=== PATIENT | male | born 1975 | race Caucasian/White ===

== ENCOUNTER 2024-09-13 12:09 | Inpatient (IN) | payer OTHER, BC, SELFPAY ==
[2024-09-13 12:10] VITALS: BP 136/90; PULSE 88; RESP 16; TEMP 36.7; O2SAT 98
--- NOTE | 2024-09-13 12:12 | ECG_ITS ---
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
--- NOTE | 2024-09-13 12:12 | CTR_ITS ---
PROCEDURE INFORMATION: Exam: CT Head Without Contrast Exam date and time: 09/13/2024 1:35 PM Age: 49 years old Clinical indication: Injury or trauma; Fall; Blunt trauma (contusions or hematomas); Additional info: Fall, head injury TECHNIQUE: Imaging protocol: Computed tomography of the head without contrast. Radiation optimization: All CT scans at this facility use at least one of these dose optimization techniques: automated exposure control; mA and/or kV adjustment per patient size (includes targeted exams where dose is matched to clinical indication); or iterative reconstruction. COMPARISON: No relevant prior studies available. RADIATION DOSE METRICS: Total DLP (mGy-cm): 2552.43 FINDINGS: Brain: Normal. No hemorrhage. Unremarkable white matter. No mass effect. Cerebral ventricles: No ventriculomegaly. Paranasal sinuses: Mild mucosal thickening of the left maxillary sinus. Mastoid air cells: Visualized mastoid air cells are well aerated. Bones: Unremarkable. No acute fracture. Soft tissues: Unremarkable. CT/CT head wo con* [id number] IMPRESSION: No acute findings.
--- NOTE | 2024-09-13 12:20 | ED.C_ITS ---
HPI - Psych 2 General: Chief Complaint: Psychiatric Symptoms Stated Complaint: MHE Time Seen by Provider: 09/13/24 12:10 History of Present Illness: 49-year-old [facility]ation. He is quite agitated. Police report that friends had to take a noose off of them twice and when they arrived he was on a second story balcony about the jump. He has had previous suicide attempts according police. He has an abrasion on his forehead apparently from resisting arrest. Related Data Allergies Allergy/AdvReac Type Severity Reaction Status Date / Time Penicillins Allergy Unknown Unknown Verified 09/13/24 13:24 Review of Systems 2 General: Reports: ROS unobtainable due to mental status Physical Exam 2 Narrative: EXAM NARRATIVE: General: Alert, no acute distress. Skin: Warm, dry. Head: Normocephalic, abrasion to forehead. Neck: Supple, trachea midline. Eye: Extraocular movements are intact. Ears, nose, mouth and throat: mucosa moist. Cardiovascular: Regular, Normal peripheral perfusion. Respiratory: Lungs are clear to auscultation, respirations are non-labored, breath sounds are equal, Symmetrical chest wall expansion. Gastrointestinal: Soft, Nontender, Non distended Musculoskeletal: Normal ROM, no deformity. Neurological: Alert and oriented, No focal neurological deficit observed. Psychiatric: Patient is quite agitated. Course 2 Vital Signs: Vital signs: Vital Signs Temperature 98.1 F 09/13/24 12:10 Pulse Rate 88 09/13/24 12:10 Respiratory Rate 16 09/13/24 12:10 Blood Pressure 136/90 09/13/24 12:10 Pulse Oximetry 98 09/13/24 12:10 Oxygen Delivery Me thod Room Air 09/13/24 12:10 MDM - Psych Medical Decision Making Differential diagnosis: Patient with reported depression and suicidal ideation. concerns for infection, alcohol intoxication, cardiac issues or other medical problems prior to psychiatric admission. Workup: labwork, ekg ordered to evaluate the pathologies and to clear the patient medically prior to psychiatric admission EKG: Time 1444. Rate 67. Normal sinus rhythm, No ST-T changes, no ectopy, normal MO & QRS intervals, This was reviewed and interpreted by myself the ER physician at 1448 CT head: No acute intracranial process. no intracranial hemorrhage, no evidence of infarct. no evidence of acute fracture.This was reviewed and interpreted by myself the ER physician. Lab Review: Laboratory results were reviewed and interpreted by myself the emergency room physician. Lab review: - Medically cleared. - EKG shows no ischemic changes. - Blood alcohol level is negative, -Tylenol and salicylate levels are negative. ?Urine drug screen and urinalysis are pending - No anemia. - BUN and creatinine are within normal limits. Consultation: Spoke with Dr. Mcgraw who is on-call for psychiatry who agrees to admission Assessment and plan: Suicidal ideation Agitation ?Patient received IM Geodon and Ativan in the emergency room -Admission to neuropsychiatric unit for continued evaluation and treatment. - All lab work was reviewed and interpreted personally by myself, the ER physician - Evaluation and treatment of this problem were appropriate in the emergency setting Lab Data 09/13/24 12:48 09/13/24 12:[address] 09/13/24 12:12 IMPRESSION: No acute findings. Laboratory Results WBC 9.68 10^3/uL (3.29-11.43) 09/13/24 12:48 RBC 4.67 10^6/uL (3.85-5.65) 09/13/24 12:48 Hgb 16.10 g/dL (11.27-16.99) 09/13/24 12:48 Hct 45.1 % (37-53) 09/13/24 12:48 MCV 96.6 fl (82-101) 09/13/24 12:48 MCH 34.5 pg (27-33) H 09/13/24 12:48 MCHC 35.7 g/dL (30-55) 09/13/24 12:48 RDW 12.2 % (12.1-15.1) 09/13/24 12:48 Plt Count 223 10^3/cmm (157-399) 09/13/24 12:48 MPV 9.3 fL (7.4-10.4) 09/13/24 12:48 Neut % (Auto) 81.0 % 09/13/24 12:48 Lymph % (Auto) 10.1 % 09/13/24 12:48 [place] % (Auto) 7.2 % 09/13/24 12:48 Eos % (Auto) 0.8 % 09/13/24 12:48 Baso % (Auto) 0.5 % 09/13/24 12:48 Neut # (Auto) 7.83 10^3/uL (1.8-7.7) H 09/13/24 12:48 Lymph # (Auto) 1.0 10^3/uL (0.8-4.8) 09/13/24 12:48 [place]ult[place] # (Auto) 0.7 10^3/uL (0.2-0.9) 09/13/24 12:48 Eos # (Auto) 0.1 10^3/uL (0.0-0.8) 09/13/24 12:48 Baso # (Auto) 0.1 10^3/uL (0.0-0.1) 09/13/24 12:48 Nucleated RBC % (auto) 0 % 09/13/24 12:48 Nucleated RBCs # 0.0 /100WBC 09/13/24 12:48 Sodium 140 mmol/L (136-145) 09/13/24 12:48 Potassium 4.1 mmol/L (3.5-5.1) 09/13/24 12:48 Chloride 107 mmol/L (98-107) 09/13/24 12:48 Carbon Dioxide 23 mmol/L (22-29) 09/13/24 12:48 Anion Gap 14.1 (5-19) 09/13/24 12:48 BUN 20 mg/dL (6-20) 09/13/24 12:48 Creatinine 0.8 mg/dL (0.7-1.2) 09/13/24 12:48 GFR Calculation 103.2 mL/min (90-130) 09/13/24 12:48 Glucose 124 mg/dL (65-115) H 09/13/24 12:48 Calculated Osmolality 294 mOsm/kg (285-295) 09/13/24 12:48 Calcium 8.6 mg/dL (8.5-10.5) 09/13/24 12:48 Total Bilirubin 1.1 mg/dL (0.15-1.2) 09/13/24 12:48 AST 22 U/L (0-40) 09/13/24 12:48 ALT 21 U/L (0-41) 09/13/24 12:48 Alkaline Phosphatase 85 U/L (40-130) 09/13/24 12:48 Total Protein 7.4 g/dL (6.6-8.7) 09/13/24 12:48 Albumin 4.5 g/dL (3.5-5.2) 09/13/24 12:48 Globulin 2.9 g/dL (1.3-4.6) 09/13/24 12:48 TSH 0.60 uIU/mL (0.27-4.20) 09/13/24 12:48 Salicylates < 0.3 mg/dL (3-10) L 09/13/24 12:48 Acetaminophen < 5.0 ug/mL (10-30) L 09/13/24 12:48 Ethyl Alcohol < 10 mg/dL (0-10) 09/13/24 12:48 All radiology interpretation(s) finalized by discharge Discharge Plan Discharge Patient Disposition: Admitted As Inpatient Admit Provider: Akshat Mcgraw Clinical Impression: Suicidal ideation Condition: Stable Coding Level of Care Code ED Inside Barrel Polisher for Jose Handy
[2024-09-13 12:56] LABS: Basophils # 0.1 10^3/uL (0.0-0.1); Basophils % 0.5 %; Eosinophils # 0.1 10^3/uL (0.0-0.8); Eosinophils % 0.8 %; Hematocrit 45.1 % (37-53); Lymphocytes % 10.1 %; Mean Corpuscular HGB Conc 35.7 g/dL (30-55); Mean Corpuscular Hemoglobin 34.5 pg (27-33); Mean Corpuscular Volume 96.6 fl (82-101); Mean Platelet Volume 9.3 fL (7.4-10.4); Monocytes # 0.7 10^3/uL (0.2-0.9); Monocytes % 7.2 %; Neutrophils # 7.83 10^3/uL (1.8-7.7); Nucleated Red Blood Cells % 0 %; Platelet Count 223 10^3/cmm (157-399); Red Blood Count 4.67 10^6/uL (3.85-5.65); Red Cell Distribution Width 12.2 % (12.1-15.1); White Blood Count 9.68 10^3/uL (3.29-11.43)
[2024-09-13 13:20] LABS: Alanine Aminotransferase 21 U/L (0-41); Albumin Level 4.5 g/dL (3.5-5.2); Alkaline Phosphatase 85 U/L (40-130); Anion Gap 14.1 (5-19); Aspartate Amino Transferase 22 U/L (0-40); Blood Urea Nitrogen 20 mg/dL (6-20); Calcium 8.6 mg/dL (8.5-10.5); Carbon Dioxide 23 mmol/L (22-29); Chloride 107 mmol/L (98-107); Globulin 2.9 g/dL (1.3-4.6); Glomerular Filtration Rate 103.2 mL/min (90-130); Glucose 124 mg/dL (65-115); Osmolality Calculated 294 mOsm/kg (285-295); Potassium 4.1 mmol/L (3.5-5.1); Sodium 140 mmol/L (136-145); Total Bilirubin 1.1 mg/dL (0.15-1.2); Total Protein 7.4 g/dL (6.6-8.7)
[2024-09-13] MEDS: ziprasidone 20 mg/mL SDV IM (13:25)
[2024-09-13] MEDS: water for injection-sterile 10 ML 1.2 ML (13:27)
[2024-09-13] MEDS: LORazepam 2 mg/mL INJ 1 mL IM (13:27)
[2024-09-13 13:34] LABS: Salicylate < 0.3 mg/dL (3-10)
[2024-09-13 13:35] LABS: Acetaminophen < 5.0 ug/mL (10-30); Alcohol Level < 10 mg/dL (0-10)
[2024-09-13 15:33] VITALS: BP 121/85; PULSE 78; RESP 16; TEMP 36.7; O2SAT 98
[2024-09-13 15:59] LABS: Glucose Point of Care 74 mg/dL (70-110)
--- NOTE | 2024-09-13 16:12 | PC.NURSE ---
Patient given geodon IM and ativan IM in the ER before arriving to NPU. When patient arrived to the unit he appeared very groggy and was delayed in speech. He was A&O x 4. Patient does have bruising and swelling to his right forehead, bilateral wrists, bilateral hands, his right cheek, and scratched on bilateral shins. He states this is from the police tackling him and putting him in handcuffs on gravel. It was reported he had a rope around his neck and was planning to hang himself from the second story of his home when they arrived. When asked what had led him to feel like doing this he replied, they wanted me to do something I didn't want to be forced to do. When asked what the something was he said, fishing. However, later in the assessment when asked what his hobbies are he listed fishing as one of them. He does endorse a suicide attempt 2 weeks ago via hanging and he was hospitalized at [facility]. Patient denies any history of abuse, avh, legal problems, or current si/hi. Patient did disclose that his dad killed himself approximately 4-5 years ago. Although patient told this RN he didn't have any medical issues, per his medication history it appears he is a diabetic. Due to the patient's delay in speech and him appearing confused his blood sugar was taken and read at 74. He was given apple juice.
--- NOTE | 2024-09-13 17:01 | PC.NURSE ---
This RN contacted the patient's , who is on his HIPAA form, to verify his home medications. She confirmed all names, directions, dosages, and routes of each medication in the MAR. She also stated his effexor 150mg daily and zoloft 100mg daily had been discontinued. She said 1 week and 3 days ago he was released from the hospital in [place], [place] for suicidal actions as well. She says that he was also recently at [facility]. The states that [facility] doctors diagnosed him with major depression, while [facility] diagnosed him with bipolar disorder. She says his suicidal actions/thoughts became apparent in 2019 when his father . Then she said he began having issues again after their son played his last ballgame. She reports he hung himself in their bathroom 3 weeks ago and she had to have their 13 year old daughter help her and began CPR once the ligature was removed.
[2024-09-13] MEDS: hyDROXYzine 25 mg Capsule 50 MG PO (20:45)
[2024-09-13] MEDS: mirtazapine 15 mg Tablet 30 MG PO (20:45)
[2024-09-13] MEDS: quetiapine 100 mg Tablet 400 MG PO (20:45)
[2024-09-13 21:12] VITALS: BP 132/94; PULSE 71; RESP 16; TEMP 36.7; O2SAT 99
[2024-09-13 21:26] LABS: Glucose Point of Care 96 mg/dL (70-110)
[2024-09-13 21:27] VITALS: BP 132/94; PULSE 71; RESP 16; TEMP 36.7; O2SAT 99
[2024-09-14 06:00] VITALS: BP 129/85; PULSE 103; RESP 18; TEMP 36.7; O2SAT 98
[2024-09-14 07:49] LABS: Glucose Point of Care 140 mg/dL (70-110)
--- NOTE | 2024-09-14 07:57 | P.NPUHP_ITS ---
Providers/Chief Complaint 2 Admitting Physician: Akshat Mcgraw MD Chief Complaint: MHE HPI NPU History of Present Illness Solitario Jerez is a 49 year old male who presented to the emergency department with the following report: Chief Complaint: Psychiatric Symptoms Stated Complaint: MHE Time Seen by Provider: 09/13/24 12:10 History of Present Illness: 49-year-old male who presents to the emergency room with police for suicidal ideation. He is quite agitated. Police report that friends had to take a noose off of them twice and when they arrived he was on a second story balcony about the jump. He has had previous suicide attempts according police. He has an abrasion on his forehead apparently from resisting arrest. He was admitted to the neuropsychiatric unit for definitive treatment of those issues. He is unknown to inpatient or outpatient psychiatry at [facility]. He presented today denying substance use concerns but still not giving a UDS for objective information. He presented today reporting: Chief complaint The patient was recently hospitalized due to panic and anxiety. The primary struggle is with major depression, characterized by low mood, feelings of helplessness, hopelessness, worthlessness, poor sleep, and low energy. There are times when the patient feels like not wanting to be around. History of the present complaint The patient reported being recently hospitalized due to panic and anxiety, marking this as their third or fourth hospitalization. They have been on psychiatric medication, specifically Viibryd, which was recently prescribed during their last hospital stay about a week or two ago. The patient was unsure of the exact dosage of the medication and who prescribed it. The patient's primary struggle is with major depression, characterized by low mood, feelings of helplessness, hopelessness, worthlessness, poor sleep, and low energy. There are times when the patient feels like they do not want to be around. They have attempted suicide once in the past by trying to hang themselves. In addition to depression, the patient also suffers from anxiety, which manifests as constant worrying. They also experience panic attacks, characterized by physical symptoms such as hyperventilation. However, they denied experiencing paranoia, hearing voices, seeing things, having nightmares or flashbacks, or engaging in self-injurious behavior such as cutting or burning themselves. The patient denied any addiction issues, including smoking cigarettes, using alcohol, cannabis, or other drugs such as cocaine or methadone. They have not had any charges related to addiction. The patient's mood at the time of the consultation was not specified. They denied having any current thoughts of self-harm or harming others, and did not report feeling like people were out to get them or following them. They also denied hearing or seeing things. Regarding the effectiveness of their current medication, the patient was unsure if the Viibryd was working. They had been on it for an unspecified amount of time, but were unsure if they were on the 40mg dose. They had been on this medication before and had stopped it at some point. The patient also mentioned being on another medication, but could not recall what it was. The patient reported a lack of appetite. They did not mention any other symptoms, triggers, risk factors, functional or emotional impairments, challenges or obstacles, important events or traumas, thoughts, beliefs, feelings, aspirations, fears, dreams, nightmares, or previous treatments, interventions, and therapies. Mental health history The patient has been hospitalized three or four times in their life. They have been on various psychiatric medications, including Viibryd. The patient has a history of suicide attempt by hanging. There is no history of self-injurious behavior like cutting or burning. The patient also struggles with anxiety, characterized by constant worry and occasional panic attacks. There is no history of paranoia, hallucinations, or obsessive-compulsive behaviors. Social history The patient does not smoke cigarettes, consume alcohol, or use any drugs, including cannabis, cocaine, and methadone. There is no history of addiction or charges related to addiction. The patient has been once and has three children with their ex-spouse. The patient identifies as heterosexual. The longest job held was at a different [employer]. The patient lives in a house and has never been to halfway or had any major legal problems. The patient has a high school education and has a certificate in [employer]. Meds NPU Home Medications Medication Instructions Recorded Confirmed Last Taken Type alfuzosin 10 mg tablet,extended 10 mg PO DAILY 09/13/24 09/13/24 Unknown History release 24 hr dapagliflozin propanediol 5 mg 5 mg PO DAILY 09/13/24 09/13/24 Unknown History tablet (Farxiga) dulaglutide 0.75 mg/0.5 mL 0.75 mg SUBCUT Q7D 09/13/24 09/13/24 Unknown History subcutaneous pen injector (Trulicity) lisinopril 20 mg tablet 20 mg PO DAILY 09/13/24 09/13/24 Unknown History lisinopril 20 20 - 25 tab PO DAILY 09/13/24 09/13/24 Unknown History mg-hydrochlorothiazide 25 mg tablet lorazepam 0.5 mg tablet 0.5 mg PO BID PRN Anxiety 09/13/24 09/13/24 Unknown History mirtazapine 15 mg tablet 30 mg PO BEDTIME 09/13/24 09/13/24 Unknown History pramipexole 0.25 mg tablet 0.25 mg PO DAILY 09/13/24 09/13/24 Unknown History quetiapine 200 mg tablet 400 mg PO BEDTIME 09/13/24 09/13/24 Unknown History sertraline 100 mg tablet 100 mg PO DAILY 09/13/24 09/13/24 Unknown History tamsulosin 0.4 mg capsule 0.4 mg PO DAILY 09/13/24 09/13/24 Unknown History venlafaxine 150 mg 150 mg PO DAILY 09/13/24 09/13/24 Unknown History capsule,extended release 24 hr vilazodone 20 mg tablet 20 mg PO DAILY 09/13/24 09/13/24 Unknown History zolpidem 12.5 mg tablet,extended 12.5 mg PO BEDTIME 09/13/24 09/13/24 Unknown History release,multiphase Allergies Allergy/AdvReac Type Severity Reaction Status Date / Time Penicillins Allergy Unknown Unknown Verified 09/13/24 13:24 PFSH NPU 2 PFSH: Medical History (Updated 09/15/24 @ 06:27 by Akshat Mcgraw MD) Depression Type 2 diabetes mellitus Hypertension Family History (Updated 09/13/24 @ 16:02 by Gill Arias RN) Father Suicide Mental Status Exam 2 MSE Comments: This is an overweight white male in hospital scrubs with adequate grooming and eye contact. Notable abrasions over right side of forehead and cheek around right occipital area. No abnormal movements except for psychomotor retardation.?He was cooperative with exam in mild to moderate distress.? Speech was decreased rate and volume.? Mood described as as blah, his affect was subdued. Thought process was linear. Thought content: Patient endorsed fleeting suicidal thoughts and denied homicidal ideation, but did endorse having it actual suicide attempt in the previous week. There were no delusions reported or but some paranoia noted, he denied auditory or visual hallucinations. The patient's mood was okay during the consultation. There were no current thoughts of self-harm or harm to others. There were no signs of paranoia or hallucinations. The patient's appetite was reported to be low. Attention and concentration were adequate and memory was mostly reliable but none were formally tested.? He is alert and oriented x to person and place.? Insight was poor and judgment is impaired. Impulse control is poor. Vitals/I&O/Wt Last Vital Signs Temp 98.0 F 09/14/24 06:00 Pulse 103 H 09/14/24 06:00 Resp 18 09/14/24 06:00 BP 129/85 09/14/24 06:00 Pulse Ox 98 09/14/24 06:00 O2 Del Method Room Air 09/13/24 15:34 09/13/24 09/14/24 09/14/24 22:59 06:59 14:59 Intake Total Balance Weight last 48 hrs Weight 87.906 kg Weight 86.183 kg Data NPU 09/14/24 11:27 09/14/24 11:27 A&P Assessment and plan (1) Suicidal ideation: (2) Type 2 diabetes mellitus: (3) Hypertension: (4) Major depressive disorder, recurrent: (5) Bereavement: (6) BROCK (generalized anxiety disorder): Plan This is a 49-year-old white male with limited past psychiatric history but recent bereavement and suicide attempt.The patient has a history of major depression and anxiety, with a recent hospitalization due to panic attacks. The patient is currently on psychiatric medication, including Viibryd, but the efficacy of the medication is uncertain. The patient has a history of suicide attempt but no current suicidal ideation. The patient's mood was stable during the consultation. 1. Restart medications. Family to bring in current medications and there are few that are not on formulary. 2. Continue to-15 minute checks, 3.? Encourage individual, group and milieu therapy. 4.? Encourage sober living treatment after discharge at the highest level of care to which he is willing to commit.? Obtain UDS. 5. Will attempt to gather collateral information. Involuntary Hold Information 2 96 Hour Hold: 96 Hour Involuntary Admission: Yes 96 Hour Hold Ending Date: 09/19/24 96 Hour Hold Ending Time: 00:01 Attestations NPU 2 Medical Necessity Statement*: Inpatient hospitalization is medically necessary and deemed to ?be ?the clinically appropriate intervention ?at this time.? We will monitor/initiate medications and make changes as indicated.? The patient will be in the hospital for over 2 midnights.? The patient?s likely length of stay 5-7 days. Coding Level of Care Code Acute Code for Chg Fwd Diagnoses Suicidal ideation R45.851 Type 2 diabetes mellitus E11.9 Hypertension I10 Major depressive disorder, recurrent F33.9 Bereavement Z63.4 BROCK (generalized anxiety disorder) F41.1
--- NOTE | 2024-09-14 09:02 | PC.NURSE ---
Patient's brother called and requested that he be taken off of all of his mind altering medications . He said he thinks Solitario needs to be taken off of all his medications and needs to rely on Jason to help him. He also mentioned that he would like a tick panel be done to make sure he didn't have lyme disease.
--- NOTE | 2024-09-14 09:07 | PC.NURSE ---
Contacted patient's who is going to bring in his non-formulary medications when she comes to visit him today.
[2024-09-14] MEDS: OLANZapine 5 mg ODT PO (09:46)
--- NOTE | 2024-09-14 09:49 | PC.NURSE ---
Patient refused to take morning medications, stating that he does not typically take them. Patient pacing around his room, appears anxious. This nurse offered medication for this. Patient willing to take something. Patient has abrasion on forehead. Patient denies any pain. Ibuprofen offered for future pain. Understanding verbalized. Patient denies need for nicotine products. Patient says he no longer feels suicidal but that he did feel like hurting himself last week. Patient endorses anxiety and depression. Denies AVH. Administered zyprexa 5mg ODT for anxiety.
--- NOTE | 2024-09-14 11:09 | P.CONIM_ITS ---
Providers/Reason For Consult 2 Consulting Physician/Specialty*: Dr. Cox/internal medicine Reason for Consult*: History of diabetes mellitus Attending Physician: Akshat Mcgraw MD History of Present Illness History of Present Illness Solitario Jerez is a 49 year old male with past medical history of depression, BPH, hypertension, type 2 diabetes mellitus on Trulicity was admitted to Neuropsych Unit with concerns for suicidal ideation and attempt. Medicine was consulted for management of diabetes. It seems patient takes Farxiga and Trulicity at home. Patient seen and Neuropsych Unit with family at bedside. As per the patient is not taking Farxiga for a long time. She does not believe patient has even taken Trulicity in over a month. Patient is not sure for how long he has not taken his medications. Takes lisinopril and hydrochlorothiazide combination for high blood pressure. Review of Systems 2 General: Reports: 10 or more systems reviewed and unremarkable except in HPI and below Const: Denies: fever(s), chills, body aches, change in appetite, change in weight, malaise, night sweats, diaphoresis, change in sleep pattern, daytime sleepiness or snoring Eyes: Denies: change in vision, blurry vision, photophobia, eye discomfort or eye discharge ENMT: Denies: throat pain, enlarged tonsils, hoarseness, mouth pain, oral sores, dry mouth, tinnitus, nasal congestion or post nasal drip Card: Denies: chest pain, palpitations, irregular heart rhythm, edema, swelling of feet/ankles, lightheadedness, syncope, pre-syncope, dyspnea on exertion, orthopnea, leg pain with exertion or acrocyanosis Resp: Denies: dyspnea, productive cough, non-productive cough, wheezing, stridor, pain on inspiration, change in phlegm color, hemoptysis or chest congestion GI: Denies: abdominal pain, nausea, vomiting, hematemesis, coffee ground emesis, dysphagia, heartburn, diarrhea, constipation, bloating, GI cramping, change in bowel habits, pain on defecation, hematochezia or melena : Denies: flank pain, difficulty urinating, dysuria, urinary frequency, urinary urgency, urinary hesitancy, urinary dribbling, difficulty starting urination, change in urine stream, nocturia or hematuria Musc: Denies: neck pain, back pain, extremity pain, joint pain, joint swelling, joint redness, joint stiffness or limited range of motion Neuro: Denies: headache(s), numbness in extremities, weakness in extremities, sensory changes, lack of coordination, difficulty walking, frequent falls, dizziness, vertigo, confusion, Slurred speech present, difficulty communicating thoughts or seizure-like activity Psych: Denies: anxiety, depression, mood swings, panic attacks, hopelessness or irritability Endo: Denies: polyuria, polydipsia, tired all the time, cold intolerance, excessive sweating, flushing or heat intolerance Jesús/Lymph: Denies: easy bruising or easy bleeding All/Imm: Denies: tongue swelling, facial swelling or acute wheezing Medications/Allergies Home Medications Medication Instructions Recorded Confirmed Last Taken Type alfuzosin 10 mg tablet,extended 10 mg PO DAILY 09/13/24 09/13/24 Unknown History release 24 hr dapagliflozin propanediol 5 mg 5 mg PO DAILY 09/13/24 09/13/24 Unknown History tablet (Farxiga) dulaglutide 0.75 mg/0.5 mL 0.75 mg SUBCUT Q7D 09/13/24 09/13/24 Unknown History subcutaneous pen injector (Trulicity) lisinopril 20 mg tablet 20 mg PO DAILY 09/13/24 09/13/24 Unknown History lisinopril 20 20 - 25 tab PO DAILY 09/13/24 09/13/24 Unknown History mg-hydrochlorothiazide 25 mg tablet lorazepam 0.5 mg tablet 0.5 mg PO BID PRN Anxiety 09/13/24 09/13/24 Unknown History mirtazapine 15 mg tablet 30 mg PO BEDTIME 09/13/24 09/13/24 Unknown History pramipexole 0.25 mg tablet 0.25 mg PO DAILY 09/13/24 09/13/24 Unknown History quetiapine 200 mg tablet 400 mg PO BEDTIME 09/13/24 09/13/24 Unknown History sertraline 100 mg tablet 100 mg PO DAILY 09/13/24 09/13/24 Unknown History tamsulosin 0.4 mg capsule 0.4 mg PO DAILY 09/13/24 09/13/24 Unknown History venlafaxine 150 mg 150 mg PO DAILY 09/13/24 09/13/24 Unknown History capsule,extended release 24 hr vilazodone 20 mg tablet 20 mg PO DAILY 09/13/24 09/13/24 Unknown History zolpidem 12.5 mg tablet,extended 12.5 mg PO BEDTIME 09/13/24 09/13/24 Unknown History release,multiphase Allergies Allergy/AdvReac Type Severity Reaction Status Date / Time Penicillins Allergy Unknown Unknown Verified 09/13/24 13:24 Current Medications Generic Name Dose Route Start Last Admin Trade Name Freq PRN Reason Stop Dose Admin Alfuzosin HCl 10 mg 09/14/24 09:00 09/14/24 10:21 Alfuzosin 10 Mg Er Tablet PO Not Given DAILY MAXIME Hydrochlorothiazide 25 mg 09/14/24 09:00 09/14/24 10:21 Hydrochlorothiazide 25 Mg Tablet PO Not Given DAILY MAXIME Hydroxyzine Pamoate 50 mg 09/13/24 15:33 09/13/24 20:45 Hydroxyzine 25 Mg Capsule PO 50 mg Q6H PRN Administration ANXIETY Lisinopril 20 mg 09/14/24 09:00 09/14/24 10:21 Lisinopril 20 Mg Tablet PO Not Given DAILY MAXIME Mirtazapine 30 mg 09/13/24 21:00 09/13/24 20:45 Mirtazapine 15 Mg Tablet PO 30 mg BEDTIME MAXIME Administration Olanzapine 5 mg 09/13/24 15:33 09/14/24 09:46 Olanzapine 5 Mg Odt PO 5 mg Q4H PRN Administration Agitation/Psychosis Pramipexole Dihydrochloride 0.25 mg 09/14/24 09:00 09/14/24 10:21 Pramipexole 0.25 Mg Tablet PO Not Given DAILY MAXIME Quetiapine Fumarate 400 mg 09/13/24 21:00 09/13/24 20:45 Quetiapine 100 Mg Tablet PO 400 mg BEDTIME MAXIME Administration Sertraline HCl 100 mg 09/14/24 09:00 09/14/24 10:21 Sertraline 100 Mg Tablet PO Not Given DAILY MAXIME Tamsulosin HCl 0.4 mg 09/14/24 09:00 09/14/24 10:21 Tamsulosin 0.4 Mg Capsule PO Not Given DAILY MAXIME PFSH Acute 2 PFSH: Medical History (Updated 09/14/24 @ 13:45 by Feliciano Cox MD) Depression Type 2 diabetes mellitus Hypertension Family History (Updated 09/13/24 @ 16:02 by Gill Arias RN) Father Suicide Vitals/I&O/Wt Last Vital Signs Temp 98.0 F 09/14/24 06:00 Pulse 103 H 09/14/24 06:00 Resp 18 09/14/24 06:00 BP 129/85 09/14/24 06:00 Pulse Ox 98 09/14/24 06:00 O2 Del Method Room Air 09/13/24 15:34 09/13/24 09/14/24 09/14/24 22:59 06:59 14:59 Intake Total Balance Weight last 48 hrs Weight 87.906 kg Weight 86.183 kg Physical Exam 2 Narrative: General: No acute distress, AO x3 HEENT: PERRLA, pupils bilaterally equal and reactive Chest: Normal vesicular breath sounds, no added sounds, equal good air entry bilaterally CVS: S1-S2 regular, no murmurs, no tachycardia, no gallops, no rubs Abdomen: Soft, nontender, no organomegaly, bowel sounds present Neuro: No focal deficits, no facial deformity, AO x3, power 5/5 in all limbs Data 09/14/24 11:27 09/14/24 11:27 A&P Assessment and plan (1) Type 2 diabetes mellitus: A1c checked today and found to be 5.5. Since patient takes Farxiga and Trulicity at home. A1c fairly well-controlled. For now can hold off on home dose of medications. Start on insulin sliding scale. It seems patient has not taken his antidiabetic medications for a while. A1c found to be 5.5. Most likely patient can be discharged off oral hypoglycemic with advised to follow-up with PCP within next 3 months for a repeat A1c. If A1c remains normal most likely can hold off on using antiglide diabetic medications. (2) Hypertension: Goal blood pressure less than 140/90 mmHg. For now continue with home dose of medications. Uptitrate as per goal blood pressures. (3) Depression: (4) Suicidal ideation: As per primary team. Plan Appreciate TSH, check A1c, iron panel, vitamin B12, folate level, lipid panel. Thank you for involving us in care of Mr. Jerez. Please call back with any questions. Consult Attestations 2 Medical Necessity Statement: As per primary team. Diagnoses Type 2 diabetes mellitus E11.9 Hypertension I10 Depression F32.A Suicidal ideation R45.852
[2024-09-14 11:36] LABS: Basophils % 0.4 %; Eosinophils % 0.3 %; Hematocrit 45.2 % (37-53); Lymphocytes # 1.3 10^3/uL (0.8-4.8); Lymphocytes % 13.9 %; Mean Corpuscular HGB Conc 35.4 g/dL (30-55); Mean Corpuscular Hemoglobin 33.6 pg (27-33); Mean Platelet Volume 9.4 fL (7.4-10.4); Monocytes # 0.7 10^3/uL (0.2-0.9); Monocytes % 7.2 %; Neutrophils # 7.51 10^3/uL (1.8-7.7); Neutrophils % 77.8 %; Nucleated Red Blood Cells % 0 %; Platelet Count 251 10^3/cmm (157-399); Red Blood Count 4.76 10^6/uL (3.85-5.65); Red Cell Distribution Width 12.2 % (12.1-15.1); White Blood Count 9.66 10^3/uL (3.29-11.43)
[2024-09-14 11:38] LABS: Glucose Point of Care 93 mg/dL (70-110)
[2024-09-14 11:54] LABS: Estmated Average Glucose 111; Hemoglobin A1C 5.5 % (4.0-6.0)
[2024-09-14 11:55] LABS: Alanine Aminotransferase 23 U/L (0-41); Albumin Level 4.6 g/dL (3.5-5.2); Alkaline Phosphatase 75 U/L (40-130); Anion Gap 16.2 (5-19); Aspartate Amino Transferase 25 U/L (0-40); Blood Urea Nitrogen 16 mg/dL (6-20); Calcium 8.7 mg/dL (8.5-10.5); Carbon Dioxide 22 mmol/L (22-29); Chloride 110 mmol/L (98-107); Creatinine Clr Calc Pharmacy 112.1071; Globulin 2.5 g/dL (1.3-4.6); Glomerular Filtration Rate 90.1 mL/min (90-130); Glucose 101 mg/dL (65-115); Iron 55 ug/dL (59-158); Osmolality Calculated 299 mOsm/kg (285-295); Percent Saturation 26.9 % (20-50); Potassium 4.2 mmol/L (3.5-5.1); Sodium 144 mmol/L (136-145); Total Bilirubin 1.9 mg/dL (0.15-1.2); Total Iron Binding Capacity 204 mcg/dl; Total Protein 7.1 g/dL (6.6-8.7); Unsaturated Iron Binding 149 ug/dL (112-347)
[2024-09-14 12:10] LABS: Vitamin B12 454 pg/mL (232-1245)
[2024-09-14 14:00] VITALS: BP 136/81; PULSE 83; RESP 16; TEMP 36.4; O2SAT 95
--- NOTE | 2024-09-14 15:20 | PC.NURSE ---
Zolpidem and vilazodone not given last night or this morning due to it being a non-formulary medication. Patient's brought in both medications at 1500. Medications to be given going forward per doctor ananth order.
[2024-09-14 17:07] LABS: Glucose Point of Care 98 mg/dL (70-110)
[2024-09-14] MEDS: haloperidol 5 mg Tablet PO (18:12)
--- NOTE | 2024-09-14 18:13 | PC.NURSE ---
Haldol Patient agreeable after about 1 hour to take something for anxiety. This nurse administered haldol 5mg PO. Patient stated that vistaril doesn't help and that he didn't notice much difference after taking zyprexa. Patient is concerned about medications making him sleepy as he does not want to sleep. Patient up pacing around his room throughout this shift.
[2024-09-14 20:14] VITALS: BP 144/95; PULSE 82; RESP 18; TEMP 36.6; O2SAT 95
[2024-09-14] MEDS: mirtazapine 15 mg Tablet 30 MG PO (20:25)
[2024-09-14] MEDS: quetiapine 100 mg Tablet 400 MG PO (20:25)
[2024-09-14 20:32] LABS: Glucose Point of Care 91 mg/dL (70-110)
[2024-09-15 06:00] VITALS: BP 128/81; PULSE 93; RESP 17; O2SAT 96
[2024-09-15 08:00] LABS: Glucose Point of Care 96 mg/dL (70-110)
[2024-09-15] MEDS: lisinopril 20 mg Tablet PO (08:20)
--- NOTE | 2024-09-15 08:32 | PC.NURSE ---
Patient guarded during morning assessment. Patient denies suicidal thoughts. This nurse attempted to understand what caused his previous suicide attempt, but patient was not forth coming. Patient says that he does not have any anxiety or depression. Patient educated that staff is here to help. Patient verbalized understanding. Patient refused all morning meds except two, stating that he does not normally take the others.
[2024-09-15 10:13] LABS: Folate Level 11.3 ng/mL (4.5-32.2)
[2024-09-15 12:00] LABS: Glucose Point of Care 106 mg/dL (70-110)
--- NOTE | 2024-09-15 12:40 | PC.NURSE ---
PTS BROTHER ALEXANDRE SHAIKH CALLED TO SPEAK TO PT. THIS RN INFORMED PT THAT HIS BROTHER WAS ON THE PHONE AND ASKED IF HE WANTED TO SPEAK TO HIM AND PUT HIM ON HIS PRIVACY FORM. PT STATED YOU CAN TELL HIM I AM HERE BUT I DON'T WANT TO TALK TO NO ONE AND I DON'T WANT TO VISIT NO ONE. INFORMATION RELAYED TO BROTHER AND HE STATES WELL IF I COME UP THERE YOU WILL LET ME GO IN AND SEE HIM RIGHT. PTS BROTHER WAS EDUCATED THAT IF THE PT DID NOT WANT TO SEE HIM OR SPEAK TO HIM THEN WE WOULD NOT ALLOW HIM TO VISIT PER THE PTS REQUEST OR SPEAK TO HIM ON THE PHONE. PTS RIGHTS AND REQUESTS ARE HONORED SO IT WOULD BE UP TO THE PT. NO FURTHER INFORMATION OR QUESTIONS WERE ANSWERED.
[2024-09-15 14:00] VITALS: BP 136/88; PULSE 79; RESP 16; TEMP 36.8; O2SAT 97
--- NOTE | 2024-09-15 15:01 | P.NPUPN_ITS ---
Subjective NPU 2 Subjective: 49-year-old male with history of major d epressive disorder recurrent without psychotic features admitted with worsening depression over the past 4 months. The patient had reported having been hospitalized 2 times in the last 2 weeks with an attempt to hang himself less than 2 weeks ago. The patient had continued to report feeling depressed and stated that he wanted this to be all over. He had endorsed significant mental anguish. He had isolated himself on the milieu. He had reported a previous good response to a vilazadone but was uncertain about the dose but did report remission from depression with this medication. The patient had reported that he had not yet started psychotherapy and he had previously been working. Mental Status Exam 2 MSE Comments: This is an overweight white male in hospital scrubs with adequate grooming and eye contact. Notable abrasions over right side of forehead and cheek around right occipital area. No abnormal movements except for signifcant psychomotor retardation.?He was cooperative with exam in mild to moderate distress.? Speech was decreased in rate and diminished in volume. ? Mood described as as depressed. His affect was restricted in range and mood congruent. Thought process was linear. Thought content: Patient endorsed fleeting suicidal thoughts and denied homicidal ideation, but did endorse having it actual suicide attempt in the previous week. There were no delusions reported or but some paranoia noted, he denied auditory or visual hallucinations. There were no current thoughts of self-harm or harm to others. There were no signs of paranoia or hallucinations. The patient's appetite was reported to be low. Attention and concentration were adequate and memory was mostly reliable but none were formally tested.? He is alert and oriented x to person and place.? Insight was poor and judgment is impaired. Impulse control is poor. Vitals/I&O/Wt Last Vital Signs Temp 98.2 F 09/15/24 14:00 Pulse 79 09/15/24 14:00 Resp 16 09/15/24 14:00 BP 136/88 09/15/24 14:00 Pulse Ox 97 09/15/24 14:00 O2 Del Method Room Air 09/15/24 14:00 Weight last 48 hrs Weight 87.906 kg Weight 86.183 kg Data NPU 09/14/24 11:27 09/14/24 11:27 A&P Assessment and plan (1) Suicidal ideation: (2) Type 2 diabetes mellitus: (3) Hypertension: (4) Major depressive disorder, recurrent: (5) Bereavement: (6) BROCK (generalized anxiety disorder): Plan This is a 49-year-old white male with limited past psychiatric history but recent bereavement and suicide attempt.The patient has a history of major depression and anxiety, with a recent hospitalization due to panic attacks. The patient is currently on psychiatric medication, including Viibryd, but the efficacy of the medication is uncertain. The patient has a history of suicide attempt but no current suicidal ideation. The patient's mood was stable during the consultation. 1. Continue Viibryd, discontinue Zoloft, discontinue Effexor. Restart Viibryd with increase to 40mg likely. 2. Continue to-15 minute checks, 3.? Encourage individual, group and milieu therapy. 4.? Encourage sober living treatment after discharge at the highest level of care to which he is willing to commit.? Obtain UDS. 5. Will attempt to gather collateral information. Involuntary Hold Information 2 96 Hour Hold: 96 Hour Involuntary Admission: Yes 96 Hour Hold Ending Date: 09/19/24 96 Hour Hold Ending Time: 00:01 Attestations NPU 2 Medical Necessity Statement*: Inpatient hospitalization is medically necessary and deemed to ?be ?the clinically appropriate intervention ?at this time.? We will monitor/initiate medications and make changes as indicated.? ? The patient?s likely length of stay 5-7 days. Coding Level of Care Code Acute Code for [facility] Fwd Diagnoses Suicidal ideation R45.851 Type 2 diabetes mellitus E11.9 Hypertension I10 Major depressive disorder, recurrent F33.9 Bereavement Z63.4 BROCK (generalized anxiety disorder) F41.1
[2024-09-15 17:01] LABS: Glucose Point of Care 112 mg/dL (70-110)
[2024-09-15 19:28] VITALS: BP 113/73; PULSE 76; RESP 16; TEMP 36.6; O2SAT 95
[2024-09-15 20:01] LABS: Glucose Point of Care 86 mg/dL (70-110)
[2024-09-15] MEDS: quetiapine 100 mg Tablet 400 MG PO (20:12)
[2024-09-15] MEDS: mirtazapine 15 mg Tablet 30 MG PO (20:12)
[2024-09-15] MEDS: acetaminophen 325 mg Tablet 650 MG PO (21:14)
[2024-09-16 06:00] VITALS: BP 122/84; PULSE 86; RESP 18; TEMP 36.9; O2SAT 97
[2024-09-16 06:57] LABS: Bilirubin Urine Negative (Negative); Blood Urine Negative (Negative); Glucose Urine UA Negative (Normal); Ketones Urine Negative (Negative); Leukocyte Esterase Urine Negative (Negative); Nitrate Urine Negative (Negative); Protein Urine Negative (Negative); Specific Gravity, Urine 1.026 (1.005-1.030); Urine Appearance Cloudy (CLEAR); Urine Color Yellow (Yellow); pH Urine 6.5 (5-7)
[2024-09-16 07:02] LABS: Bacteria Urine None Seen /hpf; Squamous Epithelial Cell Urine 0-5 /hpf (0-5); WBC Urine 0-5 /hpf (0-5)
[2024-09-16 07:12] LABS: Amphetamines Screen Urine Negative (Negative); Barbiturates Screen Urine Negative (Negative); Benzodiazepines Screen Urine Positive (Negative); Cocaine Screen Urine Negative (Negative); Opiate Screen Urine Negative (Negative); PCP Screen Urine Negative (Negative); THC Screen Urine Negative (Negative)
[2024-09-16 07:28] LABS: Glucose Point of Care 140 mg/dL (70-110)
[2024-09-16 07:35] LABS: Add Urine Culture? No; Calcium Oxalate Crystals Urine 25-40 /hpf
[2024-09-16] MEDS: lisinopril 20 mg Tablet PO (08:28)
[2024-09-16] MEDS: pramipexole 0.25 mg Tablet PO (08:28)
[2024-09-16] MEDS: tamsulosin 0.4 mg Capsule PO (08:28)
[2024-09-16] MEDS: hydroCHLOROthiazide 25 mg Tablet PO (08:28)
[2024-09-16] MEDS: alfuzosin 10 mg ER Tablet PO (08:28)
[2024-09-16] MEDS: OLANZapine 5 mg ODT PO ×2 (08:31→13:13)
--- NOTE | 2024-09-16 09:32 | PC.NURSE ---
Patient denies si/hi and avh. However, patient was found with a broken spoon in his room and in his hand. Patient was asked about this, but said it was not done to hurt himself and that he was just needing something to do with his hands. Staff confiscated the broken pieces and flipped his room, including changing his linens and going through his trash bag with gloves. Patient was also checked for any other contraband and another small piece of plastic was obtained. It was decided that he should be moved to bed 151 to have his bed in front of the nurses' station for easier observation. No patient harm occurred. Patient did voice several times that he did not want to be moved and became tearful. Staff explained to him that he was not being punished, but that we were concerned for his welfare. Eventually patient was agreeable to switch rooms.
[2024-09-16] MEDS: haloperidol 5 mg Tablet PO (09:54)
[2024-09-16 11:37] LABS: Glucose Point of Care 130 mg/dL (70-110)
[2024-09-16 14:00] VITALS: BP 118/77; PULSE 84; RESP 17; TEMP 36.6; O2SAT 96
[2024-09-16 16:41] LABS: Glucose Point of Care 100 mg/dL (70-110)
--- NOTE | 2024-09-16 17:41 | P.NPUPN_ITS ---
Subjective NPU 2 Subjective: 49-year-old male with history of major d epressive disorder recurrent without psychotic features admitted with worsening depression over the past 4 months. The patient had remained extremely preoccupied on the unit. He had reported that he had several things that he had to worry about at home. He was unable to contract for safety. He had reported multiple inpatient psychiatric hospitalizations over the last month and continued to offer no reasonable safety plan. He had continued report depressed mood. He had reported having difficulties concentrating and reported having difficulties with sleep as well. He had minimized any drug use and denied any psychotic symptoms. Patient reported poor appetite. Mental Status Exam 2 MSE Comments: This is an overweight white male in hospital scrubs with limited grooming and minimal eye contact. Notable abrasions over right side of forehead and cheek around right occipital area. No abnormal movements except for prominent psychomotor retardation.?He was cooperative with exam in mild to moderate distress.? Speech was decreased in rate and diminished in volume. ? Mood described as as depressed. His affect was restricted in range and mood congruent. Thought process was linear. Thought content: Patient endorsed fleeting suicidal thoughts and denied homicidal ideation, and he did endorse having it actual suicide attempt in the previous week. There were no delusions reported but some paranoia noted, he denied auditory or visual hallucinations but appeared internally preoccupied. There were no current thoughts of self- harm or harm to others. There were no signs of paranoia or hallucinations. Attention and concentration were adequate and memory was mostly reliable but none were formally tested.? He is alert and oriented x to person and place.? Insight was poor and judgment is impaired. Impulse control is poor. Vitals/I&O/Wt Last Vital Signs Temp 97.8 F 09/16/24 14:00 Pulse 84 09/16/24 14:00 Resp 17 09/16/24 14:00 BP 118/77 09/16/24 14:00 Pulse Ox 96 09/16/24 14:00 O2 Del Method Room Air 09/16/24 06:00 Data NPU 09/14/24 11:27 09/14/24 11:27 A&P Assessment and plan (1) Suicidal ideation: (2) Type 2 diabetes mellitus: (3) Hypertension: (4) Major depressive disorder, recurrent: (5) Bereavement: (6) BROCK (generalized anxiety disorder): Plan This is a 49-year-old white male with limited past psychiatric history but recent bereavement and suicide attempt.The patient has a history of major depression and anxiety, with a recent hospitalization due to panic attacks. The patient has had two episodes of hanging self in last month and continues to appear very depressed possibly psychotic as well. 1. Continue Viibyrd 40mg daily. Continue Seroquel 40mg at night, decrease remeron 15mg at night. 2. Continue to-15 minute checks, 3.? Encourage individual, group and milieu therapy. 4.? Encourage sober living treatment after discharge at the highest level of care to which he is willing to commit.? Obtain UDS. 5. Will attempt to gather collateral information. Involuntary Hold Information 2 96 Hour Hold: 96 Hour Involuntary Admission: Yes 96 Hour Hold Ending Date: 09/19/24 96 Hour Hold Ending Time: 00:01 Attestations NPU 2 Medical Necessity Statement*: Inpatient hospitalization is medically necessary and deemed to ?be ?the clinically appropriate intervention ?at this time.? We will monitor/initiate medications and make changes as indicated.? ? The patient?s likely length of stay 5-7 days. Coding Level of Care Code Acute Code for [facility] Fwd Diagnoses Suicidal ideation R45.851 Type 2 diabetes mellitus E11.9 Hypertension I10 Major depressive disorder, recurrent F33.9 Bereavement Z63.4 BROCK (generalized anxiety disorder) F41.1
[2024-09-16 20:04] VITALS: BP 117/73; PULSE 80; RESP 18; TEMP 36.7; O2SAT 95
[2024-09-16 20:19] LABS: Glucose Point of Care 157 mg/dL (70-110)
[2024-09-16] MEDS: insulin lispro 100 unit/1 mL SUBCUT (20:35)
[2024-09-16] MEDS: trazodone 50 mg Tablet PO (20:36)
[2024-09-16] MEDS: mirtazapine 15 mg Tablet PO (20:36)
[2024-09-16] MEDS: quetiapine 100 mg Tablet 400 MG PO (20:36)
[2024-09-17 06:00] VITALS: BP 149/95; PULSE 108; RESP 18; TEMP 36.7; O2SAT 97
[2024-09-17 07:47] LABS: Glucose Point of Care 120 mg/dL (70-110)
[2024-09-17] MEDS: pramipexole 0.25 mg Tablet PO (09:16)
[2024-09-17] MEDS: lisinopril 20 mg Tablet PO (09:16)
[2024-09-17] MEDS: tamsulosin 0.4 mg Capsule PO (09:16)
[2024-09-17] MEDS: VILAZODONE 40 MG 40 EACH PO (09:16)
[2024-09-17] MEDS: alfuzosin 10 mg ER Tablet PO (09:16)
[2024-09-17 12:54] LABS: Glucose Point of Care 123 mg/dL (70-110)
[2024-09-17 14:00] VITALS: BP 117/86; PULSE 90; RESP 20; TEMP 36.6; O2SAT 95
[2024-09-17] MEDS: diphenhydrAMINE 25 mg Capsule PO (15:27)
[2024-09-17] MEDS: LORazepam 2 mg Tablet PO (15:27)
[2024-09-17] MEDS: haloperidol 5 mg Tablet PO (15:27)
[2024-09-17 17:04] LABS: Glucose Point of Care 113 mg/dL (70-110)
--- NOTE | 2024-09-17 18:42 | W.PM.NPUPNS ---
Subjective NPU Subjective: 49-year-old male with history of major depressive disorder recurrent without psychotic features admitted with worsening depression over the past 4 months. The patient appeared overly intrusive on the unit. He had continued to perseverate about needing to go home while spending time walking on the unit without any clear direction. The patient's had reported that the patient had several suicide attempts and a considerable decline in functioning for the last several months. The patient had a Mini-Mental status completed today which she scored 24 out of 30. He reported that he wanted to be done with it but did not specify what that meant on interview. The patient was seeking various ways to leave the hospital, checking doors repeatedly. Mental Status Exam MSE Comments: This is an overweight white male in hospital scrubs with limited grooming and minimal eye contact. Notable abrasions over right side of forehead and cheek around right occipital area. No abnormal movements except for prominent psychomotor retardation.?He was minimally cooperative with exam in mild to moderate distress.? Speech was decreased in rate and diminished in volume with paucity of speech. ? Mood described as as fine. His affect was blunted. Thought process was superficial but linear. Thought content: Patient endorsed thoughts of wanting to end it. and he did endorse having it actual suicide attempt in the previous week. There were no delusions reported but some paranoia noted, he denied auditory or visual hallucinations but appeared internally preoccupied despite denying any auditory or visual hallucinations. There were no signs of paranoia or hallucinations. Attention and concentration were adequate and memory was mostly reliable but none were formally tested.? He is alert and oriented x to person and place.? Insight was poor and judgment is impaired. Impulse control is poor. Vitals/I&O/Wt Last Vital Signs Temp 97.8 F 09/17/24 14:00 Pulse 90 09/17/24 14:00 Resp 20 H 09/17/24 14:00 BP 117/86 09/17/24 14:00 Pulse Ox 95 09/17/24 14:00 O2 Del Method Room Air 09/17/24 14:00 Data NPU 09/14/24 11:27 09/14/24 11:27 A&P Assessment and plan (1) Suicidal ideation: (2) Type 2 diabetes mellitus: (3) Hypertension: (4) Major depressive disorder, recurrent: (5) Bereavement: (6) BROCK (generalized anxiety disorder): Plan This is a 49-year-old white male with limited past psychiatric history but recent bereavement and suicide attempt.The patient has a history of major depression and anxiety, with a recent hospitalization due to panic attacks. The patient has had two episodes of hanging self in last month and continues to appear very depressed possibly psychotic as well. 1. Continue Viibyrd 40mg daily. Seroquel appears to be having little benefit for patient, will begin taper and initiate Invega 3mg at night for psychosis. Continue remeron at 15mg at night. 2. Continue to-15 minute checks, 3.? Encourage individual, group and milieu therapy. 4.? Encourage sober living treatment after discharge at the highest level of care to which he is willing to commit.? Obtain UDS. 5. Will attempt to gather collateral information. Involuntary Hold Information 96 Hour Hold: 96 Hour Involuntary Admission: Yes 96 Hour Hold Ending Date: 09/19/24 96 Hour Hold Ending Time: 00:01 Attestations NPU Medical Necessity Statement*: Inpatient hospitalization is medically necessary and deemed to ?be ?the clinically appropriate intervention ?at this time.? We will monitor/initiate medications and make changes as indicated.? ? The patient?s likely length of stay 5-7 days. Coding Level of Care Code Acute Code for [facility] Fwd Diagnoses Suicidal ideation R45.851 Type 2 diabetes mellitus E11.9 Hypertension I10 Major depressive disorder, recurrent F33.9 Bereavement Z63.4 BROCK (generalized anxiety disorder) F41.1
[2024-09-17 19:56] VITALS: BP 114/64; PULSE 77; RESP 15; TEMP 36.6; O2SAT 95
[2024-09-17 19:56] LABS: Glucose Point of Care 119 mg/dL (70-110)
[2024-09-17] MEDS: quetiapine 100 mg Tablet 200 MG PO (20:44)
[2024-09-17] MEDS: paliperidone ER 3 mg Tablet PO (20:45)
[2024-09-17] MEDS: mirtazapine 15 mg Tablet PO (20:45)
[2024-09-18 06:00] VITALS: BP 96/61; PULSE 72; RESP 16; TEMP 37; O2SAT 94
[2024-09-18 07:34] LABS: Glucose Point of Care 105 mg/dL (70-110)
[2024-09-18] MEDS: pramipexole 0.25 mg Tablet PO (08:54)
[2024-09-18] MEDS: tamsulosin 0.4 mg Capsule PO (08:54)
[2024-09-18] MEDS: OLANZapine 5 mg ODT PO (08:54)
[2024-09-18] MEDS: lisinopril 20 mg Tablet PO (08:54)
--- NOTE | 2024-09-18 09:03 | PC.NURSE ---
IN ROOM, APPEARS PARANOID AND ANXIOUS. DENIES SI/HI AND AVH AT THIS TIME. REPORTS HE SLEPT OKAY LAST NIGHT. DENIES PAIN. RATES ANXIETY 4/10, MED NURSE GAVE ZYDIS 5MG ORDERED FOR ANXIETY. RATES DEPRESSION 0/10. PT STATES GOAL IS TO HOPEFULLY GET OUT OF HERE. EVASIVE WITH ASSESSMENT. AFFECT IS FLAT AND GUARDED WITH STAFF. SPEECH IS SLOW TO REPSOND. ALL QUESTIONS ANSWERED AND SUPPORT WAS VOICED.
[2024-09-18] MEDS: VILAZODONE 40 MG 40 EACH PO (09:43)
[2024-09-18 11:52] LABS: Glucose Point of Care 100 mg/dL (70-110)
[2024-09-18 14:00] VITALS: BP 111/78; PULSE 86; RESP 16; TEMP 36.3; O2SAT 94
[2024-09-18] MEDS: haloperidol 5 mg Tablet PO (15:38)
[2024-09-18 16:39] LABS: Glucose Point of Care 100 mg/dL (70-110)
--- NOTE | 2024-09-18 17:10 | P.NPUPN_ITS ---
Subjective NPU 2 Subjective: 49-year-old male with history of major d epressive disorder recurrent without psychotic features admitted with worsening depression over the past 4 months. The patient had continued to appear depressed on the unit. He had appeared preoccupied by his thoughts. He had not been able to provide any clear safety plan regarding going home and continue to report that he would like to know when he could go home. He had minimal engagement in groups. Previous information gathered by the treatment team had revealed that the patient had been having significant decline in motivation and a decline in mood with numerous suicide attempts reported more than 3 months ago. He had continued to report not feeling rested. He appeared less preoccupied with checking doors. He had reported waking up several times at night. Mental Status Exam 2 MSE Comments: This is an overweight white male in hospital scrubs with limited grooming and minimal eye contact. Notable abrasions over right side of forehead and cheek around right occipital area. No abnormal movements except for prominent psychomotor retardation. No tics or tremors were appreciated. ?He was minimally cooperative with exam in mild to moderate distress.? Speech was decreased in rate and diminished in volume with paucity of speech. ? Mood described as as okay. His affect was blunted. Thought process was superficial but linear. Thought content: Patient endorsed thoughts of wanting to end it and he did endorse having it actual suicide attempt in the previous week. There were no delusions reported but some paranoia noted, he denied auditory or visual hallucinations but appeared internally preoccupied despite denying any auditory or visual hallucinations. There were no signs of paranoia or hallucinations. Attention and concentration were adequate and memory was mostly reliable but none were formally tested.? He is alert and oriented x to person and place.? Insight was poor and judgment is impaired. Impulse control is poor. Vitals/I&O/Wt Last Vital Signs Temp 97.3 F L 09/18/24 14:00 Pulse 86 09/18/24 14:00 Resp 16 09/18/24 14:00 BP 111/78 09/18/24 14:00 Pulse Ox 94 09/18/24 14:00 O2 Del Method Room Air 09/18/24 06:00 Data NPU 09/14/24 11:27 09/14/24 11:27 A&P Assessment and plan (1) Major depressive disorder, recurrent: (2) Suicidal ideation: (3) Type 2 diabetes mellitus: (4) Hypertension: (5) Bereavement: (6) BROCK (generalized anxiety disorder): Plan This is a 49-year-old white male with limited past psychiatric history but recent bereavement and suicide attempt.The patient has a history of major depression and anxiety, with a recent hospitalization due to panic attacks. The patient has had two episodes of hanging self in last month and continues to appear very depressed possibly psychotic as well. 1. Continue Viibyrd 40mg daily. and continue Invega 3mg at night for psychosis. Continue remeron at 15mg at night. Continue Seroquel 200mg at night. 2. Continue to-15 minute checks, 3.? Encourage individual, group and milieu therapy. 4.? Encourage sober living treatment after discharge at the highest level of care to which he is willing to commit.? Obtain UDS. 5. Will attempt to gather collateral information. 21 day hold filed. Involuntary Hold Information 2 96 Hour Hold: 96 Hour Involuntary Admission: Yes 96 Hour Hold Ending Date: 09/19/24 96 Hour Hold Ending Time: 00:01 Attestations NPU 2 Medical Necessity Statement*: Inpatient hospitalization is medically necessary and deemed to ?be ?the clinically appropriate intervention ?at this time.? We will monitor/initiate medications and make changes as indicated.? ? The patient?s likely length of stay 5-7 days. Coding Level of Care Code Acute Code for [facility] Fwd Diagnoses Major depressive disorder, recurrent F33.9 Suicidal ideation R45.851 Type 2 diabetes mellitus E11.9 Hypertension I10 Bereavement Z63.4 BROCK (generalized anxiety disorder) F41.1
[2024-09-18 19:25] VITALS: BP 109/73; PULSE 78; RESP 18; TEMP 36.8; O2SAT 94
[2024-09-18 20:15] LABS: Glucose Point of Care 96 mg/dL (70-110)
[2024-09-18] MEDS: paliperidone ER 3 mg Tablet PO (21:13)
[2024-09-18] MEDS: hyDROXYzine 25 mg Capsule 50 MG PO (21:13)
[2024-09-18] MEDS: quetiapine 100 mg Tablet 200 MG PO (21:13)
[2024-09-18] MEDS: trazodone 50 mg Tablet PO (21:13)
[2024-09-18] MEDS: mirtazapine 15 mg Tablet PO (21:13)
[2024-09-19 06:00] VITALS: BP 124/80; PULSE 76; RESP 18; TEMP 36.4; O2SAT 95
[2024-09-19 07:25] LABS: Glucose Point of Care 110 mg/dL (70-110)
[2024-09-19] MEDS: pramipexole 0.25 mg Tablet PO (08:29)
[2024-09-19] MEDS: lisinopril 20 mg Tablet PO (08:29)
[2024-09-19] MEDS: hyDROXYzine 25 mg Capsule 50 MG PO (08:29)
[2024-09-19] MEDS: hydroCHLOROthiazide 25 mg Tablet PO (08:29)
[2024-09-19] MEDS: tamsulosin 0.4 mg Capsule PO (08:30)
[2024-09-19] MEDS: VILAZODONE 40 MG 40 EACH PO (08:31)
--- NOTE | 2024-09-19 09:24 | PC.NURSE ---
CONTINUES TO ISOLATE AND WITHDRAW TO ROOM. FLAT AFFECT IS NOTED WITH DEPRESSED MOOD. RATES ANXIETY 5/10 AND DEPRESSION 3/10. PT GIVEN VISTARIL 50MG ORDERED FOR INCREASED ANXIETY. PT IS UPSET HE WAS PLACED ON A 21 DAY HOLD. THIS RN HAS EDUCATED PT SEVERAL TIMES THAT IT DOES NOT MEAN HE WILL BE HERE FOR THE WHOLE 21 DAYS. PT STATES HE SLEPT OKAY. DENIES PAIN. DENIES SI/HI AND AVH AT THIS TIME. PT STATES GOAL FOR THE DAY IS TO GET OUT OF HERE. ALL QUESTIONS ANSWERED AND SUPPORT VOICED.
[2024-09-19 11:47] LABS: Glucose Point of Care 128 mg/dL (70-110)
[2024-09-19] MEDS: OLANZapine 5 mg ODT PO (13:41)
[2024-09-19 14:00] VITALS: BP 117/73; PULSE 78; RESP 18; TEMP 36.7; O2SAT 94
[2024-09-19 15:35] LABS: Glucose Point of Care 158 mg/dL (70-110)
--- NOTE | 2024-09-19 17:16 | P.NPUPN_ITS ---
Subjective NPU 2 Subjective: 49-year-old male with history of major d epressive disorder recurrent admitted with worsening depression over the past 4 months. The patient had been found with a screw that had been removed from the door that appeared mysteriously. The patient had reported that it had fallen from someplace in his room. He continued to request and ask when he would be allowed to return home but continued to convey that he would not be here long. He had remained somewhat provocative regarding his thoughts of suicide. He had continued to report feeling depressed. He had stated that he needed to go home soon and stated that his house had recently been sold. The patient had limited engagement in regards to groups. He had indicated compliance with his medications on an outpatient basis previously. Mental Status Exam 2 MSE Comments: This is an overweight white male in hospital scrubs with limited grooming and minimal eye contact. He was pacing back and forth. Notable abrasions over right side of forehead and cheek around right occipital area. No abnormal movements except for prominent psychomotor retardation. No tics or tremors were appreciated. ?He was minimally cooperative with exam in mild to moderate distress.? Speech was decreased in rate and diminished in volume with paucity of speech. ? Mood described as as okay. His affect was blunted. Thought process was superficial but linear. Thought content: Patient endorsed thoughts of wanting to end it and he did endorse having it actual suicide attempt in the previous week. There were no delusions reported but some paranoia noted, he denied auditory or visual hallucinations but appeared internally preoccupied despite denying any auditory or visual hallucinations. There were no signs of paranoia or hallucinations. Attention and concentration were adequate and memory was mostly reliable but none were formally tested.? He is alert and oriented x to person and place.? Insight was poor and judgment is impaired. Impulse control is poor. Vitals/I&O/Wt Last Vital Signs Temp 98.1 F 09/19/24 14:00 Pulse 78 09/19/24 14:00 Resp 18 09/19/24 14:00 BP 117/73 09/19/24 14:00 Pulse Ox 94 09/19/24 14:00 O2 Del Method Room Air 09/19/24 06:00 Data NPU 09/14/24 11:27 09/14/24 11:27 A&P Assessment and plan (1) Major depressive disorder, recurrent: (2) Suicidal ideation: (3) Personality disorder, unspecified: (4) Type 2 diabetes mellitus: (5) Hypertension: (6) Bereavement: (7) BROCK (generalized anxiety disorder): Plan This is a 49-year-old white male with limited past psychiatric history but recent bereavement and suicide attempt.The patient has a history of major depression and anxiety, with a recent hospitalization due to panic attacks. The patient has had two episodes of hanging self in last month and continues to appear very depressed possibly psychotic as well. 1. Continue Viibyrd 40mg daily. and continue Invega 3mg at night for psychosis. Continue remeron at 15mg at night. Decrease Seroquel 100mg at night. 2. Continue to-15 minute checks, 3.? Encourage individual, group and milieu therapy. 4.? Encourage sober living treatment after discharge at the highest level of care to which he is willing to commit.? Obtain UDS. 5. Will attempt to gather collateral information. 21 day hold filed. Involuntary Hold Information 2 96 Hour Hold: 96 Hour Involuntary Admission: Yes 96 Hour Hold Ending Date: 09/19/24 96 Hour Hold Ending Time: 00:01 Attestations NPU 2 Medical Necessity Statement*: Inpatient hospitalization is medically necessary and deemed to ?be ?the clinically appropriate intervention ?at this time.? We will monitor/initiate medications and make changes as indicated.? ? The patient?s likely length of stay 5-7 days. Coding Level of Care Code Acute Code for g Fwd Diagnoses Major depressive disorder, recurrent F33.9 Suicidal ideation R45.851 Personality disorder, unspecified F60.9 Type 2 diabetes mellitus E11.9 Hypertension I10 Bereavement Z63.4 BROCK (generalized anxiety disorder) F41.1
[2024-09-19 17:24] LABS: Glucose Point of Care 123 mg/dL (70-110)
--- NOTE | 2024-09-19 17:32 | PC.NURSE ---
VISITED AT 1500. AFTER VISIT WENT TO [facility] AND PICKED UP PRESCRIPTION FOR VIIBRID 40 MG PO DAILY, 7 TABS. PT BROUGHT MEDICATION TO THIS RN PREVIOUSLY REQUESTED. WHILE DROPPING OFF MEDICATIONS PT INFORMED THIS RN THAT PT HAD A LARGE SCREW THAT HE WAS HIDING IN HIS POCKET. SHE STATES THAT THE PT TRIED TO HIDE IT FROM ME BUT I GOT AUGUSTINE WITH HIM AND HE FINALLY SHOWED ME IT WAS A SCREW. I PROMISED HIM I WOULDN'T TELL BUT I KNOW I HAVE TO. SECURITY, TRAVEL MED SURG RN AND SENIOR ACCOUNTANT ANALYST WERE NOTIFIED OF THE ABOVE ISSUE. RN AND ADOPTION SPECIALIST WENT INTO PTS ROOM AND ASKED IF HE HAD ANY SCREWS. PT STEPPED UP ONTO THE STORAGE CLOSET DRAWERS AND UNSCREWED A LONG BLUE SCREW OUT OF THE WALL WHERE THERE HAD PREVIOUSLY BEEN A SCREW. PT STATES I FOUND IT ON THE FLOOR AND JUST STUCK IT UP THERE. PT DENIES ANY ATTEMPT OF SELF HARM. WHEN SECURITY ARRIVED PT WAS WANDED, CHANGED INTO NEW SCRUBS AND SKIN WAS ASSESSED. NO SKIN ISSUES WERE IDENTIFIED AT THAT TIME. NO OTHER SCREWS WERE FOUND. PT ROOM WAS SEARCHED AND THERE WERE SCREWS MISSING FROM TOILET AND WALL OUTLET. [facility] WAS CALLED IN BY TRAVEL MED SURG RN TO FIX OUTLET IN PT ROOM WHERE PT HAD TRIED TO PRY THE METAL PIECE OF THE OUTLET OFF OF THE WALL. PT STATED I WAS JUST MESSING WITH IT I THINK THERE'S A CRIMINAL INVESTIGATOR THERE TO, RN LOOKED BEHIND METAL PIECE OF OUTLET AND THERE WAS ONE SCREW MISSING. PT WAS EDUCATED TO BRING ANY FOREIGN OBJECTS OR SCREWS TO THE STAFF. WHILE SEARCHING PT ROOM ADOPTION SPECIALIST FOUND A BROKEN SPOON IN PTS BIBLE. PT STATED THAT'S MY BOOK JOAN. PT WAS AGAIN EDUCATED THAT TO USE A PIECE OF PAPER THAT ALL SPOONS NEED TO BE GIVEN BACK TO STAFF WHEN FINISHED EATING. STAFF INSTRUCTED TO COLLECT SPOONS AFTER MEALS AND SNACKS. DR. GRANGER NOTIFIED OF ALL THE ABOVE AND NO NEW ORDERS WERE RECEIVED AT THAT TIME. PT BED WIPED DOWN, NEW LINENS APPLIED TO BED. PT CURRENTLY RESTING IN BED WITH NO DISTRESS NOTED.
[2024-09-19 19:26] VITALS: BP 104/74; PULSE 82; RESP 18; TEMP 36.9; O2SAT 96
[2024-09-19 20:03] LABS: Glucose Point of Care 107 mg/dL (70-110)
[2024-09-19] MEDS: mirtazapine 15 mg Tablet PO (20:21)
[2024-09-19] MEDS: paliperidone ER 3 mg Tablet PO (20:21)
[2024-09-19] MEDS: quetiapine 100 mg Tablet PO (20:21)
[2024-09-20] VITALS (9 sets, daily range): BP systolic 82–125; BP diastolic 52–80; PULSE 70–109; RESP 14–18; TEMP 36.4–36.6; O2SAT 95–99
[2024-09-20] MEDS: trazodone 50 mg Tablet PO (02:00)
[2024-09-20] MEDS: hyDROXYzine 25 mg Capsule 50 MG PO ×2 (06:31→20:10)
[2024-09-20 07:40] LABS: Glucose Point of Care 107 mg/dL (70-110)
[2024-09-20] MEDS: pramipexole 0.25 mg Tablet PO (08:43)
[2024-09-20] MEDS: tamsulosin 0.4 mg Capsule PO (08:43)
[2024-09-20] MEDS: lisinopril 20 mg Tablet PO (08:43)
[2024-09-20] MEDS: hydroCHLOROthiazide 25 mg Tablet PO (08:43)
[2024-09-20] MEDS: VILAZODONE 40 MG 40 EACH PO (08:43)
[2024-09-20 11:57] LABS: Glucose Point of Care 142 mg/dL (70-110)
[2024-09-20] MEDS: insulin lispro 100 unit/1 mL SUBCUT ×2 (11:58→17:33)
[2024-09-20] MEDS: LORazepam 2 mg Tablet PO (13:20)
[2024-09-20] MEDS: diphenhydrAMINE 25 mg Capsule PO (13:20)
[2024-09-20] MEDS: haloperidol 5 mg Tablet PO (13:22)
[2024-09-20 17:32] LABS: Glucose Point of Care 156 mg/dL (70-110)
--- NOTE | 2024-09-20 18:10 | P.NPUPN_ITS ---
Subjective NPU 2 Subjective: 49-year-old male with history of major d epressive disorder recurrent admitted with worsening depression over the past 4 months. The patient was placed on one-to-one observation after he had been tearing apart his pillow and taking the fabric and using threads to wrap around his finger in an attempt to cause strangulation of his fingertips. The patient denied this unequivocally and stated that he did not know what the feature writer was speaking of at this time. He had again stated that he had found a large 2 inch screw in the ground that mysteriously appeared in his room. He had continued to appear provocative in regards to stating that he wanted to go home yet then stating that he would end his life. Mental Status Exam 2 MSE Comments: This is an overweight white male in hospital scrubs with limited grooming and minimal eye contact. He was pacing back and forth slowly but not in straight line. Notable abrasions over right side of forehead and cheek around right occipital area. No abnormal movements except for prominent psychomotor retardation. No tics or tremors were appreciated. ?He was minimally cooperative with exam in mild to moderate distress.? Speech was decreased in rate and diminished in volume with paucity of speech. ? Mood described as as okay. His affect was blunted. Thought process was superficial but linear. Thought content: Patient endorsed thoughts of wanting to end it and he did endorse having it actual suicide attempt in the previous week. There were no delusions reported but some paranoia noted, he denied auditory or visual hallucinations but appeared internally preoccupied despite denying any auditory or visual hallucinations. There were no signs of paranoia or hallucinations. Attention and concentration were adequate and memory was mostly reliable but none were formally tested.? He is alert and oriented x to person and place.? Insight was poor and judgment is impaired. Impulse control is poor. Vitals/I&O/Wt Last Vital Signs Temp 97.8 F 09/20/24 14:00 Pulse 109 H 09/20/24 14:00 Resp 16 09/20/24 14:00 BP 96/58 09/20/24 14:00 Pulse Ox 97 09/20/24 14:00 O2 Del Method Room Air 09/20/24 14:00 Data NPU 09/14/24 11:27 09/14/24 11:27 A&P Assessment and plan (1) Major depressive disorder, recurrent: Qualifiers: Active/Remission status: currently active Psychotic features: with psychotic features (2) Suicidal ideation: (3) Personality disorder, unspecified: (4) Type 2 diabetes mellitus: (5) Hypertension: (6) Bereavement: (7) BROCK (generalized anxiety disorder): Plan This is a 49-year-old white male with limited past psychiatric history but recent bereavement and suicide attempt.The patient has a history of major depression and anxiety, with a recent hospitalization due to panic attacks. The patient has had two episodes of hanging self in last month and continues to appear very depressed possibly psychotic as well. 1. Continue Viibyrd 40mg daily. and continue Invega 3mg at night for psychosis. D/C remeron, Discontinue Seroquel. Continue ambien 12.5mg at night. 2. Continue to-15 minute checks, 3.? Encourage individual, group and milieu therapy. 4.? Encourage sober living treatment after discharge at the highest level of care to which he is willing to commit.? Obtain UDS. 5. Will attempt to gather collateral information. 21 day hold filed. Involuntary Hold Information 2 96 Hour Hold: 96 Hour Involuntary Admission: Yes 96 Hour Hold Ending Date: 09/19/24 96 Hour Hold Ending Time: 00:01 Attestations NPU 2 Medical Necessity Statement*: Inpatient hospitalization is medically necessary and deemed to ?be ?the clinically appropriate intervention ?at this time.? We will monitor/initiate medications and make changes as indicated.? ? The patient?s likely length of stay 5-7 days. Coding Level of Care Code Acute Code for [facility] Fwd Diagnoses Major depressive disorder, recurrent F33.9 Active/Remission status: currently active Psychotic features: with psychotic features Suicidal ideation R45.851 Personality disorder, unspecified F60.9 Type 2 diabetes mellitus E11.9 Hypertension I10 Bereavement Z63.4 BROCK (generalized anxiety disorder) F41.1
[2024-09-20 18:24] LABS: Glucose Point of Care 130 mg/dL (70-110)
--- NOTE | 2024-09-20 18:27 | CTR_ITS ---
PROCEDURE INFORMATION: Exam: CT Head Without Contrast Exam date and time: 09/20/2024 6:41 PM Age: 49 years old Clinical indication: Injury or trauma; Blunt trauma (contusions or hematomas); Patient HX: C/O head and neck pain post fall from standing. ; Additional info: Fall, head injury TECHNIQUE: Imaging protocol: Computed tomography of the head without contrast. Radiation optimization: All CT scans at this facility use at least one of these dose optimization techniques: automated exposure control; mA and/or kV adjustment per patient size (includes targeted exams where dose is matched to clinical indication); or iterative reconstruction. COMPARISON: CT head wo con* [id number] 09/13/2024 1:35 PM RADIATION DOSE METRICS: Total DLP (mGy-cm): 1109.4 FINDINGS: Brain: Normal. No hemorrhage. Unremarkable white matter. No mass effect. Cerebral ventricles: No ventriculomegaly. Paranasal sinuses: Visualized sinuses are unremarkable. No fluid levels. Mastoid air cells: Visualized mastoid air cells are well aerated. Bones: Unremarkable. No acute fracture. Soft tissues: Unremarkable. CT/CT head wo con* [id number] IMPRESSION: No acute intracranial abnormality.
--- NOTE | 2024-09-20 18:27 | CTR_ITS ---
PROCEDURE INFORMATION: Exam: CT Cervical Spine Without Contrast Exam date and time: 09/20/2024 6:41 PM Age: 49 years old Clinical indication: Injury or trauma; Blunt trauma; Patient HX: C/O head and neck pain post fall from standing. ; Additional info: Fall, neck pain TECHNIQUE: Imaging protocol: Computed tomography of the cervical spine without contrast. Radiation optimization: All CT scans at this facility use at least one of these dose optimization techniques: automated exposure control; mA and/or kV adjustment per patient size (includes targeted exams where dose is matched to clinical indication); or iterative reconstruction. COMPARISON: CT head wo con* [id number] 09/20/2024 6:41 PM RADIATION DOSE METRICS: Total DLP (mGy-cm): 1151.9 FINDINGS: Bones: Diffuse disc bulge findings is suggested at several levels greatest at C5-C6. Spinal canal appear narrowed due to chronic factors C3-C4 and C5-C6. No acute bony findings. Lungs: Lung apices are normal. Soft tissues: Unremarkable. CT/CT cervical spin wo con* [id number] IMPRESSION: No acute findings.
--- NOTE | 2024-09-20 19:07 | PC.NURSE ---
Patient was resting in bed for about 15 minutes before he awoken and started to walk to the bathroom located in the patients room, he then tripped over his feet. Patients fall was witnessed by his one to one sitter who called for help. The staff heard the patients fall and immediately responded, and found the patient face down on the floor. Patient never lost conscious. Patient rolled over and sat up against the wall and the patients lip was split and minimally bleeding. The patients vital signs were taken and are as follows T:97.9 HR:70 RR:17 BP:98/56 and O2:95. The patients blood sugar was also taken and was 130. Doctor Simeon was present, and ordered CT head w/o co & contacted the hospitalist. The patient was taken to CT by sugar house supervisor and security via wheelchair and results are pending. Upon arrival back to the NPU, a second set of vitals were taken and are as follows T:97.9 HR:87 RR:14 BP:82/52 taken manually and O2:99. sugar house supervisor / Dr. Simeon aware.
--- NOTE | 2024-09-20 19:44 | PM.CONSULT ---
Providers/Reason For Consult Consulting Physician/Specialty*: Internal medicine Reason for Consult*: Hypotension Attending Physician: Ant Simeon MD History of Present Illness History of Present Illness Solitario Jerez is a 49 year old male with past medical history significant for hypertension, benign prostatic hypertrophy, depression, type 2 diabetes mellitus, multiple other comorbidities who is currently admitted to the neuropsychiatric unit for treatment of suicidal ideation and attempt. His hospital course has been complicated by the development of hypotension. Patient experienced fall this afternoon. He reportedly hit his head during this fall. Internal medicine consulted for hypotension. Patient seen and evaluated on NPU. He denies any pain, new neurological symptoms, or other complaints. He does endorse a history of hypertension for which he states he typically takes lisinopril. His home medication list shows lisinopril 20 mg daily as well as the combo pill of lisinopril/hydrochlorothiazide 20-25 mg. He notes that he typically does not take the hydrochlorothiazide containing pill. Review of Systems Narrative: A complete review of systems was obtained and is negative except as stated in HPI. Medications/Allergies Home Medications Medication Instructions Recorded Confirmed Last Taken Type alfuzosin 10 mg tablet,extended 10 mg PO DAILY 09/13/24 09/13/24 Unknown History release 24 hr dapagliflozin propanediol 5 mg 5 mg PO DAILY 09/13/24 09/13/24 Unknown History tablet (Farxiga) dulaglutide 0.75 mg/0.5 mL 0.75 mg SUBCUT Q7D 09/13/24 09/13/24 Unknown History subcutaneous pen injector (Trulicity) lisinopril 20 mg tablet 20 mg PO DAILY 09/13/24 09/13/24 Unknown History lisinopril 20 20 - 25 tab PO DAILY 09/13/24 09/13/24 Unknown History mg-hydrochlorothiazide 25 mg tablet lorazepam 0.5 mg tablet 0.5 mg PO BID PRN Anxiety 09/13/24 09/13/24 Unknown History mirtazapine 15 mg tablet 30 mg PO BEDTIME 09/13/24 09/13/24 Unknown History pramipexole 0.25 mg tablet 0.25 mg PO DAILY 09/13/24 09/13/24 Unknown History quetiapine 200 mg tablet 400 mg PO BEDTIME 09/13/24 09/13/24 Unknown History sertraline 100 mg tablet 100 mg PO DAILY 09/13/24 09/13/24 Unknown History tamsulosin 0.4 mg capsule 0.4 mg PO DAILY 09/13/24 09/13/24 Unknown History venlafaxine 150 mg 150 mg PO DAILY 09/13/24 09/13/24 Unknown History capsule,extended release 24 hr vilazodone 20 mg tablet 20 mg PO DAILY 09/13/24 09/13/24 Unknown History zolpidem 12.5 mg tablet,extended 12.5 mg PO BEDTIME 09/13/24 09/13/24 Unknown History release,multiphase Allergies Allergy/AdvReac Type Severity Reaction Status Date / Time Penicillins Allergy Unknown Unknown Verified 09/13/24 13:24 Current Medications Generic Name Dose Route Start Last Admin Trade Name Freq PRN Reason Stop Dose Admin Acetaminophen 650 mg 09/13/24 15:33 09/15/24 21:14 Acetaminophen 325 Mg Tablet PO 650 mg Q4H PRN Administration MILD PAIN Diphenhydramine HCl 25 mg 09/17/24 15:11 09/20/24 13:20 Diphenhydramine 25 Mg Capsule PO 25 mg Q4H PRN Administration ITCHING Haloperidol 5 mg 09/13/24 15:33 09/20/24 13:22 Haloperidol 5 Mg Tablet PO 5 mg Q4H PRN Administration AGITATION Hydroxyzine Pamoate 50 mg 09/13/24 15:33 09/20/24 06:31 Hydroxyzine 25 Mg Capsule PO 50 mg Q6H PRN Administration ANXIETY Insulin Human Lispro 0 unit 09/14/24 12:00 09/20/24 17:33 Insulin Lispro 100 Unit/1 Ml SUBCUT 2 unit WM&BEDTIME MAXIME Administration Protocol Lorazepam 2 mg 09/17/24 15:11 09/20/24 13:20 Lorazepam 2 Mg Tablet PO 2 mg Q4H PRN Administration ANXIETY Non-Formulary Medication 12.5 mg 09/13/24 21:00 09/19/24 20:37 Zolpidem PO 12.5 mg BEDTIME MAXIME Administration Non-Formulary Medication 40 mg 09/17/24 09:00 09/20/24 08:43 Vilazodone PO 40 mg DAILY MAXIME Administration Olanzapine 5 mg 09/13/24 15:33 09/19/24 13:41 Olanzapine 5 Mg Odt PO 5 mg Q4H PRN Administration Agitation/Psychosis Paliperidone 3 mg 09/17/24 21:00 09/19/24 20:21 Paliperidone Er 3 Mg Tablet PO 3 mg BEDTIME MAXIME Administration Pramipexole Dihydrochloride 0.25 mg 09/14/24 09:00 09/20/24 08:43 Pramipexole 0.25 Mg Tablet PO 0.25 mg DAILY MAXIME Administration Tamsulosin HCl 0.4 mg 09/14/24 09:00 09/20/24 08:43 Tamsulosin 0.4 Mg Capsule PO 0.4 mg DAILY MAXIME Administration Trazodone HCl 50 mg 09/13/24 15:33 09/20/24 02:00 Trazodone 50 Mg Tablet PO 50 mg BEDTIME PRN Administration SLEEP PFSH Acute PFSH: Medical History Depression Type 2 diabetes mellitus Hypertension Family History Father Suicide Social History Smoking and tobacco/nicotine status: never used tobacco/nicotine Alcohol intake: never Substance/Drug Use: never Vitals/I&O/Wt Last Vital Signs Temp 97.9 F 09/20/24 19:07 Pulse 87 09/20/24 19:07 Resp 14 09/20/24 19:07 BP 82/52 09/20/24 19:07 Pulse Ox 99 09/20/24 19:07 O2 Del Method Room Air 09/20/24 19:07 Physical Exam Narrative: General: Patient is awake. Sitting in chair. Head: Normocephalic. Atraumatic. Neck: No JVD. Cardiovascular: RRR. No gallops. No murmurs. No peripheral edema. Lungs: Clear to auscultation, no use of accessory muscles, no crackles or wheezes. Skin: No jaundice. No rashes. Abdomen: Normal bowel sounds, abdomen soft and nontender. Genito Urinary: Genital exam not performed since complaints not related. Rectal: Rectal exam not performed since no symptoms indicated blood loss. Extremities: No cyanosis or clubbing. Musculoskeletal: No swollen or erythematous joints. Neurological: Moves all 4 extremities. No myoclonus. Data 09/14/24 11:27 09/14/24 11:27 A&P Assessment and plan (1) Hypotension: Hypotension likely secondary to medication side effects including hydrochlorothiazide and multiple psychiatric medication side effects Discontinue hydrochlorothiazide NS 1 L bolus if possible Monitor blood pressure Conservative measures for orthostasis discussed with patient Encourage oral intake (2) Fall: Fall prior to my evaluation Patient denies any symptoms including new neurological symptoms Patient counseled to complain of any new symptoms that may develop Discussed with nursing to monitor neurochecks every 4 hours times twice Head CT obtained, images personally reviewed, follow-up formal read Fall precautions Sitter (3) Benign prostatic hyperplasia: Continue Flomax for now, if blood pressure does not improve; then may need (4) Type 2 diabetes mellitus: Continue SSI (5) Hypertension: Discontinue HCTZ Continue holding home lisinopril Further management as above Plan Multiple psychiatric conditions: Per primary Thank you for this consultation. Hospitalist service will continue to follow. Consult Attestations Medical Necessity Statement: Per primary Coding Level of Care Code Acute Code for [facility] Diagnoses Hypotension I95.9 Fall W19.XXXA Benign prostatic hyperplasia N40.0 Type 2 diabetes mellitus E11.9 Hypertension I10
[2024-09-20 20:10] LABS: Glucose Point of Care 129 mg/dL (70-110)
[2024-09-20] MEDS: paliperidone ER 3 mg Tablet PO (20:10)
[2024-09-20] MEDS: sodium chloride 0.9% 1,000 ML 999 ML IV (20:25)
[2024-09-21] VITALS (11 sets, daily range): BP systolic 83–117; BP diastolic 54–79; PULSE 72–98; RESP 16–17; TEMP 36.6–36.7; O2SAT 95–98
[2024-09-21 07:52] LABS: Glucose Point of Care 100 mg/dL (70-110)
[2024-09-21] MEDS: tamsulosin 0.4 mg Capsule PO (09:39)
[2024-09-21] MEDS: pramipexole 0.25 mg Tablet PO (09:39)
[2024-09-21] MEDS: VILAZODONE 40 MG 40 EACH PO (09:39)
[2024-09-21 09:40] LABS: Basophils % 0.5 %; Eosinophils # 0.1 10^3/uL (0.0-0.8); Eosinophils % 1.1 %; Hematocrit 44.6 % (37-53); Lymphocytes # 1.4 10^3/uL (0.8-4.8); Lymphocytes % 16.4 %; Mean Corpuscular HGB Conc 35.2 g/dL (30-55); Mean Corpuscular Hemoglobin 33.7 pg (27-33); Mean Corpuscular Volume 95.7 fl (82-101); Mean Platelet Volume 9.4 fL (7.4-10.4); Monocytes # 0.7 10^3/uL (0.2-0.9); Monocytes % 8.7 %; Neutrophils # 6.16 10^3/uL (1.8-7.7); Neutrophils % 73.1 %; Nucleated Red Blood Cells % 0 %; Platelet Count 185 10^3/cmm (157-399); Red Blood Count 4.66 10^6/uL (3.85-5.65); Red Cell Distribution Width 12.5 % (12.1-15.1); White Blood Count 8.42 10^3/uL (3.29-11.43)
--- NOTE | 2024-09-21 09:42 | XRR_ITS ---
PROCEDURE INFORMATION: Exam: XR Chest Exam date and time: 09/21/2024 3:06 PM Age: 49 years old Clinical indication: Injury or trauma; Fall; Blunt trauma (contusions or hematomas); Injury date: 09/20/2024 TECHNIQUE: Imaging protocol: Radiologic exam of the chest. Views: 1 view. COMPARISON: CT cervical spin wo con* [id number] 09/20/2024 6:41 PM FINDINGS: Lungs: Unremarkable. No consolidation. Pleural spaces: Unremarkable. No pleural effusion. No pneumothorax. Heart/Mediastinum: Unremarkable. No cardiomegaly. Bones/joints: Unremarkable. XR/XR chest 1V portable [id number] IMPRESSION: No acute findings.
[2024-09-21 10:11] LABS: Alanine Aminotransferase 15 U/L (0-41); Albumin Level 3.9 g/dL (3.5-5.2); Alkaline Phosphatase 80 U/L (40-130); Anion Gap 14.2 (5-19); Aspartate Amino Transferase 12 U/L (0-40); Blood Urea Nitrogen 28 mg/dL (6-20); Calcium 8.4 mg/dL (8.5-10.5); Carbon Dioxide 25 mmol/L (22-29); Chloride 103 mmol/L (98-107); Creatinine Clr Calc Pharmacy 63.0893; Globulin 2.2 g/dL (1.3-4.6); Glomerular Filtration Rate 46.4 mL/min (90-130); Glucose 140 mg/dL (65-115); Osmolality Calculated 294 mOsm/kg (285-295); Potassium 4.2 mmol/L (3.5-5.1); Sodium 138 mmol/L (136-145); Total Bilirubin 1.3 mg/dL (0.15-1.2); Total Protein 6.1 g/dL (6.6-8.7)
[2024-09-21 10:12] LABS: Lactic Sepsis W/Reflex 2.3 mmol/L (0.5-2.2); Troponin(5th) Baseline 11 ng/L (0-15)
--- NOTE | 2024-09-21 11:07 | ECG_ITS ---
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 Measurements Intervals [place] Rate: 71 P: 43 PA: 160 QRS: 62 QRSD: 95 T: 40 QT: 367 QTc: 401 Interpretive Statements SINUS RHYTHM WITH OCCASIONAL VENTRICULAR PREMATURE COMPLEXES; Sinus arrhythmia NONSPECIFIC T-WAVE ABNORMALITY Compared to ECG 09/13/2024 14:44:39 Ventricular premature complex(es) now present T-wave abnormality still present Electronically Signed On 09-23-2024 01:05:59 CDT by Silvina Perez M.D. [email or web address]
[2024-09-21 11:25] LABS: Reflex Lactate Order REFLEX LACTIC ORDERD
[2024-09-21 11:36] LABS: Glucose Point of Care 106 mg/dL (70-110)
[2024-09-21 12:06] LABS: Troponin 5 2HR 12.48 ng/L (0-15); Troponin 5 2HR Delta 1.48 ABS# (0-10)
[2024-09-21 12:47] LABS: Add Urine Microscopic? NO
[2024-09-21] MEDS: sodium chloride 0.9% 1,000 ML 100 ML IV ×2 (12:47→22:11)
[2024-09-21 12:49] LABS: Bilirubin Urine Negative (Negative); Blood Urine Negative (Negative); Glucose Urine UA Negative (Normal); Ketones Urine Negative (Negative); Leukocyte Esterase Urine Negative (Negative); Nitrate Urine Negative (Negative); Protein Urine Negative (Negative); Specific Gravity, Urine 1.016 (1.005-1.030); Urine Appearance Clear (CLEAR); Urine Color Yellow (Yellow); pH Urine 5.5 (5-7)
[2024-09-21 13:02] LABS: Add Urine Culture? No; Charge for UA Resulting for Rev
[2024-09-21] MEDS: enoxaparin 40 mg/0.4 mL Syringe SUBCUT (13:18)
--- NOTE | 2024-09-21 15:41 | ECG_ITS ---
[employer] Test Date: 2024-09-21 Pat Name: Solitario Jerez Department: Room: 270 Gender: Male [employer] Director: : 1975 Requested By: Rodrigo Caballero Order Number: [id number] Esther MD: Silvina Perez M.D. Measurements Intervals [place] Rate: 73 P: 41 VT: 162 QRS: 56 QRSD: 93 T: 32 QT: 365 QTc: 404 Interpretive Statements SINUS RHYTHM WITH MARKED SINUS ARRHYTHMIA NONSPECIFIC T-WAVE ABNORMALITY Compared to ECG 09/21/2024 11:07:35 Ventricular premature complex(es) no longer present T-wave abnormality still present Electronically Signed On 09-23-2024 01:06:12 CDT by Silvina Perez M.D. [email or web address]
[2024-09-21 15:53] LABS: Troponin 5 6HR 9.62 ng/L (0-15)
[2024-09-21 15:54] LABS: Lactic Acid level (Lactate) 1.1 mmol/L (0.5-2.2); Troponin 5 6HR Delta -1.38 ng/L (0-12)
--- NOTE | 2024-09-21 16:16 | P.PN_ITS ---
Subjective 2 Subjective: Patient was seen this morning, he reports feeling lightheaded and dizzy upon standing up, his orthostatic vitals were positive, systolic blood pressure dropped more than 20 points upon standing up, creatinine is 1.6, denies any chest pain, no palpitations, no shortness of breath, no facial droop no slurring words, no focal weakness, discussed moving to MedSur IV fluids, he is agreeable hold blood pressure medication, no pain complaints after his fall, no headache, no blurry vision, no neck pain, no joint pain Vitals/I&O/Wt Last Vital Signs Temp 98.1 F 09/21/24 08:00 Pulse 82 09/21/24 14:00 Resp 16 09/21/24 08:51 BP 109/69 09/21/24 08:55 Pulse Ox 97 09/21/24 08:51 O2 Del Method Room Air 09/21/24 00:00 Weight last 48 hrs Weight 87.997 kg Physical Exam 2 Const: COMMON NORMALS: no acute distress and patient oriented x3 Resp: COMMON NORMALS: normal respiratory effort, No retractions, No use of accessory muscles and clear to auscultation bilaterally AUSCULTATION: clear to auscultation bilaterally Cardio: COMMON NORMALS: regular rate, regular rhythm, S1 normal heart sound present and S2 normal heart sound present RATE: regular rate RHYTHM: r egular rhythm HEART SOUNDS: S1 normal heart sound present and S2 normal heart sound present GI: COMMON NORMALS: Normal to inspection, nondistended, normoactive bowel sounds present and non-tender Extremity: COMMON NORMALS: no pedal edema Neuro: COMMON NORMALS: patient oriented x3 Psych: COMMON NORMALS: mental status grossly normal Data 09/21/24 09:15 09/21/24 09:15 A&P Assessment and plan (1) Hypotension: Orthostatic hypotension # Hold blood pressure medications # IV fluids normal saline at 100 cc an hour ? Recheck orthostatic vitals every 12 hours (2) Fall: Fall prior to my evaluation Patient denies any symptoms including new neurological symptoms No pain complaints Discussed with nursing to monitor neurochecks every 4 hours times twice Head CT no acute findings Cervical spine CT no acute findings Fall precautions Sitter (3) Benign prostatic hyperplasia: Continue Flomax for now, if blood pressure does not improve; then may need (4) Type 2 diabetes mellitus: Continue SSI (5) Hypertension: Discontinue HCTZ Continue holding home lisinopril Further management as above (6) Acute kidney injury: IV fluids as above Plan Multiple psychiatric conditions: Per primary, suicide precautions, one-to-one sitter Lovenox for DVT prophylaxis Attestations 2 Medical Necessity Statement*: Patient requires hospitalization, for orthostatic hypotension, LELO Diagnoses Hypotension I95.9 Fall W19.XXXA Benign prostatic hyperplasia N40.0 Type 2 diabetes mellitus E11.9 Hypertension I10 Acute kidney injury N17.9
--- NOTE | 2024-09-21 16:28 | W.PM.NPUPNS ---
Subjective NPU Subjective: 49-year-old male with history of major depressive disorder recurrent admitted with worsening depression over the past 4 months. Patient had a fall yesterday and remained orthostatic and was transferred to medical send for hydration and likely IV fluids. The patient continued to report depressed mood. He continued to be somewhat provocative and minimize any of his behaviors stating that he did not know what the poem writer of this note was talking about in regards to attempting to put a piece of string around his finger to cut off circulation. He had stated simply having found a large screw on the ground that was apparently discovered by staff later. The patient's had reported that the patient had made significant attempts to try to harm himself in the presence of people that were nearby including family and friends but had been able to remain safe when no one was around him. Mental Status Exam MSE Comments: This is an overweight white male in hospital scrubs with limited grooming and minimal eye contact. He was pacing back and forth slowly but not in straight line. Notable abrasions over right side of forehead and cheek around right occipital area. No abnormal movements except for prominent psychomotor retardation. No tics or tremors were appreciated. ?He was minimally cooperative with exam in mild to moderate distress.? Speech was decreased in rate and diminished in volume with paucity of speech. ? Mood described as as okay. His affect was blunted. Thought process was superficial but linear. Thought content: Patient minimized suicidal ideation today, but acknowledged the seriousness of his behavior. There were no delusions reported but some paranoia noted, he denied auditory or visual hallucinations but appeared internally preoccupied despite denying any auditory or visual hallucinations. There were no signs of paranoia or hallucinations. Attention and concentration were adequate and memory was mostly reliable but none were formally tested.? He is alert and oriented x to person and place.? Insight was poor and judgment is impaired. Impulse control is poor. Vitals/I&O/Wt Last Vital Signs Temp 98.1 F 09/21/24 08:00 Pulse 82 09/21/24 14:00 Resp 16 09/21/24 08:51 BP 109/69 09/21/24 08:55 Pulse Ox 97 09/21/24 08:51 O2 Del Method Room Air 09/21/24 00:00 Weight last 48 hrs Weight 87.997 kg Data NPU 09/21/24 09:15 09/21/24 09:15 A&P Assessment and plan (1) Major depressive disorder, recurrent: Qualifiers: Active/Remission status: currently active Psychotic features: with psychotic features (2) Suicidal ideation: (3) Personality disorder, unspecified: (4) Type 2 diabetes mellitus: (5) Hypertension: (6) Bereavement: (7) BROCK (generalized anxiety disorder): Plan This is a 49-year-old white male with limited past psychiatric history but recent bereavement and suicide attempt.The patient has a history of major depression and anxiety, with a recent hospitalization due to panic attacks. The patient has had two episodes of hanging self in last month and continues to appear very depressed possibly psychotic as well. 1. Continue Viibyrd 40mg daily. and continue Invega 3mg at night for psychosis. Continue ambien 12.5mg at night. 2. Continue to-15 minute checks, 3.? Encourage individual, group and milieu therapy. 4.? Encourage sober living treatment after discharge at the highest level of care to which he is willing to commit.? Obtain UDS. 5. Will attempt to gather collateral information. 21 day hold filed, hearing scheduled tommorow. Involuntary Hold Information 96 Hour Hold: 96 Hour Involuntary Admission: Yes 96 Hour Hold Ending Date: 09/19/24 96 Hour Hold Ending Time: 00:01 Attestations NPU Medical Necessity Statement*: Inpatient hospitalization is medically necessary and deemed to ?be ?the clinically appropriate intervention ?at this time.? We will monitor/initiate medications and make changes as indicated.? ? The patient?s likely length of stay 5-7 days. Coding Level of Care Code Acute Code for [facility] Fwd Diagnoses Major depressive disorder, recurrent F33.9 Active/Remission status: currently active Psychotic features: with psychotic features Suicidal ideation R45.851 Personality disorder, unspecified F60.9 Type 2 diabetes mellitus E11.9 Hypertension I10 Bereavement Z63.4 BROCK (generalized anxiety disorder) F41.1
[2024-09-21 16:44] LABS: Glucose Point of Care 128 mg/dL (70-110)
[2024-09-21 20:30] LABS: Glucose Point of Care 94 mg/dL (70-110)
[2024-09-21] MEDS: paliperidone ER 3 mg Tablet PO (21:06)
[2024-09-22] VITALS (8 sets, daily range): BP systolic 97–139; BP diastolic 60–91; PULSE 67–80; RESP 17–18; TEMP 36.5–37.1; O2SAT 95–97
[2024-09-22 04:53] LABS: Basophils # 0.1 10^3/uL (0.0-0.1); Eosinophils # 0.2 10^3/uL (0.0-0.8); Eosinophils % 3.1 %; Hematocrit 43.6 % (37-53); Lymphocytes % 33.8 %; Mean Corpuscular HGB Conc 34.4 g/dL (30-55); Mean Corpuscular Hemoglobin 33.6 pg (27-33); Mean Corpuscular Volume 97.8 fl (82-101); Mean Platelet Volume 10.1 fL (7.4-10.4); Monocytes # 0.6 10^3/uL (0.2-0.9); Monocytes % 10.5 %; Neutrophils # 3.02 10^3/uL (1.8-7.7); Neutrophils % 51.4 %; Nucleated Red Blood Cells % 0 %; Platelet Count 182 10^3/cmm (157-399); Red Blood Count 4.46 10^6/uL (3.85-5.65); Red Cell Distribution Width 12.5 % (12.1-15.1); White Blood Count 5.88 10^3/uL (3.29-11.43)
[2024-09-22 05:13] LABS: Anion Gap 10.2 (5-19); Blood Urea Nitrogen 30 mg/dL (6-20); Calcium 8.7 mg/dL (8.5-10.5); Carbon Dioxide 28 mmol/L (22-29); Chloride 110 mmol/L (98-107); Creatinine Clr Calc Pharmacy 91.7663; Glomerular Filtration Rate 71.4 mL/min (90-130); Glucose 84 mg/dL (65-115); Osmolality Calculated 303 mOsm/kg (285-295); Potassium 4.2 mmol/L (3.5-5.1); Sodium 144 mmol/L (136-145)
[2024-09-22 06:50] LABS: Glucose Point of Care 104 mg/dL (70-110)
[2024-09-22] MEDS: sodium chloride 0.9% 1,000 ML 100 ML IV (08:35)
[2024-09-22] MEDS: tamsulosin 0.4 mg Capsule PO (09:56)
[2024-09-22] MEDS: pramipexole 0.25 mg Tablet PO (09:56)
[2024-09-22] MEDS: VILAZODONE 40 MG 40 EACH PO (09:56)
--- NOTE | 2024-09-22 15:26 | P.PN_ITS ---
Subjective 2 Subjective: Patient was seen this morning he is alert oriented x 3, following all commands, denies any lightheadedness, dizziness, he did get up and ambulate denies feeling lightheaded or dizziness, orthostatic vitals this afternoon are within normal limits, spoke to psychiatry, will move him back to n.p.u., hold his blood pressure medications for now Vitals/I&O/Wt Last Vital Signs Temp 98.0 F 09/22/24 11:41 Pulse 68 09/22/24 10:00 Resp 18 09/22/24 11:41 BP 135/87 09/22/24 10:00 Pulse Ox 97 09/22/24 11:41 O2 Del Method Room Air 09/22/24 11:41 09/22/24 09/22/24 09/22/24 06:59 14:59 22:59 Intake Total 1720 / 1720 Balance 1720 / 1720 Weight last 48 hrs Weight 87.997 kg Physical Exam 2 Const: COMMON NORMALS: no acute distress and patient oriented x3 Resp: COMMON NORMALS: normal respiratory effort, No retractions, No use of accessory muscles and clear to auscultation bilaterally AUSCULTATION: clear to auscultation bilaterally Cardio: COMMON NORMALS: regular rate, regular rhythm, S1 normal heart sound present and S2 normal heart sound present RATE: regular rate RHYTHM: r egular rhythm HEART SOUNDS: S1 normal heart sound present and S2 normal heart sound present GI: COMMON NORMALS: Normal to inspection, nondistended, normoactive bowel sounds present and non-tender Extremity: COMMON NORMALS: no pedal edema Neuro: COMMON NORMALS: patient oriented x3 Data 09/22/24 03:36 09/22/24 03:36 A&P Assessment and plan (1) Hypotension: Orthostatic hypotension # Hold blood pressure medications (2) Fall: Fall prior to my evaluation Patient denies any symptoms including new neurological symptoms No pain complaints Discussed with nursing to monitor neurochecks every 4 hours times twice Head CT no acute findings Cervical spine CT no acute findings Fall precautions Sitter (3) Benign prostatic hyperplasia: Continue Flomax for now, if blood pressure does not improve; then may need (4) Type 2 diabetes mellitus: Continue SSI (5) Hypertension: Discontinue HCTZ Continue holding home lisinopril Further management as above (6) Acute kidney injury: IV fluids as above Plan Multiple psychiatric conditions: Per primary, suicide precautions, one-to-one sitter Lovenox for DVT prophylaxis Attestations 2 Medical Necessity Statement*: move to npu today Diagnoses Hypotension I95.9 Fall W19.XXXA Benign prostatic hyperplasia N40.0 Type 2 diabetes mellitus E11.9 Hypertension I10 Acute kidney injury N17.9
[2024-09-22 15:47] LABS: Glucose Point of Care 109 mg/dL (70-110)
[2024-09-22] MEDS: hyDROXYzine 25 mg Capsule 50 MG PO (16:19)
--- NOTE | 2024-09-22 18:13 | P.NPUPN_ITS ---
Subjective NPU 2 Subjective: 49-year-old male with history of major d epressive disorder recurrent admitted with worsening depression over the past 4 months. The patient remains on the medical surgical unit due to orthostasis and continued complaints of dizziness. He had received IV fluids. Patient had continued to state that he was willing to go home but continued to report no change in his depression. The patient did not attend his court hearing regarding continued stay. The patient reported that he needed to help on selling the house. He had continued to minimize the seriousness of his suicide attempts. He had continued to remain on one-to-one observation on the medical unit. He had again denied his behavior on the unit including wrapping around string around his finger and mysteriously finding a sharp large screw on the floor that appeared out of nowhere according to the patient. He reports difficulty falling asleep despite taking ambien. Mental Status Exam 2 MSE Comments: This is an overweight white male in hospital scrubs with limited grooming and minimal eye contact. He was pacing back and forth slowly but not in straight line. Notable abrasions over right side of forehead and cheek around right occipital area. No abnormal movements except for prominent psychomotor retardation. No tics or tremors were appreciated. ?He was minimally cooperative with exam in mild to moderate distress.? Speech was decreased in rate and diminished in volume with paucity of speech. ? Mood described as as fine His affect was mood incongruent. Thought process was superficial but linear. Thought content: Patient minimized suicidal ideation today, but acknowledged the seriousness of his behavior. There were no delusions reported but some paranoia noted, he denied auditory or visual hallucinations but appeared internally preoccupied despite denying any auditory or visual hallucinations. There were no signs of paranoia or hallucinations. Attention and concentration were adequate and memory was mostly reliable but none were formally tested.? He is alert and oriented x to person and place.? Insight was poor and judgment is impaired. Impulse control is poor. Vitals/I&O/Wt Last Vital Signs Temp 98.7 F 09/22/24 16:08 Pulse 71 09/22/24 16:08 Resp 18 09/22/24 16:08 BP 130/87 09/22/24 16:08 Pulse Ox 95 09/22/24 16:08 O2 Del Method Room Air 09/22/24 16:08 09/22/24 09/22/24 09/22/24 06:59 14:59 22:59 Intake Total 1720 / 1720 360 / 2080 Balance 1720 / 1720 360 / 2080 Weight last 48 hrs Weight 87.997 kg Data NPU 09/22/24 03:36 09/22/24 03:36 A&P Assessment and plan (1) Major depressive disorder, recurrent: Qualifiers: Active/Remission status: currently active Psychotic features: with psychotic features (2) Suicidal ideation: (3) Personality disorder, unspecified: (4) Type 2 diabetes mellitus: (5) Hypertension: (6) Bereavement: (7) BROCK (generalized anxiety disorder): Plan This is a 49-year-old white male with limited past psychiatric history but recent bereavement and suicide attempt.The patient has a history of major depression and anxiety, with a recent hospitalization due to panic attacks. The patient has had two episodes of hanging self in last month and continues to appear very depressed possibly psychotic as well. 1. Continue Viibyrd 40mg daily. and continue Invega 3mg at night for psychosis. Discontinue ambien. Trial of temazepam 30mg at night. 2. Continue to-15 minute checks, 3.? Encourage individual, group and milieu therapy. 4.? Encourage sober living treatment after discharge at the highest level of care to which he is willing to commit.? Obtain UDS. 5. Will attempt to gather collateral information. 21 day hold filed, hearing scheduled tommorow. Involuntary Hold Information 2 96 Hour Hold: 96 Hour Involuntary Admission: Yes 96 Hour Hold Ending Date: 09/19/24 96 Hour Hold Ending Time: 00:01 Attestations NPU 2 Medical Necessity Statement*: Inpatient hospitalization is medically necessary and deemed to ?be ?the clinically appropriate intervention ?at this time.? We will monitor/initiate medications and make changes as indicated.? ? The patient?s likely length of stay 5-7 days. Coding Level of Care Code Acute Code for [facility] Fwd Diagnoses Major depressive disorder, recurrent F33.9 Active/Remission status: currently active Psychotic features: with psychotic features Suicidal ideation R45.851 Personality disorder, unspecified F60.9 Type 2 diabetes mellitus E11.9 Hypertension I10 Bereavement Z63.4 BROCK (generalized anxiety disorder) F41.1
--- NOTE | 2024-09-22 19:08 | PC.NURSE ---
Patient arrived to the unit from Med-Surg accompanied by security. This nurse was present when patient changed into fresh scrubs and socks. No contraband uncovered. Patient removed the cardiac monitoring stickers from his chest. No wounds observed. Patient's right AC was bleeding on arrival to the unit. Pressure applied, along with bandaid.
[2024-09-22] MEDS: trazodone 50 mg Tablet PO (20:09)
[2024-09-22] MEDS: OLANZapine 5 mg ODT PO (20:09)
[2024-09-22] MEDS: paliperidone ER 3 mg Tablet PO (20:09)
[2024-09-22 20:26] LABS: Glucose Point of Care 127 mg/dL (70-110)
--- NOTE | 2024-09-22 21:18 | PC.NURSE ---
PATIENTS HOME MED AMBIEN WAS NOT BROUGHT DOWN FROM MED/SURG WHEN PATIENT WAS TRANSFERRED BACK TO OUR UNIT. MARYAM IVY FROM MED/SURG LOCATED PATIENTS HOME MEDS AND BROUGHT THEM TO THE NEURO PSYCH UNIT. AMBIEN COUNT WAS AT 12, ONE TAB WAS GIVEN TO THE PATIENT LEAVING 11 TABS IN THE PILL BOTTLE.
[2024-09-23 06:17] VITALS: BP 119/84; PULSE 76; RESP 18; TEMP 36.6; O2SAT 97
[2024-09-23 08:00] VITALS: BP 112/78; PULSE 87; RESP 16; O2SAT 97
[2024-09-23 08:05] LABS: Glucose Point of Care 101 mg/dL (70-110)
[2024-09-23] MEDS: tamsulosin 0.4 mg Capsule PO (08:23)
[2024-09-23] MEDS: pramipexole 0.25 mg Tablet PO (08:23)
[2024-09-23] MEDS: VILAZODONE 40 MG 40 EACH PO (08:25)
--- NOTE | 2024-09-23 08:34 | PC.NURSE ---
Morning assessment Patient's speech mumbled and hard to decipher during morning assessment. Patient stated that he is doing okay this morning. Patient denies suicidal thoughts. Patient endorses a little anxiety. When asked about depression, patient shrugged his shoulders. Patient was offered medication for anxiety, but patient declined at this time. Sitter present.
--- NOTE | 2024-09-23 10:00 | PC.NURSE ---
One to one stopped at [address] Mcgraw.
[2024-09-23 11:21] VITALS: BP 128/91; PULSE 83; RESP 16; TEMP 36.6; O2SAT 97
[2024-09-23 11:23] LABS: Glucose Point of Care 113 mg/dL (70-110)
[2024-09-23] MEDS: OLANZapine 5 mg ODT PO (12:35)
--- NOTE | 2024-09-23 13:01 | PC.NURSE ---
Another patient alerted staff that something is wrong with Solitario! This nurse quickly went to check on patient who was in the hallway walking slowly. The other patient stated that Solitario said he is going to have an episode. Patient denies dissiness, nausea, vision changes, pain. VS were quickly obtained. VS are WNLs. Patient agreeable to take medication. Administered zyprexa 5mg ODT, patient said that this does not help him but he will take it. 30 or so minutes later, patient still upset, agreeable to take haldol 5mg PO. Patient keeps saying that he is wanting to go home.
[2024-09-23] MEDS: haloperidol 5 mg Tablet PO (13:18)
[2024-09-23 14:11] VITALS: BP 133/89; PULSE 87; RESP 18; TEMP 36.7; O2SAT 91
[2024-09-23 16:00] VITALS: BP 120/85; PULSE 77; RESP 16; TEMP 36.8; O2SAT 96
[2024-09-23 16:52] LABS: Glucose Point of Care 119 mg/dL (70-110)
--- NOTE | 2024-09-23 17:44 | P.NPUPN_ITS ---
Subjective NPU 2 Subjective: 49-year-old male with history of major d epressive disorder recurrent admitted with worsening depression over the past 4 months. The patient had reported that 4 months ago, he had watched his son play baseball and had been apparently upset that his son had gone no further in the state tournament and states that after that point he started feeling more depressed. He is unable to describe any other triggers to his depression. He had reported that he continued to feel depressed but stated feeling a little better. He had reported some difficulties falling asleep. He had made attempts to stay awake in the daytime today. He had continued to asked that he could go home but appeared to offer no clear plan for what was different since he had come into the hospital. He had not attended groups earlier today. He had continued to remain isolative on the milieu. He had requested that he continue to take Ambien to help him sleep although he had reported awakening at 1 AM after taking it at 9 PM. He had reported continued worry chronically and stated that he often was preoccupied by his worries. Mental Status Exam 2 MSE Comments: This is an overweight white male in hospital scrubs with limited grooming and minimal eye contact. He was pacing back and forth slowly but not in straight line. Notable abrasions over right side of forehead and cheek around right occipital area. No abnormal movements except for prominent psychomotor retardation. No tics or tremors were appreciated. ?He was minimally cooperative with exam in mild to moderate distress.? Speech was decreased in rate and diminished in volume with paucity of speech. ? Mood described as as okay. His affect was flat. Thought process was linear and logical. Thought content: Patient denied suicidal ideation , he was unable to contract for safety. There were no delusions reported but some paranoia noted, he denied auditory or visual hallucinations but appeared internally preoccupied despite denying any auditory or visual hallucinations. His attention span was poor. There were no signs of paranoia or hallucinations. Attention and concentration were adequate and memory was mostly reliable but none were formally tested.? He is alert and oriented x to person and place.? Insight was poor and judgment is impaired. Impulse control is poor. Vitals/I&O/Wt Last Vital Signs Temp 98.3 F 09/23/24 16:00 Pulse 77 09/23/24 16:00 Resp 16 09/23/24 16:00 BP 120/85 09/23/24 16:00 Pulse Ox 96 09/23/24 16:00 O2 Del Method Room Air 09/23/24 16:00 09/23/24 09/23/24 09/23/24 06:59 14:59 22:59 Intake Total 360 / 360 Balance 360 / 360 Data NPU 09/22/24 03:36 09/22/24 03:36 A&P Assessment and plan (1) Major depressive disorder, recurrent: Qualifiers: Active/Remission status: currently active Psychotic features: with psychotic features (2) Suicidal ideation: (3) Personality disorder, unspecified: (4) Type 2 diabetes mellitus: (5) Hypertension: (6) Bereavement: (7) BROCK (generalized anxiety disorder): Plan This is a 49-year-old white male with limited past psychiatric history but recent bereavement and suicide attempt.The patient has a history of major depression and anxiety, with a recent hospitalization due to panic attacks. The patient has had two episodes of hanging self in last month and continues to appear very depressed possibly psychotic as well. 1. Continue Viibyrd 40mg daily. and continue Invega 3mg at night for psychosis. Discontinue ambien. Trial of temazepam 30mg at night. 2. Continue to-15 minute checks, 3.? Encourage individual, group and milieu therapy. 4.? Encourage sober living treatment after discharge at the highest level of care to which he is willing to commit.? Obtain UDS. 5. Will attempt to gather collateral information. 21 day hold filed, hearing scheduled tommorow. Consider ECT? Involuntary Hold Information 2 96 Hour Hold: 96 Hour Involuntary Admission: Yes 96 Hour Hold Ending Date: 09/19/24 96 Hour Hold Ending Time: 00:01 Attestations NPU 2 Medical Necessity Statement*: Inpatient hospitalization is medically necessary and deemed to ?be ?the clinically appropriate intervention ?at this time.? We will monitor/initiate medications and make changes as indicated.? ? The patient?s likely length of stay 5-7 days. Coding Level of Care Code Acute Code for [facility] Fwd Diagnoses Major depressive disorder, recurrent F33.9 Active/Remission status: currently active Psychotic features: with psychotic features Suicidal ideation R45.851 Personality disorder, unspecified F60.9 Type 2 diabetes mellitus E11.9 Hypertension I10 Bereavement Z63.4 BROCK (generalized anxiety disorder) F41.1
[2024-09-23 19:49] LABS: Glucose Point of Care 169 mg/dL (70-110)
[2024-09-23 19:55] VITALS: BP 113/76; PULSE 68; RESP 18; TEMP 36.6; O2SAT 96
[2024-09-23] MEDS: paliperidone ER 3 mg Tablet PO (20:05)
[2024-09-23] MEDS: temazepam 15 mg Capsule 30 MG PO (20:05)
[2024-09-23] MEDS: insulin lispro 100 unit/1 mL SUBCUT (20:05)
[2024-09-23] MEDS: trazodone 50 mg Tablet PO (23:36)
[2024-09-24 06:00] VITALS: BP 120/75; PULSE 73; RESP 16; TEMP 36.8; O2SAT 95
[2024-09-24 07:45] LABS: Glucose Point of Care 174 mg/dL (70-110)
[2024-09-24 07:55] VITALS: BP 129/85; PULSE 89; RESP 16; TEMP 36.7; O2SAT 95
[2024-09-24] MEDS: insulin lispro 100 unit/1 mL SUBCUT ×2 (08:10→21:11)
[2024-09-24] MEDS: pramipexole 0.25 mg Tablet PO (08:10)
[2024-09-24] MEDS: buPROPion XL (24 HR) 150 mg Tablet PO (08:10)
[2024-09-24] MEDS: tamsulosin 0.4 mg Capsule PO (08:10)
[2024-09-24] MEDS: VILAZODONE 40 MG 40 EACH PO (08:14)
[2024-09-24 11:32] LABS: Glucose Point of Care 124 mg/dL (70-110)
[2024-09-24 11:46] VITALS: BP 125/88; PULSE 69; RESP 16; TEMP 36.6; O2SAT 96
[2024-09-24] MEDS: diphenhydrAMINE 25 mg Capsule PO (14:20)
[2024-09-24] MEDS: LORazepam 2 mg Tablet PO (14:20)
[2024-09-24] MEDS: haloperidol 5 mg Tablet PO (14:20)
[2024-09-24 15:27] VITALS: BP 117/75; PULSE 73; RESP 16; TEMP 36.6; O2SAT 96
--- NOTE | 2024-09-24 15:58 | P.NPUPN_ITS ---
Subjective NPU 2 Subjective: 49-year-old male with history of major d epressive disorder recurrent admitted with worsening depression over the past 4 months. The patient continued to have diminished oral intake. He had required some prompting to drink fluids and eat. He had complained of continued dizziness. Patient had stated that he wanted to go home. He had admitted that he was feeling a little better although he continued to walk along the hallway without any particular goal or direction. He reported struggles with sleep last night with the temazepam given in place of the Ambien extended release. He reported that he had not thought of any plan or way to keep safe if he were to return home. He had stated that his works and that he was often left home alone. Continued concern existed that the patient was not able to manage his significant medical issues including diabetes with his difficulties with taking medications and difficulties with memory. He continued to report excessive worry. Mental Status Exam 2 MSE Comments: This is a medium built white male in hospital scrubs with limited grooming and minimal eye contact. He was pacing back and forth extremely slowly but not in straight line. Notable abrasions over right side of forehead and cheek around right occipital area. No abnormal involuntary motor movements except for prominent psychomotor retardation. No tics or tremors were appreciated. ?He was cooperative with exam in moderate to severe distress.? Speech was decreased in rate and diminished in volume with paucity of speech. ? Mood described as as okay. His affect was flat Thought process was linear and logical. Thought content: Patient denied suicidal ideation , he was unable to contract for safety. There were no delusions reported with no overt paranoia appreciated. He denied auditory or visual hallucinations but appeared internally preoccupied despite denying any auditory or visual hallucinations. His attention span was poor. There were no signs of paranoia or hallucinations. Attention and concentration were adequate and memory was mostly reliable but none were formally tested.? He is alert and oriented x to person and place.? Insight was poor and judgment is impaired. Impulse control is poor. Vitals/I&O/Wt Last Vital Signs Temp 98 F 09/24/24 15:27 Pulse 73 09/24/24 15:27 Resp 16 09/24/24 15:27 BP 117/75 09/24/24 15:27 Pulse Ox 96 09/24/24 15:27 O2 Del Method Room Air 09/24/24 15:27 Data NPU 09/22/24 03:36 09/22/24 03:36 A&P Assessment and plan (1) Major depressive disorder, recurrent: Qualifiers: Active/Remission status: currently active Psychotic features: with psychotic features (2) Suicidal ideation: (3) Personality disorder, unspecified: (4) Type 2 diabetes mellitus: (5) Hypertension: (6) Bereavement: (7) BROCK (generalized anxiety disorder): Plan This is a 49-year-old white male with limited past psychiatric history but recent bereavement and suicide attempt.The patient has a history of major depression and anxiety, with a recent hospitalization due to panic attacks. The patient has had two episodes of hanging self in last month and continues to appear very depressed possibly psychotic as well. 1. Continue Viibyrd 40mg daily. and continue Invega 3mg at night for psychosis. Restart ambien 12.5mg at night. 2. Continue to-15 minute checks, 3.? Encourage individual, group and milieu therapy. 4.? Encourage sober living treatment after discharge at the highest level of care to which he is willing to commit.? Obtain UDS. 5. 21 day hold filed, hearing scheduled tommorow. Consider ECT given his brittleness regarding medical issues, issues with hypotension, increased falls. Hold Mirapex secondary to dizziness. Involuntary Hold Information 2 96 Hour Hold: 96 Hour Involuntary Admission: Yes 96 Hour Hold Ending Date: 09/19/24 96 Hour Hold Ending Time: 00:01 Attestations NPU 2 Medical Necessity Statement*: Inpatient hospitalization is medically necessary and deemed to ?be ?the clinically appropriate intervention ?at this time.? We will monitor/initiate medications and make changes as indicated.? ? The patient?s likely length of stay 5-7 days. Coding Level of Care Code Acute Code for Chg Fwd Diagnoses Major depressive disorder, recurrent F33.9 Active/Remission status: currently active Psychotic features: with psychotic features Suicidal ideation R45.851 Personality disorder, unspecified F60.9 Type 2 diabetes mellitus E11.9 Hypertension I10 Bereavement Z63.4 BROCK (generalized anxiety disorder) F41.1
[2024-09-24 17:32] LABS: Glucose Point of Care 85 mg/dL (70-110)
[2024-09-24 20:00] VITALS: BP 112/69; PULSE 66; RESP 18; TEMP 36.9; O2SAT 94
[2024-09-24 20:12] LABS: Glucose Point of Care 148 mg/dL (70-110)
[2024-09-24] MEDS: paliperidone ER 3 mg Tablet PO (21:11)
[2024-09-24] MEDS: trazodone 50 mg Tablet PO (21:15)
[2024-09-24] MEDS: NON-FORMULARY MEDICATION 12.5 EACH PO (21:16)
[2024-09-25 06:00] VITALS: BP 123/80; PULSE 76; RESP 16; TEMP 37; O2SAT 99
[2024-09-25 07:44] LABS: Glucose Point of Care 125 mg/dL (70-110)
[2024-09-25] MEDS: tamsulosin 0.4 mg Capsule PO (08:42)
[2024-09-25] MEDS: buPROPion XL (24 HR) 150 mg Tablet PO (08:42)
[2024-09-25] MEDS: VILAZODONE 40 MG 40 EACH PO (08:43)
[2024-09-25 11:56] LABS: Glucose Point of Care 195 mg/dL (70-110)
[2024-09-25] MEDS: insulin lispro 100 unit/1 mL SUBCUT ×2 (11:57→21:05)
[2024-09-25 14:00] VITALS: BP 121/74; PULSE 80; RESP 17; TEMP 36.8; O2SAT 95
--- NOTE | 2024-09-25 14:29 | P.NPUPN_ITS ---
Subjective NPU 2 Subjective: 49-year-old male with history of major d epressive disorder recurrent admitted with worsening depression over the past 4 months. The patient was able to attend groups and appeared less isolative today. He had reported that he was feeling a little better and reported that he had felt that maybe he could go home soon. He was reporting some continued low energy but stated that he had slept better last night. He did not endorse any dizziness. He reported that he felt that the medications may be helping at this time. He had continued to minimize having any thoughts of harming himself but he appeared to be less engaged in any provocative behavior with the patient remaining off of constant observation. Mental Status Exam 2 MSE Comments: This is a medium built white male in hospital scrubs with limited grooming and minimal eye contact. Less pacing noted. Notable abrasions over right side of forehead and cheek around right occipital area. No abnormal involuntary motor movements except for prominent psychomotor retardation. No tics or tremors were appreciated. ?He was cooperative with exam in moderate to severe distress.? Speech was decreased in rate and diminished in volume with paucity of speech. ? Mood described as better. His affect was flat. Thought process was linear and logical. Thought content: Patient denied suicidal ideation today. There were no delusions reported with no overt paranoia appreciated. He denied auditory or visual hallucinations and appeared less internally preoccupied despite denying any auditory or visual hallucinations. His attention span was poor. There were no signs of paranoia or hallucinations. Attention and concentration were adequate and memory was mostly reliable but none were formally tested.? He is alert and oriented x to person and place.? Insight was poor and judgment is impaired. Impulse control is poor. Vitals/I&O/Wt Last Vital Signs Temp 98.6 F 09/25/24 06:00 Pulse 76 09/25/24 06:00 Resp 16 09/25/24 06:00 BP 123/80 09/25/24 06:00 Pulse Ox 99 09/25/24 06:00 O2 Del Method Room Air 09/24/24 15:27 09/24/24 09/25/24 09/25/24 22:59 06:59 14:59 Intake Total 360 / 360 Balance 360 / 360 Data NPU 09/22/24 03:36 09/22/24 03:36 A&P Assessment and plan (1) Major depressive disorder, recurrent: Qualifiers: Active/Remission status: currently active Psychotic features: with psychotic features (2) Suicidal ideation: (3) Personality disorder, unspecified: (4) Type 2 diabetes mellitus: (5) Hypertension: (6) Bereavement: (7) BROCK (generalized anxiety disorder): Plan This is a 49-year-old white male with limited past psychiatric history but recent bereavement and suicide attempt.The patient has a history of major depression and anxiety, with a recent hospitalization due to panic attacks. The patient has had two episodes of hanging self in last month and continues to appear very depressed possibly psychotic as well. 1. Continue Viibyrd 40mg daily. and continue Invega 3mg at night for psychosis. Continue ambien 12.5mg at night. Increase wellbutrin xl to 300mg in am. 2. Continue to-15 minute checks, 3.? Encourage individual, group and milieu therapy. 4.? Encourage sober living treatment after discharge at the highest level of care to which he is willing to commit.? Obtain UDS. 5. Patient on 21 day hold. Consider ECT given his brittleness regarding medical issues, issues with hypotension, increased falls. Hold Mirapex secondary to dizziness. Involuntary Hold Information 2 96 Hour Hold: 96 Hour Involuntary Admission: Yes 96 Hour Hold Ending Date: 09/19/24 96 Hour Hold Ending Time: 00:01 Attestations NPU 2 Medical Necessity Statement*: Inpatient hospitalization is medically necessary and deemed to ?be ?the clinically appropriate intervention ?at this time.? We will monitor/initiate medications and make changes as indicated.? ? The patient?s likely length of stay 5-7 days. Coding Level of Care Code Acute Code for Chg Fwd Diagnoses Major depressive disorder, recurrent F33.9 Active/Remission status: currently active Psychotic features: with psychotic features Suicidal ideation R45.851 Personality disorder, unspecified F60.9 Type 2 diabetes mellitus E11.9 Hypertension I10 Bereavement Z63.4 BROCK (generalized anxiety disorder) F41.1
[2024-09-25] MEDS: hyDROXYzine 25 mg Capsule 50 MG PO (15:17)
[2024-09-25 17:30] VITALS: BP 117/80; PULSE 71; RESP 16; TEMP 37; O2SAT 95
[2024-09-25 17:41] LABS: Glucose Point of Care 95 mg/dL (70-110)
[2024-09-25 20:04] LABS: Glucose Point of Care 98 mg/dL (70-110)
[2024-09-25] MEDS: paliperidone ER 3 mg Tablet PO (20:55)
[2024-09-25] MEDS: trazodone 50 mg Tablet PO (20:55)
[2024-09-25] MEDS: NON-FORMULARY MEDICATION 12.5 EACH PO (20:55)
[2024-09-25 21:03] LABS: Glucose Point of Care 145 mg/dL (70-110)
[2024-09-25 21:15] VITALS: BP 117/80; PULSE 67; RESP 16; TEMP 36.6; O2SAT 98
[2024-09-26] MEDS: trazodone 50 mg Tablet PO (00:41)
[2024-09-26] MEDS: hyDROXYzine 25 mg Capsule 50 MG PO ×3 (02:26→21:01)
[2024-09-26] MEDS: OLANZapine 5 mg ODT PO ×2 (02:26→21:01)
[2024-09-26 05:50] VITALS: BP 128/89; PULSE 65; RESP 16; TEMP 36.9; O2SAT 96
[2024-09-26 06:40] LABS: Glucose Point of Care 132 mg/dL (70-110)
[2024-09-26 07:44] VITALS: BP 121/79; PULSE 63; RESP 18; TEMP 36.9; O2SAT 97
[2024-09-26 08:00] VITALS: BP 121/79; PULSE 63; RESP 18; TEMP 36.9; O2SAT 97
[2024-09-26 08:03] LABS: Glucose Point of Care 106 mg/dL (70-110)
[2024-09-26] MEDS: buPROPion XL (24 HR) 150 mg Tablet 300 MG PO (08:07)
[2024-09-26] MEDS: tamsulosin 0.4 mg Capsule PO (08:07)
[2024-09-26] MEDS: VILAZODONE 40 MG 40 EACH PO (08:07)
[2024-09-26 11:40] LABS: Glucose Point of Care 178 mg/dL (70-110)
[2024-09-26 11:43] VITALS: BP 143/92; PULSE 74; RESP 16; TEMP 36.7; O2SAT 97
[2024-09-26] MEDS: insulin lispro 100 unit/1 mL SUBCUT ×3 (12:58→21:01)
--- NOTE | 2024-09-26 15:16 | P.NPUPN_ITS ---
Subjective NPU 2 Subjective: Patient presented today reporting that he is doing okay. He is reportedly aware of the plan to consider transfer for ECT at the beginning of the week. He seems to have some reticence about this plan reporting that he does feel like he is getting better. We discussed the importance of having a dependable plan of action given the concern about his lethality and his recent rapid return to inpatient care. He denied any side effects of the medication. Mental Status Exam 2 MSE Comments: This is a medium built white male in hospital scrubs with limited grooming and minimal eye contact. Less pacing noted. Notable abrasions over right side of forehead and cheek around right occipital area. No abnormal involuntary motor movements except for prominent psychomotor retardation. No tics or tremors were appreciated. ?He was cooperative with exam in moderate to severe distress.? Speech was decreased in rate and diminished in volume with paucity of speech. ? Mood described as better. His affect was flat. Thought process was linear and logical. Thought content: Patient denied suicidal ideation today. There were no delusions reported with no overt paranoia appreciated. He denied auditory or visual hallucinations and appeared less internally preoccupied despite denying any auditory or visual hallucinations. His attention span was poor. There were no signs of paranoia or hallucinations. Attention and concentration were adequate and memory was mostly reliable but none were formally tested.? He is alert and oriented x to person and place.? Insight was poor and judgment is impaired. Impulse control is poor. Vitals/I&O/Wt Last Vital Signs Temp 98.1 F 09/26/24 11:43 Pulse 74 09/26/24 11:43 Resp 16 09/26/24 11:43 BP 143/92 09/26/24 11:43 Pulse Ox 97 09/26/24 11:43 O2 Del Method Room Air 09/26/24 11:43 Data NPU 09/22/24 03:36 09/22/24 03:36 A&P Assessment and plan (1) Major depressive disorder, recurrent: Qualifiers: Active/Remission status: currently active Psychotic features: with psychotic features (2) Suicidal ideation: (3) Personality disorder, unspecified: (4) Type 2 diabetes mellitus: (5) Hypertension: (6) Bereavement: (7) BROCK (generalized anxiety disorder): Plan This is a 49-year-old white male with limited past psychiatric history but recent bereavement and suicide attempt.The patient has a history of major depression and anxiety, with a recent hospitalization due to panic attacks. The patient has had two episodes of hanging self in last month and continues to appear very depressed possibly psychotic as well. 1. Continue Viibyrd 40mg daily. and continue Invega 3mg at night for psychosis. Continue ambien 12.5mg at night. Increase wellbutrin xl to 300mg in am. 2. Continue to-15 minute checks, 3.? Encourage individual, group and milieu therapy. 4.? Encourage sober living treatment after discharge at the highest level of care to which he is willing to commit.? Obtain UDS. 5. Patient on 21 day hold. Consider ECT given his brittleness regarding medical issues, issues with hypotension, increased falls. Hold Mirapex secondary to dizziness. Involuntary Hold Information 2 96 Hour Hold: 96 Hour Involuntary Admission: Yes 96 Hour Hold Ending Date: 09/19/24 96 Hour Hold Ending Time: 00:01 Attestations NPU 2 Medical Necessity Statement*: Inpatient hospitalization is medically necessary and deemed to ?be ?the clinically appropriate intervention ?at this time.? We will monitor/initiate medications and make changes as indicated.? ? The patient?s likely length of stay 5-7 days. Coding Level of Care Code Acute Code for [facility] Fwd Diagnoses Major depressive disorder, recurrent F33.9 Active/Remission status: currently active Psychotic features: with psychotic features Suicidal ideation R45.851 Personality disorder, unspecified F60.9 Type 2 diabetes mellitus E11.9 Hypertension I10 Bereavement Z63.4 BROCK (generalized anxiety disorder) F41.1
[2024-09-26 16:00] VITALS: BP 147/100; PULSE 67; RESP 16; TEMP 36.9; O2SAT 97
[2024-09-26 18:36] LABS: Glucose Point of Care 142 mg/dL (70-110)
[2024-09-26 20:00] VITALS: BP 129/89; PULSE 75; RESP 18; TEMP 36.7; O2SAT 98
[2024-09-26 20:19] LABS: Glucose Point of Care 148 mg/dL (70-110)
[2024-09-26] MEDS: paliperidone ER 3 mg Tablet PO (21:01)
[2024-09-26] MEDS: NON-FORMULARY MEDICATION 12.5 EACH PO (21:02)
[2024-09-27] VITALS (7 sets, daily range): BP systolic 116–153; BP diastolic 68–105; PULSE 67–81; RESP 16–18; TEMP 36.6–36.8; O2SAT 96–100
[2024-09-27] MEDS: trazodone 50 mg Tablet PO (02:07)
[2024-09-27] MEDS: OLANZapine 5 mg ODT PO ×2 (07:15→23:29)
[2024-09-27 07:36] LABS: Glucose Point of Care 123 mg/dL (70-110)
[2024-09-27] MEDS: tamsulosin 0.4 mg Capsule PO (08:26)
[2024-09-27] MEDS: buPROPion XL (24 HR) 150 mg Tablet 300 MG PO (08:26)
[2024-09-27] MEDS: VILAZODONE 40 MG 40 EACH PO (08:26)
--- NOTE | 2024-09-27 08:26 | P.NPUPN_ITS ---
Subjective NPU 2 Subjective: Patient presented today reporting that he is doing okay. He continued to suggest that possibly he was doing better to a level that maybe ECT was unnecessary. However we discussed that there would be an evaluation prior to initiation of ECT to determine whether it is an appropriate intervention. We discussed working with the social work team on Sunday to address any issues of transfer and plausibility. He denied any side effects of the medication. Mental Status Exam 2 MSE Comments: This is a medium built white male in hospital scrubs with limited grooming and minimal eye contact. Less pacing noted. Notable abrasions over right side of forehead and cheek around right occipital area. No abnormal involuntary motor movements except for prominent psychomotor retardation. No tics or tremors were appreciated. ?He was cooperative with exam in moderate to severe distress.? Speech was decreased in rate and diminished in volume with paucity of speech. ? Mood described as better. His affect was flat. Thought process was linear and logical. Thought content: Patient denied suicidal ideation today. There were no delusions reported with no overt paranoia appreciated. He denied auditory or visual hallucinations and appeared less internally preoccupied despite denying any auditory or visual hallucinations. His attention span was poor. There were no signs of paranoia or hallucinations. Attention and concentration were adequate and memory was mostly reliable but none were formally tested.? He is alert and oriented x to person and place.? Insight was poor and judgment is impaired. Impulse control is poor. Vitals/I&O/Wt Last Vital Signs Temp 98.2 F 09/27/24 15:41 Pulse 71 09/27/24 15:41 Resp 16 09/27/24 15:41 BP 116/68 09/27/24 15:41 Pulse Ox 100 09/27/24 15:41 O2 Del Method Room Air 09/27/24 15:41 Data NPU 09/22/24 03:36 09/22/24 03:36 A&P Assessment and plan (1) Major depressive disorder, recurrent: Qualifiers: Active/Remission status: currently active Psychotic features: with psychotic features (2) Suicidal ideation: (3) Personality disorder, unspecified: (4) Type 2 diabetes mellitus: (5) Hypertension: (6) Bereavement: (7) BROCK (generalized anxiety disorder): Plan This is a 49-year-old white male with limited past psychiatric history but recent bereavement and suicide attempt.The patient has a history of major depression and anxiety, with a recent hospitalization due to panic attacks. The patient has had two episodes of hanging self in last month and continues to appear very depressed possibly psychotic as well. 1. Continue Viibyrd 40mg daily. and continue Invega 3mg at night for psychosis. Continue ambien 12.5mg at night. Increase wellbutrin xl to 300mg in am. 2. Continue to-15 minute checks, 3.? Encourage individual, group and milieu therapy. 4.? Encourage sober living treatment after discharge at the highest level of care to which he is willing to commit.? Obtain UDS. 5. Patient on 21 day hold. Consider ECT given his brittleness regarding medical issues, issues with hypotension, increased falls. Hold Mirapex secondary to dizziness. Involuntary Hold Information 2 96 Hour Hold: 96 Hour Involuntary Admission: Yes 96 Hour Hold Ending Date: 09/19/24 96 Hour Hold Ending Time: 00:01 Attestations NPU 2 Medical Necessity Statement*: Inpatient hospitalization is medically necessary and deemed to ?be ?the clinically appropriate intervention ?at this time.? We will monitor/initiate medications and make changes as indicated.? ? The patient?s likely length of stay 5-7 days. Coding Level of Care Code Acute Code for [facility] Fwd Diagnoses Major depressive disorder, recurrent F33.9 Active/Remission status: currently active Psychotic features: with psychotic features Suicidal ideation R45.851 Personality disorder, unspecified F60.9 Type 2 diabetes mellitus E11.9 Hypertension I10 Bereavement Z63.4 BROCK (generalized anxiety disorder) F41.1
[2024-09-27 11:47] LABS: Glucose Point of Care 110 mg/dL (70-110)
[2024-09-27 17:04] LABS: Glucose Point of Care 108 mg/dL (70-110)
[2024-09-27 19:34] LABS: Glucose Point of Care 126 mg/dL (70-110)
[2024-09-27] MEDS: NON-FORMULARY MEDICATION 12.5 EACH PO (20:17)
[2024-09-27] MEDS: paliperidone ER 3 mg Tablet PO (20:17)
[2024-09-27] MEDS: hyDROXYzine 25 mg Capsule 50 MG PO (20:17)
[2024-09-28] VITALS: BP 137/78; PULSE 90; RESP 18; TEMP 36.6; O2SAT 97
[2024-09-28] MEDS: hyDROXYzine 25 mg Capsule 50 MG PO (02:38)
[2024-09-28 04:00] VITALS: BP 130/89; PULSE 82; RESP 18; TEMP 36.8; O2SAT 94
[2024-09-28] MEDS: OLANZapine 5 mg ODT PO (06:27)
[2024-09-28 08:00] VITALS: BP 141/90; PULSE 73; RESP 16; TEMP 36.8; O2SAT 97
[2024-09-28 08:00] LABS: Glucose Point of Care 109 mg/dL (70-110)
[2024-09-28] MEDS: tamsulosin 0.4 mg Capsule PO (08:13)
[2024-09-28] MEDS: VILAZODONE 40 MG 40 EACH PO (08:13)
[2024-09-28] MEDS: buPROPion XL (24 HR) 150 mg Tablet 300 MG PO (08:13)
[2024-09-28 11:06] VITALS: BP 148/99; PULSE 79; RESP 16; TEMP 36.8; O2SAT 96
[2024-09-28 11:17] LABS: Glucose Point of Care 116 mg/dL (70-110)
--- NOTE | 2024-09-28 12:12 | XRR_ITS ---
PROCEDURE INFORMATION: Exam: XR Chest Exam date and time: 09/28/2024 1:26 PM Age: 49 years old Clinical indication: Other: Choke while eating TECHNIQUE: Imaging protocol: Radiologic exam of the chest. Views: 1 view. COMPARISON: CR XR chest 1V portable [id number] 09/21/2024 3:06 PM FINDINGS: Lungs: Unremarkable. No consolidation. Pleural spaces: Unremarkable. No pleural effusion. No pneumothorax. Heart/Mediastinum: Unremarkable. No cardiomegaly. Bones/joints: Unremarkable. XR/XR chest 1V portable [id number] IMPRESSION: No acute findings.
--- NOTE | 2024-09-28 12:15 | XRR_ITS ---
PROCEDURE INFORMATION: Exam: XR Soft Tissue Neck Exam date and time: 09/28/2024 1:30 PM Age: 49 years old Clinical indication: Other: Choke while eating TECHNIQUE: Imaging protocol: Radiologic exam of the soft tissues of the neck. COMPARISON: CT cervical spin wo con* [id number] 09/20/2024 6:41 PM FINDINGS: Airway: Normal. No abnormal narrowing. Soft tissues: Normal. Normal epiglottis. Bones/joints: Unremarkable. XR/XR soft tissue neck [id number] IMPRESSION: No acute findings.
[2024-09-28 12:17] LABS: Glucose Point of Care 120 mg/dL (70-110)
--- NOTE | 2024-09-28 12:20 | PC.NURSE ---
At approximately 12:15pm, the patients roommate frantically came running to the nurses station saying help aida is choking!!! the patient came running out of the room, clutching his throat and drooling. This nurse and smelter charger came running out of the nurses station, when smelter charger started to perform the heimlich maneuver on the patient, the technique did not succeed, so the smelter charger called a rapid response code while this nurse stayed with the patient due to the patient turning a blueish color. The patient bend over so this nurse could pat his back while he tried to gag up the piece of dislodged food from his throat. The patient soon choked up a small piece of his food in a small pile of emesis, the patient had also urinated on himself. The bottle house quality control technician, security & other hospital staff had responded. The patients vitals were taken and are as follows, BP: 162/127 P:80 RR:20 T:99.2 and O2:98. The patients blood sugar level was 120. The patient was escorted into the bathroom to be able to change his clothing and shower. Orders were also put in for a chest & neck x-ray to identify if there is still anything lodged in the patients throat due to patient report of having a feeling of It still feels like there is something in there. The patient had his portable chest & neck x-ray performed at bedside and had another set of vital signs taken and are as follows BP:122/85 P:82 RR:17 and O2:96. Nanda & Dr. Mcgraw made aware of incident. The patient is now sitting calmly on his bed, RR even and unlabored.
--- NOTE | 2024-09-28 12:40 | PM.CCNAC ---
Critical Care Event Note Had a rapid response called at [facility] at 12:08 PM at [facility] because of concerns for choking while having his meal. On examination patient sitting up in chair, awake and alert, saturating 94% on room air with heart rate of 82 bpm blood pressure 160 over 110 mmHg, awake and alert and back to his baseline mentation. As per the history taken through the nurses at bedside patient was having his meal in the lunchroom and he approached the nursing station stating by pointing as if something is stuck in his throat after which he had 1 episode of vomiting and after vomiting he came back to his baseline. Currently patient is awake and alert complaining of feeling of foreign body in throat. Examination no foreign body visible. Bilateral equal air entry. Blood sugar during examination 120. Plan: Chest x-ray and a soft tissue x-ray of the neck to rule out aspiration pneumonia and foreign body in neck. Will plan for soft diet for next 24 hours. High probability of a clinically significant, sudden or life threatening deterioration of the patient's [Pulmonary] system(s) required my full and direct attention, intervention and personal management. The critical care time is as shown. This time is in addition to time spent performing any reported procedures but includes the following: [x] Data and vital sign review and interpretation [x] Patient assessment, examination and intervention [x] Documentation [x] Medication orders and management Critical Care Time Code activated: Yes Critical Care Time (min): 60 Coding Level of Care Code Critical Care Time Spent (min) 60
--- NOTE | 2024-09-28 12:56 | PC.NURSE ---
This nurse and PENNY Farah were alerted by Solitario's roommate that Solitario was choking. We quickly entered the hallway. This nurse attempted the Heimlich Manuever two times with no luck. Patient still struggling to breathe. This nurse went to nurses station while Sofi stayed with patient. This nurse yelled for the assistance of others and called a Rapid Response at 1208. Patient at this time was turning pale in his face. Patient got onto floor and gagged himself in an attempt to dislodge the food. Patient was able to cough up a small piece of food, along with emesis. During this time, patient urinated on himself. Hospital staff arriving at this time. Patient was helped to the bench. VS were quickly obtained along with towels and fresh clothing for modesty. Patient BG was checked. Dr. Cox verbally ordered chest XR, neck XR and POC glucose check. During this time, patient's color returned to normal.
[2024-09-28 15:08] VITALS: BP 135/87; PULSE 87; RESP 16; TEMP 36.6; O2SAT 96
--- NOTE | 2024-09-28 15:08 | P.NPUPN_ITS ---
Subjective NPU 2 Subjective: Patient presented today reporting that he is doing okay. He seems to be shrinking away from the plan to use ECT per staff reports and direct observation. He currently reports that he thought that maybe after he was doing better he can go home. We discussed that being a significant divergence and the plan and us talking to Dr. Simeon and looking at different options. He denied any side effects to the medication. He had an episode where he was choking and we may consider a swallow study or something. Mental Status Exam 2 MSE Comments: This is a medium built white male in hospital scrubs with limited grooming and minimal eye contact. Less pacing noted. Notable abrasions over right side of forehead and cheek around right occipital area. No abnormal involuntary motor movements except for prominent psychomotor retardation. No tics or tremors were appreciated. ?He was cooperative with exam in moderate to severe distress.? Speech was decreased in rate and diminished in volume with paucity of speech. ? Mood described as better. His affect was flat. Thought process was linear and logical. Thought content: Patient denied suicidal ideation today. There were no delusions reported with no overt paranoia appreciated. He denied auditory or visual hallucinations and appeared less internally preoccupied despite denying any auditory or visual hallucinations. His attention span was poor. There were no signs of paranoia or hallucinations. Attention and concentration were adequate and memory was mostly reliable but none were formally tested.? He is alert and oriented x to person and place.? Insight was poor and judgment is impaired. Impulse control is poor. Vitals/I&O/Wt Last Vital Signs Temp 98.2 F 09/28/24 11:06 Pulse 79 09/28/24 11:06 Resp 16 09/28/24 11:06 BP 148/99 09/28/24 11:06 Pulse Ox 96 09/28/24 11:06 O2 Del Method Room Air 09/28/24 11:06 Weight last 48 hrs Weight 87.362 kg Data NPU 09/22/24 03:36 09/22/24 03:36 A&P Assessment and plan (1) Major depressive disorder, recurrent: Qualifiers: Active/Remission status: currently active Psychotic features: with psychotic features (2) Suicidal ideation: (3) Personality disorder, unspecified: (4) Type 2 diabetes mellitus: (5) Hypertension: (6) Bereavement: (7) BROCK (generalized anxiety disorder): Plan This is a 49-year-old white male with limited past psychiatric history but recent bereavement and suicide attempt.The patient has a history of major depression and anxiety, with a recent hospitalization due to panic attacks. The patient has had two episodes of hanging self in last month and continues to appear very depressed possibly psychotic as well. 1. Continue Viibyrd 40mg daily. and continue Invega 3mg at night for psychosis. Consider increasing Invega. Continue ambien 12.5mg at night. Increased wellbutrin xl to 300mg in am. 2. Continue to-15 minute checks, 3.? Encourage individual, group and milieu therapy. 4.? Encourage sober living treatment after discharge at the highest level of care to which he is willing to commit.? Obtain UDS. 5. Patient on 21 day hold. Consider ECT given his brittleness regarding medical issues, issues with hypotension, increased falls. Hold Mirapex secondary to dizziness. 6. Patient with choking episode. Will appreciate hospitalist involvement and consider whether swallowing study or something is necessary. Involuntary Hold Information 2 96 Hour Hold: 96 Hour Involuntary Admission: Yes 96 Hour Hold Ending Date: 09/19/24 96 Hour Hold Ending Time: 00:01 Attestations NPU 2 Medical Necessity Statement*: Inpatient hospitalization is medically necessary and deemed to ?be ?the clinically appropriate intervention ?at this time.? We will monitor/initiate medications and make changes as indicated.? ? The patient?s likely length of stay 5-7 days. Coding Level of Care Code Acute Code for [facility] Fwd Diagnoses Major depressive disorder, recurrent F33.9 Active/Remission status: currently active Psychotic features: with psychotic features Suicidal ideation R45.851 Personality disorder, unspecified F60.9 Type 2 diabetes mellitus E11.9 Hypertension I10 Bereavement Z63.4 BROCK (generalized anxiety disorder) F41.1
[2024-09-28 17:08] LABS: Glucose Point of Care 89 mg/dL (70-110)
[2024-09-28 19:57] LABS: Glucose Point of Care 104 mg/dL (70-110)
[2024-09-28 20:00] VITALS: BP 129/90; PULSE 83; RESP 18; TEMP 37.1; O2SAT 96
[2024-09-28] MEDS: paliperidone ER 3 mg Tablet PO (20:29)
[2024-09-28] MEDS: trazodone 50 mg Tablet PO (20:29)
[2024-09-28] MEDS: NON-FORMULARY MEDICATION 12.5 EACH PO (20:32)
[2024-09-29] VITALS (7 sets, daily range): BP systolic 115–152; BP diastolic 75–105; PULSE 81–89; RESP 16–20; TEMP 36.7–37; O2SAT 95–97
[2024-09-29 07:56] LABS: Glucose Point of Care 104 mg/dL (70-110)
[2024-09-29] MEDS: buPROPion XL (24 HR) 150 mg Tablet 300 MG PO (09:04)
[2024-09-29] MEDS: tamsulosin 0.4 mg Capsule PO (09:04)
[2024-09-29] MEDS: VILAZODONE 40 MG 40 EACH PO (09:05)
[2024-09-29 11:57] LABS: Glucose Point of Care 109 mg/dL (70-110)
--- NOTE | 2024-09-29 14:46 | P.NPUPN_ITS ---
Subjective NPU 2 Subjective: Patient presented today reporting that he is doing okay. He is having slow improvement and we discussed making sure that his closest supports come and and weigh in on how he is doing compared to baseline. He continues to be resistant to the idea of going to the other facility and ECT. We discussed working with Dr. Simeon to consider the possibility of whether his improvement from baseline warrants discontinuing that plan. He denied any side effects to the medication. Mental Status Exam 2 MSE Comments: This is a medium built white male in hospital scrubs with limited grooming and minimal eye contact. Less pacing noted. Notable abrasions over right side of forehead and cheek around right occipital area. No abnormal involuntary motor movements except for prominent psychomotor retardation. No tics or tremors were appreciated. He was cooperative with exam in moderate to severe distress.? Speech was decreased in rate and diminished in volume with paucity of speech. Mood described as better. His affect was flat. Thought process was linear and logical. Thought content: Patient denied suicidal ideation today. There were no delusions reported with no overt paranoia appreciated. He denied auditory or visual hallucinations and appeared less internally preoccupied despite denying any auditory or visual hallucinations. His attention span was poor. There were no signs of paranoia or hallucinations. Attention and concentration were adequate and memory was mostly reliable but none were formally tested.? He is alert and oriented x to person and place.? Insight was poor and judgment is impaired. Impulse control is poor. Vitals/I&O/Wt Last Vital Signs Temp 98.2 F 09/29/24 13:52 Pulse 81 09/29/24 13:52 Resp 16 09/29/24 13:52 BP 152/105 09/29/24 13:52 Pulse Ox 97 09/29/24 13:52 O2 Del Method Room Air 09/29/24 13:52 09/28/24 09/29/24 09/29/24 22:59 06:59 14:59 Intake Total 360 / 360 Balance 360 / 360 Weight last 48 hrs Weight 87.362 kg Data NPU 09/22/24 03:36 09/22/24 03:36 A&P Assessment and plan (1) Major depressive disorder, recurrent: Qualifiers: Active/Remission status: currently active Psychotic features: with psychotic features (2) Suicidal ideation: (3) Personality disorder, unspecified: (4) Type 2 diabetes mellitus: (5) Hypertension: (6) Bereavement: (7) BROCK (generalized anxiety disorder): Plan This is a 49-year-old white male with limited past psychiatric history but recent bereavement and suicide attempt.The patient has a history of major depression and anxiety, with a recent hospitalization due to panic attacks. The patient has had two episodes of hanging self in last month and continues to appear very depressed possibly psychotic as well. 1. Continue Viibyrd 40mg daily. and continue Invega 3mg at night for psychosis. Consider increasing Invega. Continue ambien 12.5mg at night. Increased wellbutrin xl to 300mg in am. 2. Continue to-15 minute checks, 3.? Encourage individual, group and milieu therapy. 4.? Encourage sober living treatment after discharge at the highest level of care to which he is willing to commit.? Obtain UDS. 5. Patient on 21 day hold. Consider ECT given his brittleness regarding medical issues, issues with hypotension, increased falls. Hold Mirapex secondary to dizziness. 6. Patient with choking episode. Will appreciate hospitalist involvement and consider whether swallowing study or something is necessary. Involuntary Hold Information 2 96 Hour Hold: 96 Hour Involuntary Admission: Yes 96 Hour Hold Ending Date: 09/19/24 96 Hour Hold Ending Time: 00:01 Attestations NPU 2 Medical Necessity Statement*: Inpatient hospitalization is medically necessary and?the clinically appropriate intervention at this time.We will monitor/initiate medications and make changes as indicated.?The patient?s likely length of stay 5-7 days. Coding Level of Care Code Acute Code for g Fwd Diagnoses Major depressive disorder, recurrent F33.9 Active/Remission status: currently active Psychotic features: with psychotic features Suicidal ideation R45.851 Personality disorder, unspecified F60.9 Type 2 diabetes mellitus E11.9 Hypertension I10 Bereavement Z63.4 BROCK (generalized anxiety disorder) F41.1
--- NOTE | 2024-09-29 15:54 | PC.NURSE ---
KONRAD Mcmahon alerted this nurse after discovering patient hunkered down by the aircon unit in his room. Patient revealed that he had a screw. This nurse talked with patient. Patient was adamant that he was not messing with no screws . Patient said that the unit has been rattling and he noticed that a screw was loose, protruding about 1/2 an inch from the unit. Patient said that all he was doing was trying to fix it. Patient was educated on letting staff know next time if he comes across a screw or anything similar that is loose. Patient verbalized understanding. This nurse and KONRAD Mcmahon had both occupants of the room leave while we searched the room. No other contraband uncovered. Charge nurse and community midwife, manuel with Dr. Mcgraw made aware.
[2024-09-29 16:46] LABS: Glucose Point of Care 109 mg/dL (70-110)
[2024-09-29 20:11] LABS: Glucose Point of Care 93 mg/dL (70-110)
[2024-09-29] MEDS: paliperidone ER 3 mg Tablet PO (20:24)
[2024-09-29] MEDS: hyDROXYzine 25 mg Capsule 50 MG PO (20:24)
[2024-09-29] MEDS: NON-FORMULARY MEDICATION 12.5 EACH PO (20:24)
[2024-09-29] MEDS: trazodone 50 mg Tablet PO (20:24)
--- NOTE | 2024-09-29 21:22 | PC.NURSE ---
BEHAVIOR AT 1999, PATIENT CAME UP TO THE DESK FOR SNACKS, ALONG WITH SEVERAL OTHER PATIENTS. WHEN IT WAS HIS TURN, PATIENT GOT A JELLO WITH A SPOON FROM THIS NURSE. PATIENT HANDED THAT SPOON BACK TO THIS NURSE WHEN HIS JELLO WAS FINISHED. APPROXIMATELY 15 MINUTES LATER, PATIENT ASKED ASSISTANT BASEBALL COACH IF THERE WAS ANY SUGAR FREE PUDDING, AND ASSISTANT BASEBALL COACH BROUGHT HIM A VANILLA PUDDING, AND PATIENT ASKED ASSISTANT BASEBALL COACH IF YOU WANTED TO BE NICE, YOU'D GET ME ANOTHER ONE. WITH THE SECOND PUDDING, ASSISTANT BASEBALL COACH GAVE HIM A SPOON TO EAT THEM WITH. WHEN PATIENT WAS ASKED TO GIVE THE SPOON FROM HIS PUDDING BACK TO STAFF, PATIENT STATED HE HAD ALREADY GAVE IT BACK. STAFF STATED TO PATIENT THAT HE GAVE THE SPOON HE USED FOR THE JELLO BACK, BUT DID NOT GIVE THE SPOON FOR THE PUDDING BACK. THIS NURSE AND ASSISTANT BASEBALL COACH FLIPPED PATIENTS ROOM, BED LINENS, & BATHROOM, NOT FINDING THE SPOON. JACQUELIN IVY WAS NOTIFIED. DENNIS IVY AND 2ND ASSISTANT BASEBALL COACH LOOKED AROUND ROOM, BATHROOM, BOTH BEDS AND IN NOOKS AND CRANNIES OF PATIENTS ROOM, NOT FINDING THE SPOON. A SPOON WAS FOUND IN THE DAYROOM TRASH, BUT ANOTHER PATIENT STATED THAT IT WAS A SPOON HE HAD USED AND HAD FORGOT TO BRING BACK UP TO THE DESK. DR BAXTER WAS NOTIFIED, DR GREENE'T FELL THAT PATIENT NEEDS A 1:1 SITTER AT THIS TIME. NURSE POTTERY DECORATOR, GIS MAPPING TECHNICIAN AND SECURITY NOTIFIED.
--- NOTE | 2024-09-29 22:40 | PC.NURSE ---
DAILY RELEASE AND DUPE PRINTER AND SECURITY REVIEWED SECURITY TAPE, PATIENT DID HAND HIS SPOON BACK TO STAFF. PATIENT WAS ALERTED TO SAID FINDINGS. NURSE SEASONING SPRAYER, AND DR BAXTER MADE AWARE.
--- NOTE | 2024-09-29 23:57 | PC.NURSE ---
Patient was sleeping. Has orders from doctor to not wake up.
[2024-09-30 04:00] VITALS: BP 141/95; PULSE 89; RESP 18; TEMP 36.6; O2SAT 96
[2024-09-30 07:36] LABS: Glucose Point of Care 115 mg/dL (70-110)
[2024-09-30 07:41] VITALS: BP 124/89; PULSE 78; RESP 16; TEMP 36.8; O2SAT 96
[2024-09-30] MEDS: tamsulosin 0.4 mg Capsule PO (08:32)
[2024-09-30] MEDS: buPROPion XL (24 HR) 150 mg Tablet 300 MG PO (08:33)
[2024-09-30] MEDS: VILAZODONE 40 MG 40 EACH PO (08:33)
--- NOTE | 2024-09-30 09:30 | FL_ITS ---
WS: [id number] FL barium swallow modifd [id number] REASON FOR EXAM: Pharyngoesoph. dysphagia FLUOROSCOPY TIME: 2min [id number] # OF SPOT FILMS: 0 FINDINGS: Examination was supervised by the speech therapy department. The patient was examined in the sitting upright lateral projection. The swallowing of barium of multi ple consistencies was monitored fluoroscopically and video recorded. A detailed report of the swallowing will be rendered by the speech therapy department. No aspiration was identified. FL/FL barium swallow modifd [id number] IMPRESSION: Modified barium swallow as above.
--- NOTE | 2024-09-30 11:19 | PC.NURSE ---
Pt left the unit accompanied by security and nursing staff to the [facility] for test in Radiology.
[2024-09-30 11:20] LABS: Glucose Point of Care 111 mg/dL (70-110)
--- NOTE | 2024-09-30 11:45 | PC.NURSE ---
Pt has returned to the unit with security and nursing staff. pt tolerated test well.
[2024-09-30 11:59] LABS: Glucose Point of Care 137 mg/dL (70-110)
[2024-09-30 12:00] VITALS: BP 144/102; PULSE 93; RESP 16; TEMP 36.8; O2SAT 96
[2024-09-30] MEDS: OLANZapine 5 mg ODT PO (13:28)
[2024-09-30 16:00] VITALS: BP 143/94; PULSE 80; RESP 16; TEMP 36.7; O2SAT 95
[2024-09-30 16:21] LABS: Glucose Point of Care 109 mg/dL (70-110)
--- NOTE | 2024-09-30 16:58 | P.NPUPN_ITS ---
Subjective NPU 2 Subjective: Patient presented today reporting that he feels like he is getting better each day. He seems to be having improvement per staff reports and direct observation. We discussed ECT and he is not interested at this time. He reports that he would likely go and stay with his mom for a period of time. We discussed talking to his and mother about improvement that they see. He denied any side effects of medication. Mental Status Exam 2 MSE Comments: This is a medium built white male in hospital scrubs with limited grooming and minimal eye contact. Less pacing noted. Notable abrasions over right side of forehead and cheek around right occipital area. No abnormal involuntary motor movements except for decreasing psychomotor retardation. No tics or tremors were appreciated. He was cooperative with exam in mild to moderate distress.? Speech was decreased in rate and diminished in volume with paucity of speech. Mood described as better. His affect was flat. Thought process was linear and logical. Thought content: Patient denied suicidal ideation today. There were no delusions reported with no overt paranoia appreciated. He denied auditory or visual hallucinations and appeared less internally preoccupied despite denying any auditory or visual hallucinations. His attention span was poor. There were no signs of paranoia or hallucinations. Attention and concentration were adequate and memory was mostly reliable but none were formally tested.? He is alert and oriented x to person and place.? Insight was poor and judgment is impaired. Impulse control is poor. Vitals/I&O/Wt Last Vital Signs Temp 98.1 F 09/30/24 16:00 Pulse 80 09/30/24 16:00 Resp 16 09/30/24 16:00 BP 143/94 09/30/24 16:00 Pulse Ox 95 09/30/24 16:00 O2 Del Method Room Air 09/30/24 16:00 Data NPU 09/22/24 03:36 09/22/24 03:36 A&P Assessment and plan (1) Major depressive disorder, recurrent: Qualifiers: Active/Remission status: currently active Psychotic features: with psychotic features (2) Suicidal ideation: (3) Personality disorder, unspecified: (4) Type 2 diabetes mellitus: (5) Hypertension: (6) Bereavement: (7) BROCK (generalized anxiety disorder): Plan This is a 49-year-old white male with limited past psychiatric history but recent bereavement and suicide attempt.The patient has a history of major depression and anxiety, with a recent hospitalization due to panic attacks. The patient has had two episodes of hanging self in last month and continues to appear very depressed possibly psychotic as well. 1. Continue Viibyrd 40mg daily. and continue Invega 3mg at night for psychosis. Consider increasing Invega. Continue ambien 12.5mg at night. Increased wellbutrin xl to 300mg in am. 2. Continue to-15 minute checks, 3.? Encourage individual, group and milieu therapy. 4.? Encourage sober living treatment after discharge at the highest level of care to which he is willing to commit.? Obtain UDS. 5. Patient on 21 day hold. Had discussed ECT, but patient not currently willing to go through the procedure. 6. Patient with choking episode a few days ago. Obtain swallow study and will follow results. Involuntary Hold Information 2 96 Hour Hold: 96 Hour Involuntary Admission: Yes 96 Hour Hold Ending Date: 09/19/24 96 Hour Hold Ending Time: 00:01 Attestations NPU 2 Medical Necessity Statement*: Inpatient hospitalization is medically necessary and?the clinically appropriate intervention at this time.We will monitor/initiate medications and make changes as indicated.?The patient?s likely length of stay 4-6 days. Coding Level of Care Code Acute Code for [facility] Fwd Diagnoses Major depressive disorder, recurrent F33.9 Active/Remission status: currently active Psychotic features: with psychotic features Suicidal ideation R45.851 Personality disorder, unspecified F60.9 Type 2 diabetes mellitus E11.9 Hypertension I10 Bereavement Z63.4 BROCK (generalized anxiety disorder) F41.1
[2024-09-30 19:58] VITALS: BP 129/92; PULSE 79; RESP 18; TEMP 36.8; O2SAT 96
[2024-09-30 20:03] LABS: Glucose Point of Care 93 mg/dL (70-110)
[2024-09-30] MEDS: hyDROXYzine 25 mg Capsule 50 MG PO (20:39)
[2024-09-30] MEDS: paliperidone ER 3 mg Tablet PO (20:39)
[2024-09-30] MEDS: NON-FORMULARY MEDICATION 12.5 EACH PO (20:39)
[2024-09-30] MEDS: trazodone 50 mg Tablet PO (20:39)
[2024-10-01 04:00] VITALS: BP 121/86; PULSE 90; RESP 18; TEMP 36.6; O2SAT 97
[2024-10-01 07:31] LABS: Glucose Point of Care 120 mg/dL (70-110)
[2024-10-01 07:44] VITALS: BP 130/93; PULSE 85; RESP 16; TEMP 36.8; O2SAT 97
[2024-10-01] MEDS: tamsulosin 0.4 mg Capsule PO (08:39)
[2024-10-01] MEDS: buPROPion XL (24 HR) 150 mg Tablet 300 MG PO (08:40)
[2024-10-01] MEDS: VILAZODONE 40 MG 40 EACH PO (08:42)
--- NOTE | 2024-10-01 11:42 | P.NPUPN_ITS ---
Subjective NPU 2 Subjective: Patient presented today reporting that he is doing okay. We discussed the possibility of discharge sometime between Sunday and Sunday. He discussed continuing a plan to return to his mother's place for at least a short period of time. He continues to report that this has to do with giving them some time to see that he is back on track overall before he resides with his family. He denied any side effects to the medication. Mental Status Exam 2 MSE Comments: This is a medium built white male in hospital scrubs with limited grooming and minimal eye contact. Less pacing noted. Notable abrasions over right side of forehead and cheek around right occipital area. No abnormal involuntary motor movements except for decreasing psychomotor retardation. No tics or tremors were appreciated. He was cooperative with exam in mild to moderate distress.? Speech was decreased in rate and diminished in volume with paucity of speech. Mood described as better. His affect was flat. Thought process was linear and logical. Thought content: Patient denied suicidal ideation today. There were no delusions reported with no overt paranoia appreciated. He denied auditory or visual hallucinations and appeared less internally preoccupied despite denying any auditory or visual hallucinations. His attention span was poor. There were no signs of paranoia or hallucinations. Attention and concentration were adequate and memory was mostly reliable but none were formally tested.? He is alert and oriented x to person and place.? Insight was poor and judgment is impaired. Impulse control is poor. Vitals/I&O/Wt Last Vital Signs Temp 98.3 F 10/01/24 07:44 Pulse 85 10/01/24 07:44 Resp 16 10/01/24 07:44 BP 130/93 10/01/24 07:44 Pulse Ox 97 10/01/24 07:44 O2 Del Method Room Air 10/01/24 07:44 Data NPU 09/22/24 03:36 09/22/24 03:36 A&P Assessment and plan (1) Major depressive disorder, recurrent: Qualifiers: Active/Remission status: currently active Psychotic features: with psychotic features (2) Suicidal ideation: (3) Personality disorder, unspecified: (4) Type 2 diabetes mellitus: (5) Hypertension: (6) Bereavement: (7) BROCK (generalized anxiety disorder): Plan This is a 49-year-old white male with limited past psychiatric history but recent bereavement and suicide attempt.The patient has a history of major depression and anxiety, with a recent hospitalization due to panic attacks. The patient has had two episodes of hanging self in last month and continues to appear very depressed possibly psychotic as well. 1. Continue Viibyrd 40mg daily. and continue Invega 3mg at night for psychosis. Consider increasing Invega. Continue ambien 12.5mg at night. Increased wellbutrin xl to 300mg in am. Switch Ambien to 10 mg p.o. nightly of the immediate release 2. Continue to-15 minute checks, 3.? Encourage individual, group and milieu therapy. 4.? Encourage sober living treatment after discharge at the highest level of care to which he is willing to commit.? Obtain UDS. 5. Patient on 21 day hold. Had discussed ECT, but patient not currently willing to go through the procedure. 6. Patient with choking episode a few days ago. Obtain swallow study and will follow results. Involuntary Hold Information 2 96 Hour Hold: 96 Hour Involuntary Admission: Yes 96 Hour Hold Ending Date: 09/19/24 96 Hour Hold Ending Time: 00:01 Attestations NPU 2 Medical Necessity Statement*: Inpatient hospitalization is medically necessary and?the clinically appropriate intervention at this time.We will monitor/initiate medications and make changes as indicated.?The patient?s likely length of stay 3-5 days. Coding Level of Care Code Acute Code for g Fwd Diagnoses Major depressive disorder, recurrent F33.9 Active/Remission status: currently active Psychotic features: with psychotic features Suicidal ideation R45.851 Personality disorder, unspecified F60.9 Type 2 diabetes mellitus E11.9 Hypertension I10 Bereavement Z63.4 BROCK (generalized anxiety disorder) F41.1
[2024-10-01 11:53] VITALS: BP 124/83; PULSE 83; RESP 16; TEMP 36.8; O2SAT 97
[2024-10-01 11:54] LABS: Glucose Point of Care 113 mg/dL (70-110)
[2024-10-01] MEDS: hyDROXYzine 25 mg Capsule 50 MG PO ×2 (13:54→20:10)
[2024-10-01 15:30] VITALS: BP 132/91; PULSE 87; RESP 16; TEMP 36.7; O2SAT 94
[2024-10-01] MEDS: OLANZapine 5 mg ODT PO (15:36)
[2024-10-01 16:29] LABS: Glucose Point of Care 104 mg/dL (70-110)
[2024-10-01 19:38] LABS: Glucose Point of Care 97 mg/dL (70-110)
[2024-10-01 19:43] VITALS: BP 130/95; PULSE 90; RESP 18; TEMP 36.7; O2SAT 97
[2024-10-01] MEDS: trazodone 50 mg Tablet PO (20:10)
[2024-10-01] MEDS: NON-FORMULARY MEDICATION 12.5 EACH PO (20:10)
[2024-10-01] MEDS: paliperidone ER 3 mg Tablet PO (20:10)
[2024-10-01 21:44] LABS: Glucose Point of Care 116 mg/dL (70-110)
[2024-10-02] VITALS (10 sets, daily range): BP systolic 106–152; BP diastolic 67–87; PULSE 70–123; RESP 15–20; TEMP 36.5–36.9; O2SAT 94–97
--- NOTE | 2024-10-02 00:20 | PC.NURSE ---
PT'S VITALS NOT TAKEN DUE TO FINALLY BEING ASLEEP.
[2024-10-02] MEDS: OLANZapine 5 mg ODT PO (01:29)
--- NOTE | 2024-10-02 05:46 | PC.NURSE ---
DURING 529 ROUNDING, BLAYNE ALTAMIRANO, THAT IS WORKING HELPING HANDS, NOTED PATIENT COMING OUT OF THE BATHROOM WITH SOMETHING IN HIS HANDS. UPON CLOSER EXAMINATION, PSA ASKED PATIENT WHAT HE HAD IN HIS HANDS. PATIENT SHOWED PSA SEVERAL WHITE STRIPS OF LINEN TIED TOGETHER WITH A LOOP TIED ON ONE END. WHEN PATIENT WAS ASKED WHY HE RIPPED LINEN INTO STRIPS, PATIENT STATED HE WAS AGITATED. DR BAXTER NOTIFIED, ORDER WAS OBTAINED TO PLACE PATIENT ON A 1:1 SITTER UNTIL IS ABLE TO RE-EVALUATE PATIENT. RECORD CHANGER TESTER ALSO MADE AWARE OF PATIENT BEING A 1:1. PATIENT STATED HE WASN'T GOING TO TRY TO HANG HIMSELF, WHERE WOULD I HANG MYSELF FROM IN HERE? STRIPS OF LINENS WERE REMOVED FROM PATIENTS ROOM, WELL ALL HIS BED LINENS. BLAYNE PSA PLACED 1:1 SITTER WITH PATIENT.
[2024-10-02 07:38] LABS: Glucose Point of Care 121 mg/dL (70-110)
[2024-10-02] MEDS: haloperidol inj 5 mg/mL INJ 1 mL IM (08:01)
[2024-10-02] MEDS: diphenhydrAMINE 50 mg/mL SDV 1mL IM (08:01)
[2024-10-02] MEDS: LORazepam 2 mg/mL INJ 1 mL IM (08:01)
--- NOTE | 2024-10-02 08:46 | XR_ITS ---
WS: [id number] XR ribs LT mn 3V w CXR1V [id number] REASON FOR EXAM: LEFT SIDED RIB PAIN FINDINGS: No acute fracture or focal bone lesion of the ribs. No underlying abnormality of the pleura or lung. XR/XR ribs LT mn 3V w CXR1V [id number] IMPRESSION: No significant rib abnormality.
[2024-10-02] MEDS: buPROPion XL (24 HR) 150 mg Tablet 300 MG PO (10:44)
[2024-10-02] MEDS: VILAZODONE 40 MG 40 EACH PO (10:45)
[2024-10-02] MEDS: tamsulosin 0.4 mg Capsule PO (10:45)
[2024-10-02 12:16] LABS: Glucose Point of Care 86 mg/dL (70-110)
--- NOTE | 2024-10-02 12:37 | PC.NURSE ---
DURING SHIFT CHANGE REPORT KONRAD ROMAN CAME TO NURSES AND STATED THAT PT APPEARED TO BE IN DISTRESS. AT WHICH TIME PENNY FOXKEVIN PARADA GOES TO THE MED ROOM TO OBTAIN PO MEDICATIONS. WHILE PENNY PARADA WAS OBTAINING MEDICATIONS HEAD BUYER TOBACCO PENNY MELO REPORTED OFF THAT PT WAS PLACED ON A 1:1 DUE TO RIPPING APART HIS PILLOW CASE AND CREATING A NOOSE OUT OF IT. PENNY PARADA ATTEMPTED TO GIVE PT MEDICATION AND STATED THAT PT STATED NONE OF THEM WORK. AND THAT HE WAS NOT GOING TO TAKE THE MEDICATIONS. PT THEN WENT TO HIS ROOM. PT CONTINUED TO INCREASE IN AGITATION LEVELS THEREFOR THIS NURSE AND PENNY PARADA BEGAN PULLING PRN IM PROTOCOL OF 5MG HALDOL, 50MG BENADRYL, AND 2MG ATIVAN. AT WHICH TIME KONRAD TADEO ROMAN CAME BACK IN AND STATED THAT THE PT WAS LIFTING HIS BED AND APPEARED TO BE ATTEMPTING TO SMASH HIS HEAD . THIS NURSE WAS SENT PENNY PARADA TO ATTEND TO THE SITUATION THEY CALLED A CODE 10 WHICH THEY ENDED UP CANCELING. BY THIS POINT SECURITY, PHYSICS FACULTY MEMBER, AND OTHER WERE ALREADY DOWN HERE. THIS NURSE AND PENNY PARADA WENT TO GIVE MEDICATION WHEN PT BEGAN REFUSING AND BECOMING COMBATIVE. PT KEPT ATTEMPTING TO LEAVE HIS ROOM, PUSH SECURITY OUT OF THE WAY. PT WAS PLACED INTO A MANUAL HOLD AT 0755 AND PLACED INTO THE RESTRAINT BED AT 0758. WHILE PT WAS IN RESTRAINTS PT DID REQUIRE MANUAL HOLD OF HIS HEAD IN ORDER TO ADMINISTER THE INJECTIONS AT 0801. PT WAS TAKEN TO THE RESTRAINT ROOM WHILE PASSING THROUGH THE BACK HALLWAY DOORS PT JUTTED HIS ELBOWS INTO THE DOOR FRAME CAUSING ABRASIONS NOTED TO THE L ELBOW. PT ALSO ATTEMPTED TO BLOCKING MOVING THROUGH TO THE OTHER HALLWAY WITH HIS KNEES NO ABRASIONS OR BRUISING NOTED TO THE BILATERAL KNEES. PT WAS TAKEN TO THE RESTRAINT ROOM WHERE HE REQUIRED MANUAL HOLD ON TOP OF THE 5 POINT RESTRAINT DUE TO DANGEROUS BEHAVIOR SUCH SITTING UP AND LEANING OVER THE BED WHICH IS ON WHEELS, TRYING TO PULL HIS HANDS THROUGH THE POLYURETHANE RESTRAINTS CAUSING SLIGHT BRUISING NOTED TO THE BILATERAL WRISTS. PT FIRST WRIST WAS RELEASED AROUND 0815 AND PT WAS COMPLETELY RELEASED FROM RESTRAINTS AT 0820. NAYELI JORGENSEN RN UNIT MANAGEMENT STATED THAT SHE FOUND PT WITH HEAD UNDERNEATH BED AND BED SITTING ON PT NECK.
[2024-10-02 16:06] LABS: Glucose Point of Care 84 mg/dL (70-110)
--- NOTE | 2024-10-02 16:58 | P.NPUPN_ITS ---
Subjective NPU 2 Subjective: Patient presented today reporting that he is feeling better than this morning. He endorsed that he just was having a bad day and had some frustrations and did not deal with it well. He was moved to the room that is connected to seclusion and restraint area given his behaviors and was placed back on one-to-one. He reports just wanting to start fresh and is hopeful that this will push back his discharge too far. He denied any side effects to the medication and we discussed the risks, benefits and alternatives of increasing his Invega and he understood and agreed to proceed as is documented in this note. Mental Status Exam 2 MSE Comments: This is an overweight white male with hospital scrubs along with limited grooming and eye contact. No abnormal movements except for mild psychomotor retardation. Mostly cooperative with exam and mild distress. Speech was decreased rate and volume with poor articulation. Mood described as getting better, affect congruent. Thought process linear. Thought content: Patient denied suicidal or homicidal ideation, there were no delusions reported or noted but he does appear to have continued guardedness, he denied auditory or visual hallucinations. He reported that he just had a bad day yesterday and this morning and denied any residual frustration or anger. He denied auditory or visual hallucinations and appeared less internally preoccupied despite denying any auditory or visual hallucinations. His attention span was poor. There were no signs of paranoia or hallucinations. Attention and concentration were adequate and memory was mostly reliable but none were formally tested.? He is alert and oriented x to person and place.? Insight was poor and judgment is impaired. Impulse control is poor. Vitals/I&O/Wt Last Vital Signs Temp 97.7 F 10/02/24 16:00 Pulse 70 10/02/24 16:00 Resp 15 10/02/24 16:00 BP 129/82 10/02/24 16:00 Pulse Ox 97 10/02/24 16:00 O2 Del Method Room Air 10/01/24 15:30 Data NPU 09/22/24 03:36 09/22/24 03:36 A&P Assessment and plan (1) Major depressive disorder, recurrent: Qualifiers: Active/Remission status: currently active Psychotic features: with psychotic features (2) Suicidal ideation: (3) Personality disorder, unspecified: (4) Type 2 diabetes mellitus: (5) Hypertension: (6) Bereavement: (7) BROCK (generalized anxiety disorder): Plan This is a 49-year-old white male with limited past psychiatric history but recent bereavement and suicide attempt.The patient has a history of major depression and anxiety, with a recent hospitalization due to panic attacks. The patient has had two episodes of hanging self in last month and continues to appear very depressed possibly psychotic as well. 1. Continue Viibyrd 40mg daily. and continue Invega 3mg at night for psychosis. Increase Invega to 6 mg p.o. nightly. Continue ambien 12.5mg at night. Increased wellbutrin xl to 300mg in am. Switch Ambien to 10 mg p.o. nightly of the immediate release 2. Continue with one-to-one observation given his aggression and need for restraints this morning. 3.? Encourage individual, group and milieu therapy. 4.? Encourage sober living treatment after discharge at the highest level of care to which he is willing to commit.? Obtain UDS. 5. Patient on 21 day hold. Had discussed ECT, but patient not currently willing to go through the procedure. 6. Patient with choking episode a few days ago. Barium swallow test was conducted and we appreciate the consult and results. Will follow recommendations as indicated and changes diet is recommended. 7. Patient had difficulties overnight with managing the bowel area that was set by staff and eventually the agitation spilled into the morning leading to a restraint with as needed medications given IM. Involuntary Hold Information 2 96 Hour Hold: 96 Hour Involuntary Admission: Yes 96 Hour Hold Ending Date: 09/19/24 96 Hour Hold Ending Time: 00:01 Attestations NPU 2 Medical Necessity Statement*: Inpatient hospitalization is medically necessary and?the clinically appropriate intervention at this time.We will monitor/initiate medications and make changes as indicated.?The patient?s likely length of stay 3-5 days. Coding Level of Care Code Acute Code for Chg Fwd Diagnoses Major depressive disorder, recurrent F33.9 Active/Remission status: currently active Psychotic features: with psychotic features Suicidal ideation R45.851 Personality disorder, unspecified F60.9 Type 2 diabetes mellitus E11.9 Hypertension I10 Bereavement Z63.4 BROCK (generalized anxiety disorder) F41.1
[2024-10-02 19:32] LABS: Glucose Point of Care 75 mg/dL (70-110)
[2024-10-02] MEDS: acetaminophen 325 mg Tablet 650 MG PO (20:17)
[2024-10-02] MEDS: zolpidem 5 mg Tablet 10 MG PO (21:44)
[2024-10-02] MEDS: paliperidone ER 3 mg Tablet PO (21:45)
[2024-10-02] MEDS: hyDROXYzine 25 mg Capsule 50 MG PO (21:45)
[2024-10-02] MEDS: trazodone 50 mg Tablet PO (21:45)
[2024-10-03] VITALS (22 sets, daily range): BP systolic 87–105; BP diastolic 62–74; PULSE 51–66; RESP 12–18; TEMP 36.3–36.7; O2SAT 96–100
--- NOTE | 2024-10-03 04:11 | PC.NURSE ---
Patient resting was told by nurse to let rest.
[2024-10-03] MEDS: paliperidone ER 3 mg Tablet PO (07:00)
[2024-10-03 07:10] LABS: Glucose Point of Care 92 mg/dL (70-110)
--- NOTE | 2024-10-03 08:24 | PC.NURSE ---
Choking This nurse was in med room when I heard a beeping like from a call light. This nurse went to check. Looking in the south hallway, this nurse noticed that CATA Mcclain was performing Heimlich Manuever on patient. Patient was struggling to breathe. Rapid Response called. This nurse, along with KONRAD Jorgensen and Severiano from security attempted Heimlich. CATA Ortiz arrived and attempted Heimlich. Patient was resisting this, patient on all fours. Diana turned him on his back and started pressing hard on his chest around where is diaphragm is located. CATA Mcclain did a blind sweep, attempting to remove the food, digitally. This was unsuccessful. Sarahi noted that she was able to feel something. Patient still struggling to breath. Patient pale, ashy in complexion. ER doctor arrived. Heimlich was again attempted. It was quickly decided to move patient to ER.
--- NOTE | 2024-10-03 09:36 | PC.NURSE ---
Patient off unit at 0814 with ER staff. This nurse notified patient's , Katherine of situation. All questions answered.
--- NOTE | 2024-10-03 10:49 | P.NPUPN_ITS ---
Subjective NPU 2 Subjective: Patient was seen after he was intubated today and so was unable to communicate with this race and sports book writer. Video raises concern for whether this was an intentional episode. The possibility of him trying to induce a choking event. He was unable to communicate and was subdued/unarousable for interview. Mental Status Exam 2 MSE Comments: This is an overweight white male with hospital scrubs along with limited grooming and eye contact. No abnormal movements except for psychomotor retardation. Patient uncooperative with exam secondary to being on the ventilator and under the influence of medication. He he did not speak or communicate in any way. Vitals/I&O/Wt Last Vital Signs Temp 98.1 F 10/03/24 00:00 Pulse 66 10/03/24 00:00 Resp 18 10/03/24 04:00 BP 105/71 10/03/24 00:00 Pulse Ox 96 10/03/24 00:00 O2 Del Method Mechanical Ventilation 10/03/24 00:00 FiO2 30 10/03/24 00:00 Data NPU 10/04/24 04:20 10/04/24 04:20 A&P Assessment and plan (1) Major depressive disorder, recurrent: Qualifiers: Active/Remission status: currently active Psychotic features: with psychotic features (2) Suicidal ideation: (3) Personality disorder, unspecified: (4) Type 2 diabetes mellitus: (5) Hypertension: (6) Bereavement: (7) BROCK (generalized anxiety disorder): Plan This is a 49-year-old white male with limited past psychiatric history but recent bereavement and suicide attempt.The patient has a history of major depression and anxiety, with a recent hospitalization due to panic attacks. The patient has had two episodes of hanging self in last month and continues to appear very depressed possibly psychotic as well. 1. Continue Viibyrd 40mg daily. and continue Invega 3mg at night for psychosis. Increase Invega to 6 mg p.o. nightly. Continue ambien 12.5mg at night. Increased wellbutrin xl to 300mg in am. Switch Ambien to 10 mg p.o. nightly of the immediate release 2. Continue one-to-one. 3.? Transfer to ICU after choking event 4.? Encourage sober living treatment after discharge at the highest level of care to which he is willing to commit.? Obtain UDS. 5. Patient taken to the emergency department for intubation after choking event this morning. 6. Patient with choking episode a few days ago. Barium swallow test was conducted and we appreciate the consult and results. Will follow recommendations as indicated and changes diet is recommended. 7. Will continue to follow until able to be transferred back to the neuropsychiatric unit. Involuntary Hold Information 2 96 Hour Hold: 96 Hour Involuntary Admission: Yes 96 Hour Hold Ending Date: 09/19/24 96 Hour Hold Ending Time: 00:01 Attestations NPU 2 Medical Necessity Statement*: Inpatient hospitalization is medically necessary and?the clinically appropriate intervention at this time.We will monitor/initiate medications and make changes as indicated.?The patient?s likely length of stay 4-6 days. Coding Level of Care Code Acute Code for [facility] Fwd Diagnoses Major depressive disorder, recurrent F33.9 Active/Remission status: currently active Psychotic features: with psychotic features Suicidal ideation R45.851 Personality disorder, unspecified F60.9 Type 2 diabetes mellitus E11.9 Hypertension I10 Bereavement Z63.4 BROCK (generalized anxiety disorder) F41.1
--- NOTE | 2024-10-03 11:52 | P.CONIM_ITS ---
Providers/Reason For Consult 2 Consulting Physician/Specialty*: Mookie Kasper MD Reason for Consult*: Choking Requesting Physician: Dr. Mcgraw Attending Physician: Ant Simeon MD History of Present Illness History of Present Illness Solitario Jerez is a 49 year old male admitted on 09/14 secondary to suicidal ideation. He was in the neuropsychiatric unit, on a 21-day hold being treated for this. He has a past medical history of diabetes, hypertension, depression, BPH, diabetes. This morning from report he took another patient's tray, which shoving food into his oropharynx quickly, and began choking. The emergency department physician arrived, attempted the Heimlich which was not successful, transported the patient quickly to the emergency department where saturations were around 50 to 60%. He was emergently intubated and at time of intubation a large amount of food debris was removed from his hypopharynx. He was successfully intubated, sedated and stabilized. When I saw him he was sedated, on the ventilator, with stable vital signs and appropriate saturation on 40% FiO2. Medications/Allergies Home Medications Medication Instructions Recorded Confirmed Last Taken Type alfuzosin 10 mg tablet,extended 10 mg PO DAILY 09/13/24 10/03/24 Unknown History release 24 hr dapagliflozin propanediol 5 mg 5 mg PO DAILY 09/13/24 10/03/24 Unknown History tablet (Farxiga) dulaglutide 0.75 mg/0.5 mL 0.75 mg SUBCUT Q7D 09/13/24 10/03/24 Unknown History subcutaneous pen injector (Trulicity) lisinopril 20 mg tablet 20 mg PO DAILY 09/13/24 10/03/24 Unknown History lisinopril 20 20 - 25 tab PO DAILY 09/13/24 10/03/24 Unknown History mg-hydrochlorothiazide 25 mg tablet lorazepam 0.5 mg tablet 0.5 mg PO BID PRN Anxiety 09/13/24 10/03/24 Unknown History mirtazapine 15 mg tablet 30 mg PO BEDTIME 09/13/24 10/03/24 Unknown History pramipexole 0.25 mg tablet 0.25 mg PO DAILY 09/13/24 10/03/24 Unknown History quetiapine 200 mg tablet 400 mg PO BEDTIME 09/13/24 10/03/24 Unknown History sertraline 100 mg tablet 100 mg PO DAILY 09/13/24 10/03/24 Unknown History tamsulosin 0.4 mg capsule 0.4 mg PO DAILY 09/13/24 10/03/24 Unknown History venlafaxine 150 mg 150 mg PO DAILY 09/13/24 10/03/24 Unknown History capsule,extended release 24 hr vilazodone 20 mg tablet 20 mg PO DAILY 09/13/24 10/03/24 Unknown History zolpidem 12.5 mg tablet,extended 12.5 mg PO BEDTIME 09/13/24 10/03/24 Unknown History release,multiphase tadalafil 20 mg tablet See Rx Instructions .Route .COMPLEX 10/03/24 10/03/24 Unknown History vilazodone 40 mg tablet 40 mg PO DAILY 10/03/24 10/03/24 Unknown History Allergies Allergy/AdvReac Type Severity Reaction Status Date / Time Penicillins Allergy Unknown Unknown Verified 09/13/24 13:24 Current Medications Generic Name Dose Route Start Last Admin Trade Name Freq PRN Reason Stop Dose Admin Acetaminophen 650 mg 09/13/24 15:33 10/02/24 20:17 Acetaminophen 325 Mg Tablet PO 650 mg Q4H PRN Administration MILD PAIN Bupropion HCl 300 mg 09/26/24 09:00 10/02/24 10:44 Bupropion Xl (24 Hr) 150 Mg Tablet PO 300 mg DAILY MAXIME Administration Diphenhydramine HCl 50 mg 09/13/24 15:33 10/02/24 08:01 Diphenhydramine 50 Mg/Ml Sdv 1ml IM 50 mg Q4H PRN Administration Severe Aggression Diphenhydramine HCl 25 mg 09/17/24 15:11 09/24/24 14:20 Diphenhydramine 25 Mg Capsule PO 25 mg Q4H PRN Administration ITCHING Haloperidol 5 mg 09/13/24 15:33 09/24/24 14:20 Haloperidol 5 Mg Tablet PO 5 mg Q4H PRN Administration AGITATION Haloperidol Lactate 5 mg 09/13/24 15:33 10/02/24 08:01 Haloperidol Inj 5 Mg/Ml Inj 1 Ml IM 5 mg Q4H PRN Administration Severe Aggression Hydroxyzine Pamoate 50 mg 09/13/24 15:33 10/02/24 21:45 Hydroxyzine 25 Mg Capsule PO 50 mg Q6H PRN Administration ANXIETY Insulin Human Lispro 0 unit 09/14/24 12:00 10/02/24 20:21 Insulin Lispro 100 Unit/1 Ml SUBCUT Not Given WM&BEDTIME MAXIME Protocol Lorazepam 2 mg 09/13/24 15:33 10/02/24 08:01 Lorazepam 2 Mg/Ml Inj 1 Ml IM 2 mg Q4H PRN Administration Severe Aggression Non-Formulary Medication 40 mg 09/17/24 09:00 10/02/24 10:45 Vilazodone PO 40 mg DAILY MAXIME Administration Olanzapine 5 mg 09/13/24 15:33 10/02/24 01:29 Olanzapine 5 Mg Odt PO 5 mg Q4H PRN Administration Agitation/Psychosis Tamsulosin HCl 0.4 mg 09/14/24 09:00 10/02/24 10:45 Tamsulosin 0.4 Mg Capsule PO 0.4 mg DAILY MAXIME Administration Trazodone HCl 50 mg 09/13/24 15:33 10/02/24 21:45 Trazodone 50 Mg Tablet PO 50 mg BEDTIME PRN Administration SLEEP Zolpidem Tartrate 10 mg 10/01/24 21:00 10/02/24 21:44 Zolpidem 5 Mg Tablet PO 10 mg BEDTIME MAXIME Administration PFSH Acute 2 PFSH: Medical History Depression Type 2 diabetes mellitus Hypertension Family History Father Suicide Social History Smoking and tobacco/nicotine status: never used tobacco/nicotine Alcohol intake: never Substance/Drug Use: never Vitals/I&O/Wt Last Vital Signs Temp 98.1 F 10/03/24 00:00 Pulse 66 10/03/24 00:00 Resp 18 10/03/24 04:00 BP 105/71 10/03/24 00:00 Pulse Ox 96 10/03/24 00:00 O2 Del Method Room Air 10/03/24 00:00 Physical Exam 2 Narrative: General exam, intubated and sedated. 2 large-bore IVs noted. HEENT: Endotracheal tube noted, orogastric tube noted. Neck is supple Cardiovascular regular rate and rhythm Lungs clear no wheezing or crackles Abdomen is soft. Bowel sounds noted. demonstrates [place] Extremities no cyanosis clubbing or edema Skin no rash Neuro, can move all extremities when awakened Data 09/22/24 03:36 09/22/24 03:36 Other Labs: ABG shortly after intubation demonstrated pH 7.32, pCO2 44, pO2 144 and 70% FiO2 LFTs normal Calcium 7.9, albumin normal Total bilirubin 1.7, AST 61 Urinalysis essentially negative Head CT and cervical spine CT which I also reviewed no acute findings Chest CT which I reviewed demonstrated some bibasilar atelectasis, endotracheal tube, no obvious foreign body. EKG which I reviewed demonstrates sinus tachycardia, normal axis, nonspecific ST wave depression V4 and 5. Repeat EKG demonstrates resolution of this depression Troponin 10, and repeat of 11 A&P Assessment and plan (1) Choking due to food in larynx: Patient presents with significant choking episode after an appropriate food consumption. I would like unsuccessful, patient intubated CT demonstrates no obvious air trapping, debris, foreign body Significant amount of food removed from hypopharynx. (2) Acute respiratory failure: Patient had acute hypoxic respiratory failure secondary to above Intubated secondary to above Continue pulmonary toilet, breathing treatments today, wean tomorrow and likely extubate. (3) Aspiration pneumonia: Concern of aspiration pneumonia He is allergic to penicillin Will provide Levaquin and Flagyl at this point, repeat x-ray tomorrow (4) Suicidal ideation: Followed by psychiatry, continue home medications (5) Type 2 diabetes mellitus: Sliding scale insulin currently (6) Abnormal LFTs: Repeat LFTs tomorrow Plan Other medical problems outlined in past medical history Full code currently Protonix for GI prophylaxis, Lovenox for DVT prophylaxis Consult Attestations 2 Medical Necessity Statement: Is continued hospitalization secondary to acute respiratory failure choking episode requiring intubation and mechanical ventilation Critical Care Time: The high probability of a clinically significant, sudden or life threatening deterioration of the patient's [pulmonary, GI] system(s) required my full and direct attention, intervention and personal management. The critical care time is as shown. This time is in addition to time spent performing any reported procedures but includes the following: [x] Data and vital sign review and interpretation [x] Patient assessment, examination and intervention [x] Documentation [x] Medication orders and management Critical Care Time (min): 53 Coding Level of Care Code Critical Care >/= 30 minutes Critical care time (in minutes): 53 The high probability of a clinically significant, sudden or life threatening deterioration, as referenced in this documentation, required my full and direct attention, intervention and personal management. The critical care time shown is in addition to time spent performing any reported separately billable procedures and includes the following: [x] Data and vital sign review and interpretation [x ] Patient assessment, examination and intervention [x] Medication orders and management [x] Patient/Family updates as able [x] Care Coordination and Documentation. Diagnoses Choking due to food in larynx T17.320A; W44.F3XA Acute respiratory failure J96.00 Aspiration pneumonia J69.0 Suicidal ideation R45.851 Type 2 diabetes mellitus E11.9 Abnormal LFTs R79.89
[2024-10-03] MEDS: metroNIDAZOLE IV 500 MG/100 ML PREMIX 100 MG IV ×3 (13:54→23:56)
[2024-10-03] MEDS: enoxaparin 40 mg/0.4 mL Syringe SUBCUT (13:54)
[2024-10-03] MEDS: levofloxacin-dextrose 5 % 750 MG/150 ML PREMIX 100 MG IV (13:54)
[2024-10-03] MEDS: aspirin 81 mg EC Tablet PO (13:55)
[2024-10-03] MEDS: propofol 1,000 MG/100 ML INJ 2.62 MG IV (13:55)
[2024-10-03] MEDS: sodium chloride 0.9% 1,000 ML 75 ML IV (14:25)
[2024-10-03] MEDS: fentaNYL 1,000 MCG/100 ML BAG 12.5 MCG IV (15:45)
[2024-10-03 18:35] LABS: Glucose Point of Care 74 mg/dL (70-110)
--- NOTE | 2024-10-03 19:23 | PC.NURSE ---
At approximately 0809 this morning while rounding in NPU, the nurse, Janice, yelled that her patient in the hallway was choking. I ran into the hallway to find the patient grabbing at his throat and gasping for air. I proceeded to perform the heimlich manuever on the patient with no success. A rapid was called and Jaun Ballesteros from ICU, Diana Cespedes from CSU, Dileep PÉREZ, and Dr. Sarmiento responded. All of us tried the heimlich with no success. The patient was transported via wheelchair to the ER with Dr. Sramiento at side.
[2024-10-03] MEDS: dextrose 10% 125 ML 750 ML IV (20:38)
[2024-10-03 20:56] LABS: Glucose Point of Care 60 mg/dL (70-110)
[2024-10-03 21:14] LABS: Glucose Point of Care 102 mg/dL (70-110)
--- NOTE | 2024-10-03 21:14 | PC.NURSE ---
2032 -- Blood glucose 60, 125mL of D10W given per protocol. 2114 -- Rechecked blood glucose, 109 at present time. Will continue to monitor.
[2024-10-03] MEDS: fentaNYL 1,000 MCG/100 ML BAG 10 MCG IV (23:18)
[2024-10-03] MEDS: propofol 1,000 MG/100 ML INJ 10.48 MG IV (23:18)
[2024-10-03 23:20] LABS: Glucose Point of Care 65 mg/dL (70-110)
[2024-10-03 23:20] LABS: Glucose Point of Care 69 mg/dL (70-110)
[2024-10-04] VITALS (44 sets, daily range): BP systolic 83–126; BP diastolic 52–92; PULSE 47–80; RESP 10–30; TEMP 36.6–37.1; O2SAT 94–100
[2024-10-04 00:46] LABS: Glucose Point of Care 74 mg/dL (70-110)
[2024-10-04 00:46] LABS: Glucose Point of Care 80 mg/dL (70-110)
[2024-10-04 01:49] LABS: Glucose Point of Care 83 mg/dL (70-110)
[2024-10-04] MEDS: sodium chloride 0.9% 1,000 ML 75 ML IV ×2 (03:52→19:18)
[2024-10-04 04:57] LABS: Basophils % 0.5 %; Eosinophils # 0.2 10^3/uL (0.0-0.8); Eosinophils % 2.3 %; Hematocrit 42.7 % (37-53); Lymphocytes # 1.9 10^3/uL (0.8-4.8); Lymphocytes % 25.6 %; Mean Corpuscular Hemoglobin 34.1 pg (27-33); Mean Corpuscular Volume 100.5 fl (82-101); Mean Platelet Volume 9.4 fL (7.4-10.4); Monocytes # 0.9 10^3/uL (0.2-0.9); Monocytes % 11.7 %; Neutrophils % 59.5 %; Nucleated Red Blood Cells % 0 %; Platelet Count 183 10^3/cmm (157-399); Red Blood Count 4.25 10^6/uL (3.85-5.65); Red Cell Distribution Width 13.8 % (12.1-15.1); White Blood Count 7.55 10^3/uL (3.29-11.43)
[2024-10-04 05:18] LABS: Alanine Aminotransferase 32 U/L (0-41); Albumin Level 3.5 g/dL (3.5-5.2); Alkaline Phosphatase 63 U/L (40-130); Anion Gap 12.7 (5-19); Aspartate Amino Transferase 32 U/L (0-40); Blood Urea Nitrogen 15 mg/dL (6-20); Calcium 8.2 mg/dL (8.5-10.5); Carbon Dioxide 26 mmol/L (22-29); Chloride 103 mmol/L (98-107); Creatinine Clr Calc Pharmacy 83.8486; Globulin 2.6 g/dL (1.3-4.6); Glomerular Filtration Rate 64.6 mL/min (90-130); Glucose 98 mg/dL (65-115); Osmolality Calculated 287 mOsm/kg (285-295); Potassium 3.7 mmol/L (3.5-5.1); Sodium 138 mmol/L (136-145); Total Protein 6.1 g/dL (6.6-8.7)
[2024-10-04] MEDS: metroNIDAZOLE IV 500 MG/100 ML PREMIX 100 MG IV ×3 (06:15→17:45)
[2024-10-04 06:19] LABS: ABG PCO2 31.7 mmHg (35-45); ABG PH Result 7.48 (7.35-7.45); Arterial Blood Gas Hematocrit 43.2 % (42-52); Base Excess ABG 0.9 mmol/L (-2.0-2.0); Blood Gas Operator Identificat SAM; Blood Gas Sample Site Brachial, right; Blood Gas Sample Type Arterial; HCO3 ABG 23.7 mmol/L (22-26); Oxygen Device VENT; PO2 FiO2 Ratio Arterial Blood 433
--- NOTE | 2024-10-04 07:00 | XRR_ITS ---
PROCEDURE INFORMATION: Exam: XR Chest Exam date and time: 10/04/2024 9:22 AM Age: 49 years old Clinical indication: Shortness of breath; Additional info: Resp failure TECHNIQUE: Imaging protocol: Radiologic exam of the chest. Views: 1 view. COMPARISON: CT chest w con* [id number] 10/03/2024 9:24 AM FINDINGS: Tubes, catheters and devices: Tip of the feeding tube is in the stomach. Tip of the ET tube is 7.5 cm proximal to the rhett. Lungs: Calcified granulomas in the left lower lung zone.. No consolidation. Pleural spaces: Unremarkable. No pleural effusion. No pneumothorax. Heart/Mediastinum: Unremarkable. No cardiomegaly. Vasculature: Unfolding of the thoracic aorta. Bones/joints: Unremarkable. XR/XR chest 1V portable [id number] IMPRESSION: No acute cardiopulmonary process.
[2024-10-04] MEDS: aspirin 81 mg EC Tablet PO (08:12)
[2024-10-04] MEDS: tamsulosin 0.4 mg Capsule PO (08:12)
[2024-10-04] MEDS: VILAZODONE 40 MG 40 EACH PO (08:12)
[2024-10-04] MEDS: buPROPion XL (24 HR) 150 mg Tablet 300 MG PO (08:12)
[2024-10-04] MEDS: pantoprazole 40 mg SDV IVP (08:12)
[2024-10-04] MEDS: dexmedeTOMIDine 0.9 % NaCL 400 MCG/100 ML PREMIX IV (08:52)
[2024-10-04 09:00] LABS: Glucose Point of Care 93 mg/dL (70-110)
[2024-10-04] MEDS: fentaNYL 1,000 MCG/100 ML BAG 12.5 MCG IV (09:06)
--- NOTE | 2024-10-04 09:09 | P.NPUPN_ITS ---
Subjective NPU 2 Subjective: Patient presented today unresponsive still on the vent. Attempts were made to get him off the ventilator but these were met with significant distress and so it was decided to wait additional day. Mental Status Exam 2 MSE Comments: This is an overweight white male with hospital scrubs along with limited grooming and eye contact. No abnormal movements except for psychomotor retardation. Patient uncooperative with exam secondary to being on the ventilator and under the influence of medication. He he did not speak or communicate in any way. Vitals/I&O/Wt Last Vital Signs Temp 98.1 F 10/04/24 08:08 Pulse 57 L 10/04/24 08:38 Resp 12 10/04/24 08:38 BP 97/64 10/04/24 08:00 Pulse Ox 100 10/04/24 08:38 O2 Del Method Mechanical Ventilation 10/04/24 08:38 FiO2 30 10/04/24 08:38 10/03/24 10/04/24 10/04/24 22:59 06:59 14:59 Intake Total 464.775 / 272.459 9121.691 / 1744.304 298.000 / 298.000 Output Total 350 / 350 Balance 464.775 / 567.613 826.691 / 1394.304 298.000 / 298.000 Data NPU 10/04/24 04:20 10/04/24 04:20 A&P Assessment and plan (1) Major depressive disorder, recurrent: Qualifiers: Active/Remission status: currently active Psychotic features: with psychotic features (2) Suicidal ideation: (3) Personality disorder, unspecified: (4) Type 2 diabetes mellitus: (5) Hypertension: (6) Bereavement: (7) BROCK (generalized anxiety disorder): Plan This is a 49-year-old white male with limited past psychiatric history but recent bereavement and suicide attempt.The patient has a history of major depression and anxiety, with a recent hospitalization due to panic attacks. The patient has had two episodes of hanging self in last month and continues to appear very depressed possibly psychotic as well. 1. Continue Viibyrd 40mg daily. and continue Invega 3mg at night for psychosis. Increase Invega to 6 mg p.o. nightly. Continue ambien 12.5mg at night. Increased wellbutrin xl to 300mg in am. Switch Ambien to 10 mg p.o. nightly of the immediate release 2. Continue one-to-one. 3.? Transferred to ICU after choking event 4.? Encourage sober living treatment after discharge at the highest level of care to which he is willing to commit. 5. Patient taken to the emergency department for intubation after choking event this morning. 6. Patient with choking episode a few days ago. Barium swallow test was conducted and we appreciate the consult and results. Will follow recommendations as indicated and changes diet is recommended. 7. Will continue to follow until able to be transferred back to the neuropsychiatric unit. Involuntary Hold Information 2 96 Hour Hold: 96 Hour Involuntary Admission: Yes 96 Hour Hold Ending Date: 09/19/24 96 Hour Hold Ending Time: 00:01 Attestations NPU 2 Medical Necessity Statement*: Inpatient hospitalization is medically necessary and?the clinically appropriate intervention at this time.We will monitor/initiate medications and make changes as indicated.?The patient?s likely length of stay 7-10 days. We will continue to treat on the unit when he returns from ICU. Coding Level of Care Code Acute Code for g Fwd Diagnoses Major depressive disorder, recurrent F33.9 Active/Remission status: currently active Psychotic features: with psychotic features Suicidal ideation R45.851 Personality disorder, unspecified F60.9 Type 2 diabetes mellitus E11.9 Hypertension I10 Bereavement Z63.4 BROCK (generalized anxiety disorder) F41.1
--- NOTE | 2024-10-04 09:33 | PC.NURSE ---
Patient sitting up in bed and attempting to pull ET tube/IV tubes and noted to be over breathing the ventilator. Patient continues to bang on the side rails of the bed and kick his feet up in the bed. IV drips titrated per protocol, see dago. Sheila PÉREZ and this nurse contacted Dr. Masters and updated on patient status. Orders to start patient on precedex for possible extubation later this afternoon. This nurse spoke with this am and updated on plan of care.
[2024-10-04] MEDS: propofol 1,000 MG/100 ML INJ 15.73 MG IV (09:47)
[2024-10-04 11:15] LABS: Glucose Point of Care 78 mg/dL (70-110)
--- NOTE | 2024-10-04 11:15 | PC.NURSE ---
Dr. Masters at bedside discussing plan of care. Plans to wean down sedation with possible extubation depending on outcome of CPAP trial this afternoon. notified and aware of plan of care.
[2024-10-04] MEDS: levofloxacin-dextrose 5 % 750 MG/150 ML PREMIX 100 MG IV (11:23)
[2024-10-04] MEDS: enoxaparin 40 mg/0.4 mL Syringe SUBCUT (11:24)
--- NOTE | 2024-10-04 12:01 | PM.PN ---
Subjective Subjective: Earlier this morning per history obtained from nursing staff with try to wean sedation he became very anxious, restless, tachypneic. Later on stating he cannot breathe quite well, although is on minimal settings on the ventilator. Vitals/I&O/Wt Last Vital Signs Temp 98.1 F 10/04/24 08:08 Pulse 53 L 10/04/24 10:00 Resp 12 10/04/24 10:49 BP 95/64 10/04/24 10:00 Pulse Ox 98 10/04/24 10:49 O2 Del Method Mechanical Ventilation 10/04/24 08:38 FiO2 30 10/04/24 10:49 10/03/24 10/04/24 10/04/24 22:59 06:59 14:59 Intake Total 464.775 / 703.171 2767.691 / 1744.304 353.695 / 353.695 Output Total 350 / 350 Balance 464.775 / 567.613 826.691 / 1394.304 353.695 / 353.695 Physical Exam Narrative: is at bedside. Const: ORIENTATION/CONSCIOUSNESS: Yes awake HENMT: COMMON NORMALS: oropharynx normal Neck/C-Spine: COMMON NORMALS: no JVD Resp: COMMON NORMALS: normal respiratory effort and clear to auscultation bilaterally AUSCULTATION: clear to auscultation bilaterally Cardio: COMMON NORMALS: no JVD, regular rhythm, S1 normal heart sound present, S2 normal heart sound present and No murmurs present (Cardio) RHYTHM: regular rhythm HEART SOUNDS: S1 normal heart sound present and S2 normal heart sound present GI: COMMON NORMALS: Normal to inspection, nondistended, normoactive bowel sounds present, Soft to palpation and non-tender PALPATION: Yes Soft to palpation Extremity: COMMON NORMALS: no joint enlargement and no pedal edema Neuro: COMMON NORMALS: moves all extremities Skin: COMMON NORMALS: no rashes or lesions noted GENERAL SKIN EXAM: no rashes or lesions noted Data 10/04/24 04:20 10/04/24 04:20 A&P Assessment and plan (1) Choking due to food in larynx: Reviewed vitals, CBC, ABG, CMP. Reviewed ventilator settings, discussed with respiratory therapist, nursing. Chest x-ray is unremarkable. Subjectively he does not feel like he can breathe well. He had a very difficult time with weaning, becoming very anxious, restless, tachypneic. Started on Precedex, with additional weaning, breathing trial, he still could not tolerated well, stating he had a hard time catching her breath, at 1 point he noted apneic episode when he appeared to hold his breath. There does appear to be cuff leak on balloon deflation by RT. We will obtain CT neck, discussed with community service technician. Discussed with his , resuming sedation for now. Otherwise on minimal vent settings, FiO2 30%. PEEP of 5. Discussed may be at risk of some chemical bronchitis/pneumonitis secondary to aspiration. (2) Acute respiratory failure: Additional assessment with CT neck as above. Subsequently additional weaning trial if CT unremarkable. In case not tolerating, will reattempt again in the morning. Intubated secondary to above As per discussion with psychiatry, in case of restlessness or significant agitation following sedation, added as needed Haldol. Will also make Ativan and valproic acid available. As per discussion with staff and his would maintain restraints even after sedation given now multiple daring suicide attempts during the hospitalization until he is able to return to neuropsychiatric unit. (3) Aspiration pneumonia: At the moment no evidence of pneumonia, afebrile, no leukocytosis. Chest x-ray unremarkable. But may develop chemical pneumonitis as discussed. He does seem to have some pleuritic discomfort. He is allergic to penicillin Will provide Levaquin and Flagyl at this point, repeat x-ray tomorrow (4) Suicidal ideation: Followed by psychiatry, continue home medications. Return to neuropsychiatric unit once able if doing well after able to extubate. (5) Type 2 diabetes mellitus: Sliding scale insulin currently (6) Abnormal LFTs: Reviewed LFTs, unremarkable. Plan Other medical problems outlined in past medical history Full code currently Protonix for GI prophylaxis, Lovenox for DVT prophylaxis Attestations Medical Necessity Statement*: Continue admission for weaning mechanical ventilatory support after choking and respiratory failure in a suicide attempt. Coding Level of Care Code Critical Care >/= 30 minutes Critical care time (in minutes): 50 Diagnoses Choking due to food in larynx T17.320A; W44.F3XA Acute respiratory failure J96.00 Aspiration pneumonia J69.0 Suicidal ideation R45.851 Type 2 diabetes mellitus E11.9 Abnormal LFTs R79.89
--- NOTE | 2024-10-04 14:13 | CTR_ITS ---
PROCEDURE INFORMATION: Exam: CT Neck Without Contrast Exam date and time: 10/04/2024 4:44 PM Age: 49 years old Clinical indication: Other: Assess for any laryngeal edema TECHNIQUE: Imaging protocol: Computed tomography of the neck without contrast. Radiation optimization: All CT scans at this facility use at least one of these dose optimization techniques: automated exposure control; mA and/or kV adjustment per patient size (includes targeted exams where dose is matched to clinical indication); or iterative reconstruction. COMPARISON: CR (NECK, ) 09/28/2024 1:30 PM RADIATION DOSE METRICS: Total DLP (mGy-cm): 285.4 FINDINGS: Tubes, catheters and devices: ET and feeding tubes are seen. Salivary glands: Normal. Glands are normal in size. Pharynx: Secretions in the nasopharynx and oropharynx. Prevertebral and retropharyngeal spaces: Unremarkable. Larynx: Unremarkable. Epiglottis is normal. Thyroid: Normal. No enlarged or calcified nodules. Trachea: Visualized trachea is unremarkable. Lungs: Unremarkable as visualized. Lymph nodes: Unremarkable. No lymphadenopathy. Bones/joints: Posterior osteophyte disc complex at C3-C4 and C5-C6 with mild bony canal stenosis. Mild degenerative at the anterior C1-C2 articulation. Soft tissues: Unremarkable. No significant soft tissue swelling. CT/CT neck con [id number] IMPRESSION: No laryngeal edema.
[2024-10-04] MEDS: LORazepam 2 mg/mL INJ 1 mL IVP (15:24)
--- NOTE | 2024-10-04 15:39 | PC.NURSE ---
Patient failed cpap trial he was noted to have multiple episodes of apnea while being easy to awaken, Dr. Masters called and shortly reported to bedside to evaluate patient. Orders to and obtain a CT before extubation- see orders. Patient easy to awaken and later able to communicate on writing board writing, I can barely breathe. I feel like it's bleeding. Feels like it hurts bad and is throbbing. Can we wait a little. Dr. Masters notified. Will sedate per protocol and obtain CT.
--- NOTE | 2024-10-04 16:29 | CTR_ITS ---
PROCEDURE INFORMATION: Exam: CT Head Without Contrast Exam date and time: 10/04/2024 4:44 PM Age: 49 years old Clinical indication: Other: Ms after anoxia TECHNIQUE: Imaging protocol: Computed tomography of the head without contrast. Radiation optimization: All CT scans at this facility use at least one of these dose optimization techniques: automated exposure control; mA and/or kV adjustment per patient size (includes targeted exams where dose is matched to clinical indication); or iterative reconstruction. COMPARISON: CT head wo con* [id number] 10/03/2024 9:19 AM RADIATION DOSE METRICS: Total DLP (mGy-cm): 1092.6 FINDINGS: Brain: Low-lying cerebellar tonsils.. No hemorrhage. Unremarkable white matter. No mass effect. Cerebral ventricles: No ventriculomegaly. Paranasal sinuses: Visualized sinuses are unremarkable. No fluid levels. Mastoid air cells: Visualized mastoid air cells are well aerated. Pharynx: Secretions in the nasopharynx. Bones: Unremarkable. No acute fracture. Soft tissues: Unremarkable. CT/CT head wo con* [id number] IMPRESSION: No large territorial infarct or intracranial bleed.
[2024-10-04 17:14] LABS: Glucose Point of Care 82 mg/dL (70-110)
--- NOTE | 2024-10-04 19:16 | PC.NURSE ---
Addendum entered by Rajwinder Lim RN 10/04/24 19:17: Versed waste witnessed with CATA Kang. Original Note: Wasted 63 ml versed drip from patients bedside witness by Rosalinda IVY.
[2024-10-04] MEDS: fentaNYL 1,000 MCG/100 ML BAG 10 MCG IV (20:25)
[2024-10-04] MEDS: dextrose 10% 125 ML 750 ML IV (20:59)
[2024-10-04 21:07] LABS: Glucose Point of Care 62 mg/dL (70-110)
--- NOTE | 2024-10-04 21:15 | PC.NURSE ---
Addendum entered by Pearl Bagley RN 10/05/24 04:47: Also instructed to ween off propofol and use only fentanyl at this time. Original Note: Low blood sugar 62 via accucheck, dextrose given per 2109 Dr. Gupta notified of blood sugar, treatment, repeat blood sugar 95 and also bradycardia low of 37 at that time with 2 second pause noted. Rhythm strip in chart. instructed to check blood sugar q 1 hour till mid night then q 4 hours. Change iv fluids to d5 ns at 75.
[2024-10-04 21:27] LABS: Glucose Point of Care 95 mg/dL (70-110)
[2024-10-04 21:40] LABS: Glucose Point of Care 99 mg/dL (70-110)
[2024-10-04 22:04] LABS: Glucose Point of Care 73 mg/dL (70-110)
[2024-10-04] MEDS: dextrose 5%-sod chloride 0.9% 1,000 ML 75 ML IV (22:27)
[2024-10-04 23:15] LABS: Glucose Point of Care 76 mg/dL (70-110)
[2024-10-05] VITALS (74 sets, daily range): BP systolic 114–165; BP diastolic 75–102; PULSE 56–86; RESP 8–48; TEMP 36.9–38; O2SAT 91–100
[2024-10-05 00:32] LABS: Glucose Point of Care 78 mg/dL (70-110)
[2024-10-05] MEDS: metroNIDAZOLE IV 500 MG/100 ML PREMIX 100 MG IV ×4 (00:34→17:24)
[2024-10-05] MEDS: fentaNYL 1,000 MCG/100 ML BAG 20 MCG IV (02:53)
[2024-10-05] MEDS: propofol 1,000 MG/100 ML INJ 2.62 MG IV (03:00)
[2024-10-05 04:35] LABS: Glucose Point of Care 94 mg/dL (70-110)
[2024-10-05 04:36] LABS: Basophils % 0.4 %; Eosinophils # 0.1 10^3/uL (0.0-0.8); Eosinophils % 0.9 %; Hematocrit 39.7 % (37-53); Lymphocytes # 1.6 10^3/uL (0.8-4.8); Lymphocytes % 17.5 %; Mean Corpuscular HGB Conc 34.5 g/dL (30-55); Mean Corpuscular Hemoglobin 32.9 pg (27-33); Mean Corpuscular Volume 95.4 fl (82-101); Mean Platelet Volume 9.5 fL (7.4-10.4); Monocytes % 10.4 %; Neutrophils # 6.43 10^3/uL (1.8-7.7); Neutrophils % 70.6 %; Nucleated Red Blood Cells % 0 %; Platelet Count 179 10^3/cmm (157-399); Red Blood Count 4.16 10^6/uL (3.85-5.65); Red Cell Distribution Width 12.6 % (12.1-15.1); White Blood Count 9.12 10^3/uL (3.29-11.43)
--- NOTE | 2024-10-05 04:48 | PC.NURSE ---
Increased work of breathing rate 40-50, anxious. RT to bedside. Dr. Gupta called for guidance as patient maxed out on fentanyl at this time. Mutiple orders on chart for agitation noted. Instructed to restart propofol for sedation.
[2024-10-05 04:52] LABS: Anion Gap 14.4 (5-19); Blood Urea Nitrogen 9 mg/dL (6-20); Calcium 7.5 mg/dL (8.5-10.5); Carbon Dioxide 22 mmol/L (22-29); Chloride 105 mmol/L (98-107); Creatinine Clr Calc Pharmacy 111.7982; Glomerular Filtration Rate 90.1 mL/min (90-130); Glucose 99 mg/dL (65-115); Osmolality Calculated 285 mOsm/kg (285-295); Potassium 3.4 mmol/L (3.5-5.1); Sodium 138 mmol/L (136-145)
[2024-10-05 07:41] LABS: Glucose Point of Care 92 mg/dL (70-110)
[2024-10-05 10:30] LABS: Glucose Point of Care 80 mg/dL (70-110)
[2024-10-05] MEDS: pantoprazole 40 mg SDV IVP (10:48)
--- NOTE | 2024-10-05 11:36 | PC.NURSE ---
Addendum entered by Aakash Montana RN 10/05/24 16:33: THroughout the day, patient has become more alert, At time of this amended note (0630) patient now has a strong cough and able to clear secretions without suction. Original Note: Extubation Extubated at 0912. Since extubation, patient has done a poor job clearing his airway of secretions. Weak cough, pooling saliva in mouth which needs to be suctioned. When doing deeper suction with flexible suction catheter, patient does not have a gag reflex. Patient is maintaining an open airway, but nurse has concerns about constant microaspiration of secretions occurring throughout the day. NUrse alerted Dr lamb to this.
[2024-10-05] MEDS: levofloxacin-dextrose 5 % 750 MG/150 ML PREMIX 100 MG IV (12:39)
[2024-10-05] MEDS: enoxaparin 40 mg/0.4 mL Syringe SUBCUT (12:39)
--- NOTE | 2024-10-05 12:41 | P.NPUPN_ITS ---
Subjective NPU 2 Subjective: Patient presented today finally extubated and verbal. He ultimately acknowledged that he did take an intentional over ingestion of food and reported that he changed his mind and tried to get the food back out but it was too late. He reports that he will not do that again. We discussed that this puts an Asterix on possible discharge date and that we will return him to the MPU and medically cleared and begin to identify how are going to be comfortable with safety at discharge. He denied any side effects of medication. Mental Status Exam 2 MSE Comments: This is an overweight white male with hospital gown on with limited grooming and adequate eye contact. No abnormal movements except for mild psychomotor retardation. Mostly cooperative with exam and mild to moderate distress. Speech was decreased rate and volume with poor articulation. Mood described as feeling better, affect congruent, but subdued. Thought process linear. Thought content: Patient denied suicidal or homicidal ideation, there were no delusions reported or noted, he denied auditory or visual hallucinations. His attention span was poor. There were no signs of paranoia or hallucinations. Attention and concentration were adequate and memory was mostly reliable but none were formally tested.? He is alert and oriented x to person and place.? Insight was poor and judgment is impaired. Impulse control is poor. Vitals/I&O/Wt Last Vital Signs Temp 100 F L 10/05/24 10:45 Pulse 76 10/05/24 10:45 Resp 24 H 10/05/24 10:45 BP 128/92 10/05/24 10:45 Pulse Ox 95 10/05/24 10:45 O2 Del Method Room Air 10/05/24 10:45 O2 Flow Rate 1 10/05/24 10:45 FiO2 21 10/05/24 08:16 Weight last 48 hrs Weight 97.522 kg Weight 97.3 kg Physical Exam 2 Urinary Catheter Management: Marino: Cath Placed During This Visit: yes, but has since been removed by the nurse Reason for Continuing Indwelling Catheter: Decision to DC Catheter Urinary Catheter Date of Insertion: 10/04/24 Urinary Catheter Time of Insertion: 17:51 Date Urinary Catheter Removed: 10/05/24 Time Urinary Catheter Discontinued: 15:53 Data NPU 10/06/24 03:26 10/06/24 03:26 A&P Assessment and plan (1) Major depressive disorder, recurrent: Qualifiers: Active/Remission status: currently active Psychotic features: with psychotic features (2) Suicidal ideation: (3) Personality disorder, unspecified: (4) Type 2 diabetes mellitus: (5) Hypertension: (6) Bereavement: (7) BROCK (generalized anxiety disorder): Plan This is a 49-year-old white male with limited past psychiatric history but recent bereavement and suicide attempt.The patient has a history of major depression and anxiety, with a recent hospitalization due to panic attacks. The patient has had two episodes of hanging self in last month and continues to appear very depressed possibly psychotic as well. 1. Continue Viibyrd 40mg daily. and continue Invega 3mg at night for psychosis. Increased Invega to 6 mg p.o. nightly. Continue ambien 12.5mg at night. Increased wellbutrin xl to 300mg in am. Switch Ambien to 10 mg p.o. nightly of the immediate release 2. Continue one-to-one. 3.? Transferred to ICU after choking event 4.? Encourage sober living treatment after discharge at the highest level of care to which he is willing to commit. 5. Patient taken to the emergency department for intubation after choking event this morning. 6. Patient with choking episode a few days ago. Barium swallow test was conducted and we appreciate the consult and results. Will follow recommendations as indicated and changes diet is recommended. 7. Will continue to follow until able to be transferred back to the neuropsychiatric unit. Involuntary Hold Information 2 96 Hour Hold: 96 Hour Involuntary Admission: Yes 96 Hour Hold Ending Date: 09/19/24 96 Hour Hold Ending Time: 00:01 Attestations NPU 2 Medical Necessity Statement*: Inpatient hospitalization is medically necessary and?the clinically appropriate intervention at this time.We will monitor/initiate medications and make changes as indicated.?The patient?s likely length of stay 7-10 days. We will continue to treat on the unit when he returns from ICU likely today. Coding Level of Care Code Acute Code for [facility] Fwd Diagnoses Major depressive disorder, recurrent F33.9 Active/Remission status: currently active Psychotic features: with psychotic features Suicidal ideation R45.851 Personality disorder, unspecified F60.9 Type 2 diabetes mellitus E11.9 Hypertension I10 Bereavement Z63.4 BROCK (generalized anxiety disorder) F41.1
[2024-10-05 13:00] LABS: Glucose Point of Care 104 mg/dL (70-110)
[2024-10-05] MEDS: dextrose 5%-sod chloride 0.9% 1,000 ML 75 ML IV (15:24)
--- NOTE | 2024-10-05 15:27 | P.PN_ITS ---
Subjective 2 Subjective: He is much calmer this morning with weaning sedation, tolerating minimal sedation with fentanyl, subsequently weaning off entirely. Would like to proceed with extubation. On revisit he is doing okay although with noted some difficulty clearing secretions, swallowing. Depressed gag reflex. Later on the day getting up and ambulating around the unit. Vitals/I&O/Wt Last Vital Signs Temp 100 F H 10/05/24 10:45 Pulse 76 10/05/24 10:45 Resp 24 H 10/05/24 10:45 BP 128/92 10/05/24 10:45 Pulse Ox 95 10/05/24 10:45 O2 Del Method Mechanical Ventilation 10/05/24 08:20 O2 Flow Rate 1 10/05/24 10:45 FiO2 21 10/05/24 08:16 10/05/24 10/05/24 10/05/24 06:59 14:59 22:59 Intake Total 240.890 / 2531.354 1113.874 / 1113.874 Output Total 900 / 1050 150 / 150 Balance -659.110 / 1481.354 963.874 / 963.874 Weight last 48 hrs Weight 97.3 kg Physical Exam 2 Narrative: On mechanical ventilator at first visit, on revisit extubated with minimal nasal cannula oxygen. One-to-one sitter at bedside. Const: ORIENTATION/CONSCIOUSNESS: Yes awake HENMT: COMMON NORMALS: oropharynx normal Neck/C-Spine: COMMON NORMALS: no JVD Resp: COMMON NORMALS: normal respiratory effort and clear to auscultation bilaterally AUSCULTATION: clear to auscultation bilaterally Cardio: COMMON NORMALS: no JVD, regular rhythm, S1 normal heart sound present, S2 normal heart sound present and No murmurs present (Cardio) RHYTHM: regular rhythm HEART SOUNDS: S1 normal heart sound present and S2 normal heart sound present GI: COMMON NORMALS: Normal to inspection, nondistended, normoactive bowel sounds present, Soft to palpation and non-tender PALPATION: Yes Soft to palpation Extremity: COMMON NORMALS: no joint enlargement and no pedal edema Neuro: COMMON NORMALS: moves all extremities Skin: COMMON NORMALS: no rashes or lesions noted GENERAL SKIN EXAM: no rashes or lesions noted Urinary Catheter Management: Marino: Cath Placed During This Visit: yes Reason for Continuing Indwelling Catheter: Accurate Measurement of Urinary Output in Critically Ill Patients Urinary Catheter Date of Insertion: 10/04/24 Urinary Catheter Time of Insertion: 17:51 Data 10/05/24 04:25 10/05/24 04:25 A&P Assessment and plan (1) Acute respiratory failure: He tolerated weaning sedation much better today, remains much calmer even on minimal sedation, and came off sedation entirely, tolerated breathing trial well. RSBI 25. Cuff leak present. Reviewed with him results of CT scans. He is willing and ready to proceed with extubation, extubated to minimal nasal cannula oxygen. Discussed with respite therapy, nursing. During extubation noted to have depressed gag reflex, subsequent with some also noted diffusion clearance of secretions, possibly some difficulty swallowing. Discussed with him and his regarding his condition, discussed pending further reassessment for now maintain n.p.o., aspiration precautions, requesting speech therapy evaluation. As per discussion with his consideration of possible degree of anoxic injury which may have affected his swallowing. Occasional breath-hold episodes possibly could also be related to anoxic injury. Ultimately certainly may have insufficiently cleared sedation, possibly some irritation after choking, intubation, although there has not been swelling visualized on CT. Continue monitoring in intensive care unit at current time, pending further reassessment of wearing off of entirety of sedation, as well as recovery after his respiratory failure and hypoxic episode. He has not been a good candidate so far for an MRI study, but in case of further concerns this could be considered if he were able to undergo the study safely. Please reassess for any persistent deficits. Would be very cautious resuming oral intake and cooperation with speech therapy, consider modified barium swallow depending on speech recommendations.. Through the day today noted improving, becoming more alert as the day goes by, more interactive, improved management of secretions, ambulating. One-to-one sitter at bedside. Additionally noted low-grade fever today 100 Fahrenheit, WBC reviewed, normal, possible aspiration pneumonitis versus possibly developing pneumonia. Continue IV Levaquin, Flagyl at current time. Reassess blood counts, monitor vitals. Additional assessment with CT neck as above. Subsequently additional weaning trial if CT unremarkable. In case not tolerating, will reattempt again in the morning. Intubated secondary to above As per discussion with psychiatry, in case of restlessness or significant agitation following sedation, added as needed Haldol. Will also make Ativan and valproic acid available. As per discussion with staff and his would maintain restraints even after sedation given now multiple daring suicide attempts during the hospitalization until he is able to return to neuropsychiatric unit. Occasional episodes where he (2) Choking due to food in larynx: Extubation as above. Pending further evaluation with speech therapy. Empiric antibiotic coverage for possible aspiration pneumonia. One-to-one sitter. Discussed may be at risk of some chemical bronchitis/pneumonitis secondary to aspiration. (3) Aspiration pneumonia: Low-grade fever 100 Fahrenheit today. No leukocytosis. Repeat blood counts. Continue to better coverage with Levaquin, Flagyl. Continue to promote expectoration. As the day goes by he is becoming more alert, better managing secretions, ambulating. He is allergic to penicillin (4) Suicidal ideation: Several during suicide attempts while in the hospital. Discussed with nursing staff, with extubation one-to-one sitter security at bedside. As per discussion yesterday maintain soft restraints while in the ICU pending further psychiatric assessment and treatment. Discussed extubation and his current condition and above concerns with psychiatrist who is already also seen him today. Followed by psychiatry, continue home medications. Return to neuropsychiatric unit once able pending additional assessment of oxygenation, swallowing, aspiration pneumonia. (5) Type 2 diabetes mellitus: Sliding scale insulin currently (6) Abnormal LFTs: Reassess CMP. Plan Other medical problems outlined in past medical history Full code currently Protonix for GI prophylaxis, Lovenox for DVT prophylaxis Attestations 2 Medical Necessity Statement*: Continue admission for further assessment following choking episode, respiratory failure, aspiration pneumonia, further assessment of possible sequela of hypoxia, possible residual anoxic brain injury, further assessment of swallowing, management of secretions, prior to return to neuropsychiatric unit for further management of depression, suicidal ideation. Coding Level of Care Code Critical Care >/= 30 minutes Critical care time (in minutes): 50 The high probability of a clinically significant, sudden or life threatening deterioration, as referenced in this documentation, required my full and direct attention, intervention and personal management. The critical care time shown is in addition to time spent performing any reported separately billable procedures and includes the following: [x] Data and vital sign review and interpretation [x ] Patient assessment, examination and intervention [x] Medication orders and management [x] Patient/Family updates as able [x] Care Coordination and Documentation. Diagnoses Acute respiratory failure J96.00 Choking due to food in larynx T17.320A; [id number].F3XA Aspiration pneumonia J69.0 Suicidal ideation R45.851 Type 2 diabetes mellitus E11.9 Abnormal LFTs R79.89
[2024-10-05 17:33] LABS: Glucose Point of Care 92 mg/dL (70-110)
--- NOTE | 2024-10-05 18:00 | PC.NURSE ---
Shift SUmmary: patient extubated at 0912. Though some initial concerns for his ability to protect his airway (See previous notes), he has since become awake, alert and oriented to person, place, time, and situation. Vitals have been within normal limits. Patient has walked about 150 feet around the unit and was a little unsteady while doing so, but did well for the first ambulation after 2 days of intubation/sedation. 1150mL of urine output. patient has had Marino removed and has urinated into urinal since removal. Morning PO meds held due to mental status and inability to protect airway, physician aware. Speech language eval ordered, should be here tomorrow.
--- NOTE | 2024-10-05 18:40 | PC.NURSE ---
Addendum entered by MOISES Alves 10/05/24 18:41: Witnessed waste of fentanyl with CATA Finn. Original Note: Wasted 31mL of fentanyl with CATA Barger.
[2024-10-05] MEDS: paliperidone ER 6 mg Tablet PO (20:23)
[2024-10-05 20:32] LABS: Glucose Point of Care 86 mg/dL (70-110)
[2024-10-06] VITALS (24 sets, daily range): BP systolic 107–142; BP diastolic 74–95; PULSE 56–80; RESP 8–20; TEMP 36.4–37.1; O2SAT 95–99
[2024-10-06] MEDS: metroNIDAZOLE IV 500 MG/100 ML PREMIX 100 MG IV ×4 (00:14→17:53)
[2024-10-06] MEDS: acetaminophen 325 mg Tablet 650 MG PO ×3 (00:35→08:29)
[2024-10-06 00:44] LABS: Glucose Point of Care 85 mg/dL (70-110)
[2024-10-06 04:04] LABS: Basophils % 0.4 %; Eosinophils # 0.1 10^3/uL (0.0-0.8); Eosinophils % 1.5 %; Hematocrit 40.8 % (37-53); Lymphocytes # 1.4 10^3/uL (0.8-4.8); Lymphocytes % 17.1 %; Mean Corpuscular Volume 97.1 fl (82-101); Mean Platelet Volume 9.6 fL (7.4-10.4); Monocytes # 0.8 10^3/uL (0.2-0.9); Monocytes % 10.1 %; Neutrophils # 5.81 10^3/uL (1.8-7.7); Neutrophils % 70.8 %; Nucleated Red Blood Cells % 0 %; Platelet Count 178 10^3/cmm (157-399); Red Cell Distribution Width 13.2 % (12.1-15.1)
[2024-10-06 04:29] LABS: Alanine Aminotransferase 19 U/L (0-41); Albumin Level 3.4 g/dL (3.5-5.2); Alkaline Phosphatase 56 U/L (40-130); Anion Gap 12.8 (5-19); Aspartate Amino Transferase 20 U/L (0-40); Blood Urea Nitrogen 7 mg/dL (6-20); Calcium 7.8 mg/dL (8.5-10.5); Carbon Dioxide 24 mmol/L (22-29); Chloride 106 mmol/L (98-107); Creatinine Clr Calc Pharmacy 132.2641; Globulin 2.6 g/dL (1.3-4.6); Glomerular Filtration Rate 103.2 mL/min (90-130); Glucose 97 mg/dL (65-115); Osmolality Calculated 286 mOsm/kg (285-295); Potassium 3.8 mmol/L (3.5-5.1); Sodium 139 mmol/L (136-145); Total Bilirubin 1.5 mg/dL (0.15-1.2)
[2024-10-06] MEDS: dextrose 5%-sod chloride 0.9% 1,000 ML 75 ML IV (04:43)
[2024-10-06 08:01] LABS: Glucose Point of Care 108 mg/dL (70-110)
[2024-10-06] MEDS: aspirin 81 mg Chew Tablet PEG-TUBE (08:09)
[2024-10-06] MEDS: tamsulosin 0.4 mg Capsule PO (08:09)
[2024-10-06] MEDS: buPROPion XL (24 HR) 150 mg Tablet 300 MG PO (08:10)
[2024-10-06] MEDS: pantoprazole 40 mg SDV IVP (08:10)
[2024-10-06] MEDS: ondansetron 2 mg/ML SDV 2 mL 4 MG IVP (08:30)
[2024-10-06 11:40] LABS: Glucose Point of Care 119 mg/dL (70-110)
[2024-10-06] MEDS: enoxaparin 40 mg/0.4 mL Syringe SUBCUT (12:31)
[2024-10-06] MEDS: levofloxacin-dextrose 5 % 750 MG/150 ML PREMIX 100 MG IV (12:31)
[2024-10-06] MEDS: VILAZODONE 40 MG 40 EACH PO (13:17)
--- NOTE | 2024-10-06 13:48 | P.PN_ITS ---
Subjective 2 Subjective: Hospital course, labs appreciated. Today morning on examination sitting comfortably in bed with security at bedside. Patient denies any nausea, vomiting, headache. States he is feeling better. Asking if he can go back to Neuropsych Unit. Vitals/I&O/Wt Last Vital Signs Temp 98.7 F 10/06/24 13:00 Pulse 66 10/06/24 13:00 Resp 20 H 10/06/24 13:00 BP 137/87 10/06/24 13:00 Pulse Ox 97 10/06/24 13:00 O2 Del Method Room Air 10/06/24 13:00 O2 Flow Rate 1 10/05/24 10:45 FiO2 21 10/05/24 08:16 10/05/24 10/06/24 10/06/24 22:59 06:59 14:59 Intake Total 350 / 9544.408 7549.75 / 2562.624 562.5 / 562.5 Output Total 300 / 1450 Balance 50 / 13.874 1098.75 / 1112.624 562.5 / 562.5 Weight last 48 hrs Weight 97.522 kg Weight 97.3 kg Physical Exam 2 Narrative: General: No acute distress, AO x3 HEENT: PERRLA, pupils bilaterally equal and reactive Chest: Normal vesicular breath sounds, no added sounds, equal good air entry bilaterally CVS: S1-S2 regular, no murmurs, no tachycardia, no gallops, no rubs Abdomen: Soft, nontender, no organomegaly, bowel sounds present Neuro: No focal deficits, no facial deformity, AO x3, power 5/5 in all limbs Urinary Catheter Management: Marino: Cath Placed During This Visit: yes, but has since been removed by the nurse Reason for Continuing Indwelling Catheter: Decision to DC Catheter Urinary Catheter Date of Insertion: 10/04/24 Urinary Catheter Time of Insertion: 17:51 Date Urinary Catheter Removed: 10/05/24 Time Urinary Catheter Discontinued: 15:53 Data 10/06/24 03:26 10/06/24 03:26 A&P Assessment and plan (1) Acute respiratory failure: In setting of aspiration event. Extubated on 10/05. Currently on room air. Appreciate chest x-ray. No leukocytosis. Continue with empiric Levaquin and Flagyl for now to finish a 5-day course. Advance diet as per speech evaluation. Oxygen supplementation keeping saturation over 90%. Cepacol as needed. (2) Choking due to food in larynx: (3) Aspiration pneumonia: Antibiotic as above. He is allergic to penicillin. Diet as above. (4) Suicidal ideation: Several suicide attempts while in the hospital. One-to-one security at bedside for now. As per psychiatric team. Treatment for depression as per psychiatric team. Will transition back to Neuropsych Unit once patient remains medically stable and on room air oxygen supplementation while diet is started. (5) Type 2 diabetes mellitus: Sliding scale insulin currently (6) Abnormal LFTs: Reassess CMP. Plan Other medical problems outlined in past medical history Full code currently Protonix for GI prophylaxis, Lovenox for DVT prophylaxis [facility] Attestations 2 Medical Necessity Statement*: Requires further hospitalization for management of severe depression, multiple suicide attempt while patient is managed for respiratory failure in setting of choking, postextubation on 10/05. Diagnoses Acute respiratory failure J96.00 Choking due to food in larynx T17.320A; [id number].F3XA Aspiration pneumonia J69.0 Suicidal ideation R45.851 Type 2 diabetes mellitus E11.9 Abnormal LFTs R79.89
[2024-10-06 16:56] LABS: Glucose Point of Care 86 mg/dL (70-110)
--- NOTE | 2024-10-06 19:13 | PC.NURSE ---
Shift SUmmary: Uneventful shift. Patient frequently walking around room. Restarted on Vilazadone. Started on consisted carb dysphagia level 5 diet. Possible transfer to NPU tommorow.
--- NOTE | 2024-10-06 19:40 | P.NPUPN_ITS ---
Subjective NPU 2 Subjective: Patient presented today reporting that things are going okay. He reports that he did have a chance to talk to the primary hospitalist today and that they discussed the likelihood of returning to the neuropsychiatric unit tomorrow. We discussed that that sounds about right as long as he is medically cleared. Additionally we discussed the timeframe of treatment after his return with him identifying that he understood that he will probably be here at least another week given the circumstances. He continued to report that he has no intention of harming himself again and that he is just working on what it would take to get home and get better. He denied any side effects of the medication. Mental Status Exam 2 MSE Comments: This is an overweight white male with hospital gown on with limited grooming and adequate eye contact. No abnormal movements except for mild psychomotor retardation. Mostly cooperative with exam and mild to moderate distress. Speech was decreased rate and volume with poor articulation. Mood described as feeling better, affect congruent, but subdued. Thought process linear. Thought content: Patient denied suicidal or homicidal ideation, there were no delusions reported or noted, he denied auditory or visual hallucinations. His attention span was poor. There were no signs of paranoia or hallucinations. Attention and concentration were adequate and memory was mostly reliable but none were formally tested.? He is alert and oriented x to person and place.? Insight was poor and judgment is impaired. Impulse control is poor. Vitals/I&O/Wt Last Vital Signs Temp 98.7 F 10/06/24 13:00 Pulse 66 10/06/24 13:00 Resp 20 H 10/06/24 13:00 BP 137/87 10/06/24 13:00 Pulse Ox 97 10/06/24 13:00 O2 Del Method Room Air 10/06/24 13:00 O2 Flow Rate 1 10/05/24 10:45 FiO2 21 10/05/24 08:16 Weight last 48 hrs Weight 83.234 kg Weight 97.522 kg Physical Exam 2 Urinary Catheter Management: Marino: Cath Placed During This Visit: yes, but has since been removed by the nurse Reason for Continuing Indwelling Catheter: Decision to DC Catheter Urinary Catheter Date of Insertion: 10/04/24 Urinary Catheter Time of Insertion: 17:51 Date Urinary Catheter Removed: 10/05/24 Time Urinary Catheter Discontinued: 15:53 Data NPU 10/07/24 04:15 10/07/24 04:15 A&P Assessment and plan (1) Major depressive disorder, recurrent: Qualifiers: Active/Remission status: currently active Psychotic features: with psychotic features (2) Suicidal ideation: (3) Personality disorder, unspecified: (4) Type 2 diabetes mellitus: (5) Hypertension: (6) Bereavement: (7) BROCK (generalized anxiety disorder): Plan This is a 49-year-old white male with limited past psychiatric history but recent bereavement and suicide attempt.The patient has a history of major depression and anxiety, with a recent hospitalization due to panic attacks. The patient has had two episodes of hanging self in last month and continues to appear very depressed possibly psychotic as well. 1. Continue Viibyrd 40mg daily. and continue Invega 3mg at night for psychosis. Increased Invega to 6 mg p.o. nightly. Continue ambien 12.5mg at night. Increased wellbutrin xl to 300mg in am. Switch Ambien to 10 mg p.o. nightly of the immediate release 2. Continue one-to-one. 3.? Transferred to ICU after choking event. Likely return to the neuropsychiatric unit tomorrow. 4.? Encourage sober living treatment after discharge at the highest level of care to which he is willing to commit. 5. Will continue to follow until able to be transferred back to the neuropsychiatric unit. Involuntary Hold Information 2 96 Hour Hold: 96 Hour Involuntary Admission: Yes 96 Hour Hold Ending Date: 09/19/24 96 Hour Hold Ending Time: 00:01 Attestations NPU 2 Medical Necessity Statement*: Inpatient hospitalization is medically necessary and?the clinically appropriate intervention at this time.We will monitor/initiate medications and make changes as indicated.?The patient?s likely length of stay 7-10 days. We will continue to treat on the unit when he returns from ICU likely today. Coding Level of Care Code Acute Code for [facility] Fwd Diagnoses Major depressive disorder, recurrent F33.9 Active/Remission status: currently active Psychotic features: with psychotic features Suicidal ideation R45.851 Personality disorder, unspecified F60.9 Type 2 diabetes mellitus E11.9 Hypertension I10 Bereavement Z63.4 BROCK (generalized anxiety disorder) F41.1
[2024-10-06] MEDS: paliperidone ER 6 mg Tablet PO (20:34)
[2024-10-06] MEDS: zolpidem 5 mg Tablet 10 MG PO (20:34)
[2024-10-06 20:41] LABS: Glucose Point of Care 76 mg/dL (70-110)
[2024-10-07] VITALS (23 sets, daily range): BP systolic 83–119; BP diastolic 57–86; PULSE 60–78; RESP 12–21; TEMP 36.7–37.1; O2SAT 95–99
[2024-10-07] MEDS: metroNIDAZOLE IV 500 MG/100 ML PREMIX 100 MG IV ×2 (00:53→05:35)
[2024-10-07] MEDS: LORazepam 2 mg/mL INJ 1 mL IVP (02:01)
[2024-10-07 04:38] LABS: Basophils % 0.6 %; Eosinophils # 0.2 10^3/uL (0.0-0.8); Eosinophils % 2.1 %; Hematocrit 41.5 % (37-53); Lymphocytes # 1.4 10^3/uL (0.8-4.8); Lymphocytes % 19.9 %; Mean Corpuscular HGB Conc 34.9 g/dL (30-55); Mean Corpuscular Hemoglobin 33.5 pg (27-33); Mean Corpuscular Volume 95.8 fl (82-101); Mean Platelet Volume 9.6 fL (7.4-10.4); Monocytes # 0.8 10^3/uL (0.2-0.9); Monocytes % 10.9 %; Neutrophils # 4.62 10^3/uL (1.8-7.7); Neutrophils % 66.1 %; Nucleated Red Blood Cells % 0 %; Platelet Count 205 10^3/cmm (157-399); Red Blood Count 4.33 10^6/uL (3.85-5.65); Red Cell Distribution Width 12.7 % (12.1-15.1); White Blood Count 6.99 10^3/uL (3.29-11.43)
[2024-10-07 05:12] LABS: Chol HDL Ratio 3.07 mg/dL (1.0-5.00); Cholesterol 92 mg/dL (0-200); HDL Cholesterol 30 mg/dL (60-100); LDL Cholesterol Calculated 47 mg/dL (50-129); Triglycerides 74 mg/dL (0-150); VLDL Cholestrol Calculation 15 mg/dL (0-30)
[2024-10-07 05:23] LABS: Alanine Aminotransferase 19 U/L (0-41); Albumin Level 3.6 g/dL (3.5-5.2); Alkaline Phosphatase 58 U/L (40-130); Anion Gap 13.9 (5-19); Aspartate Amino Transferase 17 U/L (0-40); Blood Urea Nitrogen 11 mg/dL (6-20); Calcium 8.3 mg/dL (8.5-10.5); Carbon Dioxide 25 mmol/L (22-29); Chloride 106 mmol/L (98-107); Creatinine Clr Calc Pharmacy 105.8112; Globulin 2.6 g/dL (1.3-4.6); Glomerular Filtration Rate 79.8 mL/min (90-130); Glucose 88 mg/dL (65-115); Osmolality Calculated 291 mOsm/kg (285-295); Potassium 3.9 mmol/L (3.5-5.1); Sodium 141 mmol/L (136-145); Total Bilirubin 0.9 mg/dL (0.15-1.2); Total Protein 6.2 g/dL (6.6-8.7)
[2024-10-07 08:26] LABS: Glucose Point of Care 100 mg/dL (70-110)
[2024-10-07] MEDS: aspirin 81 mg Chew Tablet PEG-TUBE (08:36)
[2024-10-07] MEDS: buPROPion XL (24 HR) 150 mg Tablet 300 MG PO (08:36)
[2024-10-07] MEDS: tamsulosin 0.4 mg Capsule PO (08:36)
[2024-10-07] MEDS: VILAZODONE 40 MG 40 EACH PO (08:37)
[2024-10-07] MEDS: pantoprazole 40 mg SDV IVP (08:37)
--- NOTE | 2024-10-07 09:24 | PC.NURSE ---
hand off report provided to CATA Le for cont. of care.
[2024-10-07 11:44] LABS: Glucose Point of Care 149 mg/dL (70-110)
[2024-10-07] MEDS: insulin lispro 100 unit/1 mL SUBCUT (11:45)
[2024-10-07] MEDS: enoxaparin 40 mg/0.4 mL Syringe SUBCUT (11:45)
--- NOTE | 2024-10-07 11:56 | P.PN_ITS ---
Subjective 2 Subjective: No acute events overnight. Patient has remained hemodynamically stable. He has been able to tolerate oral diet without issues of aspiration. Today morning examination is awake and alert with sitter at bedside. Remains on room air. Complaining of mild sore throat specially on swallowing. Vitals/I&O/Wt Last Vital Signs Temp 98.1 F 10/07/24 08:00 Pulse 70 10/07/24 08:00 Resp 16 10/07/24 07:48 BP 114/85 10/07/24 08:00 Pulse Ox 95 10/07/24 07:48 O2 Del Method Room Air 10/07/24 07:48 O2 Flow Rate 1 10/05/24 10:45 FiO2 21 10/05/24 08:16 10/06/24 10/07/24 10/07/24 22:59 06:59 14:59 Intake Total 350 / 912.5 100 / 1012.5 340 / 340 Balance 350 / 912.5 100 / 1012.5 340 / 340 Weight last 48 hrs Weight 83.234 kg Weight 97.522 kg Physical Exam 2 Narrative: General: No acute distress, AO x3 HEENT: PERRLA, pupils bilaterally equal and reactive Chest: Normal vesicular breath sounds, no added sounds, equal good air entry bilaterally CVS: S1-S2 regular, no murmurs, no tachycardia, no gallops, no rubs Abdomen: Soft, nontender, no organomegaly, bowel sounds present Neuro: No focal deficits, no facial deformity, AO x3, power 5/5 in all limbs Urinary Catheter Management: Marino: Cath Placed During This Visit: yes, but has since been removed by the nurse Reason for Continuing Indwelling Catheter: Decision to DC Catheter Urinary Catheter Date of Insertion: 10/04/24 Urinary Catheter Time of Insertion: 17:51 Date Urinary Catheter Removed: 10/05/24 Time Urinary Catheter Discontinued: 15:53 Data 10/07/24 04:15 10/07/24 04:15 A&P Assessment and plan (1) Acute respiratory failure: In setting of aspiration event. Extubated on 10/05. Currently on room air. Appreciate chest x-ray. No leukocytosis. Continue with empiric Levaquin and Flagyl for now to finish a 5-day course. Advance diet as per speech evaluation. Oxygen supplementation keeping saturation over 90%. Cepacol as needed. (2) Choking due to food in larynx: (3) Aspiration pneumonia: Antibiotic as above. He is allergic to penicillin. Diet as above. (4) Suicidal ideation: Several suicide attempts while in the hospital. One-to-one security at bedside for now. As per psychiatric team. Treatment for depression as per psychiatric team. Will transition back to Neuropsych Unit once patient remains medically stable and on room air oxygen supplementation while diet is started. (5) Type 2 diabetes mellitus: Sliding scale insulin currently (6) Abnormal LFTs: Reassess CMP. Plan Other medical problems outlined in past medical history Full code currently Protonix for GI prophylaxis, Lovenox for DVT prophylaxis Plan for the day: Patient has remained stable and tolerating diet well. Continue with dysphagia level 5 diet and advance as per speech evaluation. Continue treatment for depression suicidal ideation as per psychiatric/primary team. Patient is medically stable to be transferred back to Neuropsych Unit. He should be on Levaquin 750 mg by mouth for next 5 days. Repeat CBC and CMP in AM. Continue with sliding scale insulin. Can continue with oral care. Attestations 2 Medical Necessity Statement*: Requires further hospitalization as per primary team for management of severe depression, suicidal ideation and attempt, postextubation for choking and aspiration Diagnoses Acute respiratory failure J96.00 Choking due to food in larynx T17.320A; [id number].F3XA Aspiration pneumonia J69.0 Suicidal ideation R45.851 Type 2 diabetes mellitus E11.9 Abnormal LFTs R79.89
[2024-10-07 17:11] LABS: Glucose Point of Care 84 mg/dL (70-110)
--- NOTE | 2024-10-07 20:12 | W.PM.NPUPNS ---
Subjective NPU Subjective: Patient presented today reporting that he is feeling all right. He identified that he is optimistic about going home but also is aware that his behaviors have led to additional concern and he is open to the reality that he may be here longer than what was previously discussed. We discussed the likelihood of him returning to the neuropsychiatric unit tomorrow once bed availability opens. He denied any side effects to his medications and reports that he is feeling better. Mental Status Exam MSE Comments: This is an overweight white male with hospital gown on with limited grooming and adequate eye contact. No abnormal movements except for mild psychomotor retardation. Mostly cooperative with exam and mild to moderate distress. Speech was decreased rate and volume with poor articulation. Mood described as feeling better, affect congruent, but subdued. Thought process linear. Thought content: Patient denied suicidal or homicidal ideation, there were no delusions reported or noted, he denied auditory or visual hallucinations. His attention span was poor. There were no signs of paranoia or hallucinations. Attention and concentration were adequate and memory was mostly reliable but none were formally tested.? He is alert and oriented x to person and place.? Insight was poor and judgment is impaired. Impulse control is poor. Vitals/I&O/Wt Last Vital Signs Temp 98.7 F 10/07/24 19:38 Pulse 69 10/07/24 14:00 Resp 16 10/07/24 19:38 BP 119/82 10/07/24 19:38 Pulse Ox 99 10/07/24 19:38 O2 Del Method Room Air 10/07/24 19:38 O2 Flow Rate 1 10/05/24 10:45 FiO2 21 10/05/24 08:16 Weight last 48 hrs Weight 81.193 kg Weight 83.234 kg Physical Exam Urinary Catheter Management: Marino: Cath Placed During This Visit: yes, but has since been removed by the nurse Reason for Continuing Indwelling Catheter: Decision to DC Catheter Urinary Catheter Date of Insertion: 10/04/24 Urinary Catheter Time of Insertion: 17:51 Date Urinary Catheter Removed: 10/05/24 Time Urinary Catheter Discontinued: 15:53 Data NPU 10/07/24 04:15 10/07/24 04:15 A&P Assessment and plan (1) Major depressive disorder, recurrent: Qualifiers: Active/Remission status: currently active Psychotic features: with psychotic features (2) Suicidal ideation: (3) Personality disorder, unspecified: (4) Type 2 diabetes mellitus: (5) Hypertension: (6) Bereavement: (7) BROCK (generalized anxiety disorder): Plan This is a 49-year-old white male with limited past psychiatric history but recent bereavement and suicide attempt.The patient has a history of major depression and anxiety, with a recent hospitalization due to panic attacks. The patient has had two episodes of hanging self in last month and continues to appear very depressed possibly psychotic as well. 1. Continue Viibyrd 40mg daily. and continue Invega 3mg at night for psychosis. Increased Invega to 6 mg p.o. nightly. Continue ambien 12.5mg at night. Increased wellbutrin xl to 300mg in am. Switch Ambien to 10 mg p.o. nightly of the immediate release 2. Continue one-to-one. 3.? Transferred to ICU after choking event. Likely return to the neuropsychiatric unit tomorrow. 4.? Encourage sober living treatment after discharge at the highest level of care to which he is willing to commit. 5. Will continue to follow until able to be transferred back to the neuropsychiatric unit. Involuntary Hold Information 96 Hour Hold: 96 Hour Involuntary Admission: Yes 96 Hour Hold Ending Date: 09/19/24 96 Hour Hold Ending Time: 00:01 Attestations NPU Medical Necessity Statement*: Inpatient hospitalization is medically necessary and?the clinically appropriate intervention at this time.We will monitor/initiate medications and make changes as indicated.?The patient?s likely length of stay 7-10 days. We will continue to treat on the unit when he returns from ICU likely today. Coding Level of Care Code Acute Code for [facility] Fwd Diagnoses Major depressive disorder, recurrent F33.9 Active/Remission status: currently active Psychotic features: with psychotic features Suicidal ideation R45.851 Personality disorder, unspecified F60.9 Type 2 diabetes mellitus E11.9 Hypertension I10 Bereavement Z63.4 BROCK (generalized anxiety disorder) F41.1
[2024-10-07 20:19] LABS: Glucose Point of Care 122 mg/dL (70-110)
[2024-10-07] MEDS: paliperidone ER 6 mg Tablet PO (20:28)
[2024-10-07] MEDS: zolpidem 5 mg Tablet 10 MG PO (20:28)
[2024-10-08] VITALS (21 sets, daily range): BP systolic 119–129; BP diastolic 78–87; PULSE 58–79; RESP 16–18; TEMP 36.5–37.1; O2SAT 97–98; BMI 25.7
[2024-10-08] MEDS: LORazepam 2 mg/mL INJ 1 mL IVP (01:36)
[2024-10-08] MEDS: buPROPion XL (24 HR) 150 mg Tablet 300 MG PO (08:20)
[2024-10-08] MEDS: VILAZODONE 40 MG 40 EACH PO (08:20)
[2024-10-08] MEDS: aspirin 81 mg Chew Tablet PEG-TUBE (08:20)
[2024-10-08] MEDS: tamsulosin 0.4 mg Capsule PO (08:20)
--- NOTE | 2024-10-08 11:59 | P.PN_ITS ---
Subjective 2 Subjective: No events overnight. Patient has remained in ICU as he is unable to get a bed in Neuropsych Unit. Patient denies any nausea, ting, headache. Seen with sitter at bedside. He is not complaining of any issues or difficulties in swallowing. He does complain of mild sore throat on swallowing which seems to be improving. Vitals/I&O/Wt Last Vital Signs Temp 98.7 F 10/08/24 08:00 Pulse 76 10/08/24 08:00 Resp 18 10/08/24 08:00 BP 123/78 10/08/24 11:00 Pulse Ox 97 10/08/24 04:00 O2 Del Method Room Air 10/08/24 04:00 O2 Flow Rate 1 10/05/24 10:45 FiO2 21 10/05/24 08:16 10/07/24 10/08/24 10/08/24 22:59 06:59 14:59 Intake Total 60 / 430 Balance 60 / 430 Weight last 48 hrs Weight 81.193 kg Weight 83.234 kg Physical Exam 2 Narrative: General: No acute distress, AO x3 HEENT: PERRLA, pupils bilaterally equal and reactive Chest: Normal vesicular breath sounds, no added sounds, equal good air entry bilaterally CVS: S1-S2 regular, no murmurs, no tachycardia, no gallops, no rubs Abdomen: Soft, nontender, no organomegaly, bowel sounds present Neuro: No focal deficits, no facial deformity, AO x3, power 5/5 in all limbs Urinary Catheter Management: Marino: Cath Placed During This Visit: yes, but has since been removed by the nurse Reason for Continuing Indwelling Catheter: Decision to DC Catheter Urinary Catheter Date of Insertion: 10/04/24 Urinary Catheter Time of Insertion: 17:51 Date Urinary Catheter Removed: 10/05/24 Time Urinary Catheter Discontinued: 15:53 Data 10/07/24 04:15 10/07/24 04:15 A&P Assessment and plan (1) Acute respiratory failure: In setting of aspiration event. Extubated on 10/05. Currently on room air. Appreciate chest x-ray. No leukocytosis. Continue with empiric Levaquin and Flagyl for now to finish a 5-day course. Advance diet as per speech evaluation. Oxygen supplementation keeping saturation over 90%. Cepacol as needed. (2) Choking due to food in larynx: (3) Aspiration pneumonia: Antibiotic as above. He is allergic to penicillin. Diet as above. (4) Suicidal ideation: Several suicide attempts while in the hospital. One-to-one security at bedside for now. As per psychiatric team. Treatment for depression as per psychiatric team. Will transition back to Neuropsych Unit once patient remains medically stable and on room air oxygen supplementation while diet is started. (5) Type 2 diabetes mellitus: Sliding scale insulin currently (6) Abnormal LFTs: Reassess CMP. Plan Other medical problems outlined in past medical history Full code currently Protonix for GI prophylaxis, Lovenox for DVT prophylaxis Plan for the day: Continue with current consistency of diet. Advance as per speech evaluation. Continue with Levaquin for 5 more days to cover for possible aspiration pneumonitis. Patient can be transferred back to Neuropsych Unit once bed available. Medicine will sign off. Please call back with any questions if needed. Thank you for involving us in care of Mr. Meri Durand 2 Medical Necessity Statement*: Requires further hospitalization for management of suicidal ideation as patient requires further management with Neuropsych Unit for 21-day hold, postextubation for aspiration and choking event Diagnoses Acute respiratory failure J96.00 Choking due to food in larynx T17.320A; [id number].F3XA Aspiration pneumonia J69.0 Suicidal ideation R45.851 Type 2 diabetes mellitus E11.9 Abnormal LFTs R79.89
[2024-10-08 12:17] LABS: Glucose Point of Care 104 mg/dL (70-110)
[2024-10-08] MEDS: propranolol 20 mg Tablet PO ×2 (14:16→20:58)
[2024-10-08] MEDS: levoFLOXacin 750 mg Tablet PO (15:22)
--- NOTE | 2024-10-08 15:49 | P.NPUPN_ITS ---
Subjective NPU 2 Subjective: Patient presented today reporting that he is doing okay. He endorsed feeling like he was more ready for discharge and was hopeful he might be discharged this week. We discussed that that was unlikely and that I imagine the discharge would happen more like next week but possibly Sunday with Dr. Simeon returning with some history and able to give a sort of second opinion given this most recent suicide attempt. He reported he understood and that he has been talking to his . He denied any side effects to the medication. Mental Status Exam 2 MSE Comments: This is an overweight white male with hospital gown on with limited grooming and adequate eye contact. No abnormal movements except for mild psychomotor retardation. Mostly cooperative with exam and mild to moderate distress. Speech was decreased rate and volume with poor articulation. Mood described as feeling better, affect congruent, but subdued. Thought process linear. Thought content: Patient denied suicidal or homicidal ideation, there were no delusions reported or noted, he denied auditory or visual hallucinations. His attention span was poor. There were no signs of paranoia or hallucinations. Attention and concentration were adequate and memory was mostly reliable but none were formally tested.? He is alert and oriented x to person and place.? Insight was poor and judgment is impaired. Impulse control is poor. Vitals/I&O/Wt Last Vital Signs Temp 98.7 F 10/08/24 08:00 Pulse 79 10/08/24 14:00 Resp 18 10/08/24 08:00 BP 123/78 10/08/24 14:00 Pulse Ox 97 10/08/24 04:00 O2 Del Method Room Air 10/08/24 04:00 O2 Flow Rate 1 10/05/24 10:45 FiO2 21 10/05/24 08:16 Weight last 48 hrs Weight 81.193 kg Weight 83.234 kg Physical Exam 2 Urinary Catheter Management: Marino: Cath Placed During This Visit: yes, but has since been removed by the nurse Reason for Continuing Indwelling Catheter: Decision to DC Catheter Urinary Catheter Date of Insertion: 10/04/24 Urinary Catheter Time of Insertion: 17:51 Date Urinary Catheter Removed: 10/05/24 Time Urinary Catheter Discontinued: 15:53 Data NPU 10/07/24 04:15 10/07/24 04:15 A&P Assessment and plan (1) Major depressive disorder, recurrent: Qualifiers: Active/Remission status: currently active Psychotic features: with psychotic features (2) Suicidal ideation: (3) Personality disorder, unspecified: (4) Type 2 diabetes mellitus: (5) Hypertension: (6) Bereavement: (7) BROCK (generalized anxiety disorder): Plan This is a 49-year-old white male with limited past psychiatric history but recent bereavement and suicide attempt.The patient has a history of major depression and anxiety, with a recent hospitalization due to panic attacks. The patient has had two episodes of hanging self in last month and continues to appear very depressed possibly psychotic as well. 1. Continue Viibyrd 40mg daily. and continue Invega 3mg at night for psychosis. Increased Invega to 6 mg p.o. nightly. Continue ambien 12.5mg at night. Increased wellbutrin xl to 300mg in am. Switch Ambien to 10 mg p.o. nightly of the immediate release 2. Continue one-to-one. 3.? Transferred to ICU after choking event. Likely return to the neuropsychiatric unit tomorrow. 4.? Encourage sober living treatment after discharge at the highest level of care to which he is willing to commit. 5. Will continue to follow until able to be transferred back to the neuropsychiatric unit. Involuntary Hold Information 2 96 Hour Hold: 96 Hour Involuntary Admission: Yes 96 Hour Hold Ending Date: 09/19/24 96 Hour Hold Ending Time: 00:01 Attestations NPU 2 Medical Necessity Statement*: Inpatient hospitalization is medically necessary and?the clinically appropriate intervention at this time.We will monitor/initiate medications and make changes as indicated.?The patient?s likely length of stay 7-10 days. We will continue to treat on the unit when he returns from ICU likely today. Coding Level of Care Code Acute Code for g Fwd Diagnoses Major depressive disorder, recurrent F33.9 Active/Remission status: currently active Psychotic features: with psychotic features Suicidal ideation R45.851 Personality disorder, unspecified F60.9 Type 2 diabetes mellitus E11.9 Hypertension I10 Bereavement Z63.4 BROCK (generalized anxiety disorder) F41.1
[2024-10-08 17:29] LABS: Glucose Point of Care 96 mg/dL (70-110)
[2024-10-08 20:31] LABS: Glucose Point of Care 127 mg/dL (70-110)
[2024-10-08] MEDS: paliperidone ER 6 mg Tablet PO (20:58)
[2024-10-08] MEDS: zolpidem 5 mg Tablet 10 MG PO (20:58)
[2024-10-09] MEDS: quetiapine 25 mg Tablet 50 MG PO ×2 (01:32→20:56)
--- NOTE | 2024-10-09 06:51 | PC.NURSE ---
vs not collected per charge nurse resp 16
[2024-10-09] MEDS: levoFLOXacin 750 mg Tablet PO (06:52)
[2024-10-09] MEDS: propranolol 20 mg Tablet PO (07:25)
[2024-10-09] MEDS: buPROPion XL (24 HR) 150 mg Tablet 300 MG PO (07:25)
[2024-10-09] MEDS: tamsulosin 0.4 mg Capsule PO (07:25)
[2024-10-09] MEDS: aspirin 81 mg Chew Tablet PEG-TUBE (07:25)
[2024-10-09 07:50] VITALS: BP 106/70; PULSE 83; RESP 17; TEMP 36.7; O2SAT 96
[2024-10-09 07:59] LABS: Glucose Point of Care 99 mg/dL (70-110)
--- NOTE | 2024-10-09 08:10 | PC.NURSE ---
Morning assessment Patient endorses anxiety during assessment, states that he doesn't like to be followed and he wants to go home. Patient observed by sitter, kicking at window in his room. Propranolol given and verbal from Dr. Mcgraw to restart 12-pack medications
--- NOTE | 2024-10-09 08:16 | PC.NURSE ---
Speech therapist assessed patient and has decided to advanced diet to SB 6. Notified dietary after changing in the order
[2024-10-09] MEDS: hyDROXYzine 25 mg Capsule 50 MG PO ×3 (08:19→23:11)
[2024-10-09] MEDS: OLANZapine 5 mg ODT PO (09:15)
--- NOTE | 2024-10-09 09:15 | PC.NURSE ---
Anxiety Patient endorses anxiety. Vistaril was not effective at reducing anxiety. This nurse administered zyprexa 5mg ODT to patient. Patient agreeable to take zyprexa despite stating that it doesn't work well for him, typically. Patient pacing the halls, sitter near.
[2024-10-09 11:41] LABS: Glucose Point of Care 116 mg/dL (70-110)
--- NOTE | 2024-10-09 13:47 | PC.NURSE ---
off one to one at 1347, per Dr. Mcgraw.
[2024-10-09 14:00] VITALS: BP 127/89; PULSE 78; RESP 17; TEMP 36.8; O2SAT 95
--- NOTE | 2024-10-09 16:19 | PC.NURSE ---
Patient told this nurse that he doesn't have feeling in his legs, that this is a chronic problem. Patient also said that he doesn't think he will be alive for his 13-year old to get because he thinks he has something medically wrong with him. This nurse notified Dr. Mcgraw.
--- NOTE | 2024-10-09 17:02 | P.NPUPN_ITS ---
Subjective NPU 2 Subjective: Patient presented today reporting that he is feeling okay. He continues to be focused on when discharge might happen and we discussed the importance of safety at home. Received a call from his expressing significant concern about him coming home and completing suicide. We discussed with patient her concerns. We discussed a discharge plan which included no possibility for discharge until possibly next week when he has seen Dr. Simeon again. We discussed the likelihood of filing for a 90-day hold tomorrow. He denied any side effects to the medication. Mental Status Exam 2 MSE Comments: This is an overweight white male in hospital scrubs with limited grooming and adequate eye contact. No abnormal movements except for mild psychomotor retardation. Mostly cooperative with exam and mild distress. Speech was decreased rate and volume with poor articulation. Mood described as feeling better, affect congruent, but subdued. Thought process linear. Thought content: Patient denied suicidal or homicidal ideation, there were no delusions reported or noted, he denied auditory or visual hallucinations. His attention span was poor. There were no signs of paranoia or hallucinations. Attention and concentration were adequate and memory was mostly reliable but none were formally tested.? He is alert and oriented x to person and place.? Insight was poor and judgment is impaired. Impulse control is poor. Vitals/I&O/Wt Last Vital Signs Temp 98.2 F 10/09/24 14:00 Pulse 78 10/09/24 14:00 Resp 17 10/09/24 14:00 BP 127/89 10/09/24 14:00 Pulse Ox 95 10/09/24 14:00 O2 Del Method Room Air 10/09/24 14:00 Weight last 48 hrs Weight 80.739 kg Weight 81.193 kg Physical Exam 2 Urinary Catheter Management: Marino: Cath Placed During This Visit: yes, but has since been removed by the nurse Reason for Continuing Indwelling Catheter: Decision to DC Catheter Urinary Catheter Date of Insertion: 10/04/24 Urinary Catheter Time of Insertion: 17:51 Date Urinary Catheter Removed: 10/05/24 Time Urinary Catheter Discontinued: 15:53 Data NPU 10/07/24 04:15 10/07/24 04:15 A&P Assessment and plan (1) Major depressive disorder, recurrent: Qualifiers: Active/Remission status: currently active Psychotic features: with psychotic features (2) Suicidal ideation: (3) Personality disorder, unspecified: (4) Type 2 diabetes mellitus: (5) Hypertension: (6) Bereavement: (7) BROCK (generalized anxiety disorder): Plan This is a 49-year-old white male with limited past psychiatric history but recent bereavement and suicide attempt.The patient has a history of major depression and anxiety, with a recent hospitalization due to panic attacks. The patient has had two episodes of hanging self in last month and continues to appear very depressed possibly psychotic as well. 1. Continue Viibyrd 40mg daily. and continue Invega 3mg at night for psychosis. Increased Invega to 6 mg p.o. nightly. Continue ambien 12.5mg at night. Increased wellbutrin xl to 300mg in am. Switch Ambien to 10 mg p.o. nightly of the immediate release 2. Discontinue one-to-one 3.? Patient transferred back to neuropsychiatric unit from ICU. 4.? Encourage sober living treatment after discharge at the highest level of care to which he is willing to commit. 5. Will likely file for 90-day hold on Sunday giving Dr. Simeon for options for treatment next week. Involuntary Hold Information 2 96 Hour Hold: 96 Hour Involuntary Admission: Yes 96 Hour Hold Ending Date: 09/19/24 96 Hour Hold Ending Time: 00:01 Other Hold: Hold End Date: 10/12/24 Attestations NPU 2 Medical Necessity Statement*: Inpatient hospitalization is medically necessary and?the clinically appropriate intervention at this time.We will monitor/initiate medications and make changes as indicated.?The patient?s likely length of stay 7-10 days. Coding Level of Care Code Acute Code for [facility] Fwd Diagnoses Major depressive disorder, recurrent F33.9 Active/Remission status: currently active Psychotic features: with psychotic features Suicidal ideation R45.851 Personality disorder, unspecified F60.9 Type 2 diabetes mellitus E11.9 Hypertension I10 Bereavement Z63.4 BROCK (generalized anxiety disorder) F41.1
[2024-10-09 17:34] LABS: Glucose Point of Care 92 mg/dL (70-110)
[2024-10-09 19:45] VITALS: BP 115/79; PULSE 71; RESP 16; TEMP 36.7; O2SAT 95
[2024-10-09 20:15] LABS: Glucose Point of Care 104 mg/dL (70-110)
[2024-10-09] MEDS: paliperidone ER 6 mg Tablet PO (20:56)
[2024-10-09] MEDS: zolpidem 5 mg Tablet 10 MG PO (20:56)
[2024-10-09] MEDS: trazodone 50 mg Tablet PO (23:11)
[2024-10-10] MEDS: OLANZapine 5 mg ODT PO (05:18)
[2024-10-10] MEDS: levoFLOXacin 750 mg Tablet PO (05:18)
[2024-10-10 06:00] VITALS: BP 130/86; PULSE 65; RESP 18; TEMP 36.5; O2SAT 98
[2024-10-10 07:23] LABS: Glucose Point of Care 110 mg/dL (70-110)
--- NOTE | 2024-10-10 08:42 | PC.NURSE ---
[employer] REPORTS TO STAFF THAT PT WAS OBSERVED TAKING HIS SHEETS INTO THE BATHROOM. [employer] WAS ABLE TO REDIRECT PT BACK TO BED AND THIS RN INSTRUCTED [employer] TO TAKE HIS SHEETS AND ALL HIS BEDDING. ONE TO ONE OBSERVATION WAS DISCONTINUED YESTERDAY ON DAY SHIFT. PT REMAINS IMPULSIVE AT TIMES. GUARDED WITH STAFF AND FLAT AFFECT IS NOTED. SPEECH IS DELAYED AND MUMBLED. DENIES PAIN. DENIES SI/HI AND AVH AT THIS TIME. RATES ANXIETY AND DEPRESSION 0/10. PT STATES GOAL FOR THE DAY IS TO GET OUTTA OF HERE. REPORTS HE SLEPT ONLY 3-4 HOURS. ACCU CHECK 110. EXTRA PSA CAME DOWN TO ASSIST WITH MORE FREQUENT CHECKS WITH PT DUE TO WHAT HAPPENED THIS AM DURING REPORT WITH HIM TAKING A SHEET INTO THE BATHROOM. SUPPORT WAS VOICED. CONTINUES TO WITHDRAW AND ISOLATE TO ROOM.
[2024-10-10] MEDS: tamsulosin 0.4 mg Capsule PO (08:43)
[2024-10-10] MEDS: aspirin 81 mg Chew Tablet PEG-TUBE (08:43)
[2024-10-10] MEDS: buPROPion XL (24 HR) 150 mg Tablet 300 MG PO (08:43)
[2024-10-10] MEDS: propranolol 20 mg Tablet PO (08:43)
[2024-10-10] MEDS: VILAZODONE 40 MG 40 EACH PO (09:32)
[2024-10-10 11:44] LABS: Glucose Point of Care 149 mg/dL (70-110)
[2024-10-10] MEDS: insulin lispro 100 unit/1 mL SUBCUT (12:18)
[2024-10-10 14:00] VITALS: BP 117/80; PULSE 79; RESP 18; TEMP 36.7; O2SAT 96
--- NOTE | 2024-10-10 16:49 | P.NPUPN_ITS ---
Subjective NPU 2 Subjective: Patient presented today reporting that he is doing okay. He was in his room in bed reading his Bible while we talk. He reports that he is trying to convince everyone that he is getting better and actually not going to try to kill himself. We continued to discuss the reason why people have significant concerns about that outcome. We discussed fact that Dr. Simeon would return on Sunday and be able to assess where things have been since he left. He denied any side effects of medication. Mental Status Exam 2 MSE Comments: This is an overweight white male in hospital scrubs with limited grooming and adequate eye contact. No abnormal movements except for mild psychomotor retardation. Mostly cooperative with exam and mild distress. Speech was decreased rate and volume with poor articulation. Mood described as feeling better, affect congruent, but subdued. Thought process linear. Thought content: Patient denied suicidal or homicidal ideation, there were no delusions reported or noted, he denied auditory or visual hallucinations. His attention span was poor. There were no signs of paranoia or hallucinations. Attention and concentration were adequate and memory was mostly reliable but none were formally tested.? He is alert and oriented x to person and place.? Insight was poor and judgment is impaired. Impulse control is poor. Vitals/I&O/Wt Last Vital Signs Temp 98.1 F 10/10/24 14:00 Pulse 79 10/10/24 14:00 Resp 18 10/10/24 14:00 BP 117/80 10/10/24 14:00 Pulse Ox 96 10/10/24 14:00 O2 Del Method Room Air 10/10/24 14:00 O2 Flow Rate 1 10/05/24 10:45 FiO2 21 10/05/24 08:16 10/10/24 10/10/24 10/10/24 06:59 14:59 22:59 Output Total 0 / 0 Balance 0 / 0 Weight last 48 hrs Weight 80.739 kg Weight 81.193 kg Physical Exam 2 Urinary Catheter Management: Marino: Cath Placed During This Visit: yes, but has since been removed by the nurse Reason for Continuing Indwelling Catheter: Decision to DC Catheter Urinary Catheter Date of Insertion: 10/04/24 Urinary Catheter Time of Insertion: 17:51 Date Urinary Catheter Removed: 10/05/24 Time Urinary Catheter Discontinued: 15:53 Data NPU 10/07/24 04:15 10/07/24 04:15 A&P Assessment and plan (1) Major depressive disorder, recurrent: Qualifiers: Active/Remission status: currently active Psychotic features: with psychotic features (2) Suicidal ideation: (3) Personality disorder, unspecified: (4) Type 2 diabetes mellitus: (5) Hypertension: (6) Bereavement: (7) BROCK (generalized anxiety disorder): Plan This is a 49-year-old white male with limited past psychiatric history but recent bereavement and suicide attempt.The patient has a history of major depression and anxiety, with a recent hospitalization due to panic attacks. The patient has had two episodes of hanging self in last month and continues to appear very depressed possibly psychotic as well. 1. Continue Viibyrd 40mg daily. and continue Invega 3mg at night for psychosis. Increased Invega to 6 mg p.o. nightly. Continue ambien 12.5mg at night. Increased wellbutrin xl to 300mg in am. Switch Ambien to 10 mg p.o. nightly of the immediate release. Increase Seroquel to 100 mg p.o. nightly to assist with sleep. 2. Discontinue one-to-one 3.? Patient transferred back to neuropsychiatric unit from ICU. 4.? Encourage sober living treatment after discharge at the highest level of care to which he is willing to commit. 5. Filed for 90-day hold today giving Dr. Simeon options for treatment next week regarding discharge planning. Involuntary Hold Information 2 96 Hour Hold: 96 Hour Involuntary Admission: Yes 96 Hour Hold Ending Date: 09/19/24 96 Hour Hold Ending Time: 00:01 Other Hold: Hold End Date: 10/12/24 Attestations NPU 2 Medical Necessity Statement*: Inpatient hospitalization is medically necessary and?the clinically appropriate intervention at this time.We will monitor/initiate medications and make changes as indicated.?The patient?s likely length of stay 7-10 days. Coding Level of Care Code Acute Code for [facility] Fwd Diagnoses Major depressive disorder, recurrent F33.9 Active/Remission status: currently active Psychotic features: with psychotic features Suicidal ideation R45.851 Personality disorder, unspecified F60.9 Type 2 diabetes mellitus E11.9 Hypertension I10 Bereavement Z63.4 BROCK (generalized anxiety disorder) F41.1
[2024-10-10 17:20] LABS: Glucose Point of Care 100 mg/dL (70-110)
[2024-10-10 19:34] VITALS: BP 125/88; PULSE 80; RESP 18; TEMP 36.4; O2SAT 96
[2024-10-10 20:11] LABS: Glucose Point of Care 93 mg/dL (70-110)
[2024-10-10] MEDS: hyDROXYzine 25 mg Capsule 50 MG PO (21:19)
[2024-10-10] MEDS: trazodone 50 mg Tablet PO (21:19)
[2024-10-10] MEDS: paliperidone ER 6 mg Tablet PO (21:20)
[2024-10-10] MEDS: zolpidem 5 mg Tablet 10 MG PO (21:20)
[2024-10-10] MEDS: quetiapine 100 mg Tablet PO (21:21)
[2024-10-10 22:00] VITALS: BP 125/88; PULSE 80; RESP 18; TEMP 36.4; O2SAT 96
[2024-10-11] MEDS: trazodone 50 mg Tablet PO (01:06)
[2024-10-11] MEDS: OLANZapine 5 mg ODT PO (01:06)
[2024-10-11] MEDS: haloperidol 5 mg Tablet PO ×2 (02:10→21:32)
[2024-10-11 06:00] VITALS: BP 114/76; PULSE 61; RESP 18; TEMP 36.6; O2SAT 97
[2024-10-11 07:48] LABS: Glucose Point of Care 100 mg/dL (70-110)
[2024-10-11] MEDS: buPROPion XL (24 HR) 150 mg Tablet 300 MG PO (08:10)
[2024-10-11] MEDS: levoFLOXacin 750 mg Tablet PO (08:10)
[2024-10-11] MEDS: hyDROXYzine 25 mg Capsule 50 MG PO ×2 (08:10→21:32)
[2024-10-11] MEDS: aspirin 81 mg Chew Tablet PEG-TUBE (08:10)
[2024-10-11] MEDS: tamsulosin 0.4 mg Capsule PO (08:10)
[2024-10-11] MEDS: VILAZODONE 40 MG 40 EACH PO (08:11)
--- NOTE | 2024-10-11 10:31 | P.NPUPN_ITS ---
Subjective NPU 2 Subjective: The patient presented today reporting that he is really wanting to go home. We had a long discussion about his suicide attempt and the fact that there is not a lot of great confidence in the fact that he is ready and does not continue to pose the risk. Reminded him that we filed for the 90-day hold but that Dr. Simeon will be back tomorrow and he will make decisions as to how he would like to proceed. He denied any other issues and denied any side effects to the medication. Mental Status Exam 2 MSE Comments: This is an overweight white male in hospital scrubs with limited grooming and adequate eye contact. No abnormal movements except for mild psychomotor retardation. Mostly cooperative with exam and mild distress. Speech was decreased rate and volume with poor articulation. Mood described as feeling better, affect congruent, but subdued. Thought process linear. Thought content: Patient denied suicidal or homicidal ideation, there were no delusions reported or noted, he denied auditory or visual hallucinations. His attention span was poor. There were no signs of paranoia or hallucinations. Attention and concentration were adequate and memory was mostly reliable but none were formally tested.? He is alert and oriented x to person and place.? Insight was poor and judgment is impaired. Impulse control is poor. Vitals/I&O/Wt Last Vital Signs Temp 97.9 F 10/11/24 21:08 Pulse 76 10/11/24 21:08 Resp 18 10/11/24 21:08 BP 120/81 10/11/24 21:08 Pulse Ox 97 10/11/24 21:08 O2 Del Method Room Air 10/11/24 21:08 O2 Flow Rate 1 10/05/24 10:45 FiO2 21 10/05/24 08:16 10/11/24 06:59 Intake Total Output Total Balance Weight last 48 hrs Weight 80.739 kg Physical Exam 2 Urinary Catheter Management: Marino: Cath Placed During This Visit: yes, but has since been removed by the nurse Reason for Continuing Indwelling Catheter: Decision to DC Catheter Urinary Catheter Date of Insertion: 10/04/24 Urinary Catheter Time of Insertion: 17:51 Date Urinary Catheter Removed: 10/05/24 Time Urinary Catheter Discontinued: 15:53 Data NPU 10/11/24 14:55 10/11/24 14:55 A&P Assessment and plan (1) Major depressive disorder, recurrent: Qualifiers: Active/Remission status: currently active Psychotic features: with psychotic features (2) Suicidal ideation: (3) Personality disorder, unspecified: (4) Type 2 diabetes mellitus: (5) Hypertension: (6) Bereavement: (7) BROCK (generalized anxiety disorder): Plan This is a 49-year-old white male with limited past psychiatric history but recent bereavement and suicide attempt.The patient has a history of major depression and anxiety, with a recent hospitalization due to panic attacks. The patient has had two episodes of hanging self in last month and continues to appear very depressed possibly psychotic as well. 1. Continue Viibyrd 40mg daily. and continue Invega 3mg at night for psychosis. Increased Invega to 6 mg p.o. nightly. Continue ambien 12.5mg at night. Increased wellbutrin xl to 300mg in am. Switch Ambien to 10 mg p.o. nightly of the immediate release. Increase Seroquel to 100 mg p.o. nightly to assist with sleep. 2. Discontinue one-to-one 3.? Patient transferred back to neuropsychiatric unit from ICU. 4.? Encourage sober living treatment after discharge at the highest level of care to which he is willing to commit. 5. Filed for 90-day hold today giving Dr. Simeon options for treatment next week regarding discharge planning. Involuntary Hold Information 2 96 Hour Hold: 96 Hour Involuntary Admission: Yes 96 Hour Hold Ending Date: 09/19/24 96 Hour Hold Ending Time: 00:01 Other Hold: Hold End Date: 10/12/24 Attestations NPU 2 Medical Necessity Statement*: Inpatient hospitalization is medically necessary and?the clinically appropriate intervention at this time.We will monitor/initiate medications and make changes as indicated.?The patient?s likely length of stay 7-10 days. Coding Level of Care Code Acute Code for [facility] Fwd Diagnoses Major depressive disorder, recurrent F33.9 Active/Remission status: currently active Psychotic features: with psychotic features Suicidal ideation R45.851 Personality disorder, unspecified F60.9 Type 2 diabetes mellitus E11.9 Hypertension I10 Bereavement Z63.4 BROCK (generalized anxiety disorder) F41.1
[2024-10-11 11:25] LABS: Glucose Point of Care 126 mg/dL (70-110)
[2024-10-11 11:27] VITALS: BP 98/68; PULSE 70; RESP 17; TEMP 36.6; O2SAT 96
--- NOTE | 2024-10-11 13:35 | PC.NURSE ---
Patient reports abdominal discomfort. Pain is described as sharp. Location is across the upper quadrants. Patient reports mild nausea. Patient denies that if feels like he is getting a stomach bug, says it feels like something different. Patient's last BM was yesterday. Patient has had gallbladder removed. VS are WNLs. Patient offered crackers, which did not help. Patient offered zofran, but refused. Dr. wadsworth notified.
[2024-10-11 14:00] VITALS: BP 101/64; PULSE 65; RESP 17; O2SAT 95
[2024-10-11 15:06] LABS: Basophils # 0.1 10^3/uL (0.0-0.1); Basophils % 0.9 %; Eosinophils # 0.2 10^3/uL (0.0-0.8); Eosinophils % 2.7 %; Hematocrit 42.1 % (37-53); Lymphocytes # 1.6 10^3/uL (0.8-4.8); Lymphocytes % 22.3 %; Mean Corpuscular HGB Conc 35.9 g/dL (30-55); Mean Corpuscular Hemoglobin 34.4 pg (27-33); Mean Corpuscular Volume 95.9 fl (82-101); Mean Platelet Volume 9.4 fL (7.4-10.4); Monocytes # 0.6 10^3/uL (0.2-0.9); Monocytes % 8.7 %; Neutrophils # 4.57 10^3/uL (1.8-7.7); Nucleated Red Blood Cells % 0 %; Platelet Count 224 10^3/cmm (157-399); Red Blood Count 4.39 10^6/uL (3.85-5.65); Red Cell Distribution Width 13.1 % (12.1-15.1); White Blood Count 7.03 10^3/uL (3.29-11.43)
[2024-10-11 15:28] LABS: Alanine Aminotransferase 22 U/L (0-41); Albumin Level 3.8 g/dL (3.5-5.2); Alkaline Phosphatase 98 U/L (40-130); Anion Gap 11.2 (5-19); Aspartate Amino Transferase 19 U/L (0-40); Blood Urea Nitrogen 14 mg/dL (6-20); Calcium 8.5 mg/dL (8.5-10.5); Carbon Dioxide 27 mmol/L (22-29); Chloride 104 mmol/L (98-107); Globulin 2.6 g/dL (1.3-4.6); Glomerular Filtration Rate 90.1 mL/min (90-130); Glucose 117 mg/dL (65-115); Osmolality Calculated 288 mOsm/kg (285-295); Potassium 4.2 mmol/L (3.5-5.1); Sodium 138 mmol/L (136-145); Total Bilirubin 0.7 mg/dL (0.15-1.2); Total Protein 6.4 g/dL (6.6-8.7)
--- NOTE | 2024-10-11 15:50 | CTR_ITS ---
PROCEDURE INFORMATION: Exam: CT Abdomen And Pelvis Without Contrast Exam date and time: 10/11/2024 5:00 PM Age: 49 years old Clinical indication: Abdominal pain; Localized; Right upper quadrant (ruq); Additional info: Right upper q pain TECHNIQUE: Imaging protocol: Computed tomography of the abdomen and pelvis without contrast. Radiation optimization: All CT scans at this facility use at least one of these dose optimization techniques: automated exposure control; mA and/or kV adjustment per patient size (includes targeted exams where dose is matched to clinical indication); or iterative reconstruction. COMPARISON: CT chest w con* [id number] 10/03/2024 9:24 AM RADIATION DOSE METRICS: Total DLP (mGy-cm): 512.39 FINDINGS: Lungs: Improving atelectasis in the lung bases. Liver: The liver is enlarged, measuring 20.4 cm craniocaudal. No suspicious liver lesion. Gallbladder and biliary ducts: Status post cholecystectomy. Pancreas: Normal. No ductal dilation. Spleen: Normal. No splenomegaly. Adrenal glands: Normal. No mass. Kidneys and ureters: Normal. No hydronephrosis. Stomach and bowel: Moderate stool throughout the colon with moderately large stool in the rectum Appendix: No evidence of appendicitis. Intraperitoneal space: Unremarkable. No free air. No significant fluid collection. Vasculature: Unremarkable. No abdominal aortic aneurysm. Lymph nodes: Unremarkable. No enlarged lymph nodes. Urinary bladder: Unremarkable as visualized. Reproductive: The prostate is mildly enlarged. Bones/joints: Grade 1 anterolisthesis of L5 on S1 with chronic bilateral pars defects. Heterogeneous appearance of the right anterolateral 11th rib with several lucencies in the possible chronic fracture. Soft tissues: Unremarkable. CT/CT abdomen pelvis con [id number] IMPRESSION: 1. No acute findings in the abdomen/pelvis. 2. Hepatomegaly. 3. Moderate colorectal stool. Correlate for constipation. 4. Prostatomegaly. Correlate with PSA levels. 5. Heterogeneous appearance of the right anterolateral 11th rib. Correlate for remote trauma. Neoplasm considered less likely. Nonemergent MRI without and with contrast could be considered for further assessment if warranted.
[2024-10-11 16:35] LABS: Lipase 59 U/L (13-60)
[2024-10-11 17:02] LABS: Ferritin 1560 ng/mL (30-400)
--- NOTE | 2024-10-11 17:36 | P.PN_ITS ---
Subjective 2 Subjective: Received a call from the nurse stating that patient is complaining of right upper quadrant and epigastric pain today with mild nausea although is able to tolerate his oral diet. Examination patient is walking around the [place]. States pain is slightly better but continues to bother him especially with meals. He states he has a history of hemochromatosis and has concern for pancreatitis. Patient otherwise has remained afebrile. Remains on room air. Vitals/I&O/Wt Last Vital Signs Temp 98 F 10/11/24 11:27 Pulse 65 10/11/24 14:00 Resp 17 10/11/24 14:00 BP 101/64 10/11/24 14:00 Pulse Ox 95 10/11/24 14:00 O2 Del Method Room Air 10/11/24 14:00 O2 Flow Rate 1 10/05/24 10:45 FiO2 21 10/05/24 08:16 10/11/24 10/11/24 10/11/24 06:59 14:59 22:59 Intake Total 360 / 360 360 / 720 Output Total 300 / 300 300 / 600 Balance 60 / 60 60 / 120 Weight last 48 hrs Weight 80.739 kg Physical Exam 2 Narrative: General: No acute distress, AO x3 HEENT: PERRLA, pupils bilaterally equal and reactive Chest: Normal vesicular breath sounds, no added sounds, equal good air entry bilaterally CVS: S1-S2 regular, no murmurs, no tachycardia, no gallops, no rubs Abdomen: Soft, nontender, no organomegaly, bowel sounds present Neuro: No focal deficits, no facial deformity, AO x3, power 5/5 in all limbs Urinary Catheter Management: Marino: Cath Placed During This Visit: yes, but has since been removed by the nurse Reason for Continuing Indwelling Catheter: Decision to DC Catheter Urinary Catheter Date of Insertion: 10/04/24 Urinary Catheter Time of Insertion: 17:51 Date Urinary Catheter Removed: 10/05/24 Time Urinary Catheter Discontinued: 15:53 Data 10/11/24 14:55 10/11/24 14:55 A&P Assessment and plan (1) Right upper quadrant abdominal pain: Check CBC and CMP. Check lipase, ferritin. Patient has a h/o cholecystitis. Will check Ct abd/pelvis without contrast. High concern for gastritis. Restart protonix 40 mg Bid (2) Gastritis: (3) Acute respiratory failure: In setting of aspiration event. Extubated on 10/05. Currently on room air. Finished with empiric Levaquin and Flagyl for now to finish a 5-day course. Advance diet as per speech evaluation. Oxygen supplementation keeping saturation over 90%. Cepacol as needed. (4) Choking due to food in larynx: (5) Aspiration pneumonia: Antibiotic as above. He is allergic to penicillin. Diet as above. (6) Suicidal ideation: Several suicide attempts while in the hospital. One-to-one security at bedside for now. As per psychiatric team. Treatment for depression as per psychiatric team. Will transition back to Neuropsych Unit once patient remains medically stable and on room air oxygen supplementation while diet is started. (7) Type 2 diabetes mellitus: Sliding scale insulin currently (8) Abnormal LFTs: Reassess CMP. Plan Hypertension: Goal of pressure less than 140/90 mmHg. Patient blood pressure has been stable off antihypertensive. Continue to monitor. Other medical problems outlined in past medical history Full code currently Restart Protonix for GI prophylaxis. Thank you for involving us in care of Mr. Meri Fowlerations 2 Medical Necessity Statement*: Requires further hospitalization as per primary team for Alberto ideation, currently under evaluation for right upper quadrant pain most likely in setting of gastritis Coding Level of Care Code Acute Code for [facility] Fwd Diagnoses Right upper quadrant abdominal pain R10.11 Gastritis K29.70 Acute respiratory failure J96.00 Choking due to food in larynx T17.320A; [id number] Aspiration pneumonia J69.0 Suicidal ideation R45.851 Type 2 diabetes mellitus E11.9 Abnormal LFTs R79.89
[2024-10-11 17:40] LABS: Glucose Point of Care 127 mg/dL (70-110)
[2024-10-11] MEDS: pantoprazole DR 40 mg Tablet PO (18:09)
[2024-10-11 19:45] LABS: Glucose Point of Care 98 mg/dL (70-110)
[2024-10-11 21:08] VITALS: BP 120/81; PULSE 76; RESP 18; TEMP 36.6; O2SAT 97
[2024-10-11] MEDS: zolpidem 5 mg Tablet 10 MG PO (21:32)
[2024-10-11] MEDS: propranolol 20 mg Tablet PO (21:33)
[2024-10-11] MEDS: docusate sodium 100 mg Capsule 200 MG PO (21:33)
[2024-10-11] MEDS: paliperidone ER 6 mg Tablet PO (21:33)
[2024-10-12 06:00] VITALS: BP 128/78; PULSE 60; RESP 18; TEMP 36.6; O2SAT 97; BMI 25.7
[2024-10-12 07:57] LABS: Glucose Point of Care 106 mg/dL (70-110)
[2024-10-12] MEDS: buPROPion XL (24 HR) 150 mg Tablet 300 MG PO (08:13)
[2024-10-12] MEDS: pantoprazole DR 40 mg Tablet PO ×2 (08:14→17:40)
[2024-10-12] MEDS: tamsulosin 0.4 mg Capsule PO (08:14)
[2024-10-12] MEDS: aspirin 81 mg Chew Tablet PEG-TUBE (08:14)
[2024-10-12] MEDS: VILAZODONE 40 MG 40 EACH PO (08:15)
[2024-10-12] MEDS: OLANZapine 5 mg ODT PO (10:39)
--- NOTE | 2024-10-12 10:39 | PC.NURSE ---
Patient appears agitated. This nurse talked with patient. Patient said I just want to go home. My anxiety is getting the better of me. Patient agreeable to take medication. Administered zyprexa 5mg oDT
[2024-10-12 11:47] LABS: Glucose Point of Care 152 mg/dL (70-110)
[2024-10-12] MEDS: haloperidol 5 mg Tablet PO (12:14)
[2024-10-12] MEDS: insulin lispro 100 unit/1 mL SUBCUT ×2 (12:21→17:38)
--- NOTE | 2024-10-12 12:31 | PC.NURSE ---
patient agitated, stating that he feels like hitting something because he wants to leave. This nurse talked to patient about the pros and cons of such behavior. Patient agreeable to medication. Haldol 5mg adminstered
[2024-10-12 14:00] VITALS: BP 104/67; PULSE 67; RESP 16; TEMP 36.9; O2SAT 95
[2024-10-12 17:34] LABS: Glucose Point of Care 164 mg/dL (70-110)
--- NOTE | 2024-10-12 19:49 | P.NPUPN_ITS ---
Subjective NPU 2 Subjective: 49-year-old male with a history of depre ssion with 2 suicide attempts now in the hospital who reports that he has been feeling better and feels ready to go home. Patient had reported of some epigastric pain. The patient had reported that he did not wish to consider ECT device despite his continued depression. He had continued to isolate himself on the milieu and continue to minimize the last suicide attempt leading to ICU admission. The patient continued to report that he felt ready to go home. He reported continued problems with low energy and low motivation though. Mental Status Exam 2 MSE Comments: This is an overweight white male in hospital scrubs with limited grooming and adequate eye contact. No abnormal movements except for mild psychomotor retardation. He was cooperative with exam and mild distress. Speech was normal in rate and volume with poor articulation. Mood described as better, Affect remained restricted in range. Thought process linear. Thought content: Patient denied suicidal or homicidal ideation, there were no delusions reported or noted, he denied auditory or visual hallucinations. His attention span was poor.. There were no signs of paranoia or hallucinations. Attention and concentration were adequate and memory was mostly reliable but none were formally tested.? He is alert and oriented x to person and place.? Insight was poor and judgment is limited. Impulse control is poor. Vitals/I&O/Wt Last Vital Signs Temp 98.4 F 10/12/24 14:00 Pulse 67 10/12/24 14:00 Resp 16 10/12/24 14:00 BP 104/67 10/12/24 14:00 Pulse Ox 95 10/12/24 14:00 O2 Del Method Room Air 10/12/24 14:00 O2 Flow Rate 1 10/05/24 10:45 FiO2 21 10/05/24 08:16 Weight last 48 hrs Weight 81.306 kg Physical Exam 2 Urinary Catheter Management: Marino: Cath Placed During This Visit: yes, but has since been removed by the nurse Reason for Continuing Indwelling Catheter: Decision to DC Catheter Urinary Catheter Date of Insertion: 10/04/24 Urinary Catheter Time of Insertion: 17:51 Date Urinary Catheter Removed: 10/05/24 Time Urinary Catheter Discontinued: 15:53 Data NPU 10/11/24 14:55 10/11/24 14:55 A&P Assessment and plan (1) Major depressive disorder, recurrent: Qualifiers: Active/Remission status: currently active Psychotic features: with psychotic features (2) Suicidal ideation: (3) Personality disorder, unspecified: (4) Type 2 diabetes mellitus: (5) Hypertension: (6) Bereavement: (7) BROCK (generalized anxiety disorder): Plan This is a 49-year-old white male with limited past psychiatric history but recent bereavement and suicide attempt.The patient has a history of major depression and anxiety, with a recent hospitalization due to panic attacks. The patient has had two episodes of hanging self in last month and continues to appear very depressed possibly psychotic as well. 1. Continue Viibyrd 40mg daily. Wellbutrin xl 300mg in am, and invega 6mg at night. 2. Discontinue one-to-one 3.? Patient transferred back to neuropsychiatric unit from ICU. 4.? Encourage sober living treatment after discharge at the highest level of care to which he is willing to commit. 5. Filed for 90-day hold today giving Dr. Simeon options for treatment next week regarding discharge planning. Involuntary Hold Information 2 96 Hour Hold: 96 Hour Involuntary Admission: Yes 96 Hour Hold Ending Date: 09/19/24 96 Hour Hold Ending Time: 00:01 Other Hold: Hold End Date: 10/12/24 Attestations NPU 2 Medical Necessity Statement*: Inpatient hospitalization is medically necessary and?the clinically appropriate intervention at this time.We will monitor/initiate medications and make changes as indicated.?The patient?s likely length of stay 7-10 days. Coding Level of Care Code Acute Code for [facility] Fwd Diagnoses Major depressive disorder, recurrent F33.9 Active/Remission status: currently active Psychotic features: with psychotic features Suicidal ideation R45.851 Personality disorder, unspecified F60.9 Type 2 diabetes mellitus E11.9 Hypertension I10 Bereavement Z63.4 BROCK (generalized anxiety disorder) F41.1
[2024-10-12 20:06] VITALS: BP 103/64; PULSE 70; RESP 18; TEMP 36.7; O2SAT 96
[2024-10-12 21:04] LABS: Glucose Point of Care 95 mg/dL (70-110)
[2024-10-12] MEDS: quetiapine 100 mg Tablet PO (21:14)
[2024-10-12] MEDS: propranolol 20 mg Tablet PO (21:14)
[2024-10-12] MEDS: zolpidem 5 mg Tablet 10 MG PO (21:14)
[2024-10-12] MEDS: paliperidone ER 6 mg Tablet PO (21:14)
[2024-10-13 06:00] VITALS: BP 120/78; PULSE 69; RESP 18; TEMP 36.6; O2SAT 96
[2024-10-13 07:25] LABS: Glucose Point of Care 109 mg/dL (70-110)
[2024-10-13] MEDS: VILAZODONE 40 MG 40 EACH PO (08:16)
[2024-10-13] MEDS: pantoprazole DR 40 mg Tablet PO ×2 (08:17→17:36)
[2024-10-13] MEDS: tamsulosin 0.4 mg Capsule PO (08:17)
[2024-10-13] MEDS: aspirin 81 mg Chew Tablet PEG-TUBE (08:17)
[2024-10-13] MEDS: hyDROXYzine 25 mg Capsule 50 MG PO (08:17)
[2024-10-13] MEDS: buPROPion XL (24 HR) 150 mg Tablet 300 MG PO (08:17)
--- NOTE | 2024-10-13 09:07 | PC.NURSE ---
RESTING IN BED, DENIES SI/HI AND AV AT THIS TIME. AFFECT REMAINS FLAT WITH DEPRESSED MOOD NOTED. GUARDED WITH STAFF. WITHDRAWS TO ROOM AND ISOLATES. ENCOURAGED TO PARTICIPATE IN GROUPS. RATES ANXIETY 2/10 AND DEPRESSION 0/10. REPORTS HE SLEPT WELL. IMPULSIVE AT TIMES. ALL QUESTIONS ANSWERED AND SUPPORT VOICED. DENIES PAIN.
[2024-10-13 11:27] LABS: Glucose Point of Care 107 mg/dL (70-110)
--- NOTE | 2024-10-13 13:34 | PC.NURSE ---
NEW ORDERS RECEIVED FROM DR. GRANGER TO GIVE PO ATIVAN 2 MG, BENADRYL 50 MG TO GIVE WITH HALDOL 5 MG FOR INCREASED ANXIETY AND AGITATION. ORDERS PLACED FOR ONE TIME ATIVAN AND BENADRYL.
[2024-10-13] MEDS: diphenhydrAMINE 50 mg Capsule PO (13:43)
[2024-10-13] MEDS: LORazepam 2 mg Tablet PO (13:43)
[2024-10-13] MEDS: haloperidol 5 mg Tablet PO (13:43)
[2024-10-13 14:00] VITALS: BP 120/88; PULSE 71; RESP 18; TEMP 36.6; O2SAT 95
--- NOTE | 2024-10-13 16:09 | P.NPUPN_ITS ---
Subjective NPU 2 Subjective: 49-year-old male with a history of depre ssion with 2 suicide attempts during current hospitalization currently admitted after worsening depression and suicide attempt. The patient continued to tantrum and stated that he felt ready to return home. He had required Haldol and Ativan to help with agitation stating that he needed to go home but was not specific in regards to any clear safety plan. Patient had continued to reject any other options such as electroconvulsive therapy. He had reported that family members would be at home to help watch him. Patient had been able to attend some groups today. He continued to report some struggles with falling asleep and staying asleep. He appeared minimally engaged in groups today and continued to make no efforts on interview with providing an appropriate safety plan. Mental Status Exam 2 MSE Comments: This is an overweight white male in hospital scrubs with limited grooming and adequate eye contact. No abnormal movements except for moderate psychomotor retardation. He was cooperative with exam and moderate to severe distress. Speech was normal in rate and volume with poor articulation. Mood described as better, Affect remained restricted in range. Thought process was linear. Thought content: Patient denied suicidal or homicidal ideation, there were no delusions reported or noted, he denied auditory or visual hallucinations. His attention span was poor.. There were no signs of paranoia or hallucinations. Attention and concentration were adequate and memory was mostly reliable but none were formally tested.? He is alert and oriented x to person and place.? Insight was poor and judgment is limited. Impulse control is poor. He had minimized his recent attempt to asphyxiate self leading to ICU admission by inhaling mass quantity of food in one sitting. Vitals/I&O/Wt Last Vital Signs Temp 98 F 10/13/24 14:00 Pulse 71 10/13/24 14:00 Resp 18 10/13/24 14:00 BP 120/88 10/13/24 14:00 Pulse Ox 95 10/13/24 14:00 O2 Del Method Room Air 10/13/24 06:00 O2 Flow Rate 1 10/05/24 10:45 FiO2 21 10/05/24 08:16 Weight last 48 hrs Weight 81.306 kg Physical Exam 2 Urinary Catheter Management: Marino: Cath Placed During This Visit: yes, but has since been removed by the nurse Reason for Continuing Indwelling Catheter: Decision to DC Catheter Urinary Catheter Date of Insertion: 10/04/24 Urinary Catheter Time of Insertion: 17:51 Date Urinary Catheter Removed: 10/05/24 Time Urinary Catheter Discontinued: 15:53 Data NPU 10/11/24 14:55 10/11/24 14:55 A&P Assessment and plan (1) Major depressive disorder, recurrent: Qualifiers: Active/Remission status: currently active Psychotic features: with psychotic features (2) Suicidal ideation: (3) Personality disorder, unspecified: (4) Type 2 diabetes mellitus: (5) Hypertension: (6) Bereavement: (7) BROCK (generalized anxiety disorder): Plan This is a 49-year-old white male with limited past psychiatric history but recent bereavement and suicide attempt.The patient has a history of major depression and anxiety, with a recent hospitalization due to panic attacks. The patient has had two episodes of hanging self in last month and continues to appear very depressed possibly psychotic as well. 1. Continue Viibyrd 40mg daily. Wellbutrin xl 300mg in am, and invega 6mg at night. 2. Discontinue one-to-one 3.? Patient transferred back to neuropsychiatric unit from ICU. 4.? Encourage sober living treatment after discharge at the highest level of care to which he is willing to commit. 5. Continue with hold, ECT likely to be helpful given his acuity. Involuntary Hold Information 2 96 Hour Hold: 96 Hour Involuntary Admission: Yes 96 Hour Hold Ending Date: 09/19/24 96 Hour Hold Ending Time: 00:01 Other Hold: Hold End Date: 10/12/24 Attestations NPU 2 Medical Necessity Statement*: Inpatient hospitalization is medically necessary and?the clinically appropriate intervention at this time.We will monitor/initiate medications and make changes as indicated.?The patient?s likely length of stay 7-10 days. Coding Level of Care Code Acute Code for Chg Fwd Diagnoses Major depressive disorder, recurrent F33.9 Active/Remission status: currently active Psychotic features: with psychotic features Suicidal ideation R45.851 Personality disorder, unspecified F60.9 Type 2 diabetes mellitus E11.9 Hypertension I10 Bereavement Z63.4 BROCK (generalized anxiety disorder) F41.1
[2024-10-13 16:36] LABS: Glucose Point of Care 157 mg/dL (70-110)
[2024-10-13 17:40] LABS: Glucose Point of Care 144 mg/dL (70-110)
[2024-10-13] MEDS: insulin lispro 100 unit/1 mL SUBCUT (18:02)
[2024-10-13 19:56] LABS: Glucose Point of Care 84 mg/dL (70-110)
[2024-10-13 20:36] VITALS: BP 111/77; PULSE 88; RESP 16; O2SAT 96
[2024-10-13] MEDS: paliperidone ER 6 mg Tablet PO (21:13)
[2024-10-13] MEDS: zolpidem 5 mg Tablet 10 MG PO (21:13)
[2024-10-13] MEDS: quetiapine 100 mg Tablet PO (21:13)
[2024-10-14 06:00] VITALS: BP 128/92; PULSE 80; RESP 18; TEMP 36.7; O2SAT 97
[2024-10-14] MEDS: aspirin 81 mg Chew Tablet PEG-TUBE (07:56)
[2024-10-14] MEDS: tamsulosin 0.4 mg Capsule PO (07:56)
[2024-10-14] MEDS: hyDROXYzine 25 mg Capsule 50 MG PO ×2 (07:56→21:58)
[2024-10-14] MEDS: pantoprazole DR 40 mg Tablet PO ×2 (07:57→18:22)
[2024-10-14] MEDS: VILAZODONE 40 MG 40 EACH PO (07:57)
[2024-10-14] MEDS: buPROPion XL (24 HR) 150 mg Tablet 300 MG PO (07:57)
[2024-10-14] MEDS: haloperidol 5 mg Tablet PO ×2 (08:02→22:08)
[2024-10-14] MEDS: OLANZapine 5 mg ODT PO (08:59)
[2024-10-14 11:57] LABS: Glucose Point of Care 110 mg/dL (70-110)
--- NOTE | 2024-10-14 12:37 | PC.NURSE ---
Contacted Dr. Simeon to let him know patient was requesting more anxiety meds, but refusing propranol which is the only medication available po left for him to take prn. Patient constantly pacing his room, banging on the side of his bed off and on, and shoving his face into his pillow as if he were trying to smother himself. Staff has tried to redirect him unsuccessful and he stated that his anxiety was about to get the best of him. Dr. Simeon requested this RN put in an order for valium 10mg once po.
[2024-10-14] MEDS: diazePAM 5 mg Tablet 10 MG PO (12:40)
[2024-10-14 14:00] VITALS: BP 130/90; PULSE 74; RESP 18; TEMP 36.4; O2SAT 96
--- NOTE | 2024-10-14 16:13 | P.NPUPN_ITS ---
Subjective NPU 2 Subjective: 49-year-old male with a history of depre ssion with 2 suicide attempts during current hospitalization currently admitted after worsening depression and suicide attempt. The patient continued to endorse that he felt ready to return home. He had shown no evidence of a clear safety plan. He had reported that he needed to go home but was unable to offer up any clear reason to be discharged. He continued to minimize the signficance of his attempt to asphyxiate himself less than 10 days ago leading to placement in the intensive care unit. He reported it as an accident. He had appeared extremely anxious and required multiple as needed medications for agitation here. Mental Status Exam 2 MSE Comments: This is an overweight white male in hospital scrubs with limited grooming and adequate eye contact. No abnormal movements except for moderate psychomotor retardation. He was cooperative with exam and moderate to severe distress. Speech was normal in rate and volume with poor articulation. Mood described as okay. Affect remained restricted in range and mood incongruent. Thought process was linear. Thought content: Patient denied suicidal or homicidal ideation, there were no delusions reported or noted, he denied auditory or visual hallucinations but did appear internally preoccupied. His attention span was poor.. There were no signs of paranoia or hallucinations. Attention and concentration were adequate and memory was mostly reliable but none were formally tested.? He is alert and oriented x to person and place.? Insight was poor and judgment is limited. Impulse control is poor. He had minimized his recent attempt to asphyxiate self leading to ICU admission by inhaling mass quantity of food in one sitting. Vitals/I&O/Wt Last Vital Signs Temp 97.6 F 10/14/24 14:00 Pulse 74 10/14/24 14:00 Resp 18 10/14/24 14:00 BP 130/90 10/14/24 14:00 Pulse Ox 96 10/14/24 14:00 O2 Del Method Room Air 10/14/24 06:00 O2 Flow Rate 1 10/05/24 10:45 FiO2 21 10/05/24 08:16 Physical Exam 2 Urinary Catheter Management: Marino: Cath Placed During This Visit: yes, but has since been removed by the nurse Reason for Continuing Indwelling Catheter: Decision to DC Catheter Urinary Catheter Date of Insertion: 10/04/24 Urinary Catheter Time of Insertion: 17:51 Date Urinary Catheter Removed: 10/05/24 Time Urinary Catheter Discontinued: 15:53 Data NPU 10/11/24 14:55 10/11/24 14:55 A&P Assessment and plan (1) Major depressive disorder, recurrent: Qualifiers: Active/Remission status: currently active Psychotic features: with psychotic features (2) Suicidal ideation: (3) Personality disorder, unspecified: (4) Type 2 diabetes mellitus: (5) Hypertension: (6) Bereavement: (7) BROCK (generalized anxiety disorder): Plan This is a 49-year-old white male with limited past psychiatric history but recent bereavement and suicide attempt.The patient has a history of major depression and anxiety, with a recent hospitalization due to panic attacks. The patient has had two episodes of hanging self in last month and continues to appear very depressed possibly psychotic as well. 1. Continue Viibyrd 40mg daily. Wellbutrin xl 300mg in am, and invega 6mg at night. 2. Discontinue one-to-one 3.? Patient transferred back to neuropsychiatric unit from ICU. 4.? Encourage sober living treatment after discharge at the highest level of care to which he is willing to commit. 5. Continue with hold, ECT likely to be helpful given his acuity. Involuntary Hold Information 2 96 Hour Hold: 96 Hour Involuntary Admission: Yes 96 Hour Hold Ending Date: 09/19/24 96 Hour Hold Ending Time: 00:01 Other Hold: Hold End Date: 10/12/24 Attestations NPU 2 Medical Necessity Statement*: Inpatient hospitalization is medically necessary and?the clinically appropriate intervention at this time.We will monitor/initiate medications and make changes as indicated.?The patient?s likely length of stay 7-10 days. Coding Level of Care Code Acute Code for g Fwd Diagnoses Major depressive disorder, recurrent F33.9 Active/Remission status: currently active Psychotic features: with psychotic features Suicidal ideation R45.851 Personality disorder, unspecified F60.9 Type 2 diabetes mellitus E11.9 Hypertension I10 Bereavement Z63.4 BROCK (generalized anxiety disorder) F41.1
[2024-10-14 17:19] LABS: Glucose Point of Care 91 mg/dL (70-110)
[2024-10-14 19:17] LABS: Glucose Point of Care 152 mg/dL (70-110)
[2024-10-14 20:23] VITALS: BP 109/74; PULSE 76; RESP 18; TEMP 36.6; O2SAT 98
[2024-10-14] MEDS: insulin lispro 100 unit/1 mL SUBCUT (21:56)
[2024-10-14] MEDS: zolpidem 5 mg Tablet 10 MG PO (21:58)
[2024-10-14] MEDS: quetiapine 100 mg Tablet PO (21:58)
[2024-10-14] MEDS: paliperidone ER 6 mg Tablet PO (22:00)
[2024-10-14] MEDS: trazodone 50 mg Tablet PO (22:00)
[2024-10-15 06:00] VITALS: BP 150/56; PULSE 88; RESP 18; TEMP 37; O2SAT 97
[2024-10-15 08:01] LABS: Glucose Point of Care 106 mg/dL (70-110)
[2024-10-15] MEDS: VILAZODONE 40 MG 40 EACH PO (08:41)
[2024-10-15] MEDS: aspirin 81 mg Chew Tablet PEG-TUBE (08:42)
[2024-10-15] MEDS: buPROPion XL (24 HR) 150 mg Tablet 300 MG PO (08:42)
[2024-10-15] MEDS: pantoprazole DR 40 mg Tablet PO ×2 (08:42→17:13)
[2024-10-15] MEDS: tamsulosin 0.4 mg Capsule PO (08:42)
[2024-10-15 11:53] LABS: Glucose Point of Care 131 mg/dL (70-110)
[2024-10-15 14:00] VITALS: BP 118/74; PULSE 76; RESP 18; TEMP 36.9; O2SAT 96
[2024-10-15] MEDS: haloperidol 5 mg Tablet PO ×2 (14:22→20:56)
--- NOTE | 2024-10-15 16:14 | P.NPUPN_ITS ---
Subjective NPU 2 Subjective: 49-year-old male with a history of depre ssion with 2 suicide attempts during current hospitalization currently admitted after worsening depression and suicide attempt. Patient continued to insist that he be allowed to leave here. He had been encouraged to work on a safety plan and had continued to refuse consideration for other treatments to help with depression. He had continued to attempt to deny having attempted to harm himself here both times on the unit. He had continued to isolate himself in his room although he did state he was feeling better. He reported that his sleep was improving. He had appeared to have some episodes of intense anxiety that had required as needed medications including benzodiazepines. He had reported that he had missed his children but did not want anyone visiting him here. Patient reported that the longer he remains in here the more upset he becomes. . Mental Status Exam 2 MSE Comments: This is an overweight white male in hospital scrubs with limited grooming and adequate eye contact. No abnormal movements except for moderate psychomotor retardation. He was cooperative with exam and moderate to severe distress. Speech was normal in rate and volume with poor articulation. Mood described as okay. Affect remained restricted in range and mood incongruent. Thought process was linear. Thought content: Patient denied suicidal or homicidal ideation, there were no delusions reported or noted, he denied auditory or visual hallucinations and appeared less internally preoccupied. His attention span was poor.. There were no signs of paranoia or hallucinations. Attention and concentration were adequate and memory was mostly reliable but none were formally tested.? He is alert and oriented x to person and place.? Insight was poor and judgment is limited. Impulse control is poor. He had minimized his recent attempt to asphyxiate self leading to ICU admission by inhaling mass quantity of food in one sitting. Vitals/I&O/Wt Last Vital Signs Temp 98.4 F 10/15/24 14:00 Pulse 76 10/15/24 14:00 Resp 18 10/15/24 14:00 BP 118/74 10/15/24 14:00 Pulse Ox 96 10/15/24 14:00 O2 Del Method Room Air 10/15/24 06:00 O2 Flow Rate 1 10/05/24 10:45 FiO2 21 10/05/24 08:16 Physical Exam 2 Urinary Catheter Management: Marino: Cath Placed During This Visit: yes, but has since been removed by the nurse Reason for Continuing Indwelling Catheter: Decision to DC Catheter Urinary Catheter Date of Insertion: 10/04/24 Urinary Catheter Time of Insertion: 17:51 Date Urinary Catheter Removed: 10/05/24 Time Urinary Catheter Discontinued: 15:53 Data NPU 10/11/24 14:55 10/11/24 14:55 A&P Assessment and plan (1) Major depressive disorder, recurrent: Qualifiers: Active/Remission status: currently active Psychotic features: with psychotic features (2) Suicidal ideation: (3) Personality disorder, unspecified: (4) Type 2 diabetes mellitus: (5) Hypertension: (6) Bereavement: (7) BROCK (generalized anxiety disorder): Plan This is a 49-year-old white male with limited past psychiatric history but recent bereavement and suicide attempt.The patient has a history of major depression and anxiety, with a recent hospitalization due to panic attacks. The patient has had two episodes of hanging self in last month and continues to appear very depressed possibly psychotic as well. 1. Continue Viibyrd 40mg daily. Wellbutrin xl 300mg in am, and invega 6mg at night. 2. Discontinue one-to-one 3.? Patient transferred back to neuropsychiatric unit from ICU. 4.? Encourage sober living treatment after discharge at the highest level of care to which he is willing to commit. 5. Continue with hold, ECT likely to be helpful given his acuity. Involuntary Hold Information 2 96 Hour Hold: 96 Hour Involuntary Admission: Yes 96 Hour Hold Ending Date: 09/19/24 96 Hour Hold Ending Time: 00:01 Other Hold: Hold End Date: 10/12/24 Attestations NPU 2 Medical Necessity Statement*: Inpatient hospitalization is medically necessary and?the clinically appropriate intervention at this time.We will monitor/initiate medications and make changes as indicated.?The patient?s likely length of stay 7-10 days. Coding Level of Care Code Acute Code for g Fwd Diagnoses Major depressive disorder, recurrent F33.9 Active/Remission status: currently active Psychotic features: with psychotic features Suicidal ideation R45.851 Personality disorder, unspecified F60.9 Type 2 diabetes mellitus E11.9 Hypertension I10 Bereavement Z63.4 BROCK (generalized anxiety disorder) F41.1
[2024-10-15 17:16] LABS: Glucose Point of Care 84 mg/dL (70-110)
[2024-10-15 20:24] LABS: Glucose Point of Care 117 mg/dL (70-110)
[2024-10-15] MEDS: zolpidem 5 mg Tablet 10 MG PO (20:56)
[2024-10-15] MEDS: paliperidone ER 6 mg Tablet PO (20:56)
[2024-10-15] MEDS: trazodone 50 mg Tablet PO (20:56)
[2024-10-15] MEDS: quetiapine 100 mg Tablet PO (20:56)
[2024-10-15 22:00] VITALS: BP 109/71; PULSE 72; RESP 17; TEMP 36.9; O2SAT 96
[2024-10-16 06:00] VITALS: BP 124/81; PULSE 70; RESP 16; TEMP 36.6; O2SAT 96
[2024-10-16 06:56] LABS: Glucose Point of Care 113 mg/dL (70-110)
[2024-10-16] MEDS: tamsulosin 0.4 mg Capsule PO (08:44)
[2024-10-16] MEDS: buPROPion XL (24 HR) 150 mg Tablet 300 MG PO (08:44)
[2024-10-16] MEDS: propranolol 20 mg Tablet PO (08:44)
[2024-10-16] MEDS: pantoprazole DR 40 mg Tablet PO ×2 (08:44→17:54)
[2024-10-16] MEDS: aspirin 81 mg Chew Tablet PEG-TUBE (08:44)
[2024-10-16] MEDS: VILAZODONE 40 MG 40 EACH PO (08:47)
--- NOTE | 2024-10-16 09:13 | PC.NURSE ---
RESTING IN BED. CONTINUES TO HAVE FLAT AFFECT AND DEPRESSED MOOD. DENIES SI/HI AND AVH AT THIS TIME. RATES ANXIETY 4/10, PROPANOLOL 20 MG GIVEN ORDERED FOR ANXIETY. RATES DEPRESSION 0/10 BUT PT IS OBSERVED HAVING S/S OF DEPRESSION DAILY. STATES GOAL FOR THE DAY IS TO GO HOME. REPORTS HE DID NOT SLEEP WELL, EVEN THOUGH PRODUCTION PAINTER STATES HE SLEPT ALL NIGHT. PT STATES WELL I JUST DIDN'T GET UP, ALL QUESTIONS ANSWERED AND SUPPORT VOICED. DENIES PAIN.
[2024-10-16 11:09] LABS: Glucose Point of Care 124 mg/dL (70-110)
--- NOTE | 2024-10-16 12:48 | PC.NURSE ---
DR. GRANGER REQUESTS [facility] COME AND COMPLETE SAFETY PLAN WITH PT. NEONATAL NURSE PRACTITIONER CONTACTED LIAISON BY PHONE TO COME AND COMPLETE. EDUCATION PROVIDED TO PT.
[2024-10-16 14:00] VITALS: BP 118/77; PULSE 69; RESP 17; TEMP 36.7; O2SAT 95
--- NOTE | 2024-10-16 14:34 | PC.NURSE ---
PT COMPLAINS OF INCREASED ANXIETY AND AGITATION DUE TO BEING IN HERE JUST MAKES ME ANXIOUS AND I WANT TO LEAVE. THE DRKasia SAID HE WAS GOING TO PUT ME ON VALIUM WHILE I'M HERE. RN ASSURED PT THAT I WOULD DISCUSS THE ABOVE WITH DR. GRANGER AND SEE IF HE IS PLACING HIM ON VALIUM OR NOT AND IF HE CAN HAVE SOMETHING FOR ANXIETY NOW. DR. GRANGER GAVE ORDERS TO GIVE VALIUM 10 MG PO NOW FOR INCREASED ANXIETY AND THEN LET HIM KNOW IF IT HELPED THE PTS ANXIETY OR NOT BEFORE PLACING HIM ON VALIUM ROUTINELY. ORDERS WERE PLACED. EDUCATION WAS PROVIDED TO PT. VERBALIZED UNDERSTANDING. WILL GIVE WHEN AVAILABLE. WILL REPORT EFFECTIVENESS TO DR. GRANGER.
[2024-10-16] MEDS: diazePAM 5 mg Tablet 10 MG PO (14:40)
--- NOTE | 2024-10-16 14:59 | PC.NURSE ---
GAVE VALIUM 10 MG TO PT FOR INCREASED ANXIETY. PT WAS ENCOURAGED TO GO TO GROUP AND HE DID GO. SUPPORT VOICED.
--- NOTE | 2024-10-16 15:09 | P.NPUPN_ITS ---
Subjective NPU 2 Subjective: 49-year-old male with a history of depre ssion with 2 suicide attempts during current hospitalization currently admitted after worsening depression and suicide attempt. Patient had reported that he wished to go home. He continued to appear disinterested in working on a safety plan. He had stated that family members would be at home as he had moved in with his in-laws. He was still unable to contract for safety stating that he could not assure anyone that he could be safe but stated that it was worse being here. He had reported some improvement in sleep. He had been attending groups but was minimally involved according to staff and therapist. He had reported some diminished appetite. He had reported no side effects to his current medication. Mental Status Exam 2 MSE Comments: This is an overweight white male in hospital scrubs with limited grooming and adequate eye contact. No abnormal movements except for moderate psychomotor retardation. He was cooperative with exam and moderate to severe distress. Speech was normal in rate and volume with normal articulation. Mood described as good. Affect remained flat and mood incongruent. Thought process was linear. Thought content: Patient denied suicidal or homicidal ideation, there were no delusions reported or noted, he denied auditory or visual hallucinations and appeared less internally preoccupied. His attention span was poor.. There were no signs of paranoia or hallucinations. Attention and concentration were adequate and memory was mostly reliable but selective. ? He is alert and oriented x to person and place.? Insight was poor and judgment is limited. Impulse control is poor. He had minimized his recent attempt to asphyxiate self leading to ICU admission by inhaling mass quantity of food in one sitting. Vitals/I&O/Wt Last Vital Signs Temp 98.1 F 10/16/24 14:00 Pulse 69 10/16/24 14:00 Resp 17 10/16/24 14:00 BP 118/77 10/16/24 14:00 Pulse Ox 95 10/16/24 14:00 O2 Del Method Room Air 10/16/24 06:00 O2 Flow Rate 1 10/05/24 10:45 FiO2 21 10/05/24 08:16 Physical Exam 2 Urinary Catheter Management: Marino: Cath Placed During This Visit: yes, but has since been removed by the nurse Reason for Continuing Indwelling Catheter: Decision to DC Catheter Urinary Catheter Date of Insertion: 10/04/24 Urinary Catheter Time of Insertion: 17:51 Date Urinary Catheter Removed: 10/05/24 Time Urinary Catheter Discontinued: 15:53 Data NPU 10/11/24 14:55 10/11/24 14:55 A&P Assessment and plan (1) Major depressive disorder, recurrent: Qualifiers: Active/Remission status: currently active Psychotic features: with psychotic features (2) Suicidal ideation: (3) Personality disorder, unspecified: (4) Type 2 diabetes mellitus: (5) Hypertension: (6) Bereavement: (7) BROCK (generalized anxiety disorder): Plan This is a 49-year-old white male with limited past psychiatric history but recent bereavement and suicide attempt.The patient has a history of major depression and anxiety, with a recent hospitalization due to panic attacks. The patient has had two episodes of hanging self in last month and continues to appear very depressed possibly psychotic as well. 1. Continue Viibyrd 40mg daily. Wellbutrin xl 300mg in am, and invega 6mg at night. 2. Discontinue one-to-one 3.? Work on safety plan for staff. 4.? Encourage sober living treatment after discharge at the highest level of care to which he is willing to commit. 5. Continue with hold, ECT likely to be helpful given his acuity. Involuntary Hold Information 2 96 Hour Hold: 96 Hour Involuntary Admission: Yes 96 Hour Hold Ending Date: 09/19/24 96 Hour Hold Ending Time: 00:01 Other Hold: Hold End Date: 01/12/25 Attestations NPU 2 Medical Necessity Statement*: Inpatient hospitalization is medically necessary and?the clinically appropriate intervention at this time.We will monitor/initiate medications and make changes as indicated.?The patient?s likely length of stay 7-10 days. Coding Level of Care Code Acute Code for g Fwd Diagnoses Major depressive disorder, recurrent F33.9 Active/Remission status: currently active Psychotic features: with psychotic features Suicidal ideation R45.851 Personality disorder, unspecified F60.9 Type 2 diabetes mellitus E11.9 Hypertension I10 Bereavement Z63.4 BROCK (generalized anxiety disorder) F41.1
[2024-10-16 17:14] LABS: Glucose Point of Care 108 mg/dL (70-110)
[2024-10-16 19:35] LABS: Glucose Point of Care 97 mg/dL (70-110)
[2024-10-16 19:36] VITALS: BP 110/71; PULSE 67; RESP 18; TEMP 36.5; O2SAT 96
[2024-10-16] MEDS: zolpidem 5 mg Tablet 10 MG PO (21:18)
[2024-10-16] MEDS: quetiapine 100 mg Tablet PO (21:18)
[2024-10-16] MEDS: trazodone 50 mg Tablet PO (21:18)
[2024-10-16] MEDS: paliperidone ER 6 mg Tablet PO (21:18)
[2024-10-16] MEDS: hyDROXYzine 25 mg Capsule 50 MG PO (21:18)
[2024-10-16] MEDS: haloperidol 5 mg Tablet PO (21:18)
[2024-10-17 06:00] VITALS: BP 121/80; PULSE 73; RESP 18; TEMP 36.6; O2SAT 98
[2024-10-17 07:47] LABS: Glucose Point of Care 192 mg/dL (70-110)
[2024-10-17] MEDS: VILAZODONE 40 MG 40 EACH PO (07:52)
[2024-10-17] MEDS: insulin lispro 100 unit/1 mL SUBCUT (07:53)
[2024-10-17] MEDS: buPROPion XL (24 HR) 150 mg Tablet 300 MG PO (07:54)
[2024-10-17] MEDS: propranolol 20 mg Tablet PO ×2 (07:54→21:48)
[2024-10-17] MEDS: pantoprazole DR 40 mg Tablet PO ×2 (07:55→17:13)
[2024-10-17] MEDS: tamsulosin 0.4 mg Capsule PO (07:55)
[2024-10-17] MEDS: aspirin 81 mg Chew Tablet PEG-TUBE (07:55)
--- NOTE | 2024-10-17 08:24 | PC.NURSE ---
pt stated that he was not eating breakfast due to the result of his blood sugar this morning. charge loader notified.
--- NOTE | 2024-10-17 08:40 | PC.NURSE ---
RESTING IN BED, TOOK MEDICATIONS WITHOUT ISSUE. BLOOD GLUCCOSE WAS 192 THIS AM AND PT REQUIRED 4 UNITS OF INSULIN. AFTER RN GAVE INSULIN PT WAS INFORMED BREAKFAST WAS HERE AND THAT HE NEEDED TO GO EAT. PT STATED NAH I DON'T THINK I'M GONNA EAT BECAUSE OF MY BLOOD SUGAR BEING HIGH. RN PROVIDED EDUCATION THAT THE BLOOD SUGAR WILL COME DOWN DUE TO GIVING THE INSULIN BUT HE STILL NEEDS TO GO AND EAT. PT CONTINUED TO DECLINE STAYING IN BED TO REST. CONTINUES TO BE OBSERVED ISOLATING AND WITHDRAWN TO ROOM WITH LITTLE INTERACTION BETWEEN PEERS AND STAFF. PT IS TO SAFETY PLAN TODAY WITH THE [facility] LIAISON PER DR. GRANGER REQUEST. FLAT AFFECT IS STILL NOTED WITH DEPRESSED MOOD, WHILE REPORTING ANXIETY FREQUENTLY. PT IS ENCOURAGED TO GO TO GROUP AND THIS RN EDUCATED PT THAT HE MAY BE BORED MORE THAN ANXIOUS. PT JUST STARRED AT RN AND GAVE NO REPLY. RN DID GIVE PT THE SAFETY PLAN PAPER YESTERDAY TO START TO FILL OUT SO ONCE THE [facility] LIA[facility] AND HIM COULD COLLABORATE ONCE THEY GOT HERE TO COMPLETE IT. DENIES PAIN. DENIES SI/I AND AVH AT THIS TIME. RATES ANXIETY 4/10, PROPANOLOL 20 MG WAS GIVEN ORDERED FOR INCREASED ANXIETY. RATES DEPRESSION 0/10. PT DOES SHOW S/S OF DEPRESSION. REPORTS HE SLEPT GOOD LAST NIGHT AND REPORTS THE VALIUM 10 MG THAT RN GAVE YESTERDAY FOR ANXIETY WAS SOMEWHAT EFFECTIVE. ALL QUESTIONS ANSWERED AND SUPPORT VOICED.
[2024-10-17 11:41] LABS: Glucose Point of Care 129 mg/dL (70-110)
[2024-10-17 13:55] VITALS: BP 115/70; PULSE 61; RESP 17; TEMP 36.5; O2SAT 97
[2024-10-17] MEDS: diazePAM 5 mg Tablet 10 MG PO (14:50)
--- NOTE | 2024-10-17 15:33 | P.NPUPN_ITS ---
Subjective NPU 2 Subjective: 49-year-old male with a history of depre ssion with 2 suicide attempts during current hospitalization currently admitted after worsening depression and suicide attempt. Patient had continued to appear anxious on the unit. He had spent more time working on a safety plan today. Patient continued to show decreased anxiety when receiving Valium and was able to attend groups. He was more redirectable. He had continued to waver on whether he could be safe if he were returning home but stated that he was tired of being here at this time. He had remained compliant with his medications and stated some improvement in sleep. He had reported often feeling tired and stated that he had felt more tired from his hemochromatosis. Mental Status Exam 2 MSE Comments: This is an overweight white male in hospital scrubs with limited grooming and adequate eye contact. No abnormal movements except for moderate psychomotor retardation. He was cooperative with exam and moderate to severe distress. Speech was normal in rate and volume with normal articulation. Mood described as good. Affect remained restricted and mood incongruent. Thought process was linear. Thought content: Patient denied suicidal or homicidal ideation, there were no delusions reported or noted, he denied auditory or visual hallucinations and appeared less internally preoccupied. His attention span was poor.. There were no signs of paranoia or hallucinations. Attention and concentration were adequate and memory was mostly reliable but selective. ? He is alert and oriented x to person and place.? Insight was poor and judgment is limited. Impulse control is poor. He had minimized his recent attempt to asphyxiate self leading to ICU admission by inhaling mass quantity of food in one sitting. Vitals/I&O/Wt Last Vital Signs Temp 97.7 F 10/17/24 13:55 Pulse 61 10/17/24 13:55 Resp 17 10/17/24 13:55 BP 115/70 10/17/24 13:55 Pulse Ox 97 10/17/24 13:55 O2 Del Method Room Air 10/17/24 13:55 O2 Flow Rate 1 10/05/24 10:45 FiO2 21 10/05/24 08:16 Physical Exam 2 Urinary Catheter Management: Marino: Cath Placed During This Visit: yes, but has since been removed by the nurse Reason for Continuing Indwelling Catheter: Decision to DC Catheter Urinary Catheter Date of Insertion: 10/04/24 Urinary Catheter Time of Insertion: 17:51 Date Urinary Catheter Removed: 10/05/24 Time Urinary Catheter Discontinued: 15:53 Data NPU 10/11/24 14:55 10/11/24 14:55 A&P Assessment and plan (1) Major depressive disorder, recurrent: Qualifiers: Active/Remission status: currently active Psychotic features: with psychotic features (2) Suicidal ideation: (3) Personality disorder, unspecified: (4) Type 2 diabetes mellitus: (5) Hypertension: (6) Bereavement: (7) BROCK (generalized anxiety disorder): Plan This is a 49-year-old white male with limited past psychiatric history but recent bereavement and suicide attempt.The patient has a history of major depression and anxiety, with a recent hospitalization due to panic attacks. The patient has had two episodes of hanging self in last month and continues to appear very depressed possibly psychotic as well. 1. Continue Viibyrd 40mg daily. Wellbutrin xl 300mg in am, and invega 6mg at night. Add Valium 5mg tid. 2. Discontinue one-to-one 3.? Work on safety plan for staff. 4.? Encourage sober living treatment after discharge at the highest level of care to which he is willing to commit. 5. Continue with hold, ECT likely to be helpful given his acuity but patient refusing. Involuntary Hold Information 2 96 Hour Hold: 96 Hour Involuntary Admission: Yes 96 Hour Hold Ending Date: 09/19/24 96 Hour Hold Ending Time: 00:01 Other Hold: Hold End Date: 01/12/25 Attestations NPU 2 Medical Necessity Statement*: Inpatient hospitalization is medically necessary and?the clinically appropriate intervention at this time.We will monitor/initiate medications and make changes as indicated.?The patient?s likely length of stay 7-10 days. Coding Level of Care Code Acute Code for [facility] Fwd Diagnoses Major depressive disorder, recurrent F33.9 Active/Remission status: currently active Psychotic features: with psychotic features Suicidal ideation R45.851 Personality disorder, unspecified F60.9 Type 2 diabetes mellitus E11.9 Hypertension I10 Bereavement Z63.4 BROCK (generalized anxiety disorder) F41.1
--- NOTE | 2024-10-17 15:49 | PC.NURSE ---
Addendum entered and electronically signed by Kasey Nava RN 10/17/24 18:18: VALIUM THAT WAS GIVEN EARLIER IN THE SHIFT IS DEEMED EFFECTIVE. PT IS CURRENTLY RESTING IN NO DISTRESS. PT WAS OBSERVED GOING TO DINNER AND INTERACTING WITH PEERS. Original Note: PT REMAINS ANXIOUS FREQUENTLY AND UNABLE TO COPE EFFECTIVELY WITH COPING TECHNIQUES TAUGHT BY THIS RN. PT WAS GIVEN VALIUM YESTERDAY AND PT REPORTS IT WAS EFFECTIVE. PT WAS ABLE TO ATTEND GROUP AND INTERACT WITH PEERS AFTER TAKING IT. PT REPORTS HE IS NEEDING SOMETHING FOR ANXIETY. NOTIFIED DR. GRANGER AND NEW ORDERS WERE RECEIVED TO GIVE VALIUM 10 MG NOW AND THEN TO START VALIUM 5 MG TID SCHEDULED WITH THE FIRST DOSE AT 2100. EDUCATED PT ON NEW ORDERS AND GAVE ONE TIME DOSE OF 10 MG. MEDIATION DEEMED EFFECTIVE, PT IS CURRENTLY RESTING IN NO DISTRESS.
[2024-10-17 17:18] LABS: Glucose Point of Care 93 mg/dL (70-110)
[2024-10-17 19:43] LABS: Glucose Point of Care 130 mg/dL (70-110)
[2024-10-17 19:47] VITALS: BP 119/80; PULSE 69; RESP 18; TEMP 36.4; O2SAT 96
[2024-10-17] MEDS: paliperidone ER 6 mg Tablet PO (21:47)
[2024-10-17] MEDS: haloperidol 5 mg Tablet PO (21:48)
[2024-10-17] MEDS: trazodone 50 mg Tablet PO (21:48)
[2024-10-17] MEDS: zolpidem 5 mg Tablet 10 MG PO (21:48)
[2024-10-17] MEDS: quetiapine 100 mg Tablet PO (21:48)
[2024-10-17] MEDS: diazePAM 5 mg Tablet PO (21:48)
[2024-10-18 06:00] VITALS: BP 98/67; PULSE 62; RESP 18; TEMP 36.9; O2SAT 96
[2024-10-18 08:00] LABS: Glucose Point of Care 99 mg/dL (70-110)
[2024-10-18] MEDS: pantoprazole DR 40 mg Tablet PO ×2 (08:40→17:34)
[2024-10-18] MEDS: diazePAM 5 mg Tablet PO ×3 (08:40→21:06)
[2024-10-18] MEDS: tamsulosin 0.4 mg Capsule PO (08:40)
[2024-10-18] MEDS: VILAZODONE 40 MG 40 EACH PO (08:40)
[2024-10-18] MEDS: buPROPion XL (24 HR) 150 mg Tablet 300 MG PO (08:40)
[2024-10-18] MEDS: aspirin 81 mg Chew Tablet PEG-TUBE (08:40)
[2024-10-18 11:09] LABS: Glucose Point of Care 116 mg/dL (70-110)
[2024-10-18 14:00] VITALS: BP 126/91; PULSE 68; RESP 16; O2SAT 96
--- NOTE | 2024-10-18 14:48 | P.NPUPN_ITS ---
Subjective NPU 2 Subjective: 49-year-old male with a history of depre ssion with 2 suicide attempts during current hospitalization currently admitted after worsening depression and suicide attempt. Patient had minimized any suicidal thoughts at this time. He had continued isolate himself in his room. He had expressed motivation for engaging in activities with his 18-year-old son today including hunting. He had reported feeling more hopeful. He had again spent time with working on an appropriate safety plan. He had reported feeling less fatigued while reporting decreased anxiety with the initiation of Valium on a routine basis. Mental Status Exam 2 MSE Comments: This is an overweight white male in hospital scrubs with limited grooming and adequate eye contact. No abnormal movements except for moderate psychomotor retardation. He was cooperative with exam and moderate to severe distress. Speech was normal in rate and volume with normal articulation. Mood described as better. Affect remained restricted and mood incongruent. Thought process was linear. Thought content: Patient denied suicidal or homicidal ideation, there were no delusions reported or noted, he denied auditory or visual hallucinations and did not appear to be responding to internal stimuli. His attention span was poor.. There were no signs of paranoia or hallucinations. Attention and concentration were adequate and memory was mostly reliable but selective. ? He is alert and oriented x to person and place.? Insight was poor and judgment is limited. Impulse control is poor. Vitals/I&O/Wt Last Vital Signs Temp 98.5 F 10/18/24 06:00 Pulse 68 10/18/24 14:00 Resp 16 10/18/24 14:00 BP 126/91 10/18/24 14:00 Pulse Ox 96 10/18/24 14:00 O2 Del Method Room Air 10/18/24 14:00 O2 Flow Rate 1 10/05/24 10:45 FiO2 21 10/05/24 08:16 Physical Exam 2 Urinary Catheter Management: Marino: Cath Placed During This Visit: yes, but has since been removed by the nurse Reason for Continuing Indwelling Catheter: Decision to DC Catheter Urinary Catheter Date of Insertion: 10/04/24 Urinary Catheter Time of Insertion: 17:51 Date Urinary Catheter Removed: 10/05/24 Time Urinary Catheter Discontinued: 15:53 Data NPU 10/11/24 14:55 10/11/24 14:55 A&P Assessment and plan (1) Major depressive disorder, recurrent: Qualifiers: Active/Remission status: currently active Psychotic features: with psychotic features (2) Suicidal ideation: (3) Personality disorder, unspecified: (4) Type 2 diabetes mellitus: (5) Hypertension: (6) Bereavement: (7) BROCK (generalized anxiety disorder): Plan This is a 49-year-old white male with limited past psychiatric history but recent bereavement and suicide attempt.The patient has a history of major depression and anxiety, with a recent hospitalization due to panic attacks. The patient has had two episodes of hanging self in last month and continues to appear very depressed possibly psychotic as well. 1. Continue Viibyrd 40mg daily. Wellbutrin xl 300mg in am, and invega 6mg at night. Continue Valium 5mg tid. 2. Discontinue one-to-one 3.? Work on safety plan for staff. 4.? Encourage sober living treatment after discharge at the highest level of care to which he is willing to commit. 5. Continue with hold, ECT likely to be helpful given his acuity but patient refusing. Involuntary Hold Information 2 96 Hour Hold: 96 Hour Involuntary Admission: Yes 96 Hour Hold Ending Date: 09/19/24 96 Hour Hold Ending Time: 00:01 Other Hold: Hold End Date: 01/12/25 Attestations NPU 2 Medical Necessity Statement*: Inpatient hospitalization is medically necessary and?the clinically appropriate intervention at this time.We will monitor/initiate medications and make changes as indicated.?The patient?s likely length of stay 5-7 days. Coding Level of Care Code Acute Code for [facility] Fwd Diagnoses Major depressive disorder, recurrent F33.9 Active/Remission status: currently active Psychotic features: with psychotic features Suicidal ideation R45.851 Personality disorder, unspecified F60.9 Type 2 diabetes mellitus E11.9 Hypertension I10 Bereavement Z63.4 BROCK (generalized anxiety disorder) F41.1
[2024-10-18 17:15] LABS: Glucose Point of Care 93 mg/dL (70-110)
[2024-10-18 19:45] LABS: Glucose Point of Care 89 mg/dL (70-110)
[2024-10-18 19:50] VITALS: BP 116/74; PULSE 77; RESP 18; TEMP 36.5; O2SAT 96
[2024-10-18] MEDS: paliperidone ER 6 mg Tablet PO (21:06)
[2024-10-18] MEDS: quetiapine 100 mg Tablet PO (21:06)
[2024-10-18] MEDS: trazodone 50 mg Tablet PO (21:06)
[2024-10-18] MEDS: zolpidem 5 mg Tablet 10 MG PO (21:07)
[2024-10-18] MEDS: haloperidol 5 mg Tablet PO (21:14)
[2024-10-19 06:00] VITALS: BP 131/84; PULSE 67; RESP 18; TEMP 37; O2SAT 97; BMI 27.0
[2024-10-19 07:49] LABS: Glucose Point of Care 120 mg/dL (70-110)
[2024-10-19] MEDS: buPROPion XL (24 HR) 150 mg Tablet 300 MG PO (08:09)
[2024-10-19] MEDS: diazePAM 5 mg Tablet PO ×3 (08:09→20:52)
[2024-10-19] MEDS: tamsulosin 0.4 mg Capsule PO (08:09)
[2024-10-19] MEDS: pantoprazole DR 40 mg Tablet PO ×2 (08:09→17:49)
[2024-10-19] MEDS: VILAZODONE 40 MG 40 EACH PO (08:09)
[2024-10-19] MEDS: aspirin 81 mg Chew Tablet PEG-TUBE (08:09)
--- NOTE | 2024-10-19 08:34 | PC.NURSE ---
PT CURRENTLY DENIES SI/HI/AH/VH. PT CURRENTLY DENIES DEPRESSION AND ANXIETY. PT WAS COOPERATIVE WITH ASSESSMENT AND MEDICATIONS. PT REFUSED TO EAT BREAKFAST THIS MORNING STATING IT THAT SOGGY STUFF AGAIN. PT IS CURRENTLY ON A SPECIALTY DIET AND DOES NOT ENJOY HOW HIS FOOD IS PREPARED. THIS NURSE ASKED IF SHE COULD GET SOMETHING ELSE PREPARED FOR HIM TO WHICH PT DENIED. PT WAS WILLING TO DRINK AN APPLE JUICE. THIS NURSE PROVIDED AND APPLE CLEAR ENSURE SUPPLEMENT PT IS A DIABETIC. PT CURRENT NEEDS ARE MET AT THIS TIME.
--- NOTE | 2024-10-19 09:09 | PC.NURSE ---
pt stated he did not want to eat because he did not like the pancakes. battery assembler dry cell notified.
[2024-10-19 12:01] LABS: Glucose Point of Care 145 mg/dL (70-110)
[2024-10-19] MEDS: insulin lispro 100 unit/1 mL SUBCUT (12:06)
--- NOTE | 2024-10-19 13:33 | P.NPUPN_ITS ---
Subjective NPU 2 Subjective: 49-year-old male with a history of depre ssion with 2 suicide attempts during current hospitalization currently admitted after worsening depression and suicide attempt. Patient had appeared better. He had not endorsed any suicidal thoughts. He had expressed interest in returning home to be with his son. He had continued to work on his safety plan. He reported no mood symptoms stating that he was feeling better. He had expressed some interest in returning back to work. He reported feeling less anxious while taking Valium on a routine basis here. Mental Status Exam 2 MSE Comments: This is an overweight white male in hospital scrubs with limited grooming and adequate eye contact. No abnormal movements except for moderate psychomotor retardation. He was cooperative with exam mild distress. Speech was normal in rate and volume with normal articulation. Mood described as better. Affect appeared less restricted. Thought process was linear. Thought content: Patient denied suicidal or homicidal ideation, there were no delusions reported or noted, he denied auditory or visual hallucinations and did not appear to be responding to internal stimuli. His attention span was improving. There were no signs of paranoia or hallucinations. Attention and concentration were adequate and memory was mostly reliable but selective. ? He is alert and oriented x to person and place.? Insight was poor and judgment is limited. Impulse control is limited. Vitals/I&O/Wt Last Vital Signs Temp 98.6 F 10/19/24 06:00 Pulse 67 10/19/24 06:00 Resp 18 10/19/24 06:00 BP 131/84 10/19/24 06:00 Pulse Ox 97 10/19/24 06:00 O2 Del Method Room Air 10/19/24 06:00 O2 Flow Rate 1 10/05/24 10:45 FiO2 21 10/05/24 08:16 Weight last 48 hrs Weight 85.445 kg Physical Exam 2 Urinary Catheter Management: Marino: Cath Placed During This Visit: yes, but has since been removed by the nurse Reason for Continuing Indwelling Catheter: Decision to DC Catheter Urinary Catheter Date of Insertion: 10/04/24 Urinary Catheter Time of Insertion: 17:51 Date Urinary Catheter Removed: 10/05/24 Time Urinary Catheter Discontinued: 15:53 Data NPU 10/11/24 14:55 10/11/24 14:55 A&P Assessment and plan (1) Major depressive disorder, recurrent: Qualifiers: Active/Remission status: currently active Psychotic features: with psychotic features (2) Suicidal ideation: (3) Personality disorder, unspecified: (4) Type 2 diabetes mellitus: (5) Hypertension: (6) Bereavement: (7) BROCK (generalized anxiety disorder): Plan This is a 49-year-old white male with limited past psychiatric history but recent bereavement and suicide attempt.The patient has a history of major depression and anxiety, with a recent hospitalization due to panic attacks. The patient has had two episodes of hanging self in last month and continues to appear very depressed possibly psychotic as well. 1. Continue Viibyrd 40mg daily. Wellbutrin xl 300mg in am, and invega 6mg at night. Continue Valium 5mg tid. 2. Discontinue one-to-one 3.? Work on safety plan for staff. 4.? Encourage sober living treatment after discharge at the highest level of care to which he is willing to commit. 5. Continue with hold, ECT likely to be helpful given his acuity but patient refusing. Involuntary Hold Information 2 96 Hour Hold: 96 Hour Involuntary Admission: Yes 96 Hour Hold Ending Date: 09/19/24 96 Hour Hold Ending Time: 00:01 Other Hold: Hold End Date: 01/12/25 Attestations NPU 2 Medical Necessity Statement*: Inpatient hospitalization is medically necessary and?the clinically appropriate intervention at this time.We will monitor/initiate medications and make changes as indicated.?The patient?s likely length of stay 3-4 days. Coding Level of Care Code Acute Code for g Fwd Diagnoses Major depressive disorder, recurrent F33.9 Active/Remission status: currently active Psychotic features: with psychotic features Suicidal ideation R45.851 Personality disorder, unspecified F60.9 Type 2 diabetes mellitus E11.9 Hypertension I10 Bereavement Z63.4 BROCK (generalized anxiety disorder) F41.1
[2024-10-19 14:00] VITALS: BP 130/82; PULSE 78; RESP 18; TEMP 36.6; O2SAT 97
[2024-10-19 17:35] LABS: Glucose Point of Care 106 mg/dL (70-110)
[2024-10-19 19:26] VITALS: BP 108/62; PULSE 74; RESP 18; TEMP 36.6; O2SAT 96
[2024-10-19 19:44] LABS: Glucose Point of Care 121 mg/dL (70-110)
[2024-10-19] MEDS: zolpidem 5 mg Tablet 10 MG PO (20:52)
[2024-10-19] MEDS: quetiapine 100 mg Tablet PO (20:52)
[2024-10-19] MEDS: paliperidone ER 6 mg Tablet PO (20:52)
[2024-10-19] MEDS: trazodone 50 mg Tablet PO (20:52)
[2024-10-20 06:00] VITALS: BP 143/88; PULSE 67; RESP 18; TEMP 36.5; O2SAT 98
[2024-10-20 07:23] LABS: Glucose Point of Care 100 mg/dL (70-110)
[2024-10-20] MEDS: VILAZODONE 40 MG 40 EACH PO (08:31)
[2024-10-20] MEDS: diazePAM 5 mg Tablet PO ×3 (08:32→21:07)
[2024-10-20] MEDS: buPROPion XL (24 HR) 150 mg Tablet 300 MG PO (08:32)
[2024-10-20] MEDS: aspirin 81 mg Chew Tablet PEG-TUBE (08:32)
[2024-10-20] MEDS: propranolol 20 mg Tablet PO (08:32)
[2024-10-20] MEDS: tamsulosin 0.4 mg Capsule PO (08:32)
[2024-10-20] MEDS: pantoprazole DR 40 mg Tablet PO ×2 (08:32→17:10)
[2024-10-20 11:09] LABS: Glucose Point of Care 132 mg/dL (70-110)
[2024-10-20 14:00] VITALS: BP 127/85; PULSE 67; RESP 15; TEMP 36.6; O2SAT 97
--- NOTE | 2024-10-20 15:14 | P.NPUPN_ITS ---
Subjective NPU 2 Subjective: 49-year-old male with a history of depre ssion with 2 suicide attempts during current hospitalization currently admitted after worsening depression and suicide attempt. Patient had reported that he felt less anxious. He had reported no thoughts of hurting himself. He had continued to isolate himself on the milieu but appeared more engaged in completing puzzles and reported improved concentration. He had reported that he wished to be home by Thanksgiving as he stated he was looking forward to seeing his children. Patient had reported adequate sleep at this time. He denied any feelings of hopelessness or worthlessness. Patient had appeared to show improvement in self-care while completing activities of daily living. Mental Status Exam 2 MSE Comments: This is an overweight white male in hospital scrubs with limited grooming and adequate eye contact. No abnormal movements except for moderate psychomotor retardation. He was cooperative with exam mild distress. Speech was normal in rate and volume with normal articulation. Mood described as allright. Affect appeared less restricted. Thought process was linear. Thought content: Patient denied suicidal or homicidal ideation, there were no delusions reported or noted, he denied auditory or visual hallucinations and did not appear to be responding to internal stimuli. His attention span was improving. There were no signs of paranoia or hallucinations. Attention and concentration were adequate and memory was mostly reliable but selective. ? He is alert and oriented x to person and place.? Insight was improving and judgment is limited. Impulse control appears guarded. Vitals/I&O/Wt Last Vital Signs Temp 97.9 F 10/20/24 14:00 Pulse 67 10/20/24 14:00 Resp 15 10/20/24 14:00 BP 127/85 10/20/24 14:00 Pulse Ox 97 10/20/24 14:00 O2 Del Method Room Air 10/20/24 14:00 O2 Flow Rate 1 10/05/24 10:45 FiO2 21 10/05/24 08:16 Weight last 48 hrs Weight 85.445 kg Physical Exam 2 Urinary Catheter Management: Marino: Cath Placed During This Visit: yes, but has since been removed by the nurse Reason for Continuing Indwelling Catheter: Decision to DC Catheter Urinary Catheter Date of Insertion: 10/04/24 Urinary Catheter Time of Insertion: 17:51 Date Urinary Catheter Removed: 10/05/24 Time Urinary Catheter Discontinued: 15:53 Data NPU 10/11/24 14:55 10/11/24 14:55 A&P Assessment and plan (1) Major depressive disorder, recurrent: Qualifiers: Active/Remission status: currently active Psychotic features: with psychotic features (2) Suicidal ideation: (3) Personality disorder, unspecified: (4) Type 2 diabetes mellitus: (5) Hypertension: (6) Bereavement: (7) BROCK (generalized anxiety disorder): Plan This is a 49-year-old white male with limited past psychiatric history but recent bereavement and suicide attempt.The patient has a history of major depression and anxiety, with a recent hospitalization due to panic attacks. The patient has had two episodes of hanging self in last month and continues to appear very depressed possibly psychotic as well. 1. Continue Viibyrd 40mg daily. Wellbutrin xl 300mg in am, and invega 6mg at night. Continue Valium 5mg tid. 2. Discontinue one-to-one 3.? Work on safety plan for staff. Will attempt to contact on phone and discuss safety planning with patient. 4.? Encourage sober living treatment after discharge at the highest level of care to which he is willing to commit. 5. Continue with hold, ECT likely to be helpful given his acuity but patient refusing. Involuntary Hold Information 2 96 Hour Hold: 96 Hour Involuntary Admission: Yes 96 Hour Hold Ending Date: 09/19/24 96 Hour Hold Ending Time: 00:01 Other Hold: Hold End Date: 01/12/25 Attestations NPU 2 Medical Necessity Statement*: Inpatient hospitalization is medically necessary and?the clinically appropriate intervention at this time.We will monitor/initiate medications and make changes as indicated.?The patient?s likely length of stay 3-4 days. Coding Level of Care Code Acute Code for g Fwd Diagnoses Major depressive disorder, recurrent F33.9 Active/Remission status: currently active Psychotic features: with psychotic features Suicidal ideation R45.851 Personality disorder, unspecified F60.9 Type 2 diabetes mellitus E11.9 Hypertension I10 Bereavement Z63.4 BORCK (generalized anxiety disorder) F41.1
[2024-10-20 17:07] LABS: Glucose Point of Care 83 mg/dL (70-110)
[2024-10-20 19:54] LABS: Glucose Point of Care 223 mg/dL (70-110)
[2024-10-20 19:54] LABS: Glucose Point of Care 89 mg/dL (70-110)
--- NOTE | 2024-10-20 20:10 | PC.NURSE ---
bs of 223 was incorrectly reported. aide thought she had scanned another pt wristband. initial bs of 89 is accurate.
[2024-10-20] MEDS: paliperidone ER 6 mg Tablet PO (21:07)
[2024-10-20] MEDS: zolpidem 5 mg Tablet 10 MG PO (21:11)
[2024-10-20] MEDS: quetiapine 100 mg Tablet PO (21:11)
[2024-10-20 22:00] VITALS: BP 133/79; PULSE 66; RESP 17; TEMP 36.6; O2SAT 97
[2024-10-21 06:00] VITALS: BP 99/62; PULSE 67; RESP 16; O2SAT 97
[2024-10-21 07:32] LABS: Glucose Point of Care 120 mg/dL (70-110)
[2024-10-21] MEDS: diazePAM 5 mg Tablet PO ×3 (08:06→20:39)
[2024-10-21] MEDS: aspirin 81 mg Chew Tablet PEG-TUBE (08:06)
[2024-10-21] MEDS: tamsulosin 0.4 mg Capsule PO (08:06)
[2024-10-21] MEDS: pantoprazole DR 40 mg Tablet PO ×2 (08:06→17:19)
[2024-10-21] MEDS: buPROPion XL (24 HR) 150 mg Tablet 300 MG PO (08:06)
[2024-10-21] MEDS: VILAZODONE 40 MG 40 EACH PO (08:07)
[2024-10-21 11:18] LABS: Glucose Point of Care 102 mg/dL (70-110)
[2024-10-21 14:00] VITALS: BP 129/78; PULSE 76; RESP 18; TEMP 36.6; O2SAT 97
--- NOTE | 2024-10-21 14:08 | P.NPUPN_ITS ---
Subjective NPU 2 Subjective: 49-year-old male with a history of depre ssion with 2 suicide attempts during current hospitalization currently admitted after worsening depression and suicide attempt. Patient had expressed desire to return home. He had continue to work on safety planning. He had stated that he was hopeful to return home by Thanksgiving. The patient had expressed motivation to begin psychotherapy. He was more active and able to attend group therapy and participate. He had reported feeling less anxious while taking the Valium on a routine basis. He had also reported having slept better. The patient had reported that he may encounter some tense moments when returning home as his daughter had barrier witnessed to the patient nearly hanging himself prior to this admission. Patient had reported that he felt less anxious. He had reported no thoughts of hurting himself. He had continued to isolate himself on the milieu but appeared more engaged in completing puzzles and reported improved concentration. He had reported that he wished to be home by Thanksgiving as he stated he was looking forward to seeing his children. Patient had reported adequate sleep at this time. He denied any feelings of hopelessness or worthlessness. Patient had appeared to show improvement in self-care while completing activities of daily living. Mental Status Exam 2 MSE Comments: This is an overweight white male in hospital scrubs with improved grooming and adequate eye contact. No abnormal movements except for moderate psychomotor retardation. He was cooperative with exam mild distress. Speech was normal in rate and volume with normal articulation. Mood described as good. Affect appeared less restricted. Thought process was linear. Thought content: Patient denied suicidal or homicidal ideation, there were no delusions reported or noted, he denied auditory or visual hallucinations and did not appear to be responding to internal stimuli. His attention span was improving. There were no signs of paranoia or hallucinations. Attention and concentration appeared fair. ? He is alert and oriented x to person and place and time today. ? Insight was improving and judgment is limited. Impulse control appeared better. Vitals/I&O/Wt Last Vital Signs Temp 97.9 F 10/20/24 22:00 Pulse 67 10/21/24 06:00 Resp 16 10/21/24 06:00 BP 99/62 10/21/24 06:00 Pulse Ox 97 10/21/24 06:00 O2 Del Method Room Air 10/21/24 06:00 O2 Flow Rate 1 10/05/24 10:45 FiO2 21 10/05/24 08:16 Physical Exam 2 Urinary Catheter Management: Marion: Cath Placed During This Visit: yes, but has since been removed by the nurse Reason for Continuing Indwelling Catheter: Decision to DC Catheter Urinary Catheter Date of Insertion: 10/04/24 Urinary Catheter Time of Insertion: 17:51 Date Urinary Catheter Removed: 10/05/24 Time Urinary Catheter Discontinued: 15:53 Data NPU 10/11/24 14:55 10/11/24 14:55 A&P Assessment and plan (1) Major depressive disorder, recurrent: Qualifiers: Active/Remission status: currently active Psychotic features: with psychotic features (2) Suicidal ideation: (3) Personality disorder, unspecified: (4) Type 2 diabetes mellitus: (5) Hypertension: (6) Bereavement: (7) BROCK (generalized anxiety disorder): Plan This is a 49-year-old white male with limited past psychiatric history but recent bereavement and suicide attempt.The patient has a history of major depression and anxiety, with a recent hospitalization due to panic attacks. The patient has had two episodes of hanging self in last month and continues to appear very depressed possibly psychotic as well. 1. Continue Viibyrd 40mg daily. Wellbutrin xl 300mg in am, and invega 6mg at night. Continue Valium 5mg tid. 2. Discontinue one-to-one 3.? Work on safety plan for staff. Meeting with yolette regarding returning home and safety planning. 4.? Encourage sober living treatment after discharge at the highest level of care to which he is willing to commit. 5. Continue with hold, ECT likely to be helpful given his acuity but patient refusing. Involuntary Hold Information 2 96 Hour Hold: 96 Hour Involuntary Admission: Yes 96 Hour Hold Ending Date: 09/19/24 96 Hour Hold Ending Time: 00:01 Other Hold: Hold End Date: 01/12/25 Attestations NPU 2 Medical Necessity Statement*: Inpatient hospitalization is medically necessary and?the clinically appropriate intervention at this time.We will monitor/initiate medications and make changes as indicated.?The patient?s likely length of stay 3-4 days. Coding Level of Care Code Acute Code for [facility] Fwd Diagnoses Major depressive disorder, recurrent F33.9 Active/Remission status: currently active Psychotic features: with psychotic features Suicidal ideation R45.851 Personality disorder, unspecified F60.9 Type 2 diabetes mellitus E11.9 Hypertension I10 Bereavement Z63.4 BROCK (generalized anxiety disorder) F41.1
[2024-10-21 17:17] LABS: Glucose Point of Care 104 mg/dL (70-110)
[2024-10-21 19:57] VITALS: BP 129/76; PULSE 86; RESP 16; TEMP 36.8; O2SAT 95
[2024-10-21] MEDS: zolpidem 5 mg Tablet 10 MG PO (20:39)
[2024-10-21] MEDS: quetiapine 100 mg Tablet PO (20:39)
[2024-10-21] MEDS: paliperidone ER 6 mg Tablet PO (20:39)
[2024-10-21 20:47] LABS: Glucose Point of Care 133 mg/dL (70-110)
[2024-10-22 06:00] VITALS: BP 128/91; PULSE 64; RESP 16; TEMP 37; O2SAT 98
[2024-10-22 07:48] LABS: Glucose Point of Care 119 mg/dL (70-110)
[2024-10-22] MEDS: pantoprazole DR 40 mg Tablet PO ×2 (09:10→17:41)
[2024-10-22] MEDS: buPROPion XL (24 HR) 150 mg Tablet 300 MG PO (09:10)
[2024-10-22] MEDS: VILAZODONE 40 MG 40 EACH PO (09:11)
[2024-10-22] MEDS: tamsulosin 0.4 mg Capsule PO (09:11)
[2024-10-22] MEDS: diazePAM 5 mg Tablet PO ×3 (09:11→21:00)
[2024-10-22] MEDS: aspirin 81 mg Chew Tablet PEG-TUBE (09:11)
--- NOTE | 2024-10-22 09:47 | PC.NURSE ---
PT CURRENTLY DENIES SI/HI/AH/VH. PT CURRENTLY DENIES DEPRESSION AND ANXIETY. PT STATES I AM HOPING TO GO HOME TODAY. THIS NURSE ENCOURAGED PT TO PERFORM PERSONAL HYGIENE. PT THEN TOOK A SHOWER AND CHANGED SCRUBS. PT WAS COOPERATIVE WITH ASSESSMENT AND MEDICATIONS. PT CURRENT NEEDS ARE MET AT THIS TIME.
[2024-10-22 11:27] LABS: Glucose Point of Care 109 mg/dL (70-110)
[2024-10-22 14:00] VITALS: BP 112/74; PULSE 72; RESP 18; TEMP 36.7; O2SAT 95
--- NOTE | 2024-10-22 17:10 | W.PM.NPUPNS ---
Subjective NPU Subjective: 49-year-old male with a history of depression with 2 suicide attempts during current hospitalization currently admitted after worsening depression and suicide attempt. The patient had expressed frustration with being here in the hospital. He had struggled with completion of daily activities of daily living. He had appeared more angry after his visit with his today as she had informed him that he would likely need to stay here in the hospital. The patient had reported that he had been hopeful about going home on gi. Patient had reported feeling less anxious. He reported adequate sleep. He had continued to isolate himself on the milieu and did not go to groups today. Mental Status Exam MSE Comments: This is an overweight white male in hospital scrubs with poor grooming and adequate eye contact. No abnormal movements except for moderate psychomotor retardation. He was cooperative with exam mild distress. Speech was normal in rate and volume with normal articulation. Mood described as good. Affect appeared less restricted. Thought process was linear. Thought content: Patient denied suicidal or homicidal ideation, there were no delusions reported or noted, he denied auditory or visual hallucinations and did not appear to be responding to internal stimuli. His attention span was improving. There were no signs of paranoia or hallucinations. Attention and concentration appeared fair. ? He is alert and oriented x to person and place and time today. ? Insight was improving and judgment is limited. Impulse control appeared better. Vitals/I&O/Wt Last Vital Signs Temp 98.0 F 10/22/24 14:00 Pulse 72 10/22/24 14:00 Resp 18 10/22/24 14:00 BP 112/74 10/22/24 14:00 Pulse Ox 95 10/22/24 14:00 O2 Del Method Room Air 10/22/24 14:00 O2 Flow Rate 1 10/05/24 10:45 FiO2 21 10/05/24 08:16 Physical Exam Urinary Catheter Management: Marino: Cath Placed During This Visit: yes, but has since been removed by the nurse Reason for Continuing Indwelling Catheter: Decision to DC Catheter Urinary Catheter Date of Insertion: 10/04/24 Urinary Catheter Time of Insertion: 17:51 Date Urinary Catheter Removed: 10/05/24 Time Urinary Catheter Discontinued: 15:53 Data NPU 10/11/24 14:55 10/11/24 14:55 A&P Assessment and plan (1) Major depressive disorder, recurrent: Qualifiers: Active/Remission status: currently active Psychotic features: with psychotic features (2) Suicidal ideation: (3) Personality disorder, unspecified: (4) Type 2 diabetes mellitus: (5) Hypertension: (6) Bereavement: (7) BROCK (generalized anxiety disorder): Plan This is a 49-year-old white male with limited past psychiatric history but recent bereavement and suicide attempt.The patient has a history of major depression and anxiety, with a recent hospitalization due to panic attacks. The patient has had two episodes of hanging self in last month and continues to appear very depressed possibly psychotic as well. 1. Continue Viibyrd 40mg daily. Wellbutrin xl 300mg in am, and invega 6mg at night. Continue Valium 5mg tid. 2. Discontinue one-to-one 3.? Work on safety plan for staff. Meeting with tommorow regarding returning home and safety planning. 4.? Encourage sober living treatment after discharge at the highest level of care to which he is willing to commit. 5. Continue with hold, ECT likely to be helpful given his acuity but patient refusing. 6. Met with who expressed concerns about being able to manage her at home as they are living in patient's father in laws home and he has not been accepted to return there. given information about guardianship as an option. Involuntary Hold Information 96 Hour Hold: 96 Hour Involuntary Admission: Yes 96 Hour Hold Ending Date: 09/19/24 96 Hour Hold Ending Time: 00:01 Other Hold: Hold End Date: 01/12/25 Attestations NPU Medical Necessity Statement*: Inpatient hospitalization is medically necessary and?the clinically appropriate intervention at this time.We will monitor/initiate medications and make changes as indicated.?The patient?s likely length of stay 7-8 days. Coding Level of Care Code Acute Code for [facility] Fwd Diagnoses Major depressive disorder, recurrent F33.9 Active/Remission status: currently active Psychotic features: with psychotic features Suicidal ideation R45.851 Personality disorder, unspecified F60.9 Type 2 diabetes mellitus E11.9 Hypertension I10 Bereavement Z63.4 BROCK (generalized anxiety disorder) F41.1
[2024-10-22 17:17] LABS: Glucose Point of Care 122 mg/dL (70-110)
[2024-10-22 19:33] LABS: Glucose Point of Care 110 mg/dL (70-110)
[2024-10-22 19:43] VITALS: BP 116/83; PULSE 77; RESP 18; TEMP 36.6; O2SAT 96
[2024-10-22] MEDS: quetiapine 100 mg Tablet PO (20:59)
[2024-10-22] MEDS: zolpidem 5 mg Tablet 10 MG PO (21:00)
[2024-10-22] MEDS: paliperidone ER 6 mg Tablet PO (21:00)
[2024-10-22] MEDS: OLANZapine 5 mg ODT PO (21:00)
[2024-10-22] MEDS: hyDROXYzine 25 mg Capsule 50 MG PO (21:00)
[2024-10-22] MEDS: trazodone 50 mg Tablet PO (21:00)
[2024-10-23 06:00] VITALS: BP 108/73; PULSE 73; RESP 16; TEMP 36.9; O2SAT 97
[2024-10-23 07:44] LABS: Glucose Point of Care 123 mg/dL (70-110)
--- NOTE | 2024-10-23 07:52 | PC.NURSE ---
Morning assessment Patient denies suicidal thoughts, HI, AVH, depression, and anxiety. Patient said, I just want to go home.
[2024-10-23] MEDS: tamsulosin 0.4 mg Capsule PO (09:17)
[2024-10-23] MEDS: diazePAM 5 mg Tablet PO ×3 (09:17→21:10)
[2024-10-23] MEDS: buPROPion XL (24 HR) 150 mg Tablet 300 MG PO (09:17)
[2024-10-23] MEDS: pantoprazole DR 40 mg Tablet PO ×2 (09:17→17:48)
[2024-10-23] MEDS: aspirin 81 mg Chew Tablet PO (09:17)
[2024-10-23] MEDS: VILAZODONE 40 MG 40 EACH PO (09:18)
[2024-10-23 11:38] LABS: Glucose Point of Care 108 mg/dL (70-110)
--- NOTE | 2024-10-23 11:47 | PC.NURSE ---
Per Dr. Simeon, this nurse ordered speech consult for patient to check if he is ready to have a change in his diet consistency.
[2024-10-23] MEDS: hyDROXYzine 25 mg Capsule 50 MG PO (12:03)
[2024-10-23] MEDS: haloperidol 5 mg Tablet PO ×2 (12:03→21:10)
--- NOTE | 2024-10-23 12:08 | PC.NURSE ---
Anxiety Patient reports an increase in anxiety level. This nurse offered to walk patient through a breathing treatment, but patient said that isn't going to work. This nurse offered zyprexa, patient said, I can't ever tell it's working. This nurse offered a combination of medications, which patient was willing to try. Patient also offered paper to write letters to family as a distraction. Patient declined. Administered haldol 5mg PO and vistaril 50mg PO.
--- NOTE | 2024-10-23 12:50 | P.NPUPN_ITS ---
Subjective NPU 2 Subjective: 49-year-old male with a history of depre ssion with 2 suicide attempts during his current hospitalization currently admitted after worsening depression and suicide attempt. The patient had reported continued depression. He had reported that he simply wished to leave here. He had reported that it was difficult to see his and reported that he had been surprised to learn that he was not allowed back to stay with his in laws upon discharge. The patient had been able to attend groups yesterday. He denied any thoughts of wanting to hurt himself. He had reported some struggles with self-care. He had continued to isolate himself in the room for most of the day. Patient continued to report frustration with remaining here. No side effects reported from medication. Mental Status Exam 2 MSE Comments: This is a slightly overweight white male in hospital scrubs with poor grooming and adequate eye contact. No abnormal movements except for moderate psychomotor retardation. He was cooperative with exam mild distress. Speech was normal in rate and volume with normal articulation. Mood described as allright. Affect appeared flat today. Thought process was linear. Thought content: Patient denied suicidal or homicidal ideation, there were no delusions reported or noted, he denied auditory or visual hallucinations and did not appear to be responding to internal stimuli. His attention span was improving. There were no signs of paranoia or hallucinations. Attention and concentration appeared fair. ? He is alert and oriented x to person and place and time today. ? Insight was improving and judgment is limited. Impulse control appeared fair. Vitals/I&O/Wt Last Vital Signs Temp 98.5 F 10/23/24 06:00 Pulse 73 10/23/24 06:00 Resp 16 10/23/24 06:00 BP 108/73 10/23/24 06:00 Pulse Ox 97 10/23/24 06:00 O2 Del Method Room Air 10/23/24 06:00 O2 Flow Rate 1 10/05/24 10:45 FiO2 21 10/05/24 08:16 10/22/24 10/23/24 10/23/24 22:59 06:59 14:59 Intake Total 480 / 480 Balance 480 / 480 Physical Exam 2 Urinary Catheter Management: Marino: Cath Placed During This Visit: yes, but has since been removed by the nurse Reason for Continuing Indwelling Catheter: Decision to DC Catheter Urinary Catheter Date of Insertion: 10/04/24 Urinary Catheter Time of Insertion: 17:51 Date Urinary Catheter Removed: 10/05/24 Time Urinary Catheter Discontinued: 15:53 Data NPU 10/11/24 14:55 10/11/24 14:55 A&P Assessment and plan (1) Major depressive disorder, recurrent: Qualifiers: Active/Remission status: currently active Psychotic features: with psychotic features (2) Suicidal ideation: (3) Personality disorder, unspecified: (4) Type 2 diabetes mellitus: (5) Hypertension: (6) Bereavement: (7) BROCK (generalized anxiety disorder): Plan This is a 49-year-old white male with limited past psychiatric history but recent bereavement and suicide attempt.The patient has a history of major depression and anxiety, with a recent hospitalization due to panic attacks. The patient has had two episodes of hanging self in last month and continues to appear very depressed possibly psychotic as well. 1. Continue Viibyrd 40mg daily. Wellbutrin xl 300mg in am, and invega 6mg at night. Continue Valium 5mg tid. 2. Discontinue one-to-one 3.? Work on safety plan for staff. Meeting with tommorow regarding returning home and safety planning. 4.? Encourage sober living treatment after discharge at the highest level of care to which he is willing to commit. 5. Continue with hold, ECT likely to be helpful given his acuity but patient refusing. 6. Met with who expressed concerns about being able to manage her at home as they are living in patient's father in laws home and he has not been accepted to return there. given information about guardianship as an option. Involuntary Hold Information 2 96 Hour Hold: 96 Hour Involuntary Admission: Yes 96 Hour Hold Ending Date: 09/19/24 96 Hour Hold Ending Time: 00:01 Other Hold: Hold End Date: 01/12/25 Attestations NPU 2 Medical Necessity Statement*: Inpatient hospitalization is medically necessary and?the clinically appropriate intervention at this time.We will monitor/initiate medications and make changes as indicated.?The patient?s likely length of stay 7-8 days. Coding Level of Care Code Acute Code for [facility] Fwd Diagnoses Major depressive disorder, recurrent F33.9 Active/Remission status: currently active Psychotic features: with psychotic features Suicidal ideation R45.851 Personality disorder, unspecified F60.9 Type 2 diabetes mellitus E11.9 Hypertension I10 Bereavement Z63.4 BROCK (generalized anxiety disorder) F41.1
[2024-10-23 14:00] VITALS: BP 96/63; PULSE 79; RESP 18; TEMP 36.8; O2SAT 95
[2024-10-23] MEDS: benztropine 1 mg Tablet PO (14:33)
--- NOTE | 2024-10-23 15:21 | PC.NURSE ---
Speech therapist talked with this nurse, stating to have patient practice the swallow strengthening techniques each day and to put in a repeat swallow study for Sunday to see if he can get an upgrade.
--- NOTE | 2024-10-23 15:36 | PC.SLP ---
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 Nursing requested observed symptoms to be added to patient case file by therapist.
[2024-10-23 17:12] LABS: Glucose Point of Care 100 mg/dL (70-110)
[2024-10-23 19:10] LABS: Glucose Point of Care 93 mg/dL (70-110)
[2024-10-23 20:15] VITALS: BP 105/68; PULSE 95; RESP 18; TEMP 36.4; O2SAT 96
[2024-10-23] MEDS: paliperidone ER 6 mg Tablet PO (21:10)
[2024-10-23] MEDS: trazodone 50 mg Tablet PO (21:10)
[2024-10-23] MEDS: quetiapine 100 mg Tablet PO (21:10)
[2024-10-23] MEDS: zolpidem 5 mg Tablet 10 MG PO (21:10)
[2024-10-24 06:00] VITALS: BP 116/81; PULSE 70; RESP 16; TEMP 36.4; O2SAT 96
[2024-10-24 07:24] LABS: Glucose Point of Care 186 mg/dL (70-110)
[2024-10-24] MEDS: VILAZODONE 40 MG 40 EACH PO (08:00)
[2024-10-24] MEDS: aspirin 81 mg Chew Tablet PO (08:00)
[2024-10-24] MEDS: diazePAM 5 mg Tablet PO ×3 (08:00→22:00)
[2024-10-24] MEDS: buPROPion XL (24 HR) 150 mg Tablet 300 MG PO (08:00)
[2024-10-24] MEDS: tamsulosin 0.4 mg Capsule PO (08:00)
[2024-10-24] MEDS: pantoprazole DR 40 mg Tablet PO ×2 (08:00→17:08)
--- NOTE | 2024-10-24 08:00 | PC.NURSE ---
asked pt if he wanted to eat breakfast this morning. pt stated he did not want to eat this morning. supercharger repair supervisor notified.
--- NOTE | 2024-10-24 10:32 | P.NPUPN_ITS ---
Subjective NPU 2 Subjective: 49-year-old male with a history of depre ssion with 2 suicide attempts during his current hospitalization currently admitted after worsening depression and suicide attempt. The patient had minimized suicidality. He had shown evidence of some decline in self-care over the last few days with the patient spending time in his room and not engaging with others. He was able to attend groups today. He had not endorsed any feelings of hopelessness. He had reported improved concentration and decreased anxiety. He had reported that he was motivated to get better and improve his relationship with his family members and friends. He had expressed some desire to return back to work when he was better. Mental Status Exam 2 MSE Comments: This is a slightly overweight white male in hospital scrubs with poor grooming and adequate eye contact. He appeared apathetic and unmotivated. No abnormal movements except for moderate psychomotor retardation. He was cooperative with exam mild distress. Speech was normal in rate and volume with normal articulation. Mood described as okay. Affect appeared remained flat. Thought process was linear. Thought content: Patient denied suicidal or homicidal ideation, there were no delusions reported or noted, he denied auditory or visual hallucinations and did not appear to be responding to internal stimuli. His attention span was improving. There were no signs of paranoia or hallucinations. Attention and concentration appeared fair. ? He is alert and oriented x to person and place and time today. ? Insight was improving and judgment is limited. Impulse control appeared guarded. Vitals/I&O/Wt Last Vital Signs Temp 97.6 F 10/24/24 06:00 Pulse 70 10/24/24 06:00 Resp 16 10/24/24 06:00 BP 116/81 10/24/24 06:00 Pulse Ox 96 10/24/24 06:00 O2 Del Method Room Air 10/24/24 06:00 O2 Flow Rate 1 10/05/24 10:45 FiO2 21 10/05/24 08:16 10/23/24 10/24/24 10/24/24 22:59 06:59 14:59 Intake Total 720 / 720 Output Total 300 / 300 Balance 420 / 420 Physical Exam 2 Urinary Catheter Management: Marino: Cath Placed During This Visit: yes, but has since been removed by the nurse Reason for Continuing Indwelling Catheter: Decision to DC Catheter Urinary Catheter Date of Insertion: 10/04/24 Urinary Catheter Time of Insertion: 17:51 Date Urinary Catheter Removed: 10/05/24 Time Urinary Catheter Discontinued: 15:53 Data NPU 10/11/24 14:55 10/11/24 14:55 A&P Assessment and plan (1) Major depressive disorder, recurrent: Qualifiers: Active/Remission status: currently active Psychotic features: with psychotic features (2) Suicidal ideation: (3) Personality disorder, unspecified: (4) Type 2 diabetes mellitus: (5) Hypertension: (6) Bereavement: (7) BROCK (generalized anxiety disorder): Plan This is a 49-year-old white male with limited past psychiatric history but recent bereavement and suicide attempt.The patient has a history of major depression and anxiety, with a recent hospitalization due to panic attacks. The patient has had two episodes of hanging self in last month and continues to appear very depressed possibly psychotic as well. 1. Continue Viibyrd 40mg daily. Wellbutrin xl 300mg in am, and invega 6mg at night. Continue Valium 5mg tid. 2. Discontinue one-to-one 3.? Work on safety plan for staff. Meeting with tommorow regarding returning home and safety planning. 4.? Encourage sober living treatment after discharge at the highest level of care to which he is willing to commit. 5. Continue with hold, ECT likely to be helpful given his acuity but patient refusing. 6. Met with who expressed concerns about being able to manage her at home as they are living in patient's father in laws home and he has not been accepted to return there. given information about guardianship as an option. Involuntary Hold Information 2 96 Hour Hold: 96 Hour Involuntary Admission: Yes 96 Hour Hold Ending Date: 09/19/24 96 Hour Hold Ending Time: 00:01 Other Hold: Hold End Date: 01/12/25 Attestations NPU 2 Medical Necessity Statement*: Inpatient hospitalization is medically necessary and?the clinically appropriate intervention at this time.We will monitor/initiate medications and make changes as indicated.?The patient?s likely length of stay 7-8 days. Coding Level of Care Code Acute Code for [facility] Fwd Diagnoses Major depressive disorder, recurrent F33.9 Active/Remission status: currently active Psychotic features: with psychotic features Suicidal ideation R45.851 Personality disorder, unspecified F60.9 Type 2 diabetes mellitus E11.9 Hypertension I10 Bereavement Z63.4 BROCK (generalized anxiety disorder) F41.1
[2024-10-24 11:28] LABS: Glucose Point of Care 181 mg/dL (70-110)
[2024-10-24] MEDS: insulin lispro 100 unit/1 mL SUBCUT (12:16)
[2024-10-24 14:00] VITALS: BP 115/75; PULSE 72; RESP 16; TEMP 36.4; O2SAT 96
[2024-10-24 17:11] LABS: Glucose Point of Care 81 mg/dL (70-110)
[2024-10-24 20:06] LABS: Glucose Point of Care 99 mg/dL (70-110)
[2024-10-24 21:31] VITALS: BP 112/76; PULSE 68; RESP 16; TEMP 36.6; O2SAT 98
[2024-10-24] MEDS: quetiapine 100 mg Tablet PO (22:00)
[2024-10-24] MEDS: haloperidol 5 mg Tablet PO (22:00)
[2024-10-24] MEDS: trazodone 50 mg Tablet PO (22:00)
[2024-10-24] MEDS: zolpidem 5 mg Tablet 10 MG PO (22:00)
[2024-10-24] MEDS: paliperidone ER 6 mg Tablet PO (22:00)
[2024-10-25 05:16] VITALS: BP 118/71; PULSE 68; RESP 16; TEMP 36.3; O2SAT 97
[2024-10-25 07:24] LABS: Glucose Point of Care 96 mg/dL (70-110)
[2024-10-25] MEDS: aspirin 81 mg Chew Tablet PO (08:27)
[2024-10-25] MEDS: pantoprazole DR 40 mg Tablet PO ×2 (08:27→17:17)
[2024-10-25] MEDS: VILAZODONE 40 MG 40 EACH PO (08:27)
[2024-10-25] MEDS: tamsulosin 0.4 mg Capsule PO (08:27)
[2024-10-25] MEDS: buPROPion XL (24 HR) 150 mg Tablet 300 MG PO (08:27)
[2024-10-25] MEDS: diazePAM 5 mg Tablet PO ×3 (08:27→20:43)
[2024-10-25 11:27] LABS: Glucose Point of Care 98 mg/dL (70-110)
[2024-10-25 14:00] VITALS: BP 108/70; PULSE 82; RESP 17; TEMP 36.6; O2SAT 93
[2024-10-25 16:46] LABS: Glucose Point of Care 128 mg/dL (70-110)
--- NOTE | 2024-10-25 17:55 | P.NPUPN_ITS ---
Subjective NPU 2 Subjective: Patient presented today reporting that things have been going fairly well since we last saw 1 another. He reports to the treatment team has been working on assisting him in finding housing. We discussed reviewing his records to identify the status of this but that we would resume any of these processes on Sunday when the social work team returns. He denied any new problems or any side effects to his medication. Mental Status Exam 2 MSE Comments: This is an overweight white male in hospital scrubs with limited grooming and adequate eye contact. No abnormal movements except for mild psychomotor retardation. Mostly cooperative with exam in mild distress. Speech was decreased rate and volume. Mood described as feeling better, affect congruent, but subdued. Thought process linear. Thought content: Patient denied suicidal or homicidal ideation, there were no delusions reported or noted, he denied auditory or visual hallucinations. His attention span was poor. There were no signs of paranoia or hallucinations. Attention and concentration were adequate and memory was mostly reliable but none were formally tested.? He is alert and oriented x to person and place.? Insight was poor and judgment is limited. Impulse control is poor. Vitals/I&O/Wt Last Vital Signs Temp 97.9 F 10/25/24 14:00 Pulse 82 10/25/24 14:00 Resp 17 10/25/24 14:00 BP 108/70 10/25/24 14:00 Pulse Ox 93 10/25/24 14:00 O2 Del Method Room Air 10/25/24 14:00 O2 Flow Rate 1 10/05/24 10:45 FiO2 21 10/05/24 08:16 10/25/24 10/25/24 10/25/24 06:59 14:59 22:59 Intake Total 720 / 720 720 / 1440 Output Total 300 / 300 300 / 600 Balance 420 / 420 420 / 840 Physical Exam 2 Urinary Catheter Management: Marino: Cath Placed During This Visit: yes, but has since been removed by the nurse Reason for Continuing Indwelling Catheter: Decision to DC Catheter Urinary Catheter Date of Insertion: 10/04/24 Urinary Catheter Time of Insertion: 17:51 Date Urinary Catheter Removed: 10/05/24 Time Urinary Catheter Discontinued: 15:53 Data NPU 10/11/24 14:55 10/11/24 14:55 A&P Assessment and plan (1) Major depressive disorder, recurrent: Qualifiers: Active/Remission status: currently active Psychotic features: with psychotic features (2) Suicidal ideation: (3) Personality disorder, unspecified: (4) Type 2 diabetes mellitus: (5) Hypertension: (6) Bereavement: (7) BROCK (generalized anxiety disorder): Plan This is a 49-year-old white male with limited past psychiatric history but recent bereavement and suicide attempt.The patient has a history of major depression and anxiety, with a recent hospitalization due to panic attacks. The patient has had two episodes of hanging self in last month and continues to appear very depressed possibly psychotic as well. 1. Continue Viibyrd 40mg daily. Wellbutrin xl 300mg in am, and invega 6mg at night. Continue Valium 5mg tid. 2. Discontinue one-to-one 3.? Work on safety plan for staff. Meeting with tommorow regarding returning home and safety planning. 4.? Encourage sober living treatment after discharge at the highest level of care to which he is willing to commit. 5. Continue with hold, ECT likely to be helpful given his acuity but patient refusing. 6. Met with who expressed concerns about being able to manage her at home as they are living in patient's father in laws home and he has not been accepted to return there. given information about guardianship as an option. Involuntary Hold Information 2 96 Hour Hold: 96 Hour Involuntary Admission: Yes 96 Hour Hold Ending Date: 09/19/24 96 Hour Hold Ending Time: 00:01 Other Hold: Hold End Date: 01/12/25 Attestations NPU 2 Medical Necessity Statement*: Inpatient hospitalization is medically necessary and?the clinically appropriate intervention at this time.We will monitor/initiate medications and make changes as indicated.?The patient?s likely length of stay 7-8 days. Coding Level of Care Code Acute Code for [facility] Fwd Diagnoses Major depressive disorder, recurrent F33.9 Active/Remission status: currently active Psychotic features: with psychotic features Suicidal ideation R45.851 Personality disorder, unspecified F60.9 Type 2 diabetes mellitus E11.9 Hypertension I10 Bereavement Z63.4 BROCK (generalized anxiety disorder) F41.1
[2024-10-25 19:36] VITALS: BP 93/60; PULSE 88; RESP 18; TEMP 36.3; O2SAT 96
[2024-10-25 19:38] LABS: Glucose Point of Care 259 mg/dL (70-110)
[2024-10-25] MEDS: insulin lispro 100 unit/1 mL SUBCUT (20:42)
[2024-10-25] MEDS: zolpidem 5 mg Tablet 10 MG PO (20:43)
[2024-10-25] MEDS: trazodone 50 mg Tablet PO (20:43)
[2024-10-25] MEDS: paliperidone ER 6 mg Tablet PO (20:43)
[2024-10-25] MEDS: quetiapine 100 mg Tablet PO (20:43)
[2024-10-26 06:00] VITALS: BP 98/60; PULSE 78; RESP 16; TEMP 36.8; O2SAT 97
[2024-10-26 07:34] LABS: Glucose Point of Care 213 mg/dL (70-110)
[2024-10-26] MEDS: insulin lispro 100 unit/1 mL SUBCUT (07:40)
[2024-10-26] MEDS: zolpidem 5 mg Tablet 10 MG PO (08:30)
[2024-10-26] MEDS: pantoprazole DR 40 mg Tablet PO ×2 (10:06→17:30)
[2024-10-26] MEDS: aspirin 81 mg Chew Tablet PO (10:06)
[2024-10-26] MEDS: buPROPion XL (24 HR) 150 mg Tablet 300 MG PO (10:06)
[2024-10-26] MEDS: diazePAM 5 mg Tablet PO ×3 (10:06→20:28)
[2024-10-26] MEDS: VILAZODONE 40 MG 40 EACH PO (10:06)
[2024-10-26] MEDS: tamsulosin 0.4 mg Capsule PO (10:06)
--- NOTE | 2024-10-26 11:13 | P.NPUPN_ITS ---
Subjective NPU 2 Subjective: Patient presented today reporting that he is doing better he feels. He did have 1 complaint regarding his food. He requested that maybe it be given the bigger chunks. However further conversation led to the possibility that he was more thinking about the volume and not being very feeling. We discussed the likelihood of being able to increase the volume but not sure if we could safely increase to size or texture. He denied any side effects of medication. Mental Status Exam 2 MSE Comments: This is an overweight white male in hospital scrubs with limited grooming and adequate eye contact. No abnormal movements except for mild psychomotor retardation. Mostly cooperative with exam in mild distress. Speech was decreased rate and volume. Mood described as feeling better, affect congruent, but subdued. Thought process linear. Thought content: Patient denied suicidal or homicidal ideation, there were no delusions reported or noted, he denied auditory or visual hallucinations. His attention span was poor. There were no signs of paranoia or hallucinations. Attention and concentration were adequate and memory was mostly reliable but none were formally tested.? He is alert and oriented x to person and place.? Insight was poor and judgment is limited. Impulse control is poor. Vitals/I&O/Wt Last Vital Signs Temp 98.3 F 10/26/24 06:00 Pulse 78 10/26/24 06:00 Resp 16 10/26/24 06:00 BP 98/60 10/26/24 06:00 Pulse Ox 97 10/26/24 06:00 O2 Del Method Room Air 10/26/24 06:00 O2 Flow Rate 1 10/05/24 10:45 FiO2 21 10/05/24 08:16 10/25/24 10/26/24 10/26/24 22:59 06:59 14:59 Intake Total 720 / 1440 Output Total 300 / 600 Balance 420 / 840 Weight last 48 hrs Weight 88.088 kg Physical Exam 2 Urinary Catheter Management: Marino: Cath Placed During This Visit: yes, but has since been removed by the nurse Reason for Continuing Indwelling Catheter: Decision to DC Catheter Urinary Catheter Date of Insertion: 10/04/24 Urinary Catheter Time of Insertion: 17:51 Date Urinary Catheter Removed: 10/05/24 Time Urinary Catheter Discontinued: 15:53 Data NPU 10/11/24 14:55 10/11/24 14:55 A&P Assessment and plan (1) Major depressive disorder, recurrent: Qualifiers: Active/Remission status: currently active Psychotic features: with psychotic features (2) Suicidal ideation: (3) Personality disorder, unspecified: (4) Type 2 diabetes mellitus: (5) Hypertension: (6) Bereavement: (7) BROCK (generalized anxiety disorder): Plan This is a 49-year-old white male with limited past psychiatric history but recent bereavement and suicide attempt.The patient has a history of major depression and anxiety, with a recent hospitalization due to panic attacks. The patient has had two episodes of hanging self in last month and continues to appear very depressed possibly psychotic as well. 1. Continue Viibyrd 40mg daily. Wellbutrin xl 300mg in am, and invega 6mg at night. Continue Valium 5mg tid. 2. Discontinue one-to-one 3.? Work on safety plan for staff. 4.? Encourage sober living treatment after discharge at the highest level of care to which he is willing to commit. 5. Continue with hold, ECT likely to be helpful given his acuity but patient refusing. 6. Met with who expressed concerns about being able to manage her at home as they are living in patient's father in laws home and he has not been accepted to return there. given information about guardianship as an option. 7. Will speak with nutrition about food arrangement and possibly do double portions. Involuntary Hold Information 2 96 Hour Hold: 96 Hour Involuntary Admission: Yes 96 Hour Hold Ending Date: 09/19/24 96 Hour Hold Ending Time: 00:01 Other Hold: Hold End Date: 01/12/25 Attestations NPU 2 Medical Necessity Statement*: Inpatient hospitalization is medically necessary and?the clinically appropriate intervention at this time.We will monitor/initiate medications and make changes as indicated.?The patient?s likely length of stay 7-8 days. Coding Level of Care Code Acute Code for g Fwd Diagnoses Major depressive disorder, recurrent F33.9 Active/Remission status: currently active Psychotic features: with psychotic features Suicidal ideation R45.851 Personality disorder, unspecified F60.9 Type 2 diabetes mellitus E11.9 Hypertension I10 Bereavement Z63.4 BROCK (generalized anxiety disorder) F41.1
[2024-10-26 11:28] LABS: Glucose Point of Care 127 mg/dL (70-110)
[2024-10-26 13:54] VITALS: BP 101/67; PULSE 78; RESP 16; TEMP 36.8; O2SAT 95
[2024-10-26 17:07] LABS: Glucose Point of Care 90 mg/dL (70-110)
[2024-10-26 19:36] LABS: Glucose Point of Care 103 mg/dL (70-110)
[2024-10-26 19:45] VITALS: BP 155/85; PULSE 76; RESP 18; TEMP 36.6; O2SAT 96
[2024-10-26] MEDS: trazodone 50 mg Tablet PO (20:27)
[2024-10-26] MEDS: quetiapine 100 mg Tablet PO (20:28)
[2024-10-26] MEDS: paliperidone ER 6 mg Tablet PO (20:28)
[2024-10-26 22:35] VITALS: BP 107/73; PULSE 75; O2SAT 95
[2024-10-27 04:38] VITALS: BP 111/73; PULSE 68; RESP 16; O2SAT 95
[2024-10-27 07:45] LABS: Glucose Point of Care 94 mg/dL (70-110)
[2024-10-27] MEDS: buPROPion XL (24 HR) 150 mg Tablet 300 MG PO (08:25)
[2024-10-27] MEDS: tamsulosin 0.4 mg Capsule PO (08:25)
[2024-10-27] MEDS: diazePAM 5 mg Tablet PO ×3 (08:25→20:17)
[2024-10-27] MEDS: aspirin 81 mg Chew Tablet PO (08:25)
[2024-10-27] MEDS: VILAZODONE 40 MG 40 EACH PO (08:25)
[2024-10-27] MEDS: pantoprazole DR 40 mg Tablet PO ×2 (08:25→17:08)
--- NOTE | 2024-10-27 11:15 | P.NPUPN_ITS ---
Subjective NPU 2 Subjective: Patient presented today reporting that he is doing fine. Attempted to have a conversation about making sure that his family is prepared to manage him when he returns home and he had no interest in what that difficulty might be. He spent the time talking about how his children said they wanted him back home. We discussed the fact that that is what children should want. Attempted to speak about the concerns raised by his related to the changes they have had to make because of his inability to be a contributor and he seem to not get that point. He was fully focused on going home and not what challenges him being home might present. He denied any side effects to his medication and reported wanting to get home as soon as possible. He denied any side effects to the medication. Mental Status Exam 2 MSE Comments: This is an overweight white male in hospital scrubs with limited grooming and adequate eye contact. No abnormal movements except for mild psychomotor retardation. Mostly cooperative with exam in mild distress. Speech was decreased rate and volume. Mood described as feeling better, affect congruent, but subdued. Thought process linear. Thought content: Patient denied suicidal or homicidal ideation, there were no delusions reported or noted, he denied auditory or visual hallucinations. His attention span was poor. There were no signs of paranoia or hallucinations. Attention and concentration were adequate and memory was mostly reliable but none were formally tested.? He is alert and oriented x to person and place.? Insight was poor and judgment is limited. Impulse control is poor. Vitals/I&O/Wt Last Vital Signs Temp 97.9 F 10/26/24 19:45 Pulse 68 10/27/24 04:38 Resp 16 10/27/24 04:38 BP 111/73 10/27/24 04:38 Pulse Ox 95 10/27/24 04:38 O2 Del Method Room Air 10/27/24 04:38 O2 Flow Rate 1 10/05/24 10:45 FiO2 21 10/05/24 08:16 Weight last 48 hrs Weight 88.088 kg Physical Exam 2 Urinary Catheter Management: Marino: Cath Placed During This Visit: yes, but has since been removed by the nurse Reason for Continuing Indwelling Catheter: Decision to DC Catheter Urinary Catheter Date of Insertion: 10/04/24 Urinary Catheter Time of Insertion: 17:51 Date Urinary Catheter Removed: 10/05/24 Time Urinary Catheter Discontinued: 15:53 Data NPU 10/11/24 14:55 11/16/24 14:55 A&P Assessment and plan (1) Major depressive disorder, recurrent: Qualifiers: Active/Remission status: currently active Psychotic features: with psychotic features (2) Suicidal ideation: (3) Personality disorder, unspecified: (4) Type 2 diabetes mellitus: (5) Hypertension: (6) Bereavement: (7) BROCK (generalized anxiety disorder): Plan This is a 49-year-old white male with limited past psychiatric history but recent bereavement and suicide attempt.The patient has a history of major depression and anxiety, with a recent hospitalization due to panic attacks. The patient has had two episodes of hanging self in last month and continues to appear very depressed possibly psychotic as well. 1. Continue Viibyrd 40mg daily. Wellbutrin xl 300mg in am, and invega 6mg at night. Continue Valium 5mg tid. 2. Discontinue one-to-one 3.? Work on safety plan for staff. 4.? Encourage sober living treatment after discharge at the highest level of care to which he is willing to commit. 5. Continue with hold, ECT likely to be helpful given his acuity but patient refusing. 6. Met with who expressed concerns about being able to manage her at home as they are living in patient's father in laws home and he has not been accepted to return there. given information about guardianship as an option. 7. Will speak with nutrition about food arrangement and possibly do double portions. Involuntary Hold Information 2 96 Hour Hold: 96 Hour Involuntary Admission: Yes 96 Hour Hold Ending Date: 09/19/24 96 Hour Hold Ending Time: 00:01 Other Hold: Hold End Date: 01/12/25 Attestations NPU 2 Medical Necessity Statement*: Inpatient hospitalization is medically necessary and?the clinically appropriate intervention at this time.We will monitor/initiate medications and make changes as indicated.?The patient?s likely length of stay 7-8 days. Coding Level of Care Code Acute Code for Chg Fwd Diagnoses Major depressive disorder, recurrent F33.9 Active/Remission status: currently active Psychotic features: with psychotic features Suicidal ideation R45.851 Personality disorder, unspecified F60.9 Type 2 diabetes mellitus E11.9 Hypertension I10 Bereavement Z63.4 BROCK (generalized anxiety disorder) F41.1
[2024-10-27 11:52] LABS: Glucose Point of Care 93 mg/dL (70-110)
[2024-10-27 13:57] VITALS: BP 94/55; PULSE 77; RESP 16; TEMP 37.1; O2SAT 93
--- NOTE | 2024-10-27 17:03 | PC.NURSE ---
SPEECH THERAPIST CONTACTED THIS NURSE ABOUT ORDERS PLACED FOR REPEAT SWALLOW STUDY. DUE TO PREVIOUSLY REPEATING STUDY AND DIFFERENT PROVIDER PERFORMING STUDY A SEPARATE TIME BOTH THERAPISTS AGREE THAT IT IS NOT APPROPRIATE FOR THEM TO MOVE PT DIET FORWARD AT THIS TIME WITHOUT FURTHER EVALUATION. THIS NURSE PLACED THERAPIST ON HOLD AND SPOKE WITH PHYSICIAN ABOUT SPEECH THERAPIST CONCERNS. PHYSICIAN CURRENTLY UNDERSTANDS THIS THERAPIST CONCERNS AND INFORMED ME TO LET THE SPEECH THERAPIST KNOW TO NOTE THAT HE ALERTED NURSE AND PHYSICIAN AND TO NOT PROCEDURE WITH ADDITIONAL BEDSIDE SWALLOW STUDY.
[2024-10-27 17:05] LABS: Glucose Point of Care 92 mg/dL (70-110)
--- NOTE | 2024-10-27 17:05 | PC.SLP ---
Spoke with Eliza, Mr. Jerez's nurse, regarding Mr. Ramesh swallowing ability and need for repeat MBS before advancing diet. I am not comfortable advancing the patient's diet without a repeat modified barium swallow study or EGD/upper endoscopy due to the patient's past coughing/choking episode and then a subsequent choking/asphyxiation episode related to oral intake. Eliza discussed with Dr. Mcgraw, and OUTREACH WORKER is holding off on bedside reassessment at this time until decision is made about repeat instrumental study. No new orders at this time.
[2024-10-27 19:53] LABS: Glucose Point of Care 128 mg/dL (70-110)
[2024-10-27] MEDS: quetiapine 100 mg Tablet PO (20:17)
[2024-10-27] MEDS: trazodone 50 mg Tablet PO (20:17)
[2024-10-27] MEDS: paliperidone ER 6 mg Tablet PO (20:17)
[2024-10-27] MEDS: zolpidem 5 mg Tablet 10 MG PO (20:17)
[2024-10-27 21:40] VITALS: BP 126/83; PULSE 75; RESP 18; TEMP 36.6; O2SAT 95
[2024-10-28 06:00] VITALS: BP 122/81; PULSE 75; RESP 18; TEMP 36.9; O2SAT 97
[2024-10-28 07:08] LABS: Glucose Point of Care 105 mg/dL (70-110)
[2024-10-28] MEDS: diazePAM 5 mg Tablet PO ×3 (08:23→21:07)
[2024-10-28] MEDS: buPROPion XL (24 HR) 150 mg Tablet 300 MG PO (08:23)
[2024-10-28] MEDS: pantoprazole DR 40 mg Tablet PO ×2 (08:24→21:08)
[2024-10-28] MEDS: aspirin 81 mg Chew Tablet PO (08:24)
[2024-10-28] MEDS: tamsulosin 0.4 mg Capsule PO (08:24)
[2024-10-28] MEDS: VILAZODONE 40 MG 40 EACH PO (08:24)
[2024-10-28 11:18] LABS: Glucose Point of Care 106 mg/dL (70-110)
[2024-10-28 14:00] VITALS: BP 94/60; PULSE 79; RESP 18; TEMP 36.6; O2SAT 92
[2024-10-28 16:59] LABS: Glucose Point of Care 115 mg/dL (70-110)
--- NOTE | 2024-10-28 18:17 | P.NPUPN_ITS ---
Subjective NPU 2 Subjective: Patient presented today reporting that he is feeling some improvement. He discussed talking with his and we discussed his and the social work team connecting and discussing discharge plans. We agreed that we would meet in the morning and find out if there has been any productive conversation and begin to try to put the live a clear picture of when he would be leaving. He denied any side effects to the medication. Mental Status Exam 2 MSE Comments: This is an overweight white male in hospital scrubs with limited grooming and adequate eye contact. No abnormal movements except for mild psychomotor retardation. Mostly cooperative with exam in mild distress. Speech was decreased rate and volume. Mood described as feeling better, affect congruent, but subdued. Thought process linear. Thought content: Patient denied suicidal or homicidal ideation, there were no delusions reported or noted, he denied auditory or visual hallucinations. His attention span was poor. There were no signs of paranoia or hallucinations. Attention and concentration were adequate and memory was mostly reliable but none were formally tested.? He is alert and oriented x to person and place.? Insight was poor and judgment is limited. Impulse control is poor. Vitals/I&O/Wt Last Vital Signs Temp 98.2 F 10/28/24 20:29 Pulse 70 10/28/24 20:29 Resp 18 10/28/24 20:29 BP 111/69 10/28/24 20:29 Pulse Ox 95 10/28/24 20:29 O2 Del Method Room Air 10/28/24 20:29 O2 Flow Rate 1 10/05/24 10:45 FiO2 21 10/05/24 08:16 10/28/24 10/28/24 10/29/24 14:59 22:59 06:59 Intake Total 720 / 720 Output Total 300 / 300 Balance 420 / 420 Physical Exam 2 Urinary Catheter Management: Marino: Cath Placed During This Visit: yes, but has since been removed by the nurse Reason for Continuing Indwelling Catheter: Decision to DC Catheter Urinary Catheter Date of Insertion: 10/04/24 Urinary Catheter Time of Insertion: 17:51 Date Urinary Catheter Removed: 10/05/24 Time Urinary Catheter Discontinued: 15:53 Data NPU 10/11/24 14:55 10/11/24 14:55 A&P Assessment and plan (1) Major depressive disorder, recurrent: Qualifiers: Active/Remission status: currently active Psychotic features: with psychotic features (2) Suicidal ideation: (3) Personality disorder, unspecified: (4) Type 2 diabetes mellitus: (5) Hypertension: (6) Bereavement: (7) BROCK (generalized anxiety disorder): Plan This is a 49-year-old white male with limited past psychiatric history but recent bereavement and suicide attempt.The patient has a history of major depression and anxiety, with a recent hospitalization due to panic attacks. The patient has had two episodes of hanging self in last month and continues to appear very depressed possibly psychotic as well. 1. Continue Viibyrd 40mg daily. Wellbutrin xl 300mg in am, and invega 6mg at night. Continue Valium 5mg tid. 2. Discontinue one-to-one 3.? Work on safety plan for staff. 4.? Encourage sober living treatment after discharge at the highest level of care to which he is willing to commit. 5. Continue with hold, ECT likely to be helpful given his acuity but patient refusing. 6. Met with who expressed concerns about being able to manage her at home as they are living in patient's father in laws home and he has not been accepted to return there. given information about guardianship as an option. 7. Will speak with nutrition about food arrangement and possibly do double portions. Involuntary Hold Information 2 96 Hour Hold: 96 Hour Involuntary Admission: Yes 96 Hour Hold Ending Date: 09/19/24 96 Hour Hold Ending Time: 00:01 Other Hold: Hold End Date: 01/12/25 Attestations NPU 2 Medical Necessity Statement*: Inpatient hospitalization is medically necessary and?the clinically appropriate intervention at this time.We will monitor/initiate medications and make changes as indicated.?The patient?s likely length of stay 6-7 days. Coding Level of Care Code Acute Code for Chg Fwd Diagnoses Major depressive disorder, recurrent F33.9 Active/Remission status: currently active Psychotic features: with psychotic features Suicidal ideation R45.851 Personality disorder, unspecified F60.9 Type 2 diabetes mellitus E11.9 Hypertension I10 Bereavement Z63.4 BROCK (generalized anxiety disorder) F41.1
[2024-10-28 20:19] LABS: Glucose Point of Care 113 mg/dL (70-110)
[2024-10-28 20:29] VITALS: BP 111/69; PULSE 70; RESP 18; TEMP 36.8; O2SAT 95
[2024-10-28] MEDS: quetiapine 100 mg Tablet PO (21:06)
[2024-10-28] MEDS: trazodone 50 mg Tablet PO (21:07)
[2024-10-28] MEDS: zolpidem 5 mg Tablet 10 MG PO (21:07)
[2024-10-28] MEDS: paliperidone ER 6 mg Tablet PO (21:08)
[2024-10-29 06:00] VITALS: BP 110/81; PULSE 70; RESP 18; O2SAT 97
[2024-10-29 07:49] LABS: Glucose Point of Care 110 mg/dL (70-110)
[2024-10-29] MEDS: diazePAM 5 mg Tablet PO ×3 (08:13→21:52)
[2024-10-29] MEDS: buPROPion XL (24 HR) 150 mg Tablet 300 MG PO (08:13)
[2024-10-29] MEDS: aspirin 81 mg Chew Tablet PO (08:13)
[2024-10-29] MEDS: VILAZODONE 40 MG 40 EACH PO (08:13)
[2024-10-29] MEDS: propranolol 20 mg Tablet PO (08:14)
[2024-10-29] MEDS: pantoprazole DR 40 mg Tablet PO ×2 (08:14→16:50)
[2024-10-29] MEDS: tamsulosin 0.4 mg Capsule PO (08:14)
--- NOTE | 2024-10-29 08:42 | PC.NURSE ---
IN BED RESTING, AROUSES TO VOICE. PT CONTINUES TO HAVE A FLAT AFFECT AND DEPRESSED MOOD. SPEECH IS DELAYED, LOW TONE BUT CLEAR. DENIES PAIN. DENIES SI/HI AND AVH AT THIS TIME. RATES ANXIETY AND DEPRESSION 0/10. REPORTS HE SLEPT GOOD LAST NIGHT. PT THEN CAME UP TO NURSES STATION STATING HE WAS ANXIOUS. PROPANOLOL 20 MG WAS GIVEN ORDERED FOR INCREASED ANXIETY. PT DID GET UP TO EAT BUT THE WENT BACK TO BED TO REST. PT IS NOTE TO BE WITHDRAWN AND ISOLATES TO ROOM.
[2024-10-29 11:36] LABS: Glucose Point of Care 111 mg/dL (70-110)
[2024-10-29 14:00] VITALS: BP 100/67; PULSE 73; RESP 15; TEMP 36.3; O2SAT 94
[2024-10-29 16:41] LABS: Glucose Point of Care 77 mg/dL (70-110)
[2024-10-29 17:55] LABS: Glucose Point of Care 147 mg/dL (70-110)
--- NOTE | 2024-10-29 17:58 | P.NPUPN_ITS ---
Subjective NPU 2 Subjective: Patient presented today reporting that he is doing fine. He continues to work with the social work team and his about having a safe place for him to go when he leaves. He identified that he is feeling better continues to deny any lethality or side effects to medication. Mental Status Exam 2 MSE Comments: This is an overweight white male in hospital scrubs with limited grooming and adequate eye contact. No abnormal movements except for mild psychomotor retardation. Mostly cooperative with exam in mild distress. Speech was decreased rate and volume. Mood described as feeling better, affect congruent, but subdued. Thought process linear. Thought content: Patient denied suicidal or homicidal ideation, there were no delusions reported or noted, he denied auditory or visual hallucinations. His attention span was poor. There were no signs of paranoia or hallucinations. Attention and concentration were adequate and memory was mostly reliable but none were formally tested.? He is alert and oriented x to person and place.? Insight was poor and judgment is limited. Impulse control is poor. Vitals/I&O/Wt Last Vital Signs Temp 97.4 F L 10/29/24 14:00 Pulse 73 10/29/24 14:00 Resp 15 10/29/24 14:00 BP 100/67 10/29/24 14:00 Pulse Ox 94 10/29/24 14:00 O2 Del Method Room Air 10/29/24 06:00 O2 Flow Rate 1 10/05/24 10:45 FiO2 21 10/05/24 08:16 Physical Exam 2 Urinary Catheter Management: Marino: Cath Placed During This Visit: yes, but has since been removed by the nurse Reason for Continuing Indwelling Catheter: Decision to DC Catheter Urinary Catheter Date of Insertion: 10/04/24 Urinary Catheter Time of Insertion: 17:51 Date Urinary Catheter Removed: 10/05/24 Time Urinary Catheter Discontinued: 15:53 Data NPU 10/11/24 14:55 10/11/24 14:55 A&P Assessment and plan (1) Major depressive disorder, recurrent: Qualifiers: Active/Remission status: currently active Psychotic features: with psychotic features (2) Suicidal ideation: (3) Personality disorder, unspecified: (4) Type 2 diabetes mellitus: (5) Hypertension: (6) Bereavement: (7) BROCK (generalized anxiety disorder): Plan This is a 49-year-old white male with limited past psychiatric history but recent bereavement and suicide attempt.The patient has a history of major depression and anxiety, with a recent hospitalization due to panic attacks. The patient has had two episodes of hanging self in last month and continues to appear very depressed possibly psychotic as well. 1. Continue Viibyrd 40mg daily. Wellbutrin xl 300mg in am, and invega 6mg at night. Continue Valium 5mg tid. 2. Discontinue one-to-one 3.? Work on safety plan for staff. 4.? Encourage sober living treatment after discharge at the highest level of care to which he is willing to commit. 5. Continue with hold, ECT likely to be helpful given his acuity but patient refusing. 6. Met with who expressed concerns about being able to manage her at home as they are living in patient's father in laws home and he has not been accepted to return there. given information about guardianship as an option. 7. Will speak with nutrition about food arrangement and possibly do double portions. Involuntary Hold Information 2 96 Hour Hold: 96 Hour Involuntary Admission: Yes 96 Hour Hold Ending Date: 09/19/24 96 Hour Hold Ending Time: 00:01 Other Hold: Hold End Date: 01/12/25 Attestations NPU 2 Medical Necessity Statement*: Inpatient hospitalization is medically necessary and?the clinically appropriate intervention at this time.We will monitor/initiate medications and make changes as indicated.?The patient?s likely length of stay days. Coding Level of Care Code Acute Code for g Fwd Diagnoses Major depressive disorder, recurrent F33.9 Active/Remission status: currently active Psychotic features: with psychotic features Suicidal ideation R45.851 Personality disorder, unspecified F60.9 Type 2 diabetes mellitus E11.9 Hypertension I10 Bereavement Z63.4 BROCK (generalized anxiety disorder) F41.1
[2024-10-29 20:46] LABS: Glucose Point of Care 141 mg/dL (70-110)
[2024-10-29 21:29] VITALS: BP 118/67; PULSE 70; RESP 18; TEMP 36.3; O2SAT 95
[2024-10-29] MEDS: zolpidem 5 mg Tablet 10 MG PO (21:52)
[2024-10-29] MEDS: quetiapine 100 mg Tablet PO (21:52)
[2024-10-29] MEDS: trazodone 50 mg Tablet PO (21:52)
[2024-10-29] MEDS: hyDROXYzine 25 mg Capsule 50 MG PO (21:52)
[2024-10-29] MEDS: paliperidone ER 6 mg Tablet PO (21:52)
[2024-10-29] MEDS: insulin lispro 100 unit/1 mL SUBCUT (21:52)
[2024-10-30 06:00] VITALS: BP 131/70; PULSE 78; RESP 17; TEMP 36.4; O2SAT 98
[2024-10-30 07:36] LABS: Glucose Point of Care 94 mg/dL (70-110)
[2024-10-30] MEDS: aspirin 81 mg Chew Tablet PO (08:39)
[2024-10-30] MEDS: pantoprazole DR 40 mg Tablet PO ×2 (08:39→17:34)
[2024-10-30] MEDS: buPROPion XL (24 HR) 150 mg Tablet 300 MG PO (08:39)
[2024-10-30] MEDS: VILAZODONE 40 MG 40 EACH PO (08:39)
[2024-10-30] MEDS: diazePAM 5 mg Tablet PO ×3 (08:39→20:59)
[2024-10-30] MEDS: tamsulosin 0.4 mg Capsule PO (08:39)
[2024-10-30 11:33] LABS: Glucose Point of Care 119 mg/dL (70-110)
[2024-10-30 14:00] VITALS: BP 97/60; PULSE 73; RESP 16; TEMP 36.6; O2SAT 95
[2024-10-30 17:30] LABS: Glucose Point of Care 122 mg/dL (70-110)
[2024-10-30 19:33] VITALS: BP 118/79; PULSE 86; RESP 18; TEMP 36.6; O2SAT 92
[2024-10-30 19:55] LABS: Glucose Point of Care 102 mg/dL (70-110)
[2024-10-30] MEDS: paliperidone ER 6 mg Tablet PO (20:58)
[2024-10-30] MEDS: zolpidem 5 mg Tablet 10 MG PO (20:59)
[2024-10-30] MEDS: quetiapine 100 mg Tablet PO (20:59)
[2024-10-30] MEDS: trazodone 50 mg Tablet PO (20:59)
--- NOTE | 2024-10-30 21:35 | P.NPUPN_ITS ---
Subjective NPU 2 Subjective: Patient presented today reporting that he is feeling fine. Conversations with his have led to her identifying a new place and plans on getting their stuff moved then this with a plan for him to be discharged on Sunday. He was appearing fairly nonreactive to that news which would seem to have been good. He denied any side effects to this medication. Mental Status Exam 2 MSE Comments: This is an overweight white male in hospital scrubs with limited grooming and adequate eye contact. No abnormal movements except for mild psychomotor retardation. Mostly cooperative with exam in mild distress. Speech was decreased rate and volume. Mood described as feeling better, affect congruent, but subdued. Thought process linear. Thought content: Patient denied suicidal or homicidal ideation, there were no delusions reported or noted, he denied auditory or visual hallucinations. His attention span was poor. There were no signs of paranoia or hallucinations. Attention and concentration were adequate and memory was mostly reliable but none were formally tested.? He is alert and oriented x to person and place.? Insight was poor and judgment is limited. Impulse control is poor. Vitals/I&O/Wt Last Vital Signs Temp 97.9 F 10/30/24 19:33 Pulse 86 10/30/24 19:33 Resp 18 10/30/24 19:33 BP 118/79 10/30/24 19:33 Pulse Ox 92 10/30/24 19:33 O2 Del Method Room Air 10/30/24 06:00 O2 Flow Rate 1 10/05/24 10:45 FiO2 21 10/05/24 08:16 10/30/24 10/30/24 10/30/24 06:59 14:59 22:59 Intake Total 720 / 720 Output Total 300 / 300 Balance 420 / 420 Physical Exam 2 Urinary Catheter Management: Marino: Cath Placed During This Visit: yes, but has since been removed by the nurse Reason for Continuing Indwelling Catheter: Decision to DC Catheter Urinary Catheter Date of Insertion: 10/04/24 Urinary Catheter Time of Insertion: 17:51 Date Urinary Catheter Removed: 10/05/24 Time Urinary Catheter Discontinued: 15:53 Data NPU 10/11/24 14:55 10/11/24 14:55 A&P Assessment and plan (1) Major depressive disorder, recurrent: Qualifiers: Active/Remission status: currently active Psychotic features: with psychotic features (2) Suicidal ideation: (3) Personality disorder, unspecified: (4) Type 2 diabetes mellitus: (5) Hypertension: (6) Bereavement: (7) BROCK (generalized anxiety disorder): Plan This is a 49-year-old white male with limited past psychiatric history but recent bereavement and suicide attempt.The patient has a history of major depression and anxiety, with a recent hospitalization due to panic attacks. The patient has had two episodes of hanging self in last month and continues to appear very depressed possibly psychotic as well. 1. Continue Viibyrd 40mg daily. Wellbutrin xl 300mg in am, and invega 6mg at night. Continue Valium 5mg tid. 2. Discontinue one-to-one 3.? Work on safety plan for staff. 4.? Encourage sober living treatment after discharge at the highest level of care to which he is willing to commit. 5. Continue with hold, ECT likely to be helpful given his acuity but patient refusing. 6. Met with who expressed concerns about being able to manage her at home as they are living in patient's father in laws home and he has not been accepted to return there. Plan for discharge on Sunday. 7. Will speak with nutrition about food arrangement and possibly do double portions. Involuntary Hold Information 2 96 Hour Hold: 96 Hour Involuntary Admission: Yes 96 Hour Hold Ending Date: 09/19/24 96 Hour Hold Ending Time: 00:01 Other Hold: Hold End Date: 01/12/25 Attestations NPU 2 Medical Necessity Statement*: Inpatient hospitalization is medically necessary and?the clinically appropriate intervention at this time.We will monitor/initiate medications and make changes as indicated.?The patient?s likely length of stay 4 days. Coding Level of Care Code Acute Code for Chg Fwd Diagnoses Major depressive disorder, recurrent F33.9 Active/Remission status: currently active Psychotic features: with psychotic features Suicidal ideation R45.851 Personality disorder, unspecified F60.9 Type 2 diabetes mellitus E11.9 Hypertension I10 Bereavement Z63.4 BROCK (generalized anxiety disorder) F41.1
[2024-10-31 06:00] VITALS: BP 130/80; PULSE 69; RESP 16; TEMP 36.9; O2SAT 96
[2024-10-31 07:15] LABS: Glucose Point of Care 91 mg/dL (70-110)
[2024-10-31] MEDS: aspirin 81 mg Chew Tablet PO (08:10)
[2024-10-31] MEDS: pantoprazole DR 40 mg Tablet PO ×2 (08:10→17:18)
[2024-10-31] MEDS: tamsulosin 0.4 mg Capsule PO (08:10)
[2024-10-31] MEDS: buPROPion XL (24 HR) 150 mg Tablet 300 MG PO (08:10)
[2024-10-31] MEDS: diazePAM 5 mg Tablet PO ×3 (08:10→21:21)
[2024-10-31] MEDS: VILAZODONE 40 MG 40 EACH PO (08:12)
--- NOTE | 2024-10-31 09:22 | P.NPUPN_ITS ---
Subjective NPU 2 Subjective: Patient presented today reporting that he is doing all right. He reports he has talked to his family and that he is excited about going home. We talked about beginning to cut back on his Valium prior to discharge. We discussed decreasing it by 2.5 mg in the morning including the risk benefits and alternatives and he understood and agreed to proceed as is documented in this note. He denied any side effects of medication. Mental Status Exam 2 MSE Comments: This is an overweight white male in hospital scrubs with limited grooming and adequate eye contact. No abnormal movements except for mild psychomotor retardation. Mostly cooperative with exam in mild distress. Speech was decreased rate and volume. Mood described as feeling better, affect congruent, but subdued. Thought process linear. Thought content: Patient denied suicidal or homicidal ideation, there were no delusions reported or noted, he denied auditory or visual hallucinations. His attention span was poor. There were no signs of paranoia or hallucinations. Attention and concentration were adequate and memory was mostly reliable but none were formally tested.? He is alert and oriented x to person and place.? Insight was poor and judgment is limited. Impulse control is poor. Vitals/I&O/Wt Last Vital Signs Temp 98.4 F 10/31/24 06:00 Pulse 69 10/31/24 06:00 Resp 16 10/31/24 06:00 BP 130/80 10/31/24 06:00 Pulse Ox 96 10/31/24 06:00 O2 Del Method Room Air 10/30/24 06:00 O2 Flow Rate 1 10/05/24 10:45 FiO2 21 10/05/24 08:16 10/30/24 10/31/24 10/31/24 22:59 06:59 14:59 Intake Total 720 / 720 Output Total 300 / 300 Balance 420 / 420 Physical Exam 2 Urinary Catheter Management: Marino: Cath Placed During This Visit: yes, but has since been removed by the nurse Reason for Continuing Indwelling Catheter: Decision to DC Catheter Urinary Catheter Date of Insertion: 10/04/24 Urinary Catheter Time of Insertion: 17:51 Date Urinary Catheter Removed: 10/05/24 Time Urinary Catheter Discontinued: 15:53 Data NPU 10/11/24 14:55 10/11/24 14:55 A&P Assessment and plan (1) Major depressive disorder, recurrent: Qualifiers: Active/Remission status: currently active Psychotic features: with psychotic features (2) Suicidal ideation: (3) Personality disorder, unspecified: (4) Type 2 diabetes mellitus: (5) Hypertension: (6) Bereavement: (7) BROCK (generalized anxiety disorder): Plan This is a 49-year-old white male with limited past psychiatric history but recent bereavement and suicide attempt.The patient has a history of major depression and anxiety, with a recent hospitalization due to panic attacks. The patient has had two episodes of hanging self in last month and continues to appear very depressed possibly psychotic as well. 1. Continue Viibyrd 40mg daily. Wellbutrin xl 300mg in am, and invega 6mg at night. Continue Valium 5mg tid. Decrease Valium to 2.5 mg in the morning but continue 5 mg afternoon and evening with a goal of likely discharging him on 2.5 mg p.o. 3 times daily with hopes of continued decrease of that medication moving forward. 2. Discontinue one-to-one 3.? Work on safety plan for staff. 4.? Encourage sober living treatment after discharge at the highest level of care to which he is willing to commit. 5. Continue with hold, ECT likely to be helpful given his acuity but patient refusing. 6. Met with who expressed concerns about being able to manage her at home as they are living in patient's father in laws home and he has not been accepted to return there. Plan for discharge on Sunday. 7. Will speak with nutrition about food arrangement and possibly do double portions. Involuntary Hold Information 2 96 Hour Hold: 96 Hour Involuntary Admission: Yes 96 Hour Hold Ending Date: 09/19/24 96 Hour Hold Ending Time: 00:01 Other Hold: Hold End Date: 01/12/25 Attestations NPU 2 Medical Necessity Statement*: Inpatient hospitalization is medically necessary and?the clinically appropriate intervention at this time.We will monitor/initiate medications and make changes as indicated.?The patient?s likely length of stay 3 days. Coding Level of Care Code Acute Code for [facility] Fwd Diagnoses Major depressive disorder, recurrent F33.9 Active/Remission status: currently active Psychotic features: with psychotic features Suicidal ideation R45.851 Personality disorder, unspecified F60.9 Type 2 diabetes mellitus E11.9 Hypertension I10 Bereavement Z63.4 BROCK (generalized anxiety disorder) F41.1
[2024-10-31 11:46] LABS: Glucose Point of Care 97 mg/dL (70-110)
[2024-10-31 14:00] VITALS: BP 118/80; PULSE 82; RESP 18; TEMP 36.4; O2SAT 94
[2024-10-31 17:01] LABS: Glucose Point of Care 92 mg/dL (70-110)
[2024-10-31 20:00] LABS: Glucose Point of Care 111 mg/dL (70-110)
[2024-10-31 20:11] VITALS: BP 98/68; PULSE 76; RESP 18; TEMP 36.6; O2SAT 97
[2024-10-31] MEDS: paliperidone ER 6 mg Tablet PO (21:19)
[2024-10-31] MEDS: trazodone 50 mg Tablet PO (21:20)
[2024-10-31] MEDS: hyDROXYzine 25 mg Capsule 50 MG PO (21:20)
[2024-10-31] MEDS: zolpidem 5 mg Tablet 10 MG PO (21:20)
[2024-10-31] MEDS: quetiapine 100 mg Tablet PO (21:20)
[2024-11-01 06:00] VITALS: BP 117/76; PULSE 67; RESP 16; TEMP 36.6; O2SAT 95
[2024-11-01 07:30] LABS: Glucose Point of Care 233 mg/dL (70-110)
--- NOTE | 2024-11-01 09:24 | P.NPUPN_ITS ---
Subjective NPU 2 Subjective: Patient presented today reporting that he is doing fine. He reports that he feels he will be ready for discharge when the time is right on Sunday. We discussed continuing to decrease his Valium tomorrow and a likely plan to discharge him on 2.5 mg p.o. 3 times daily. He denied having any difficulties thus far. Otherwise he denies side effects to medication and just reported being excited about discharge on Sunday. Mental Status Exam 2 MSE Comments: This is an overweight white male in hospital scrubs with limited grooming and adequate eye contact. No abnormal movements except for mild psychomotor retardation. Mostly cooperative with exam in mild distress. Speech was decreased rate and volume. Mood described as feeling better, affect congruent, but subdued. Thought process linear. Thought content: Patient denied suicidal or homicidal ideation, there were no delusions reported or noted, he denied auditory or visual hallucinations. His attention span was poor. There were no signs of paranoia or hallucinations. Attention and concentration were adequate and memory was mostly reliable but none were formally tested.? He is alert and oriented x to person and place.? Insight was poor and judgment is limited. Impulse control is poor. Vitals/I&O/Wt Last Vital Signs Temp 97.8 F 11/01/24 06:00 Pulse 67 11/01/24 06:00 Resp 16 11/01/24 06:00 BP 117/76 11/01/24 06:00 Pulse Ox 95 11/01/24 06:00 O2 Del Method Room Air 10/30/24 06:00 O2 Flow Rate 1 10/05/24 10:45 FiO2 21 10/05/24 08:16 Physical Exam 2 Urinary Catheter Management: Marino: Cath Placed During This Visit: yes, but has since been removed by the nurse Reason for Continuing Indwelling Catheter: Decision to DC Catheter Urinary Catheter Date of Insertion: 10/04/24 Urinary Catheter Time of Insertion: 17:51 Date Urinary Catheter Removed: 10/05/24 Time Urinary Catheter Discontinued: 15:53 Data NPU 10/11/24 14:55 10/11/24 14:55 A&P Assessment and plan (1) Major depressive disorder, recurrent: Qualifiers: Active/Remission status: currently active Psychotic features: with psychotic features (2) Suicidal ideation: (3) Personality disorder, unspecified: (4) Type 2 diabetes mellitus: (5) Hypertension: (6) Bereavement: (7) BROCK (generalized anxiety disorder): Plan This is a 49-year-old white male with limited past psychiatric history but recent bereavement and suicide attempt.The patient has a history of major depression and anxiety, with a recent hospitalization due to panic attacks. The patient has had two episodes of hanging self in last month and continues to appear very depressed possibly psychotic as well. 1. Continue Viibyrd 40mg daily. Wellbutrin xl 300mg in am, and invega 6mg at night. Continue Valium 5mg tid. Decrease Valium to 2.5 mg in the morning but continue 5 mg afternoon and evening with a goal of likely discharging him on 2.5 mg p.o. 3 times daily with hopes of continued decrease of that medication moving forward. Decrease Valium to 2.5 mg a.m. and afternoon and 5 mg p.o. nightly. 2. Continue every 15 minute checks for safety. 3.? Work on safety plan for staff. 4.? Encourage sober living treatment after discharge at the highest level of care to which he is willing to commit. 5. Continue with hold, ECT likely to be helpful given his acuity but patient refusing. 6. Met with who expressed concerns about being able to manage her at home as they are living in patient's father in laws home and he has not been accepted to return there. Plan for discharge on Sunday. 7. Will speak with nutrition about food arrangement and possibly do double portions. Involuntary Hold Information 2 96 Hour Hold: 96 Hour Involuntary Admission: Yes 96 Hour Hold Ending Date: 09/19/24 96 Hour Hold Ending Time: 00:01 Other Hold: Hold End Date: 01/12/25 Attestations NPU 2 Medical Necessity Statement*: Inpatient hospitalization is medically necessary and?the clinically appropriate intervention at this time.We will monitor/initiate medications and make changes as indicated.?The patient?s likely length of stay 2 days. Coding Level of Care Code Acute Code for Chg Fwd Diagnoses Major depressive disorder, recurrent F33.9 Active/Remission status: currently active Psychotic features: with psychotic features Suicidal ideation R45.851 Personality disorder, unspecified F60.9 Type 2 diabetes mellitus E11.9 Hypertension I10 Bereavement Z63.4 BROCK (generalized anxiety disorder) F41.1
[2024-11-01] MEDS: buPROPion XL (24 HR) 150 mg Tablet 300 MG PO (09:35)
[2024-11-01] MEDS: pantoprazole DR 40 mg Tablet PO ×2 (09:35→17:37)
[2024-11-01] MEDS: aspirin 81 mg Chew Tablet PO (09:35)
[2024-11-01] MEDS: tamsulosin 0.4 mg Capsule PO (09:35)
[2024-11-01] MEDS: diazePAM 5 mg Tablet 2.5 MG PO (09:35)
[2024-11-01 10:47] LABS: Glucose Point of Care 99 mg/dL (70-110)
[2024-11-01] MEDS: VILAZODONE 40 MG 40 EACH PO (11:47)
[2024-11-01 14:00] VITALS: BP 166/80; PULSE 82; RESP 17; O2SAT 97
[2024-11-01] MEDS: diazePAM 5 mg Tablet PO ×2 (14:23→21:51)
[2024-11-01 17:16] LABS: Glucose Point of Care 137 mg/dL (70-110)
[2024-11-01 20:27] VITALS: BP 116/72; PULSE 73; RESP 18; TEMP 36.4; O2SAT 95
[2024-11-01 20:35] LABS: Glucose Point of Care 127 mg/dL (70-110)
[2024-11-01] MEDS: trazodone 50 mg Tablet PO (21:51)
[2024-11-01] MEDS: quetiapine 100 mg Tablet PO (21:51)
[2024-11-01] MEDS: paliperidone ER 6 mg Tablet PO (21:51)
[2024-11-01] MEDS: zolpidem 5 mg Tablet 10 MG PO (21:52)
[2024-11-02 06:00] VITALS: BP 125/81; PULSE 66; RESP 16; O2SAT 96
[2024-11-02 07:58] LABS: Glucose Point of Care 125 mg/dL (70-110)
[2024-11-02] MEDS: pantoprazole DR 40 mg Tablet PO ×2 (09:41→18:00)
[2024-11-02] MEDS: buPROPion XL (24 HR) 150 mg Tablet 300 MG PO (09:41)
[2024-11-02] MEDS: tamsulosin 0.4 mg Capsule PO (09:42)
[2024-11-02] MEDS: aspirin 81 mg Chew Tablet PO (09:42)
[2024-11-02] MEDS: diazePAM 5 mg Tablet 2.5 MG PO (09:42)
[2024-11-02] MEDS: VILAZODONE 40 MG 40 EACH PO (09:43)
[2024-11-02 11:39] LABS: Glucose Point of Care 110 mg/dL (70-110)
--- NOTE | 2024-11-02 12:06 | P.NPUPN_ITS ---
Subjective NPU 2 Subjective: Patient presented today reporting that he is feeling more positive about discharge. He reports he is tolerating the tapering of his Valium discussed the risks, benefits and alternatives of getting it down to 2.5 mg p.o. 3 times daily before he leaves. We talked about the possibility of even decreasing it more than that especially if he is hoping to return to full duty at work. He denied any side effects to the medication and we discussed the plan of his picking him up at 5:00 tomorrow evening. Mental Status Exam 2 MSE Comments: This is an overweight white male in hospital scrubs with limited grooming and adequate eye contact. No abnormal movements except for mild psychomotor retardation. Mostly cooperative with exam in mild distress. Speech was decreased rate and volume. Mood described as feeling better, affect congruent, but subdued. Thought process linear. Thought content: Patient denied suicidal or homicidal ideation, there were no delusions reported or noted, he denied auditory or visual hallucinations. His attention span was poor. There were no signs of paranoia or hallucinations. Attention and concentration were adequate and memory was mostly reliable but none were formally tested.? He is alert and oriented x to person and place.? Insight was poor and judgment is limited. Impulse control is poor. Vitals/I&O/Wt Last Vital Signs Temp 97.5 F L 11/01/24 20:27 Pulse 66 11/02/24 06:00 Resp 16 11/02/24 06:00 BP 125/81 11/02/24 06:00 Pulse Ox 96 11/02/24 06:00 O2 Del Method Room Air 11/01/24 14:00 O2 Flow Rate 1 10/05/24 10:45 FiO2 21 10/05/24 08:16 Weight last 48 hrs Weight 87.906 kg Physical Exam 2 Urinary Catheter Management: Marino: Cath Placed During This Visit: yes, but has since been removed by the nurse Reason for Continuing Indwelling Catheter: Decision to DC Catheter Urinary Catheter Date of Insertion: 10/04/24 Urinary Catheter Time of Insertion: 17:51 Date Urinary Catheter Removed: 10/05/24 Time Urinary Catheter Discontinued: 15:53 Data NPU 10/11/24 14:55 10/11/24 14:55 A&P Assessment and plan (1) Major depressive disorder, recurrent: Qualifiers: Active/Remission status: currently active Psychotic features: with psychotic features (2) Suicidal ideation: (3) Personality disorder, unspecified: (4) Type 2 diabetes mellitus: (5) Hypertension: (6) Bereavement: (7) BROCK (generalized anxiety disorder): Plan This is a 49-year-old white male with limited past psychiatric history but recent bereavement and suicide attempt.The patient has a history of major depression and anxiety, with a recent hospitalization due to panic attacks. The patient has had two episodes of hanging self in last month and continues to appear very depressed possibly psychotic as well. 1. Continue Viibyrd 40mg daily. Wellbutrin xl 300mg in am, and invega 6mg at night. Continue Valium 5mg tid. Decrease Valium to 2.5 mg in the morning but continue 5 mg afternoon and evening with a goal of likely discharging him on 2.5 mg p.o. 3 times daily with hopes of continued decrease of that medication moving forward. Decrease Valium to 2.5 mg a.m. and afternoon and 5 mg p.o. nightly. Plan to discharge on Valium 2.5 mg p.o. 3 times daily tomorrow 2. Continue every 15 minute checks for safety. 3.? Work on safety plan for staff. 4.? Encourage sober living treatment after discharge at the highest level of care to which he is willing to commit. 5. Continue with hold, ECT likely to be helpful given his acuity but patient refusing. 6. Met with who expressed concerns about being able to manage her at home as they are living in patient's father in laws home and he has not been accepted to return there. Plan for discharge on Sunday. 7. Will speak with nutrition about food arrangement and possibly do double portions. Involuntary Hold Information 2 96 Hour Hold: 96 Hour Involuntary Admission: Yes 96 Hour Hold Ending Date: 09/19/24 96 Hour Hold Ending Time: 00:01 Other Hold: Hold End Date: 01/12/25 Attestations NPU 2 Medical Necessity Statement*: Inpatient hospitalization is medically necessary and?the clinically appropriate intervention at this time.We will monitor/initiate medications and make changes as indicated.?The patient?s likely length of stay 1 day. Coding Level of Care Code Acute Code for [facility] Fwd Diagnoses Major depressive disorder, recurrent F33.9 Active/Remission status: currently active Psychotic features: with psychotic features Suicidal ideation R45.851 Personality disorder, unspecified F60.9 Type 2 diabetes mellitus E11.9 Hypertension I10 Bereavement Z63.4 BROCK (generalized anxiety disorder) F41.1
[2024-11-02 14:00] VITALS: BP 117/71; PULSE 104; RESP 16; TEMP 36.8; O2SAT 95
[2024-11-02] MEDS: diazePAM 5 mg Tablet PO ×2 (14:37→21:28)
[2024-11-02 17:50] LABS: Glucose Point of Care 119 mg/dL (70-110)
[2024-11-02 19:49] VITALS: BP 112/70; PULSE 73; RESP 16; TEMP 36.6; O2SAT 93
[2024-11-02 19:57] LABS: Glucose Point of Care 110 mg/dL (70-110)
[2024-11-02] MEDS: quetiapine 100 mg Tablet PO (21:28)
[2024-11-02] MEDS: zolpidem 5 mg Tablet 10 MG PO (21:28)
[2024-11-02] MEDS: trazodone 50 mg Tablet PO (21:29)
[2024-11-02] MEDS: paliperidone ER 6 mg Tablet PO (21:29)
[2024-11-03 06:15] VITALS: BP 152/90; PULSE 66; RESP 16; TEMP 36.6; O2SAT 95
[2024-11-03 07:49] LABS: Glucose Point of Care 94 mg/dL (70-110)
[2024-11-03] MEDS: VILAZODONE 40 MG 40 EACH PO (07:51)
[2024-11-03] MEDS: pantoprazole DR 40 mg Tablet PO (07:52)
[2024-11-03] MEDS: buPROPion XL (24 HR) 150 mg Tablet 300 MG PO (07:52)
[2024-11-03] MEDS: aspirin 81 mg Chew Tablet PO (07:52)
[2024-11-03] MEDS: tamsulosin 0.4 mg Capsule PO (07:53)
[2024-11-03] MEDS: diazePAM 5 mg Tablet 2.5 MG PO (07:53)
--- NOTE | 2024-11-03 10:49 | P.NPUDS_ITS ---
Diagnoses at Discharge Discharge Diagnosis (1) Major depressive disorder, recurrent: Status: Acute Qualifiers: Active/Remission status: currently active Psychotic features: with psychotic features (2) Suicidal ideation: Status: Acute (3) Personality disorder, unspecified: Status: Acute (4) Type 2 diabetes mellitus: Status: Acute (5) Hypertension: Status: Acute (6) Bereavement: Status: Acute (7) BROCK (generalized anxiety disorder): Status: Acute Reason for Visit Reason for Visit: MHE Brief History: History of Present Illness Solitario Jerez is a 49 year old male who presented to the emergency department with the following report: Chief Complaint: Psychiatric Symptoms Stated Complaint: MHE Time Seen by Provider: 09/13/24 12:10 History of Present Illness: 49-year-old male who presents to the [facility] with police for suicidal ideation. He is quite agitated. Police report that friends had to take a noose off of them twice and when they arrived he was on a second story balcony about the jump. He has had previous suicide attempts according police. He has an abrasion on his forehead apparently from resisting arrest. He was admitted to the neuropsychiatric unit for definitive treatment of those issues. He is unknown to inpatient or outpatient psychiatry at [facility]. He presented today denying substance use concerns but still not giving a UDS for objective information. He presented today reporting: Chief complaint The patient was recently hospitalized due to panic and anxiety. The primary struggle is with major depression, characterized by low mood, feelings of helplessness, hopelessness, worthlessness, poor sleep, and low energy. There are times when the patient feels like not wanting to be around. History of the present complaint The patient reported being recently hospitalized due to panic and anxiety, marking this as their third or fourth hospitalization. They have been on psychiatric medication, specifically Viibryd, which was recently prescribed during their last hospital stay about a week or two ago. The patient was unsure of the exact dosage of the medication and who prescribed it. The patient's primary struggle is with major depression, characterized by low mood, feelings of helplessness, hopelessness, worthlessness, poor sleep, and low energy. There are times when the patient feels like they do not want to be around. They have attempted suicide once in the past by trying to hang themselves. In addition to depression, the patient also suffers from anxiety, which manifests as constant worrying. They also experience panic attacks, charac terized by physical symptoms such as hyperventilation. However, they denied experiencing paranoia, hearing voices, seeing things, having nightmares or flashbacks, or engaging in self-injurious behavior such as cutting or burning themselves. The patient denied any addiction issues, including smoking cigarettes, using alcohol, cannabis, or other drugs such as cocaine or methadone. They have not herrera d any charges related to addiction. The patient's mood at the time of the consultation was not specified. They denied having any current thoughts of self-harm or harming others, and did not report feeling like people were out to get them or following them. They also denied hearing or seeing things. Regarding the effectiveness of their current medication, the patient was unsure if the Viibryd was working. They had been on it for an unspecified amount of time, but were unsure if they were on the 40mg dose. They had been on this medication before and had stopped it at some point. The patient also mentioned being on another medication, but could not recall what it was. The patient reported a lack of appetite. They did not mention any other symptoms, triggers, risk factors, functional or emotional impairments, challenges or obstacles, important events or traumas, thoughts, beliefs, feelings, aspirations, fears, dreams, nightmares, or previous treatments, interventions, and therapies. Mental health history The patient has been hospitalized three or four times in their life. They have been on various psychiatric medications, including Viibryd. The patient has a history of suicide attempt by hanging. There is no history of self-injurious behavior like cutting or burning. The patient also struggles with anxiety, characterized by constant worry and occasional panic attacks. There is no history of paranoia, hallucinations, or obsessive-compulsive behaviors. Social history The patient does not smoke cigarettes, consume alcohol, or use any drugs, including cannabis, cocaine, and methadone. There is no history of addiction or charges related to addiction. The patient has been once and has three children with their ex-spouse. The patient identifies as heterosexual. The longest job held was at a different [employer]. The patient lives in a house and has never been to skilled nursing or had any major legal problems. The patient has a high school education and has a certificate in [employer]. Hospital Course Hospital Course Patient slowly acclimated to the individual, group and milieu therapies srinivas cohn. He presented unknown to [facility] through inpatient or outpatient services. He does have a long history of mental health challenges with recent hospitalization about 2 weeks prior to presenting at [facility]. Initially he and the other provider on the unit had agreed that he would go for ECT. However he backed out of that idea and we started trying to find a medication regiment that would be effective. Eventually he ended up on an increase of his Viibryd to 40 mg p.o. daily and Invega 6 mg p.o. daily and had good results from that. However he had a rough period of time in between. He continued to report suicidality. He had some history of some swallowing problems as he had a couple of events that were worrisome. He did get a swallow study that showed some abnormalities. At 1 point however he intentionally tried to choke to in a suicide attempt that led him to being on the vent and in the ICU. He was on one-to-one for significant period of time after that and his was very hesitant after that point including now to take him home. During the time he was in the hospital his family had to move out of their home secondary to him not working recently and not being effective as a provider. They found a new place and moved into that place which is where he will be discharged to. He worked with the social work team to identify appropriate outpatient services and to get outpatient appointments. He had significant improvement during the stay and was able to contract for safety, outside of the hospital prior to discharge but still had residual symptoms. During the hospitalization, the patient had routine laboratory studies which were within normal limits except for a few outliers. Additionally, there was a general medical evaluation which was also within normal limits and revealed no new acute processes. He did have the episode of choking at least once that led to a swallow study and a change in his food consistency while in the hospital. Then he had an intentional choking event that required him to be in the ICU for period of time. At the time of discharge, he denied psychosis or lethality. Mood and anxiety were well managed. The patient endorsed a plan to avoid all drugs of abuse and follow up with the aftercare recommendations of the treatment team. The patient was evaluated and deemed to be absent credible lethality and had achieved the maximum benefit from an inpatient hospitalization, and so was discharged. Involuntary Hold Information 96 Hour Hold: 96 Hour Involuntary Admission: Yes 96 Hour Hold Ending Date: 09/19/24 96 Hour Hold Ending Time: 00:01 Other Hold: Hold End Date: 01/12/25 Mental Status Exam MSE Comments: This is an overweight white male in hospital scrubs with limited grooming and adequate eye contact. No abnormal movements except for mild psychomotor retardation. Mostly cooperative with exam in mild distress. Speech was decreased rate and volume. Mood described as feeling better ready to go home, affect congruent, but subdued. Thought process linear. Thought content: Patient denied suicidal or homicidal ideation, there were no delusions reported or noted, he denied auditory or visual hallucinations. His attention span was poor. There were no signs of paranoia or hallucinations. Attention and concentration were adequate and memory was mostly reliable but none were formally tested.? He is alert and oriented x to person and place.? Insight was poor and judgment is limited. Impulse control is poor. Physical Exam Urinary Catheter Management: Marino: Cath Placed During This Visit: yes, but has since been removed by the nurse Reason for Continuing Indwelling Catheter: Decision to DC Catheter Urinary Catheter Date of Insertion: 10/04/24 Urinary Catheter Time of Insertion: 17:51 Date Urinary Catheter Removed: 10/05/24 Time Urinary Catheter Discontinued: 15:53 Discharge Data Studies Completed and Pending: Completed Studies During Hospitalization Category Date Time Status CT abdomen pelvis wo con 03719 Rout ine Cat Scan 10/11/24 15:[address] cervical spin wo con* 08783 Stat Cat Scan 09/20/24 18:[address] head wo con* 7 0450 Routine Cat Scan 10/04/24 16:[address] head wo con* 7 0450 Stat Cat Scan 09/13/24 12:[address] head wo con* 7 0450 Stat Cat Scan 09/20/24 18:[address] neck wo con 70 490 Routine Cat Scan 10/04/24 14:13 Completed FL barium swallow modifd 83746 Rout ine Exams 09/30/24 09:30 Completed XR chest 1V grace ble 84987 Routine Exams 09/21/24 09:42 Completed XR chest 1V grace ble 78149 Routine Exams 10/04/24 07:00 Completed XR chest 1V grace ble 19283 Urgent Exams 09/28/24 12:12 Completed XR ribs LT mn 3V w CXR1V 32724 Rout ine Exams 10/02/24 08:46 [place] [address] Routine Exams 09/28/24 12:15 Completed Radiology Impressions Cervical Spine CT 09/20/24 18:27 IMPRESSION: No acute findings. Soft Tissue Neck X-Ray 09/28/24 12:15 IMPRESSION: No acute findings. Modified Barium Swallow 09/30/24 09:30 IMPRESSION: Modified barium swallow as above. Ribs X-Ray 10/02/24 08:46 IMPRESSION: No significant rib abnormality. Chest X-Ray 10/04/24 07:00 IMPRESSION: No acute cardiopulmonary process. Neck CT 10/04/24 14:13 IMPRESSION: No laryngeal edema. Head CT 10/04/24 16:29 IMPRESSION: No large territorial infarct or intracranial bleed. Abdomen/Pelvis CT 10/11/24 15:50 IMPRESSION: 1. No acute findings in the abdomen/pe lvis. 2. Hepatomegaly. 3. Moderate colorectal stool. Correlat e for constipation. 4. Prostatomegaly. Correlate with PSA levels. 5. Heterogeneous appearance of the rig ht anterolateral 11th rib. Correlate for remote trauma. Neoplasm considered less likely. Nonemergent MRI without and with contrast could be considered for further assessment if warranted. Laboratory Results WBC 7.03 10^3/uL (3.2 9-11.43) 10/11/24 14:55 RBC 4.39 10^6/uL (3.8 5-5.65) 10/11/24 14:55 Hgb 15.10 g/dL (11.27 -16.99) 10/11/24 14:55 Hct 42.1 % (37-53) 10/11/24 14:55 MCV 95.9 fl (82-101) 10/11/24 14:55 MCH 34.4 pg (27-33) H 10/11/24 14:55 MCHC 35.9 g/dL (30-55) 10/11/24 14:55 RDW 13.1 % (12.1-15.1 ) 10/11/24 14:55 Plt Count 224 10^3/cmm (157 -399) 10/11/24 14:55 MPV 9.4 fL (7.4-10.4) 10/11/24 14:55 Neut % (Auto) 65.0 % 10/11/24 14:55 Lymph % (Auto) 22.3 % 10/11/24 14:55 Kingfisher % (Auto) 8.7 % 10/11/24 14:55 Eos % (Auto) 2.7 % 10/11/24 14:55 Baso % (Auto) 0.9 % 10/11/24 14:55 Neut # (Auto) 4.57 10^3/uL (1.8 -7.7) 10/11/24 14:55 Lymph # (Auto) 1.6 10^3/uL (0.8- 4.8) 10/11/24 14:55 Kingfisher # (Auto) 0.6 10^3/uL (0.2- 0.9) 10/11/24 14:55 Eos # (Auto) 0.2 10^3/uL (0.0- 0.8) 10/11/24 14:55 Baso # (Auto) 0.1 10^3/uL (0.0- 0.1) 10/11/24 14:55 Nucleated RBC % (a uto) 0 % 10/11/24 14:55 Nucleated RBCs # 0.0 /100WBC 10/11/24 14:55 Specimen Type Arterial 10/04/24 06:07 Sample Site Brachial, right 10/04/24 06:07 ABG pH 7.48 (7.35-7.45) H 10/04/24 06:07 ABG pCO2 31.7 mmHg (35-45) L 10/04/24 06:07 ABG pO2 130.0 mmHg (80.0- 100.0) H 10/04/24 06:07 ABG PO2/FiO2 Ratio 433 10/04/24 06:07 ABG HCO3 23.7 mmol/L (22-2 6) 10/04/24 06:07 ABG Base Excess 0.9 mmol/L (-2.0- 2.0) 10/04/24 06:07 Colt Test N/a 10/04/24 06:07 Hematocrit 43.2 % (42-52) 10/04/24 06:07 O2 Delivery Device Vent 10/04/24 06:07 FiO2 30.0 % 10/04/24 06:07 Tidal Volume 0.50 10/04/24 06:07 PEEP 5.0 cmH20 10/04/24 06:07 Program Trainer ID Savage 10/04/24 06:07 Sodium 138 mmol/L (136-1 45) 10/11/24 14:55 Potassium 4.2 mmol/L (3.5-5 .1) 10/11/24 14:55 Chloride 104 mmol/L (98-10 7) 10/11/24 14:55 Carbon Dioxide 27 mmol/L (22-29) 10/11/24 14:55 Anion Gap 11.2 (5-19) 10/11/24 14:55 BUN 14 mg/dL (6-20) 10/11/24 14:55 Creatinine 0.9 mg/dL (0.7-1. 2) 10/11/24 14:55 GFR Calculation 90.1 mL/min (90-1 30) 10/11/24 14:55 Glucose 117 mg/dL (65-115 ) H 10/11/24 14:55 POC Glucose 94 mg/dL (70-110) 11/03/24 07:45 Estimat Average Gl ucose 111 09/14/24 11:27 Hemoglobin A1c 5.5 % (4.0-6.0) 09/14/24 11:27 Calculated Osmolal ity 288 mOsm/kg (285- 295) 10/11/24 14:55 Lactic Acid 2.3 mmol/L (0.5-2 .2) H 09/21/24 09:15 Lactic Acid (Sepsi s) 1.1 mmol/L (0.5-2 .2) 09/21/24 15:27 Calcium 8.5 mg/dL (8.5-10 .5) 10/11/24 14:55 Magnesium 2.0 mg/dL (1.7-2. 3) 10/04/24 04:20 Iron 55 ug/dL (59-158) L 09/14/24 11:27 TIBC 204 mcg/dl 09/14/24 11:27 % Saturation 26.9 % (20-50) 09/14/24 11:27 Unsat Iron Binding 149 ug/dL (112-34 7) 09/14/24 11:27 Ferritin 1560 ng/mL (30-40 0) H 10/11/24 14:55 Total Bilirubin 0.7 mg/dL (0.15-1 .2) 10/11/24 14:55 AST 19 U/L (0-40) 10/11/24 14:55 ALT 22 U/L (0-41) 10/11/24 14:55 Alkaline Phosphata se 98 U/L (40-130) 10/11/24 14:55 Troponin T Baselin e 11 ng/L (0-15) 09/21/24 09:15 Troponin T 120 Min bla 12.48 ng/L (0-15) 09/21/24 11:28 Delta Troponin T 1.48 ABS# (0-10) 09/21/24 11:28 Troponin T Hi Sens 6Hr 9.62 ng/L (0-15) 09/21/24 15:27 Troponin T Hi Sens 6Hr Delta -1.38 ng/L (0-12) L 09/21/24 15:27 Total Protein 6.4 g/dL (6.6-8.7 ) L 10/11/24 14:55 Albumin 3.8 g/dL (3.5-5.2 ) 10/11/24 14:55 Globulin 2.6 g/dL (1.3-4.6 ) 10/11/24 14:55 Triglycerides 74 mg/dL (0-150) 10/07/24 04:15 Cholesterol 92 mg/dL (0-200) 10/07/24 04:15 LDL Cholesterol, C alc 47 mg/dL (50-129) L 10/07/24 04:15 Total VLDL Cholest nahid 15 mg/dL (0-30) 10/07/24 04:15 HDL Cholesterol 30 mg/dL (60-100) L 10/07/24 04:15 Cholesterol/HDL Ra jasbir 3.07 mg/dL (1.0-5 .00) 10/07/24 04:15 Lipase 59 U/L (13-60) 10/11/24 14:55 Vitamin B12 454 pg/mL (232-12 45) 09/14/24 11:27 Folate 11.3 ng/mL (4.5-3 2.2) 09/15/24 09:00 TSH 0.60 uIU/mL (0.27 -4.20) 09/13/24 12:48 Urine Color Yellow (Yellow) 09/21/24 12:40 Urine Appearance Clear (CLEAR) 09/21/24 12:40 Urine pH 5.5 (5-7) 09/21/24 12:40 Ur Specific Gravit y 1.016 (1.005-1.0 30) 09/21/24 12:40 Urine Protein Negative (Negati ve) 09/21/24 12:40 Urine Glucose (UA) Negative (Normal ) 09/21/24 12:40 Urine Ketones Negative (Negati ve) 09/21/24 12:40 Urine Blood Negative (Negati ve) 09/21/24 12:40 Urine Nitrate Negative (Negati ve) 09/21/24 12:40 Urine Bilirubin Negative (Negati ve) 09/21/24 12:40 Urine Urobilinogen 1.0 mg/dL (Negati ve) 09/21/24 12:40 Ur Leukocyte Elida ase Negative (Negati ve) 09/21/24 12:40 Urine RBC 3-5 /hpf (0-2) 09/16/24 06:00 Urine WBC 0-5 /hpf (0-5) 09/16/24 06:00 Ur Squamous Epith Cells 0-5 /hpf (0-5) 09/16/24 06:00 Calcium Oxalate Cr ystal 25-40 /hpf H 09/16/24 06:00 Amorphous Sediment Not Reportable 09/21/24 12:40 Urine Bacteria None seen /hpf (N ONE) 09/16/24 06:00 Hyaline Casts 0.40 /lpf 09/16/24 06:00 Salicylates < 0.3 mg/dL (3-10 ) L 09/13/24 12:48 Urine Opiates Scre en Negative ng/mL (N egative) 09/16/24 06:00 Acetaminophen < 5.0 ug/mL (10-3 0) L 09/13/24 12:48 Ur Barbiturates Sc reen Negative ng/mL (N egative) 09/16/24 06:00 Ur Phencyclidine S crn Negative ng/mL (N egative) 09/16/24 06:00 Ur Amphetamines Sc reen Negative ng/mL (N egative) 09/16/24 06:00 U Benzodiazepines Scrn Positive ng/mL (N egative) H 09/16/24 06:00 Urine Cocaine Scre en Negative ng/mL (N egative) 09/16/24 06:00 U Marijuana (THC) Screen Negative ng/mL (N egative) 09/16/24 06:00 Ethyl Alcohol < 10 mg/dL (0-10) 09/13/24 12:48 Vitals: Last Vital Signs Temp 97.9 F 11/03/24 06:15 Pulse 66 11/03/24 06:15 Resp 16 11/03/24 06:15 BP 152/90 11/03/24 06:15 Pulse Ox 95 11/03/24 06:15 O2 Del Method Room Air 11/01/24 14:00 O2 Flow Rate 1 10/05/24 10:45 FiO2 21 10/05/24 08:16 Discharge Plan Discharge Patient Disposition: Home Condition: Stable Prescriptions: New trazodone 50 mg Tablet 50 mg PO BEDTIME PRN (Reason: Sleep) 30 Days Qty: 30 1RF quetiapine 100 mg Tablet 100 mg PO BEDTIME PRN (Reason: sleep) 30 Days Qty: 30 1RF pantoprazole 40 mg Tablet,Delayed Release (Dr/Ec) 40 mg PO BID 30 Days Qty: 60 1RF zolpidem 5 mg Tablet 10 mg PO BEDTIME PRN (Reason: Insomnia) 30 Days Qty: 30 1RF propranolol 20 mg Tablet 30 mg PO TID PRN (Reason: Anxiety) 30 Days Qty: 90 1RF paliperidone 6 mg Tablet Extended Release 24 Hr 6 mg PO BEDTIME 30 Days Qty: 30 1RF diazepam 5 mg Tablet 2.5 mg PO TID 30 Days Qty: 45 1RF hydroxyzine pamoate 25 mg Capsule 50 mg PO Q6H PRN (Reason: Anxiety) 30 Days Qty: 120 1RF aspirin 81 mg Tablet,Chewable 81 mg PO DAILY 30 Days Qty: 30 1RF bupropion HCl 300 mg tablet extended release 24 hr 300 mg PO DAILY 30 Days Qty: 30 1RF Continued vilazodone 40 mg tablet 40 mg PO DAILY 30 Days Qty: 30 2RF lisinopril 20 mg tablet 20 mg PO DAILY 30 Days Qty: 30 1RF tamsulosin 0.4 mg capsule 0.4 mg PO DAILY 30 Days Qty: 30 1RF tadalafil 20 mg tablet See Rx Instructions .ROUTE .COMPLEX Rx Instructions: TAKE 1 TABLET BY MOUTH 30 MINUTES BEFORE SEXUAL ACTIVITY Discontinued alfuzosin 10 mg tablet extended release 24 hr 10 mg PO DAILY dapagliflozin propanediol [Farxiga] 5 mg tablet 5 mg PO DAILY pramipexole 0.25 mg tablet 0.25 mg PO DAILY zolpidem 12.5 mg tablet,ext release multiphase 12.5 mg PO BEDTIME quetiapine 200 mg tablet 400 mg PO BEDTIME mirtazapine 15 mg tablet 30 mg PO BEDTIME vilazodone 20 mg tablet 20 mg PO DAILY venlafaxine 150 mg capsule,extended release 24hr 150 mg PO DAILY sertraline 100 mg tablet 100 mg PO DAILY lisinopril-hydrochlorothiazide 20-25 mg tablet 20 - 25 tab PO DAILY Trulicity 0.75 mg/0.5 mL pen injector 0.75 mg SUBCUT Q7D lorazepam 0.5 mg tablet 0.5 mg PO BID PRN (Reason: Anxiety) Discharge Orders: Discharge Order (Routine); Ordered 11/03/24 Ordered By: Akshat Mcgraw Referrals: MIRANDA Wilson [Other] - 11/04/24 4:00 pm (Follow up) [facility] [Other] - 11/10/24 2:15 am (Assessment appointment.) [facility] [Other] - 11/07/24 11:20 am (Appointment brett Iraheta [facility] Discharge Diet: Diabetic Discharge Activity: Resume usual activity Patient Instructions: Propranolol (By mouth) (Inderal LA, Inderal XL, InnoPran XL, Hemangeol), Bupropion (By mouth) (Zyban, Wellbutrin XL, Wellbutrin SR, Wellbutrin), Diazepam (By mouth) (Diazepam Intensol, Valium, [place]av[place]-5), Trazodone (By mouth) (Desyrel, Desyrel Dividose, Oleptro, Trazamine), Quetiapine (By mouth) (Seroquel, Seroquel XR, Seroquel XR 14-Day..., Suicide Prevention (DC), Depression Management for Older Adults (ED), Opioid Safety Activity Restrictions/Additional Instructions: Most likely patient can be discharged off oral hypoglycemic with advised to follow-up with PCP within next 3 months for a repeat A1c. If A1c remains normal most likely can hold off on using antiglide diabetic medications. Discharge Attestations NPU Time Spent in Discharge Care*: greater than 30 min Specific Discharge Activities: Specific discharge activities: educating patient, discussing with test case developer/social workers/dc planners, documenting/other paperwork and evaluating patient/reviewing data Coding Level of Care Code Acute Code for Chg Fwd Diagnoses Major depressive disorder, recurrent F33.9 Active/Remission status: currently active Psychotic features: with psychotic features Suicidal ideation R45.851 Personality disorder, unspecified F60.9 Type 2 diabetes mellitus E11.9 Hypertension I10 Bereavement Z63.4 BROCK (generalized anxiety disorder) F41.1
[2024-11-03 11:03] VITALS: BP 152/90; PULSE 66; RESP 16; TEMP 36.6; O2SAT 95
[2024-11-03] MEDS: lisinopril 20 mg Tablet PO (11:07)
[2024-11-03 11:33] LABS: Glucose Point of Care 99 mg/dL (70-110)
== END 2024-11-03 13:41 | disposition home or self-care (01) | DRG 885 ==
LOC: ER 13:59 → NP 14:10 → MEDSURG 09-21 12:07 → NP 09-22 18:56 → ICU 10-03 12:03 → NP 10-08 17:09
PROVIDERS: Family Medicine; Internal Medicine; Psychiatry & Neurology Psychiatry; Student in an Organized Health Care Education/Training Program; Admitting Provider Psychiatry & Neurology Psychiatry; Emergency Provider Emergency Medicine; Visit Provider Psychiatry & Neurology Psychiatry
DX: F33.3 Major depressive disorder, recurrent, severe with psychotic symptoms (principal); J96.01 Acute respiratory failure with hypoxia; J69.0 Pneumonitis due to inhalation of food and vomit; R45.851 Suicidal ideations; N17.9 Acute kidney failure, unspecified; F41.1 Generalized anxiety disorder; E11.9 Type 2 diabetes mellitus without complications; I10 Essential (primary) hypertension; Z63.4 Disappearance and death of family member; F41.0 Panic disorder [episodic paroxysmal anxiety]; N40.0 Benign prostatic hyperplasia without lower urinary tract symptoms; T50.2X6A Underdosing of carbonic-anhydrase inhibitors, benzothiadiazides and other diuretics, initial encounter; T38.3X6A Underdosing of insulin and oral hypoglycemic [antidiabetic] drugs, initial encounter; I95.2 Hypotension due to drugs; T50.2X5A Adverse effect of carbonic-anhydrase inhibitors, benzothiadiazides and other diuretics, initial encounter; Y92.239 Unspecified place in hospital as the place of occurrence of the external cause; T43.505A Adverse effect of unspecified antipsychotics and neuroleptics, initial encounter; T17.328A Food in larynx causing other injury, initial encounter; W44.F3XA Food entering into or through a natural orifice, initial encounter; Y92.233 Cafeteria of hospital as the place of occurrence of the external cause; R94.5 Abnormal results of liver function studies; K29.70 Gastritis, unspecified, without bleeding; Z79.84 Long term (current) use of oral hypoglycemic drugs; Z79.85 Long-term (current) use of injectable non-insulin antidiabetic drugs; Z91.51 Personal history of suicidal behavior; Z88.0 Allergy status to penicillin
CPT/HCPCS: 36415; 36416; 36600; 51702; 70360; 70450; 70490; 71045; 71101; 72125; 74176; 74230; 80048; 80053; 80061; 80306; 80307; 81001; 81003; 82607; 82728; 82746; 82803; 82962; 83036; 83540; 83550; 83605; 83690; 83735; 84443; 84484; 85025; 92523; 92526; 92610; 92611; 93005; 94003; 94664; 94799; 96372; 96374; 96376; 97150; 97165; 99285; J1200; J1630; J1650; J1815; J1956; J2060; J2405; J2470; J2704; J3010; J3486; J3490; J7030; J7042; J7799; Q0163

== ENCOUNTER 2024-10-03 08:18 | Emergency (ER) | payer OTHER, SELFPAY ==
[2024-10-03] VITALS (7 sets, daily range): BP systolic 95–175; BP diastolic 64–108; PULSE 63–131; RESP 12–20; TEMP 36.7; O2SAT 94–100
--- NOTE | 2024-10-03 08:24 | XR_ITS ---
WS: [id number] XR chest 1V portable [id number] REASON FOR EXAM: CHOKED FINDINGS: Endotracheal tube tip just proximal to the rhett. Significant tortuosity and ectasia of the thoracic aorta for age. No acute pulmonary parenchymal or pleural abnormality. Significant gaseous distention of the stomach. XR/XR chest 1V portable [id number] IMPRESSION: No acute chest abnormality. Significant ectasia and tortuosity of the thoracic aorta for age. Significant gaseous distention of the stomach.
--- NOTE | 2024-10-03 08:28 | ECG_ITS ---
[facility]: 2024[facility]03 Pat Name: Solitario Jerez Department: Room: Gender: Male Cardiac Cath Rn: : [id number] Requested By: Luis Antonio Robbins Order Number: [id number] Esther MD: Hazel Duff M.D. Measurements Intervals [place] Rate: 112 P: 52 FL: 136 QRS: 41 QRSD: 90 T: 55 QT: 322 QTc: 441 Interpretive Statements SINUS TACHYCARDIA NONSPECIFIC ST & T-WAVE ABNORMALITY ABNORMAL RHYTHM ECG Compared to ECG 09/21/2024 15:50:43 Sinus rhythm no longer present Sinus arrhythmia no longer present T-wave abnormality still present Electronically Signed On 10-03-2024 18:11:43 LAB MANAGER by Hazel Duff M.D. [email or web address]
[2024-10-03] MEDS: propofol 10 mg/mL SDV 20 mL 100 MG IVP (08:32)
[2024-10-03] MEDS: fentaNYL 1,000 MCG/100 ML BAG 5 MCG IV (08:34)
[2024-10-03] MEDS: midazolam hcl 100 MG/100 ML BAG IV (08:35)
[2024-10-03] MEDS: propofol 10 mg/mL SDV 20 mL 50 MG IVP (08:41)
[2024-10-03 08:44] LABS: Basophils # 0.1 10^3/uL (0.0-0.1); Basophils % 0.7 %; Eosinophils # 0.1 10^3/uL (0.0-0.8); Eosinophils % 1.3 %; Hematocrit 45.8 % (37-53); Lymphocytes # 2.8 10^3/uL (0.8-4.8); Lymphocytes % 25.1 %; Mean Corpuscular HGB Conc 35.2 g/dL (30-55); Mean Corpuscular Hemoglobin 34.8 pg (27-33); Mean Corpuscular Volume 99.1 fl (82-101); Mean Platelet Volume 9.1 fL (7.4-10.4); Monocytes # 1.1 10^3/uL (0.2-0.9); Monocytes % 10.2 %; Neutrophils # 6.87 10^3/uL (1.8-7.7); Neutrophils % 62.3 %; Nucleated Red Blood Cells % 0 %; Platelet Count 272 10^3/cmm (157-399); Red Blood Count 4.62 10^6/uL (3.85-5.65); Red Cell Distribution Width 13.2 % (12.1-15.1); White Blood Count 11.01 10^3/uL (3.29-11.43)
[2024-10-03] MEDS: succinylcholine 20 mg/mL SDV 10mL 100 MG IVP (08:45)
[2024-10-03] MEDS: etomidate 2 mg/mL INJ SDV 10 mL 20 MG IVP (08:45)
[2024-10-03] MEDS: albuterol 2.5 mg/3 mL Neb INHALATION (08:49)
--- NOTE | 2024-10-03 08:50 | XR_ITS ---
WS: [email or web address] XR chest 1V portable [id number] REASON FOR EXAM: NG TUBE FINDINGS: Endotracheal tube tip proximal to the [place] [address]. The nasogastric tube has been placed within the dilated stomach. The tip is coiled within the fundus of the stomach. The lung orellana remain clear. XR/XR chest 1V portable [id number] IMPRESSION: Nasogastric tube placement as above.
[2024-10-03 09:01] LABS: ABG PCO2 43.9 mmHg (35-45); ABG PH Result 7.32 (7.35-7.45); Alveolar-Arterial Oxygen Gradi 39.3 mmHg (5-10); Arterial Blood Gas Hematocrit 48.7 % (42-52); Base Excess ABG -3.6 mmol/L (-2.0-2.0); Blood Gas Allen Test Pos; Blood Gas Operator Identificat CAK; Blood Gas Sample Site Brachial, left; Blood Gas Sample Type Arterial; Carboxyhemoglobin 0.6 %THgb (0.4-20.1); HCO3 ABG 22.6 mmol/L (22-26); HGB O2 Sat 97.4 % (95-100); Ionized Calcium Level - ABG 1.1 mmol/L (1.1-1.4); Methemoglobin 1.2 % (0.4-1.5); Oxygen Device VENT; Oxygen Saturation ABG 99.2; PO2 FiO2 Ratio Arterial Blood 205; Potassium Level - ABG 3.8 mmol/L (3.5-5.0); Total Hemoglobin 15.9 g/dL (14-18)
[2024-10-03 09:01] LABS: Troponin(5th) Baseline 10 ng/L (0-15)
[2024-10-03 09:03] LABS: Alanine Aminotransferase 41 U/L (0-41); Albumin Level 4.2 g/dL (3.5-5.2); Alkaline Phosphatase 85 U/L (40-130); Aspartate Amino Transferase 61 U/L (0-40); Blood Urea Nitrogen 16 mg/dL (6-20); Calcium 7.9 mg/dL (8.5-10.5); Carbon Dioxide 18 mmol/L (22-29); Chloride 103 mmol/L (98-107); Globulin 2.3 g/dL (1.3-4.6); Glomerular Filtration Rate 64.6 mL/min (90-130); Glucose 207 mg/dL (65-115); Osmolality Calculated 293 mOsm/kg (285-295); Sodium 138 mmol/L (136-145); Total Bilirubin 1.7 mg/dL (0.15-1.2); Total Protein 6.5 g/dL (6.6-8.7)
[2024-10-03 09:05] LABS: Anion Gap 21.3 (5-19); Potassium 4.3 mmol/L (3.5-5.1)
--- NOTE | 2024-10-03 09:08 | CT_ITS ---
WS: [id number] CT CERVICAL TRAUMA TECHNIQUE: Noncontrast CT of the cervical spine with coronal and sagittal reformatted images. CLINICAL INFORMATION: trauma COMPARISON: 09/20/2024 DLP: 2456.[address] scans at [facility] use at least one of these dose optimization techniques: automated e xposure control; mA and/or kV adjustment per patient size (includes targeted exams where dose is matc hed to clinical indication); or iterative reconstruction. FINDINGS: Reversal of the normal cervical lordosis. Normal craniocervical junction. Normal C1-C2 articulation. Dens is normal in appearance. Normal occipital condyles. Normal C1 ring. No evidence of acute fractu re or dislocation. Disc osteophyte complex C5-C6 with mild to moderate central canal stenosis unchang ed. Normal prevertebral soft tissues. Endotracheal and enteric tubes. Mastoids air cells are well aerated. CT/CT cervical spin wo con* [id number] IMPRESSION: No evidence of acute fracture or dislocation.
--- NOTE | 2024-10-03 09:08 | CT_ITS ---
WS: [id number] CT CHEST TECHNIQUE: Contrast enhanced CT of the chest with coronal and sagittal reformatted images. CLINICAL INFORMATION: aspiration food, resp arrest COMPARISON: None. DLP: 558.[address] scans at [facility] use at least one of these dose optimization techniques: automated e xposure control; mA and/or kV adjustment per patient size (includes targeted exams where dose is matc hed to clinical indication); or iterative reconstruction. FINDINGS: Endotracheal tube with tip above the rhett. Enteric tube with tip in the stomach. Subsegmental atele ctasis in the lung bases. Lungs are otherwise well aerated. Normal caliber thoracic aorta. Proximal m ain pulmonary arteries are normal. Cholecystectomy clips. Adrenal glands are normal. CT/CT chest w con* [id number] IMPRESSION: 1. Subsegmental atelectasis in the lung bases. Lungs are otherwise well aerate d. 2. Endotracheal tube with tip above the rhett. Enteric tube with tip in the s tomach. 3. No other acute findings.
--- NOTE | 2024-10-03 09:09 | CT_ITS ---
WS: [id number] CT HEAD TECHNIQUE: Noncontrast CT of the head obtained from the skullbase to the vertex. CLINICAL INFORMATION: trauma COMPARISON: 09/20/2024 DLP: 2456.[address] scans at [facility] use at least one of these dose optimization techniques: automated e xposure control; mA and/or kV adjustment per patient size (includes targeted exams where dose is matc hed to clinical indication); or iterative reconstruction. FINDINGS: No evidence of intracranial hemorrhage or mass effect. Ventricular system and basal cisterns are alexander nt. No extra-axial fluid collections. No evidence of mass or mass effect. Normal car-white different iation. Mastoid air cells are well aerated. Secretions in the posterior nasopharynx. Incidental cerebellar to nsillar ectopia. CT/CT head wo con* [id number] IMPRESSION: 1. No evidence of intracranial hemorrhage or mass effect. 2. No acute intracranial findings.
--- NOTE | 2024-10-03 09:11 | ED_ITS ---
HPI - General Adult 2 General: Chief complaint: Airway/Esophagus Foreign Body Stated complaint: rapid Time Seen by Provider: 10/03/24 08:27 History of Present Illness: 49-year-old male who is an inpatient in the MPU. A rapid response was called per policy we responded to the rapid response and the MPU when I arrived and found the patient on the floor being attended to by the MPU staff reporting that he had been choking on arrived it was approximately 10 minutes since he had started choking. He appeared markedly cyanotic he was moving some air but not adequate. Attempts were made to clear the airway by Heimlich maneuver which were unsuccessful. At this point it was decided since there was no appropriate equipment available there to proceed directly to the emergency room. On arrival to emergency room he was found to have oxygen sats in the upper 50 and 60 percentile that improved to 70s with oxygen supplementation and improved again with suctioning of the hypopharynx. He continued to have laryngeal spasm and decision was made to emergently intubate the patient to protect the airway. At the time of intubation a large amount of food debris was noted in the hypopharynx we manipulated around this successfully intubated. Related Data Home Medications Medication Instructions Recorded Confirmed alfuzosin 10 mg tablet,extended 10 mg PO DAILY 09/13/24 10/03/24 release 24 hr dapagliflozin propanediol 5 mg 5 mg PO DAILY 09/13/24 10/03/24 tablet (Farxiga) dulaglutide 0.75 mg/0.5 mL 0.75 mg SUBCUT Q7D 09/13/24 10/03/24 [facility] lisinopril 20 mg tablet 20 mg PO DAILY 09/13/24 10/03/24 lisinopril 20 20 - 25 tab PO DAILY 09/13/24 10/03/24 mg-hydrochlorothiazide 25 mg tablet lorazepam 0.5 mg tablet 0.5 mg PO BID PRN Anxiety 09/13/24 10/03/24 mirtazapine 15 mg tablet 30 mg PO BEDTIME 09/13/24 10/03/24 pramipexole 0.25 mg tablet 0.25 mg PO DAILY 09/13/24 10/03/24 quetiapine 200 mg tablet 400 mg PO BEDTIME 09/13/24 10/03/24 sertraline 100 mg tablet 100 mg PO DAILY 09/13/24 10/03/24 tamsulosin 0.4 mg capsule 0.4 mg PO DAILY 09/13/24 10/03/24 venlafaxine 150 mg 150 mg PO DAILY 09/13/24 10/03/24 capsule,extended release 24 hr vilazodone 20 mg tablet 20 mg PO DAILY 09/13/24 10/03/24 zolpidem 12.5 mg tablet,extended 12.5 mg PO BEDTIME 09/13/24 10/03/24 release,multiphase tadalafil 20 mg tablet See Rx Instructions .Route .COMPLEX 10/03/24 10/03/24 vilazodone 40 mg tablet 40 mg PO DAILY 10/03/24 10/03/24 Allergies Allergy/AdvReac Type Severity Reaction Status Date / Time Penicillins Allergy Unknown Unknown Verified 09/13/24 13:24 Review of Systems 2 General: Reports: ROS unobtainable due to medical condition PFSH ED 2 PFSH: Medical History Depression Type 2 diabetes mellitus Hypertension Family History Father Suicide Social History Smoking and tobacco/nicotine status: never used tobacco/nicotine Alcohol intake: never Substance/Drug Use: never Physical Exam 2 HENMT: COMMON NORMALS: normocephalic, atraumatic and hearing grossly normal bilaterally HEAD & SCALP: normocephalic and atraumatic Resp: EFFORT & INSPECTION: Yes abnormal respiratory pattern and Yes respiratory distress AUSCULTATION: rhonchi Cardio: COMMON NORMALS: regular rhythm and No murmurs present (Cardio) R ATE: tachycardic RHYTHM: regular rhythm Extremity: COMMON NORMALS: normal to inspection, capillary refill normal, no calf tenderness and no pedal edema Skin: COMMON NORMALS: no rashes or lesions noted GENERAL SKIN EXAM: no rashes or lesions noted Procedures Intubation sedative: Etomidate Mg Given: 20 paralytic: Succinylcholine Mg Given: 100 Laryngoscope: fiber optic video scope ET Tube Size: 8.5 ET Tube Uncuffed: No Tube Secured Depth (cm): 22 Tube Secured Location: teeth Tube Placement Confirmation: visualized tube passing through cords Intubation Complications: none Course 2 Vital Signs: Vital signs: Vital Signs Temperature 98.1 F 10/03/24 08:29 Pulse Rate 63 10/03/24 10:45 Respiratory Rate 12 10/03/24 10:26 Blood Pressure 95/73 10/03/24 10:45 Pulse Oximetry 100 10/03/24 10:45 Oxygen Delivery Me thod Mechanical Ventil ation 10/03/24 10:45 Fraction of Inspir ed Oxygen 30 10/03/24 10:26 MDM - General Adult Medical Decision Making Patient was unstable and his airway was at risk in the MPU there was no reasonable option except for returning to the emergency room. He was emergently brought back to the emergency room by wheelchair with assist he was in respiratory distress with significant laryngeal spasm upon arrival in the emergency room his oxygen sats are in the 56 percentile with supplementation we are get them to the low 70s after some suctioning they improved a bit more but he continued to have laryngeal spasm. Patient was emergently intubated with etomidate and succinylcholine significant amount of food debris noticed in the hypopharynx at the time of intubation also visualized food distal to the cords. As soon as we are able after intubation the hypopharynx is cleared with suction first blindly and then with the assistance of a laryngoscope confirmed there is no further food debris in the hypopharynx. It was suction below the cords through the ET tube did retrieve small amounts of food debris. CT does not show any air trapping CT head and neck are negative. Will admit to the ICU started on clindamycin prophylactically for aspiration pneumonia. Have discussed with Dr. Kasper he has written orders. Due to the patient's unstable condition we are forced to return him to the emergency room to stabilize since there was no available options on the inpatient side and the time was critical. He will be listed as a transfer from the MPU to the ICU. Medical Records I reviewed the patient's medical records. Lab Data I reviewed the patient's lab results. 10/03/24 08:37 10/03/24 08:37 Radiology Impressions Chest X-Ray 10/03/24 08:50 IMPRESSION: Nasogastric tube placement as above. Cervical Spine CT 10/03/24 09:08 IMPRESSION: No evidence of acute fracture or dislocation. Chest CT 10/03/24 09:08 IMPRESSION: 1. Subsegmental atelectasis in the lung bases. Lungs are otherwise well aerated. 2. Endotracheal tube with tip above the rhett. Enteric tube with tip in the stomach. 3. No other acute findings. Head CT 10/03/24 09:09 IMPRESSION: 1. No evidence of intracranial hemorrhage or mass effect. 2. No acute intracranial findings. Laboratory Results WBC 11.01 10^3/uL (3.29-11.43) 10/03/24 08:37 RBC 4.62 10^6/uL (3.85-5.65) 10/03/24 08:37 Hgb 16.10 g/dL (11.27-16.99) 10/03/24 08:37 Hct 45.8 % (37-53) 10/03/24 08:37 MCV 99.1 fl (82-101) 10/03/24 08:37 MCH 34.8 pg (27-33) H 10/03/24 08:37 MCHC 35.2 g/dL (30-55) 10/03/24 08:37 RDW 13.2 % (12.1-15.1) 10/03/24 08:37 Plt Count 272 10^3/cmm (157-399) 10/03/24 08:37 MPV 9.1 fL (7.4-10.4) 10/03/24 08:37 Neut % (Auto) 62.3 % 10/03/24 08:37 Lymph % (Auto) 25.1 % 10/03/24 08:37 [place] % (Auto) 10.2 % 10/03/24 08:37 Eos % (Auto) 1.3 % 10/03/24 08:37 Baso % (Auto) 0.7 % 10/03/24 08:37 Neut # (Auto) 6.87 10^3/uL (1.8-7.7) 10/03/24 08:37 Lymph # (Auto) 2.8 10^3/uL (0.8-4.8) 10/03/24 08:37 [place] # (Auto) 1.1 10^3/uL (0.2-0.9) H 10/03/24 08:37 Eos # (Auto) 0.1 10^3/uL (0.0-0.8) 10/03/24 08:37 Baso # (Auto) 0.1 10^3/uL (0.0-0.1) 10/03/24 08:37 Nucleated RBC % (auto) 0 % 10/03/24 08:37 Nucleated RBCs # 0.0 /100WBC 10/03/24 08:37 Specimen Type Arterial 10/03/24 08:50 Sample Site Brachial, left 10/03/24 08:50 ABG pH 7.32 (7.35-7.45) L 10/03/24 08:50 ABG pCO2 43.9 mmHg (35-45) 10/03/24 08:50 ABG pO2 144.0 mmHg (80.0-100.0) H 10/03/24 08:50 ABG PO2/FiO2 Ratio 205 10/03/24 08:50 ABG HCO3 22.6 mmol/L (22-26) 10/03/24 08:50 ABG O2 Saturation 99.2 10/03/24 08:50 ABG Base Excess -3.6 mmol/L (-2.0-2.0) L 10/03/24 08:50 Colt Test Pos 10/03/24 08:50 A-a O2 Gradient 39.3 mmHg (5-10) H 10/03/24 08:50 Hematocrit 48.7 % (42-52) 10/03/24 08:50 Hgb O2 Saturation 97.4 % (95-100) 10/03/24 08:50 Carboxyhemoglobin 0.6 %THgb (0.4-20.1) 10/03/24 08:50 Methemoglobin 1.2 % (0.4-1.5) 10/03/24 08:50 Total Hemoglobin 15.9 g/dL (14-18) 10/03/24 08:50 Sodium 141.0 mmol/L (131-143) 10/03/24 08:50 Potassium 3.8 mmol/L (3.5-5.0) 10/03/24 08:50 Glucose 198.0 mg/dL (70-115) H 10/03/24 08:50 Ionized Calcium 1.1 mmol/L (1.1-1.4) 10/03/24 08:50 O2 Delivery Device Vent 10/03/24 08:50 FiO2 70.0 % 10/03/24 08:50 Tidal Volume 0.50 10/03/24 08:50 PEEP 5.0 cmH20 10/03/24 08:50 Construction Technology Instructor ID Cak 10/03/24 08:50 Sodium 138 mmol/L (136-145) 10/03/24 08:37 Potassium 4.3 mmol/L (3.5-5.1) 10/03/24 08:37 Chloride 103 mmol/L (98-107) 10/03/24 08:37 Carbon Dioxide 18 mmol/L (22-29) L 10/03/24 08:37 Anion Gap 21.3 (5-19) H 10/03/24 08:37 BUN 16 mg/dL (6-20) 10/03/24 08:37 Creatinine 1.2 mg/dL (0.7-1.2) 10/03/24 08:37 GFR Calculation 64.6 mL/min (90-130) L 10/03/24 08:37 Glucose 207 mg/dL (65-115) H 10/03/24 08:37 Calculated Osmolality 293 mOsm/kg (285-295) 10/03/24 08:37 Calcium 7.9 mg/dL (8.5-10.5) L 10/03/24 08:37 Total Bilirubin 1.7 mg/dL (0.15-1.2) H 10/03/24 08:37 AST 61 U/L (0-40) H 10/03/24 08:37 ALT 41 U/L (0-41) 10/03/24 08:37 Alkaline Phosphatase 85 U/L (40-130) 10/03/24 08:37 Troponin T Baseline 10 ng/L (0-15) 10/03/24 08:37 Troponin T 120 Minute 11.61 ng/L (0-15) 10/03/24 10:11 Delta Troponin T 1.61 ABS# (0-10) 10/03/24 10:11 Total Protein 6.5 g/dL (6.6-8.7) L 10/03/24 08:37 Albumin 4.2 g/dL (3.5-5.2) 10/03/24 08:37 Globulin 2.3 g/dL (1.3-4.6) 10/03/24 08:37 Urine Color Yellow (Yellow) 10/03/24 10:45 Urine Appearance Clear (CLEAR) 10/03/24 10:45 Urine pH 5 (5-7) 10/03/24 10:45 Ur Specific [place] 1.015 (1.005-1.030) 10/03/24 10:45 Urine Protein 1+ (Negative) H 10/03/24 10:45 Urine Glucose (UA) Norm (Normal) 10/03/24 10:45 Urine Ketones Negative (Negative) 10/03/24 10:45 Urine Blood 2+ (Negative) H 10/03/24 10:45 Urine Nitrate Negative (Negative) 10/03/24 10:45 Urine Bilirubin Neg (Negative) 10/03/24 10:45 Urine Urobilinogen Norm mg/dL (Negative) 10/03/24 10:45 Ur Leukocyte Esterase Negative (Negative) 10/03/24 10:45 Amorphous Sediment Not Reportable 10/03/24 10:45 All radiology interpretation(s) finalized by discharge Critical Care Time 2 Critical Care Time: Critical Care Time: Yes Total Critical Care Time: 40 Attestation: The high probability of a clinically significant, sudden or life threatening deterioration of the patient's cardiovascular respiratory system(s) required my full and direct attention, intervention and personal management. The critical care time is as shown. This time is in addition to time spent performing any reported procedures but includes the following: [x] Data and vital sign review and interpretation [x] Patient assessment, examination and intervention [x] Documentation [x] Medication orders and management Discharge Plan Discharge Patient Disposition: Admitted As Inpatient Clinical Impression: Aspiration pneumonia, Hypertension, Type 2 diabetes mellitus, Choking due to food in larynx Condition: Stable Prescriptions: No Action alfuzosin 10 mg tablet extended release 24 hr 10 mg PO DAILY dapagliflozin propanediol [Farxiga] 5 mg tablet 5 mg PO DAILY pramipexole 0.25 mg tablet 0.25 mg PO DAILY zolpidem 12.5 mg tablet,ext release multiphase 12.5 mg PO BEDTIME lisinopril 20 mg tablet 20 mg PO DAILY quetiapine 200 mg tablet 400 mg PO BEDTIME mirtazapine 15 mg tablet 30 mg PO BEDTIME vilazodone 20 mg tablet 20 mg PO DAILY venlafaxine 150 mg capsule,extended release 24hr 150 mg PO DAILY tamsulosin 0.4 mg capsule 0.4 mg PO DAILY sertraline 100 mg tablet 100 mg PO DAILY lisinopril-hydrochlorothiazide 20-25 mg tablet 20 - 25 tab PO DAILY Trulicity 0.75 mg/0.5 mL pen injector 0.75 mg SUBCUT Q7D lorazepam 0.5 mg tablet 0.5 mg PO BID PRN (Reason: Anxiety) vilazodone 40 mg tablet 40 mg PO DAILY tadalafil 20 mg tablet See Rx Instructions .ROUTE .COMPLEX Rx Instructions: TAKE 1 TABLET BY MOUTH 30 MINUTES BEFORE SEXUAL ACTIVITY Coding Level of Care Code ED Miner Assistant for Jose Handy
--- NOTE | 2024-10-03 09:18 | PC.PHAR ---
Addendum entered by Latasha Gorman 10/03/24 09:44: Med rec completed with current pt med list verified with Nae Crespo [phone]. [facility] is shown as his preferred pharmacy but they have never filled for him. last fill dates and days supply added in pharmacy notes. Original Note: pt unable to verify home medications-Nae in [place] is faxing current med list to compare
[2024-10-03] MEDS: iohexol 350 mg/mL 500 mL Btl (per mL) IV (09:29)
--- NOTE | 2024-10-03 09:40 | ECG_ITS ---
[facility]24-[facility]-03 Pat Name: Solitario Jerez Department: Room: Gender: Male Vp Training: : 1975 Requested By: Luis Antonio Robbins Order Number: [id number] Esther MD: Hazel Duff M.D. Measurements Intervals [place] Rate: 73 P: 43 [place]: 171 QRS: 55 QRSD: 94 T: 55 QT: 388 QTc: 430 Interpretive Statements SINUS RHYTHM Compared to ECG 10/03/2024 08:34:56 Sinus tachycardia no longer present T-wave abnormality no longer present Electronically Signed On 10-04-2024 16:07:40 OUTBOUND SALES CONSULTANT by Hazel Duff M.D. [id number]
[2024-10-03] MEDS: clindamycin 600 MG/50 ML PREMIX 100 MG IV (10:37)
[2024-10-03 11:01] LABS: Troponin 5 2HR 11.61 ng/L (0-15); Troponin 5 2HR Delta 1.61 ABS# (0-10)
[2024-10-03 11:02] LABS: Add Urine Microscopic? YES; Bilirubin Urine Neg (Negative); Blood Urine 2+ (Negative); Glucose Urine UA Norm (Normal); Ketones Urine Negative (Negative); Leukocyte Esterase Urine Negative (Negative); Nitrate Urine Negative (Negative); Protein Urine 1+ (Negative); Specific Gravity, Urine 1.015 (1.005-1.030); Urine Appearance Clear (CLEAR); Urine Color Yellow (Yellow); Urobilinogen Urine Norm (Negative); pH Urine 5 (5-7)
[2024-10-03 11:06] LABS: Bacteria Urine None Seen /hpf; Hyaline Casts Urine 50.89 /lpf; RBC Urine 0-2 /hpf (0-2); Squamous Epithelial Cell Urine 0-5 /hpf (0-5); WBC Urine 0-5 /hpf (0-5)
--- NOTE | 2024-10-03 11:15 | PC.NURSE ---
PROPOFOL AND ETOMIDATE GIVEN FOR INTUBATION, REMAINDER DISPOSED IN BIO-BIN WITH CATA CROUCH.
[2024-10-03 11:25] LABS: Add Urine Culture? No; Calcium Oxalate Crystals Urine 0-4 /hpf; Fine Granular Casts Urine 0-4 /lpf; UA Slide Review UA Slide Review Perf
== END 2024-10-03 12:50 | disposition admitted as inpatient to this hospital (09) ==
PROVIDERS: Emergency Provider Family Medicine
DX: J69.0 Pneumonitis due to inhalation of food and vomit (principal); T17.328A Food in larynx causing other injury, initial encounter; Z79.85 Long-term (current) use of injectable non-insulin antidiabetic drugs; E11.9 Type 2 diabetes mellitus without complications; I10 Essential (primary) hypertension; X58.XXXA Exposure to other specified factors, initial encounter
CPT/HCPCS: 31500; 36415; 36600; 51702; 70450; 71045; 71260; 72125; 80051; 80053; 81001; 82330; 82805; 84484; 85025; 87070; 87205; 93005; 94640; 94799; 96365; 96367; 96375; 99291; 99292; J0330; J2250; J2704; J3010; J3490; J7613